=== PATIENT | male | born 1955 | race Caucasian/White ===

== ENCOUNTER → 2016-11-03 | Outpatient (CLI) | payer BC ==
[2016-11-03 08:15] LABS: Blood Urea Nitrogen 17 mg/dL (9-20); Non-African American GFR(MDRD) >60 (>60 ml/min/1.73 sqM)
--- NOTE | 2016-11-03 09:42 | CT ---
EXAMINATION TYPE: CT abdomen pelvis w con DATE OF EXAM: 11/03/2016 COMPARISON: NONE HISTORY: Prostate cancer with increased PSA CT DLP: 1159 mGycm, Automated Exposure Control for Dose Reduction was Utilized. CONTRAST: CT scan of the abdomen and pelvis is performed with oral and with IV Contrast, patient injected with 100 ml mL of Omnipaque 300. FINDINGS: LUNG BASES: No significant abnormality is appreciated. LIVER/GB: No significant abnormality is appreciated. PANCREAS: No significant abnormality is seen. SPLEEN: No significant abnormality is seen. ADRENALS: No significant abnormality is seen. KIDNEYS: There are a few simple appearing cyst lower pole level right kidney. BOWEL: The oral contrast reaches level of the rectum. There is no suspicious small or large bowel dil atation. PROSTATE/SEMINAL VESICLES: Central zone calcifications are seen in normal size prostate gland. Scatte red pelvic phleboliths are present. No suspicious adjacent adenopathy is seen. LYMPH NODES: No greater than 1cm abdominal or pelvic lymph nodes are appreciated. OSSEOUS STRUCTURES: There is transitional-type vertebra at lumbosacral junction. OTHER: There is small fat-containing right inguinal hernia. There is mild to moderate mixed plaque in the aorta extending into pelvic branch vessels IMPRESSION: No worrisome mass or adenopathy is seen to suggest metastatic disease.
--- NOTE | 2016-11-03 11:28 | XR ---
EXAMINATION TYPE: XR chest 2V DATE OF EXAM: 11/03/2016 HISTORY: C61 prostate ca. REFERENCE: NONE. FINDINGS: There is a 5 mm nodule in the lateral aspect of the left midlung. Lungs otherwise clear. Pl eural spaces are clear. Heart size is normal. IMPRESSION: SOLITARY LEFT PULMONARY NODULE.
--- NOTE | 2016-11-03 14:17 | NM ---
EXAMINATION TYPE: NM bone scan whole body DATE OF EXAM: 11/03/2016 COMPARISON: NONE HISTORY: Prostate cancer. Delayed whole-body scanning was performed following the injection of 27.5 mCi Tc 99m MDP. Images acq uired 5 hours post injection. FINDINGS: No abnormal osseous uptake is seen. There is no scintigraphic evidence of metastases. IMPRESSION: NO SCINTIGRAPHIC EVIDENCE OF METASTASES AT THIS TIME.
== END | disposition home or self-care (01) ==
LOC: RADCTMAIN 07:37
PROVIDERS: ATTEND Urology
DX: C61 Malignant neoplasm of prostate (principal); R91.1 Solitary pulmonary nodule; R97.20 Elevated prostate specific antigen [PSA]
CPT/HCPCS: 82565; 84520; 71020; 74177; 36415; 78306; A9503; Q9967

== ENCOUNTER 2018-03-22 11:04 | Inpatient (IN) | payer BC ==
[2018-03-22] MEDS ORDERED: DILTIAZEM DRIP BOLUS FROM BAG 1 MG SOLN IV ONE (11:32)
--- NOTE | 2018-03-22 11:35 | ED ---
General Adult HPI - General Chief complaint: Recheck/Abnormal Lab/Rx Stated complaint: Abn EKG/AFIB Time Seen by Provider: 03/22/18 11:20 Source: patient, family, RN notes reviewed Mode of arrival: wheelchair Limitations: no limitations - History of Present Illness Initial comments: Patient is a pleasant 62-year-old male presenting to the emergency Department with concerns regarding arrhythmia. Patient did routine visit with his primary care physician today and was told his heart rate was too high. Call was received from Dr. Modi who had concerns for A. fib with a rate of 160. Patient does admit to feeling fatigued for the past week or 2. Patient has had some mild sharp left lateral chest discomfort over the past week or 2, minimal at this time. Patient denies any dyspnea. Patient does have occasional palpitations that is difficult for him to describe however he does not believe he has had any recently. Patient denies any history of atrial fibrillation. Patient does have history of prostate cancer and did finish radiation several months ago. Patient is currently on hormone therapy. - Related Data Home Medications Medication Instructions Recorded Confirmed Atorvastatin [Lipitor] 40 mg PO DAILY 03/22/18 03/22/18 Lisinopril [Zestril] 10 mg PO DAILY 03/22/18 03/22/18 Metoprolol Succinate [Toprol Xl] 50 mg PO DAILY 03/22/18 03/22/18 metFORMIN HCL [Glucophage] 500 mg PO BID 03/22/18 03/22/18 Allergies Allergy/AdvReac Type Severity Reaction Status Date / Time No Known Allergies Allergy Verified 03/22/18 11:56 Review of Systems ROS Statement: Those systems with pertinent positive or pertinent negative responses have been documented in the HPI. ROS Other: All systems not noted in ROS Statement are negative. Constitutional: Denies: fever Eyes: Denies: eye pain ENT: Denies: ear pain Respiratory: Denies: cough Cardiovascular: Reports: palpitations. Denies: chest pain Endocrine: Reports: fatigue Gastrointestinal: Denies: abdominal pain Genitourinary: Denies: dysuria Skin: Denies: rash Neurological: Denies: headache Past Medical History Past Medical History: Hypertension Additional Past Medical History / Comment(s): Prostate CA (in remission; last radiation in december.) History of Any Multi-Drug Resistant Organisms: None Reported Past Surgical History: Prostate Surgery Past Psychological History: No Psychological Hx Reported Smoking Status: Never smoker Past Alcohol Use History: None Reported Past Drug Use History: None Reported General Exam Limitations: no limitations General appearance: alert, in no apparent distress Head exam: Present: atraumatic Eye exam: Present: normal appearance, PERRL ENT exam: Present: mucous membranes dry Neck exam: Present: normal inspection Respiratory exam: Present: normal lung sounds bilaterally Cardiovascular Exam: Present: tachycardia, irregular rhythm Expanded Peripheral pulses: 2+: Radial (R), Radial (L), Dorsalis Pedis (R), Dorsalis Pedis (L) GI/Abdominal exam: Present: soft. Absent: tenderness Extremities exam: Present: normal inspection. Absent: pedal edema, calf tenderness Neurological exam: Present: alert Psychiatric exam: Present: normal affect, normal mood Skin exam: Present: normal color Course Vital Signs 03/22/18 03/22/18 03/22/18 11:12 11:29 12:30 Temperature 97.5 F L Pulse Rate 90 74 Respiratory 18 20 18 Rate Blood Pressure 143/101 132/84 O2 Sat by Pulse 98 94 L 96 Oximetry 03/22/18 03/22/18 03/22/18 12:34 13:00 13:30 Temperature Pulse Rate 73 83 80 Respiratory 16 20 19 Rate Blood Pressure 140/87 132/92 143/89 O2 Sat by Pulse 97 93 L 96 Oximetry 03/22/18 03/22/18 14:00 14:30 Temperature Pulse Rate 75 67 Respiratory 14 18 Rate Blood Pressure 141/102 126/83 O2 Sat by Pulse 97 99 Oximetry - Reevaluation(s) Reevaluation #1: 03/22/18 12:31 Patient reevaluated with conversion to sinus rhythm following Cardizem. EKG #2 at 1224 shows normal sinus rhythm 82. NV 1:30. QRS 76. QT 378. QTC 441. Normal axis. Right atrial enlargement. No acute ST change. EKG Findings - EKG Comments: EKG Findings:: A. fib with RVR, rate 180. QRS 80. QT to 52. QTC 439. Normal axis. Normal QRS. Nonspecific ST-T. Medical Decision Making - Medical Decision Making Patient reevaluated and is in sinus rhythm. Blood sugar remains high. Patient updated on results and plan. Case was discussed in detail with Dr. Kuhn, who will admit for Dr. Diaz. Consult placed for cardiology. - Lab Data Result diagrams: 03/22/18 11:45 03/22/18 11:45 Lab Results 03/22/18 03/22/18 03/22/18 Range/Units 11:45 11:45 11:45 WBC 5.5 (3.8-10.6) k/uL RBC 4.83 (4.30-5.90) m/uL Hgb 15.8 (13.0-17.5) gm/dL Hct 47.1 (39.0-53.0) % MCV 97.6 (80.0-100.0) fL MCH 32.7 (25.0-35.0) pg MCHC 33.5 (31.0-37.0) g/dL RDW 12.1 (11.5-15.5) % Plt Count 196 (150-450) k/uL Neutrophils % 74 % Lymphocytes % 16 % Monocytes % 7 % Eosinophils % 1 % Basophils % 0 % Neutrophils # 4.0 (1.3-7.7) k/uL Lymphocytes # 0.9 L (1.0-4.8) k/uL Monocytes # 0.4 (0-1.0) k/uL Eosinophils # 0.1 (0-0.7) k/uL Basophils # 0.0 (0-0.2) k/uL PT (9.0-12.0) sec INR (<1.2) APTT (22.0-30.0) sec Sodium 143 (137-145) mmol/L Potassium 4.3 (3.5-5.1) mmol/L Chloride 106 (98-107) mmol/L Carbon Dioxide 21 L (22-30) mmol/L Anion Gap 16 mmol/L BUN 22 H (9-20) mg/dL Creatinine 0.95 (0.66-1.25) mg/dL Est GFR (CKD-EPI)AfAm >90 (>60 ml/min/1.73 sqM) Est GFR (CKD-EPI)NonAf 85 (>60 ml/min/1.73 sqM) Glucose 413 H (74-99) mg/dL POC Glucose (mg/dL) (75-99) mg/dL POC Glu [employer] ID Calcium 9.9 (8.4-10.2) mg/dL Magnesium 1.9 (1.6-2.3) mg/dL Total Bilirubin 1.6 H (0.2-1.3) mg/dL AST 44 (17-59) U/L ALT 52 (21-72) U/L Alkaline Phosphatase 139 H (38-126) U/L Total Creatine Kinase 316 H (55-170) U/L CK-MB (CK-2) 1.3 (0.0-2.4) ng/mL CK-MB (CK-2) Rel Index 0.4 Troponin I <0.012 (0.000-0.034) ng/mL Total Protein 7.7 (6.3-8.2) g/dL Albumin 4.2 (3.5-5.0) g/dL TSH 0.508 (0.465-4.680) mIU/L Free T4 1.55 (0.78-2.19) ng/dL Free T3 pg/mL 2.9 (2.8-5.3) pg/ml 03/22/18 03/22/18 Range/Units 11:45 13:39 WBC (3.8-10.6) k/uL RBC (4.30-5.90) m/uL Hgb (13.0-17.5) gm/dL Hct (39.0-53.0) % MCV (80.0-100.0) fL MCH (25.0-35.0) pg MCHC (31.0-37.0) g/dL RDW (11.5-15.5) % Plt Count (150-450) k/uL Neutrophils % % Lymphocytes % % Monocytes % % Eosinophils % % Basophils % % Neutrophils # (1.3-7.7) k/uL Lymphocytes # (1.0-4.8) k/uL Monocytes # (0-1.0) k/uL Eosinophils # (0-0.7) k/uL Basophils # (0-0.2) k/uL PT 10.7 (9.0-12.0) sec INR 1.1 (<1.2) APTT 19.8 L (22.0-30.0) sec Sodium (137-145) mmol/L Potassium (3.5-5.1) mmol/L Chloride (98-107) mmol/L Carbon Dioxide (22-30) mmol/L Anion Gap mmol/L BUN (9-20) mg/dL Creatinine (0.66-1.25) mg/dL Est GFR (CKD-EPI)AfAm (>60 ml/min/1.73 sqM) Est GFR (CKD-EPI)NonAf (>60 ml/min/1.73 sqM) Glucose (74-99) mg/dL POC Glucose (mg/dL) 351 H (75-99) mg/dL POC Glu [employer] ID Sophia Epstein Calcium (8.4-10.2) mg/dL Magnesium (1.6-2.3) mg/dL Total Bilirubin (0.2-1.3) mg/dL AST (17-59) U/L ALT (21-72) U/L Alkaline Phosphatase (38-126) U/L Total Creatine Kinase (55-170) U/L CK-MB (CK-2) (0.0-2.4) ng/mL CK-MB (CK-2) Rel Index Troponin I (0.000-0.034) ng/mL Total Protein (6.3-8.2) g/dL Albumin (3.5-5.0) g/dL TSH (0.465-4.680) mIU/L Free T4 (0.78-2.19) ng/dL Free T3 pg/mL (2.8-5.3) pg/ml - Radiology Data Radiology results: image reviewed (Chest x-ray shows no acute process) Critical Care Time Critical Care Time: Yes Total Critical Care Time: 33 Disposition Clinical Impression: Atrial fibrillation with RVR, Hyperglycemia Disposition: ADMITTED IP TO THIS HOSP Is patient prescribed a controlled substance at d/c from ED?: No Referrals: Roxi Winston DO [Primary Care Provider] - 1-2 days Decision Time: 15:04
[2018-03-22] MEDS: DILTIAZEM 50 MG in SODIUM CHLORIDE 0.9% 40 ML IV SCH ×5 (11:59→20:35)
--- NOTE | 2018-03-22 12:47 | XR ---
EXAMINATION TYPE: XR chest 1V portable DATE OF EXAM: 03/22/2018 HISTORY: Shortness of breath. COMPARISON: 11/03/2016 TECHNIQUE: Single view of the chest is submitted. FINDINGS: Demonstrated are scattered senescent parenchymal change. There is no evidence for focal infiltrate. The heart is stable. Stable granuloma left midlung zone. Hilar and mediastinal structures are within normal limits. Degenerative changes are seen of the dorsal spine. IMPRESSION: 1. Chronic changes without evidence for acute pulmonary disease.
[2018-03-22 12:50] LABS: Basophils % (A) 0 %; Eosinophils # (A) 0.1 k/uL (0-0.7); Eosinophils % (A) 1 %; HCT 47.1 % (39.0-53.0); HGB 15.8 gm/dL (13.0-17.5); Lymphocytes # (A) 0.9 k/uL (1.0-4.8); Lymphocytes % (A) 16 %; MCH 32.7 pg (25.0-35.0); MCHC 33.5 g/dL (31.0-37.0); MCV 97.6 fL (80.0-100.0); Mean Platelet Volume 8.1; Monocytes # (A) 0.4 k/uL (0-1.0); Monocytes % (A) 7 %; Neutrophils % (A) 74 %; Platelet Count 196 k/uL (150-450); RBC 4.83 m/uL (4.30-5.90); RDW 12.1 % (11.5-15.5); WBC 5.5 k/uL (3.8-10.6)
[2018-03-22 13:00] LABS: INR 1.1 (<1.2); Prothrombin Time 10.7 sec (9.0-12.0)
[2018-03-22 13:01] LABS: ALT 52 U/L (21-72); AST 44 U/L (17-59); Albumin 4.2 g/dL (3.5-5.0); Alkaline Phosphatase 139 U/L (38-126); Anion Gap 16 mmol/L; Blood Urea Nitrogen 22 mg/dL (9-20); Calcium 9.9 mg/dL (8.4-10.2); Carbon Dioxide 21 mmol/L (22-30); Chloride 106 mmol/L (98-107); Glucose 413 mg/dL (74-99); Magnesium 1.9 mg/dL (1.6-2.3); Potassium 4.3 mmol/L (3.5-5.1); Sodium 143 mmol/L (137-145); Total Bilirubin 1.6 mg/dL (0.2-1.3); Total Protein 7.7 g/dL (6.3-8.2)
[2018-03-22 13:11] LABS: Creatine Kinase 316 U/L (55-170)
[2018-03-22 13:16] LABS: T4, Free (Free Thyroxine) 1.55 ng/dL (0.78-2.19)
[2018-03-22 13:25] LABS: Creatine Kinase MB 1.3 ng/mL (0.0-2.4); Troponin I <0.012 ng/mL (0.000-0.034)
[2018-03-22 13:40] LABS: Partial Thromboplastin Time 19.8 sec (22.0-30.0)
[2018-03-22] MEDS: INSULIN ASPART 100 UNIT/ML 1 ML 10 ML VIAL SQ SCH ×2 (13:40→21:58)
[2018-03-22 13:41] LABS: Glucose,Whole Blood 351 mg/dL (75-99)
[2018-03-22] MEDS ORDERED: ASPIRIN 81 MG PO STA (15:04)
[2018-03-22] MEDS ORDERED: NITROGLYCERIN SL TABS 0.4 MG TAB SUBLINGUAL PRN (15:04)
[2018-03-22] MEDS ORDERED: HEPARIN SODIUM,PORCINE 5,000 UNIT/ML 1 ML VIAL IV ONE (15:23)
[2018-03-22] MEDS ORDERED: HEPARIN SODIUM,PORCINE 5,000 UNIT/ML 1 ML VIAL IV PRN (15:23)
--- NOTE | 2018-03-22 15:30 | P.HPIM ---
History of Present Illness H&P Date: 03/22/18 Chief Complaint: Elevated heart rate This is a 62-year-old male, patient of Dr. Winston. He has a known past medical history of prostate cancer completed radiation treatment in December 2017. Also history of hypertension, hyperlipidemia and diabetes mellitus type 2. Patient's was sent to the hospital from Dr. Santamaria office due to abnormal EKG and elevated heart rate. There he was found to be in atrial fibrillation with rapid ventricular response. Patient admits to being fatigued over the last couple weeks. He denies any chest pain heart palpitations or shortness of breath. Denies any dizziness or lightheadedness. EKG on admission showed atrial flutter fibrillation with a heart rate of 180. He was given Cardizem in the ER and converted to normal sinus rhythm. Thyroid level is normal. Cardiology has been consulted and patient be admitted to cardiac floor. Patient also denies any fever or chills or sweats. Denies any nausea vomiting bowel movement changes or urinary symptoms. Review of Systems Please refer to HPI otherwise unremarkable Past Medical History Past Medical History: Hypertension Additional Past Medical History / Comment(s): Prostate CA (in remission; last radiation in december.) History of Any Multi-Drug Resistant Organisms: None Reported Past Surgical History: Prostate Surgery Past Psychological History: No Psychological Hx Reported Smoking Status: Never smoker Past Alcohol Use History: None Reported Past Drug Use History: None Reported Medications and Allergies Home Medications Medication Instructions Recorded Confirmed Type Atorvastatin [Lipitor] 40 mg PO DAILY 03/22/18 03/22/18 History Lisinopril [Zestril] 10 mg PO DAILY 03/22/18 03/22/18 History Metoprolol Succinate [Toprol Xl] 50 mg PO DAILY 03/22/18 03/22/18 History metFORMIN HCL [Glucophage] 500 mg PO BID 03/22/18 03/22/18 History Allergies Allergy/AdvReac Type Severity Reaction Status Date / Time No Known Allergies Allergy Verified 03/22/18 11:56 Physical Exam Vitals: Vital Signs Temp Pulse Resp BP Pulse Ox 03/22/18 14:30 67 18 126/83 99 03/22/18 14:00 75 14 141/102 97 03/22/18 13:30 80 19 143/89 96 03/22/18 13:00 83 20 132/92 93 L 03/22/18 12:34 73 16 140/87 97 03/22/18 12:30 74 18 132/84 96 03/22/18 11:29 20 94 L 03/22/18 11:12 97.5 F L 90 18 143/101 98 Intake and Output 03/22/18 03/22/18 03/22/18 06:59 14:59 22:59 Intake Total 6.333 Balance 6.333 Intake: Intake, IV Titration 6.333 Amount Diltiazem 50 mg In Sodium 6.333 Chloride 0.9% 40 ml @ 10 MG/HR 10 mls/hr IV .Q5H [facility] Rx#:[id number] Other: Weight 78.925 kg Head normocephalic Neck supple Lungs clear to auscultation bilaterally no wheezing or crackles Heart regular rate and rhythm S1-S2, no rub or gallop Abdomen is soft nontender nondistended positive bowel sounds no hepatosplenomegaly Extremities no edema Neuro alert and orientated to 3 Results CBC & Chem 7: 03/22/18 11:45 03/22/18 11:45 Labs: Abnormal Lab Results - Last 24 Hours (Table) 03/22/18 03/22/18 03/22/18 Range/Units 11:45 11:45 11:45 Lymphocytes # 0.9 L (1.0-4.8) k/uL APTT (22.0-30.0) sec Carbon Dioxide 21 L (22-30) mmol/L BUN 22 H (9-20) mg/dL Glucose 413 H (74-99) mg/dL POC Glucose (mg/dL) (75-99) mg/dL Total Bilirubin 1.6 H (0.2-1.3) mg/dL Alkaline Phosphatase 139 H (38-126) U/L Total Creatine Kinase 316 H (55-170) U/L 03/22/18 03/22/18 Range/Units 11:45 13:39 Lymphocytes # (1.0-4.8) k/uL APTT 19.8 L (22.0-30.0) sec Carbon Dioxide (22-30) mmol/L BUN (9-20) mg/dL Glucose (74-99) mg/dL POC Glucose (mg/dL) 351 H (75-99) mg/dL Total Bilirubin (0.2-1.3) mg/dL Alkaline Phosphatase (38-126) U/L Total Creatine Kinase (55-170) U/L Assessment and Plan Assessment: 1. New onset of atrial fibrillation with rapid ventricular response: Patient converted to normal sinus rhythm after Cardizem drip. We'll place patient on IV heparin. Cardiology has been consulted. Thyroid level normal. Check echo 2. Elevated total bilirubin 1. 6 repeat labs in a.m. 3. History of prostate cancer completed radiation treatment in December 2017 4. Essential hypertension: Resume lisinopril and metoprolol 5. Diabetes mellitus type 2 with uncontrolled blood sugars. Patient had a glucose in the 400s. Placed on sliding scale coverage also will resume metformin. Check A1c. Patient has been without his metformin for about 2 weeks. 6. Hyperlipidemia continue Lipitor GI prophylaxis Pepcid and DVT prophylaxis IV heparin Time with Patient: Greater than 30 (Greater than 60% of the total time spent in counseling and coordination of care.I performed an examination of the patient and discussed their management with the physician Tricot Knitter. I have reviewed the Physician Tricot Knitter's notes and agree with the documented findings and plan of care)
[2018-03-22] MEDS: HEPARIN SOD,PORK IN 0.45% NACL 25,000 UNIT in 0.45% NACL 1 500ML.BAG IV SCH (15:51)
[2018-03-22 18:04] LABS: Glucose,Whole Blood 227 mg/dL (75-99)
[2018-03-22] MEDS: metFORMIN 500 MG TAB PO SCH (18:09)
[2018-03-22 18:31] LABS: Creatine Kinase 263 U/L (55-170)
[2018-03-22 18:44] LABS: Creatine Kinase MB 1.1 ng/mL (0.0-2.4); Troponin I <0.012 ng/mL (0.000-0.034)
[2018-03-22 20:21] LABS: Hemoglobin A1C 11.6 % (4.0-6.0)
[2018-03-22 21:09] LABS: Glucose,Whole Blood 329 mg/dL (75-99)
[2018-03-22 23:16] LABS: Creatine Kinase 244 U/L (55-170)
[2018-03-22 23:30] LABS: Troponin I <0.012 ng/mL (0.000-0.034)
[2018-03-23] MEDS: DILTIAZEM 50 MG in SODIUM CHLORIDE 0.9% 40 ML IV SCH ×2 (04:47→08:38)
[2018-03-23 05:56] LABS: Glucose,Whole Blood 245 mg/dL (75-99)
[2018-03-23] MEDS: metFORMIN 500 MG TAB PO SCH ×2 (06:54→16:18)
[2018-03-23] MEDS: INSULIN ASPART 100 UNIT/ML 1 ML 10 ML VIAL SQ SCH ×4 (06:54→20:55)
[2018-03-23 07:28] LABS: Basophils % (A) 1 %; Eosinophils # (A) 0.1 k/uL (0-0.7); Eosinophils % (A) 2 %; HCT 46.5 % (39.0-53.0); HGB 14.6 gm/dL (13.0-17.5); Lymphocytes # (A) 1.1 k/uL (1.0-4.8); Lymphocytes % (A) 22 %; MCH 30.9 pg (25.0-35.0); MCHC 31.4 g/dL (31.0-37.0); MCV 98.3 fL (80.0-100.0); Mean Platelet Volume 7.5; Monocytes # (A) 0.2 k/uL (0-1.0); Monocytes % (A) 5 %; Neutrophils # (A) 3.4 k/uL (1.3-7.7); Neutrophils % (A) 69 %; Platelet Count 191 k/uL (150-450); RBC 4.73 m/uL (4.30-5.90); RDW 12.2 % (11.5-15.5); WBC 4.9 k/uL (3.8-10.6)
[2018-03-23 08:01] LABS: Cholesterol 200 mg/dL (<200); HDL Cholesterol 53 mg/dL (40-60); LDL Cholesterol,Calculated 123 mg/dL (0-99); Triglycerides 120 mg/dL (<150)
--- NOTE | 2018-03-23 08:37 | P.CRDCN ---
History of Present Illness Consult date: 03/23/18 Requesting physician: Zachariah Kuhn Consult reason: atrial fibrillation Chief complaint: Atrial fibrillation History of present illness: This is a pleasant 62-year-old gentleman who has a known history of hypertension, diabetes, hyperlipidemia, nonsmoker, prostate cancer for which she completed radiation therapy in December of this year. Patient states he was at his primary care doctor's office for routine visit, he was found to be in atrial fibrillation with a rapid ventricular response and was directed to come to the emergency room for further evaluation. According to the patient, over the past couple of weeks he states that he has been more tired than lately, he denies any overt palpitations, no dizziness, states that maybe he has been a little more short of breath than his usual. He denies any prior history of atrial fibrillation. EKG on arrival here showed atrial fibrillation with a rapid ventricular response and nonspecific ST-T wave changes. Subsequent EKG shows normal sinus rhythm with no acute changes. Chest x-ray shows chronic changes without any evidence of pulmonary disease. Blood pressure on arrival 143/101, heart rate in the 90s, 98% on room air. He is afebrile. Blood pressure this morning 158/88, heart rate in the 60s, 100% on room air. Laboratory data was reviewed, white blood cell count 4.9, hemoglobin 14.6, platelet count 191. Sodium 143, potassium 4.3, BUN 22 and creatinine 0.9. Magnesium level I.9, total bilirubin 1.6, AST 44, ALT 52, alk phosphatase 139 on arrival. Troponins have been negative 3. Cholesterol 200, LDL 123, HDL 53 and triglycerides 120. TSH level 0.5, free T4 1 0.5 and T3 2 0.9. This morning patient remains in normal sinus rhythm, he feels well, states that he's back to his normal self. He is currently on IV heparin. Patient was educated regarding the need for anticoagulation for stroke prevention. We will check into Xarelto or Eliquis's coverage. The patient's home medications included Toprol 50 mg daily, Glucophage 500 twice a day, lisinopril 10 mg daily and Lipitor 40 mg daily. Past Medical History Past Medical History: Cancer, Diabetes Mellitus, Hyperlipidemia, Hypertension Additional Past Medical History / Comment(s): Prostate CA (in remission; last radiation in december 2017.) hx ulcers, hx of kidney stones History of Any Multi-Drug Resistant Organisms: None Reported Past Surgical History: Prostate Surgery Additional Past Surgical History / Comment(s): lithotripsy, prostatectomy, egd Past Anesthesia/Blood Transfusion Reactions: No Reported Reaction Additional Past Anesthesia/Blood Transfusion Reaction / Comment(s): clausterphobia. past blood transfusion-no reaction to it. Smoking Status: Never smoker - Past Family History Mother Family Medical History: Diabetes Mellitus, Hypertension Father History Unknown: Yes Medications and Allergies Home Medications Medication Instructions Recorded Confirmed Type Atorvastatin [Lipitor] 40 mg PO DAILY 03/22/18 03/22/18 History Lisinopril [Zestril] 10 mg PO DAILY 03/22/18 03/22/18 History Metoprolol Succinate [Toprol Xl] 50 mg PO DAILY 03/22/18 03/22/18 History metFORMIN HCL [Glucophage] 500 mg PO BID 03/22/18 03/22/18 History Allergies Allergy/AdvReac Type Severity Reaction Status Date / Time No Known Allergies Allergy Verified 03/22/18 11:56 Physical Exam Vitals: Vital Signs Temp Pulse Pulse Resp BP BP Pulse Ox 03/23/18 04:00 97.4 F L 61 18 159/88 100 03/22/18 23:52 97 18 03/22/18 23:51 97.2 F L 97 18 135/80 95 03/22/18 20:00 97.6 F 91 18 96/65 95 03/22/18 16:00 98.0 F 20 129/87 98 03/22/18 15:30 74 16 134/91 100 03/22/18 14:30 67 18 126/83 99 03/22/18 14:00 75 14 141/102 97 03/22/18 13:30 80 19 143/89 96 03/22/18 13:00 83 20 132/92 93 L 03/22/18 12:34 73 16 140/87 97 03/22/18 12:30 74 18 132/84 96 03/22/18 11:29 20 94 L 03/22/18 11:12 97.5 F L 90 18 143/101 98 Intake and Output 03/22/18 03/23/18 03/23/18 22:59 06:59 14:59 Intake Total 47.167 236.823 Balance 47.167 236.823 Intake: IV 50 Diltiazem 50 mg In Sodium 50 Chloride 0.9% 40 ml @ 10 MG/HR 10 mls/hr IV .Q5H [facility] Rx#:[id number] Intake, IV Titration 47.167 186.823 Amount Diltiazem 50 mg In Sodium 31.667 Chloride 0.9% 40 ml @ 10 MG/HR 10 mls/hr IV .Q5H [facility] Rx#:[id number] Diltiazem 50 mg In Sodium 15.5 46.667 Chloride 0.9% 40 ml @ 10 MG/HR 10 mls/hr IV .Q5H [facility] Rx#:[id number] Heparin Sod,Pork in 0.45% 140.156 NaCl 25,000 unit In 0.45 % NaCl 1 500ml.bag @ 12 UNITS/KG/HR 18.94 mls/hr IV .Q24H [facility] Rx#: [id number] Other: Voiding Method Toilet Toilet # Voids 1 2 Weight 77.5 kg PHYSICAL EXAMINATION: GENERAL: 62-year-old gentleman in no acute distress at the time of my examination HEENT: Head is atraumatic, normocephalic. Pupils equal, round. Sclera anicteric. Conjunctiva are clear. Mucous membranes of the mouth are moist. Neck is supple. There is no elevated jugular venous pressure. No carotid bruit is heard. HEART EXAMINATION: Heart S1, S2 normal. No murmur or gallop heard. CHEST EXAMINATION: Lungs are clear to auscultation and precussion. No chest wall tenderness is noted on palpation or with deep breathing. ABDOMEN: Soft, nontender. Bowel sounds are heard. No organomegaly noted. EXTREMITIES: 2+ peripheral pulses with no evidence of peripheral edema and no calf tenderness noted. NEUROLOGIC patient is awake, alert and oriented 3 . Results 03/23/18 06:42 03/22/18 11:45 Cardiac Enzymes 03/22/18 03/22/18 03/22/18 Range/Units 11:45 11:45 17:44 AST 44 (17-59) U/L CK-MB (CK-2) 1.3 1.1 (0.0-2.4) ng/mL Troponin I <0.012 <0.012 (0.000-0.034) ng/mL 03/22/18 Range/Units 22:45 AST (17-59) U/L CK-MB (CK-2) 1.0 (0.0-2.4) ng/mL Troponin I <0.012 (0.000-0.034) ng/mL Coagulation 03/22/18 03/22/18 03/23/18 Range/Units 11:45 22:45 06:42 PT 10.7 (9.0-12.0) sec APTT 19.8 L 37.4 H 53.3 H (22.0-30.0) sec Lipids 03/23/18 Range/Units 06:42 Triglycerides 120 (<150) mg/dL Cholesterol 200 H (<200) mg/dL HDL Cholesterol 53 (40-60) mg/dL CBC 03/22/18 03/23/18 Range/Units 11:45 06:42 WBC 5.5 4.9 (3.8-10.6) k/uL RBC 4.83 4.73 (4.30-5.90) m/uL Hgb 15.8 14.6 (13.0-17.5) gm/dL Hct 47.1 46.5 (39.0-53.0) % Plt Count 196 191 (150-450) k/uL Comprehensive Metabolic Panel 03/22/18 Range/Units 11:45 Sodium 143 (137-145) mmol/L Potassium 4.3 (3.5-5.1) mmol/L Chloride 106 (98-107) mmol/L Carbon Dioxide 21 L (22-30) mmol/L BUN 22 H (9-20) mg/dL Creatinine 0.95 (0.66-1.25) mg/dL Glucose 413 H (74-99) mg/dL Calcium 9.9 (8.4-10.2) mg/dL AST 44 (17-59) U/L ALT 52 (21-72) U/L Alkaline Phosphatase 139 H (38-126) U/L Total Protein 7.7 (6.3-8.2) g/dL Albumin 4.2 (3.5-5.0) g/dL Current Medications Generic Name Dose Route Start Last Admin Trade Name Freq PRN Reason Stop Dose Admin Aspirin 325 mg 03/23/18 09:00 Aspirin PO DAILY [facility] Atorvastatin Calcium 40 mg 03/23/18 09:00 Lipitor PO DAILY [facility] Famotidine 20 mg 03/23/18 09:00 Pepcid PO DAILY [facility] Heparin Sodium (Porcine) 0 unit 03/22/18 15:23 Heparin IV PER PROTOCOL PRN Low PTT Protocol Heparin Sodium/Sodium Chloride 500 mls @ 18.94 mls/hr 03/22/18 15:30 23:15 25,000 unit/ Sodium Chloride IV 15 units/kg/hr .Q24H [facility] 23.67 mls/hr Titration Protocol 12 UNITS/KG/HR Diltiazem HCl 50 mg/ Sodium 50 mls @ 10 mls/hr 03/22/18 19:00 03/23/18 04:47 Chloride IV Not Given .Q5H [facility]IN 10 MG/HR Insulin Aspart 0 unit 03/22/18 17:30 03/23/18 06:54 Novolog SQ 3 unit ACHS YIN Administration Protocol Lisinopril 10 mg 03/23/18 09:00 Zestril PO DAILY [facility] Metformin HCl 500 mg 03/22/18 17:30 03/23/18 06:54 Glucophage PO 500 mg BID-W/MEALS YIN Administration Metoprolol Succinate 50 mg 03/23/18 09:00 Toprol Xl PO DAILY [facility] Nitroglycerin 0.4 mg 03/22/18 15:04 Nitrostat SUBLINGUAL Q5M PRN Chest Pain Intake and Output 03/22/18 03/23/18 03/23/18 22:59 06:59 14:59 Intake Total 47.167 236.823 Balance 47.167 236.823 Intake: IV 50 Diltiazem 50 mg In Sodium 50 Chloride 0.9% 40 ml @ 10 MG/HR 10 mls/hr IV .Q5H [facility] Rx#:[id number] Intake, IV Titration 47.167 186.823 Amount Diltiazem 50 mg In Sodium 31.667 Chloride 0.9% 40 ml @ 10 MG/HR 10 mls/hr IV .Q5H [facility] Rx#:[id number] Diltiazem 50 mg In Sodium 15.5 46.667 Chloride 0.9% 40 ml @ 10 MG/HR 10 mls/hr IV .Q5H [facility] Rx#:[id number] Heparin Sod,Pork in 0.45% 140.156 NaCl 25,000 unit In 0.45 % NaCl 1 500ml.bag @ 12 UNITS/KG/HR 18.94 mls/hr IV .Q24H [facility] Rx#: [id number] Other: Voiding Method Toilet Toilet # Voids 1 2 Weight 77.5 kg 03/23/18 06:42 03/22/18 11:45 EKG Interpretations (text) Initial EKG showed atrial fibrillation with rapid ventricular response, subsequent EKG shows normal sinus rhythm with no acute changes. Assessment and Plan Plan: Assessment and plan #1 atrial fibrillation with rapid ventricular response, paroxysmal, currently in normal sinus rhythm. TSH normal. #2 hypertension #3 diabetes #4 hyperlipidemia #5 history of prostate cancer for which patient recently completed radiation therapy in December of this year. Plan We will obtain an echocardiogram with Doppler study. Discontinue IV Cardizem and increase the dose of metoprolol. We will also look into anticoagulation orally and initiate that on the patient. At which time we will discontinue the IV heparin. Further recommendations to follow. DNP note has been reviewed, I agree with a documented findings and plan of care. Patient was seen and examined.
[2018-03-23] MEDS: ATORVASTATIN 40 MG TAB PO SCH (08:38)
[2018-03-23] MEDS: LISINOPRIL 10 MG TAB PO SCH (08:38)
[2018-03-23] MEDS: FAMOTIDINE 20 MG TAB PO SCH (08:38)
[2018-03-23] MEDS: METOPROLOL SUCCINATE (ER) 100 MG TAB.ER.24H PO SCH (08:45)
[2018-03-23] MEDS ORDERED: ASPIRIN 325 MG TAB PO SCH (09:00)
[2018-03-23] MEDS ORDERED: ASPIRIN 81 MG PO SCH (09:00)
[2018-03-23] MEDS ORDERED: METOPROLOL SUCCINATE (ER) 50 MG TAB.ER.24H PO SCH (09:00)
--- NOTE | 2018-03-23 09:35 | ECHOF ---
Referral Reason:a fib MEASUREMENTS -------- HEIGHT: 177.8 cm WEIGHT: 78.9 kg BP: 126/83 RVIDd: 2.6 cm (< 3.3) IVSd: 1.1 cm (0.6 - 1.1) LVIDd: 3.1 cm (3.9 - 5.3) LVPWd: 1.1 cm (0.6 - 1.1) IVSs: 1.4 cm LVIDs: 1.9 cm LVPWs: 1.4 cm LAESV Index (A-L): 17.49 ml/m Ao Diam: 2.7 cm (2.0 - 3.7) AV Cusp: 1.8 cm (1.5 - 2.6) LA Diam: 3.2 cm (2.7 - 3.8) EPSS: 1.4 cm MV E Rashaun: 0.67 m/s MV DecT: 260 ms MV A Rashaun: 1.00 m/s MV E/A Ratio: 0.68 RAP: 5.00 mmHg RVSP: 25.11 mmHg MV EF SLOPE: 32.46 mm/s (70 - 150) MV EXCURSION: 1.87 cm (> 18.000) FINDINGS -------- Sinus rhythm. This was a technically adequate study. The left ventricular size is normal. There is borderline concentric left ventricular hypertrophy. Overall left ventricular systolic function is normal with, an EF between 55 - 60 %. The right ventricle is normal in size and function. Normal LA size by volume 22+/-6 ml/m2. RA appears enlarged. Aortic valve is trileaflet and is mildly thickened. There is no evidence of aortic regurgitation. There is no evidence of aortic stenosis. The mitral valve leaflets are mildly thickened. There is trace to mild mitral regurgitation. Trace tricuspid regurgitation present. Right ventricular systolic pressure is normal at < 35 mmHg. There is no evidence of pulmonary hypertension. The pulmonic valve was not well visualized. The aortic root size is normal. IVC Not well visulized. There is no pericardial effusion. CONCLUSIONS -------- 1. Sinus rhythm. 2. This was a technically adequate study. 3. The left ventricular size is normal. 4. There is borderline concentric left ventricular hypertrophy. 5. Overall left ventricular systolic function is normal with, an EF between 55 - 60 %. 6. Normal LA size by volume 22+/-6 ml/m2. 7. RA appears enlarged. 8. Aortic valve is trileaflet and is mildly thickened. 9. The mitral valve leaflets are mildly thickened. 10. There is trace to mild mitral regurgitation. 11. Trace tricuspid regurgitation present. 12. Right ventricular systolic pressure is normal at < 35 mmHg. 13. There is no evidence of pulmonary hypertension. 14. The pulmonic valve was not well visualized. 15. The aortic root size is normal. 16. IVC Not well visulized. 17. There is no pericardial effusion. CAFE HELPER: Brendan Vale RDCS
[2018-03-23 11:29] LABS: Glucose,Whole Blood 307 mg/dL (75-99)
--- NOTE | 2018-03-23 11:35 | P.PN ---
Subjective Progress Note Date: 03/23/18 This is a 62-year-old male, patient of Dr. Winston. He has a known past medical history of prostate cancer completed radiation treatment in December 2017. Also history of hypertension, hyperlipidemia and diabetes mellitus type 2. Patient's was sent to the hospital from Dr. Santamaria office due to abnormal EKG and elevated heart rate. There he was found to be in atrial fibrillation with rapid ventricular response. Patient admits to being fatigued over the last couple weeks. He denies any chest pain heart palpitations or shortness of breath. Denies any dizziness or lightheadedness. EKG on admission showed atrial flutter fibrillation with a heart rate of 180. He was given Cardizem in the ER and converted to normal sinus rhythm. Thyroid level is normal. Cardiology has been consulted and patient be admitted to cardiac floor. Patient also denies any fever or chills or sweats. Denies any nausea vomiting bowel movement changes or urinary symptoms. On 03/23/2018 patient was seen and examined on the cardiology floor he is alert and oriented 3 in no apparent distress he is in normal sinus rhythm, his pulse is 61 he was evaluated by cardiology Cardizem drip was discontinued and dose of metoprolol succinate was increased to 100 mg daily patient is still on IV heparin at this time we are awaiting lead case manager input in regards to oral anticoagulation coverage by insurance. Clinically patient is feeling well he denies any fever or chills no headache or dizziness no chest pain no shortness of breath no cough no palpitation no nausea or vomiting no abdominal pain no diarrhea and no urinary symptoms Objective - Vital Signs Vital signs: Vital Signs Temp 97.8 F 03/23/18 08:00 Pulse 73 03/23/18 08:00 Resp 18 03/23/18 08:00 BP 152/74 03/23/18 08:00 Pulse Ox 96 03/23/18 08:00 Intake & Output 03/22/18 03/23/18 03/23/18 18:59 06:59 18:59 Intake Total 38.000 252.323 236 Balance 38.000 252.323 236 Weight 78.925 kg 77.5 kg Intake: IV 50 Diltiazem 50 mg In Sodium 50 Chloride 0.9% 40 ml @ 10 MG/HR 10 mls/hr IV .Q5H [facility] Rx#:[id number] Intake, IV Titration 38.000 202.323 Amount Diltiazem 50 mg In Sodium 38.000 Chloride 0.9% 40 ml @ 10 MG/HR 10 mls/hr IV .Q5H [facility] Rx#:[id number] Diltiazem 50 mg In Sodium 62.167 Chloride 0.9% 40 ml @ 10 MG/HR 10 mls/hr IV .Q5H [facility] Rx#:[id number] Heparin Sod,Pork in 0.45% 140.156 NaCl 25,000 unit In 0.45 % NaCl 1 500ml.bag @ 12 UNITS/KG/HR 18.94 mls/hr IV .Q24H [facility] Rx#: [id number] Oral 236 Other: Voiding Method Toilet # Voids 1 2 - Exam Head normocephalic and atraumatic Neck supple no JVD no goiter Lungs clear to auscultation bilaterally no wheezing or crackles Heart regular rate and rhythm S1-S2, no rub or gallop Abdomen is soft nontender nondistended positive bowel sounds no hepatosplenomegaly Extremities no edema no cyanosis or clubbing Neuro alert and orientated to 3 with no gross focal deficit - Labs CBC & Chem 7: 03/23/18 06:42 03/22/18 11:45 Labs: Abnormal Lab Results - Last 24 Hours (Table) 03/22/18 03/22/18 03/22/18 Range/Units 11:45 11:45 11:45 Lymphocytes # 0.9 L (1.0-4.8) k/uL APTT (22.0-30.0) sec Carbon Dioxide 21 L (22-30) mmol/L BUN 22 H (9-20) mg/dL Glucose 413 H (74-99) mg/dL POC Glucose (mg/dL) (75-99) mg/dL Hemoglobin A1c (4.0-6.0) % Total Bilirubin 1.6 H (0.2-1.3) mg/dL Alkaline Phosphatase 139 H (38-126) U/L Total Creatine Kinase 316 H (55-170) U/L Cholesterol (<200) mg/dL LDL Cholesterol, Calc (0-99) mg/dL 03/22/18 03/22/18 03/22/18 Range/Units 11:45 11:45 13:39 Lymphocytes # (1.0-4.8) k/uL APTT 19.8 L (22.0-30.0) sec Carbon Dioxide (22-30) mmol/L BUN (9-20) mg/dL Glucose (74-99) mg/dL POC Glucose (mg/dL) 351 H (75-99) mg/dL Hemoglobin A1c 11.6 H (4.0-6.0) % Total Bilirubin (0.2-1.3) mg/dL Alkaline Phosphatase (38-126) U/L Total Creatine Kinase (55-170) U/L Cholesterol (<200) mg/dL LDL Cholesterol, Calc (0-99) mg/dL 03/22/18 03/22/18 03/22/18 Range/Units 17:44 18:00 21:07 Lymphocytes # (1.0-4.8) k/uL APTT (22.0-30.0) sec Carbon Dioxide (22-30) mmol/L BUN (9-20) mg/dL Glucose (74-99) mg/dL POC Glucose (mg/dL) 227 H 329 H (75-99) mg/dL Hemoglobin A1c (4.0-6.0) % Total Bilirubin (0.2-1.3) mg/dL Alkaline Phosphatase (38-126) U/L Total Creatine Kinase 263 H (55-170) U/L Cholesterol (<200) mg/dL LDL Cholesterol, Calc (0-99) mg/dL 03/22/18 03/22/18 03/23/18 Range/Units 22:45 22:45 05:54 Lymphocytes # (1.0-4.8) k/uL APTT 37.4 H (22.0-30.0) sec Carbon Dioxide (22-30) mmol/L BUN (9-20) mg/dL Glucose (74-99) mg/dL POC Glucose (mg/dL) 245 H (75-99) mg/dL Hemoglobin A1c (4.0-6.0) % Total Bilirubin (0.2-1.3) mg/dL Alkaline Phosphatase (38-126) U/L Total Creatine Kinase 244 H (55-170) U/L Cholesterol (<200) mg/dL LDL Cholesterol, Calc (0-99) mg/dL 03/23/18 03/23/18 03/23/18 Range/Units 06:42 06:42 11:25 Lymphocytes # (1.0-4.8) k/uL APTT 53.3 H (22.0-30.0) sec Carbon Dioxide (22-30) mmol/L BUN (9-20) mg/dL Glucose (74-99) mg/dL POC Glucose (mg/dL) 307 H (75-99) mg/dL Hemoglobin A1c (4.0-6.0) % Total Bilirubin (0.2-1.3) mg/dL Alkaline Phosphatase (38-126) U/L Total Creatine Kinase (55-170) U/L Cholesterol 200 H (<200) mg/dL LDL Cholesterol, Calc 123 H (0-99) mg/dL Assessment and Plan Plan: 1. New onset of atrial fibrillation with rapid ventricular response: Patient converted to normal sinus rhythm after Cardizem drip. We'll place patient on IV heparin. Cardiology has been consulted. Thyroid level normal. echo done yesterday and reveals normal left ventricular systolic function with ejection fraction of 55-60% no significant valvular disease and no pulmonary hypertension Patient is off Cardizem drip at this time he is on oral metoprolol succinate 100 mg daily he is in normal sinus rhythm he remains on IV heparin awaiting input from lead case manager regarding coverage for oral anticoagulation 2. Elevated total bilirubin 1. 6 repeat labs in a.m. 3. History of prostate cancer completed radiation treatment in December 2017 4. Essential hypertension: Resume lisinopril and metoprolol 5. Diabetes mellitus type 2 with uncontrolled blood sugars. Patient had a glucose in the 400s. Placed on sliding scale coverage also will resume metformin. Check A1c. Patient has been without his metformin for about 2 weeks. 6. Hyperlipidemia continue Lipitor GI prophylaxis Pepcid and DVT prophylaxis IV heparin At this time will monitor patient off the Cardizem drip on oral metoprolol Will await lead case manager input in regard to oral anticoagulation Possible discharge in the next 24 hours
[2018-03-23] MEDS: HEPARIN SOD,PORK IN 0.45% NACL 25,000 UNIT in 0.45% NACL 1 500ML.BAG IV SCH (11:38)
[2018-03-23 15:26] VITALS: BMI 24.5
[2018-03-23] MEDS: APIXABAN 5 MG TAB PO SCH ×2 (16:13→20:55)
[2018-03-23 16:15] VITALS: RESP 18
[2018-03-23 16:21] LABS: Glucose,Whole Blood 275 mg/dL (75-99)
[2018-03-23 20:52] LABS: Glucose,Whole Blood 232 mg/dL (75-99)
[2018-03-24 06:23] LABS: Glucose,Whole Blood 252 mg/dL (75-99)
[2018-03-24] MEDS: metFORMIN 500 MG TAB PO SCH (06:31)
[2018-03-24] MEDS: INSULIN ASPART 100 UNIT/ML 1 ML 10 ML VIAL SQ SCH ×2 (06:31→11:07)
[2018-03-24 06:48] LABS: Basophils % (A) 1 %; Eosinophils # (A) 0.1 k/uL (0-0.7); Eosinophils % (A) 3 %; HGB 13.5 gm/dL (13.0-17.5); Lymphocytes # (A) 0.8 k/uL (1.0-4.8); Lymphocytes % (A) 17 %; MCH 31.6 pg (25.0-35.0); MCHC 32.2 g/dL (31.0-37.0); MCV 98.2 fL (80.0-100.0); Mean Platelet Volume 7.5; Monocytes # (A) 0.3 k/uL (0-1.0); Monocytes % (A) 7 %; Neutrophils % (A) 70 %; Platelet Count 162 k/uL (150-450); RBC 4.28 m/uL (4.30-5.90); RDW 12.1 % (11.5-15.5); WBC 4.4 k/uL (3.8-10.6)
[2018-03-24] MEDS: APIXABAN 5 MG TAB PO SCH (08:21)
[2018-03-24] MEDS: ATORVASTATIN 40 MG TAB PO SCH (08:22)
[2018-03-24] MEDS: LISINOPRIL 10 MG TAB PO SCH (08:22)
[2018-03-24] MEDS: FAMOTIDINE 20 MG TAB PO SCH (08:22)
[2018-03-24] MEDS: METOPROLOL SUCCINATE (ER) 100 MG TAB.ER.24H PO SCH (08:22)
[2018-03-24 11:10] LABS: Glucose,Whole Blood 309 mg/dL (75-99)
[2018-03-24 11:11] VITALS: BP 98/59; PULSE 50; TEMP 97.7
--- NOTE | 2018-03-24 13:57 | P.PN ---
Subjective Mr. Velarde is a pleasant 62-year-old male past medical history significant for diabetes mellitus, dyslipidemia and hypertension. He also just completed radiation therapy for diagnosis of prostate cancer. Upon admission he was found to be in atrial fibrillation with rapid ventricular response. He has since converted to normal sinus mechanism. He has been anticoagulated with Eliquis coverage has been checked and is $21 per month. The patient and his states this is reasonable. Blood pressure 90/59 heart rate 50 afebrile maintaining oxygen saturation on room air. Laboratory data reviewed, hemoglobin 13.5, platelets 162. Echocardiogram obtained reveals preserved left ventricular systolic function with ejection fraction 55-60%. GENERAL: Well-appearing, well-nourished and in no acute distress. NECK: Supple without JVD or thyromegaly. LUNGS: Breath sounds clear to auscultation bilaterally. Respiration equal and unlabored. No wheezes, rales or rhonchi. HEART: Regular rate and rhythm without murmurs, rubs or gallops. S1 and S2 heard. EXTREMITIES: Normal range of motion, no edema. No clubbing or cyanosis. Peripheral pulses intact. ASSESSMENT Paroxysmal atrial fibrillation, new onset. Has been initiated on long-term anticoagulation Hypertension Dyslipidemia Diabetes mellitus History of prostate cancer with recent radiation completed course in December PLAN Continue current medical regimen. Stable from a cardiac perspective. Follow-up with Dr. Atkinson upon discharge. Nurse Practitioner note has been reviewed, I agree with a documented findings and plan of care. Patient was seen and examined. Objective - Vital Signs Vital signs: Vital Signs Temp 97.7 F 03/24/18 11:10 Pulse 50 L 03/24/18 11:10 Resp 18 03/24/18 11:10 BP 98/59 03/24/18 11:10 Pulse Ox 94 L 03/24/18 11:10 Intake & Output 03/23/18 03/24/18 03/24/18 18:59 06:59 18:59 Intake Total 1001.113 Balance 1001.113 Weight 77.5 kg 78.7 kg Intake: Intake, IV Titration 293.113 Amount Heparin Sod,Pork in 0.45% 293.113 NaCl 25,000 unit In 0.45 % NaCl 1 500ml.bag @ 12 UNITS/KG/HR 18.94 mls/hr IV .Q24H [facility] Rx#: [id number] Oral 708 Other: Voiding Method Toilet # Voids 1 - Labs CBC & Chem 7: 03/24/18 06:23 03/22/18 11:45 Labs: Abnormal Lab Results - Last 24 Hours (Table) 03/23/18 03/23/18 03/24/18 Range/Units 16:19 20:48 05:55 RBC (4.30-5.90) m/uL Lymphocytes # (1.0-4.8) k/uL POC Glucose (mg/dL) 275 H 232 H 252 H (75-99) mg/dL 03/24/18 03/24/18 Range/Units 06:23 11:06 RBC 4.28 L (4.30-5.90) m/uL Lymphocytes # 0.8 L (1.0-4.8) k/uL POC Glucose (mg/dL) 309 H (75-99) mg/dL
--- NOTE | 2018-03-24 14:46 | P.DS ---
Providers Date of admission: 03/22/18 15:04 Expected date of discharge: 03/24/18 Attending physician: Zachariah Kuhn Consults: 03/22/18 15:04 Consult Physician Urgent Consulting Provider: Chris Post Consult Reason/Comments: a fib Do you want consulting provider notified?: Yes Primary care physician: Rox[facility] Course: Diagnosis on discharge: 1. New onset of atrial fibrillation with rapid ventricular response: Patient converted to normal sinus rhythm after Cardizem drip. We'll place patient on IV heparin. Cardiology has been consulted. Thyroid level normal. echo done yesterday and reveals normal left ventricular systolic function with ejection fraction of 55-60% no significant valvular disease and no pulmonary hypertension Patient is off Cardizem drip at this time he is on oral metoprolol succinate 100 mg daily he is in normal sinus rhythm he remains on IV heparin awaiting input from shoe parts caser regarding coverage for oral anticoagulation 2. Elevated total bilirubin 1. 6 repeat labs in a.m. 3. History of prostate cancer completed radiation treatment in December 2017 4. Essential hypertension: Resume lisinopril and metoprolol 5. Diabetes mellitus type 2 with uncontrolled blood sugars. Patient had a glucose in the 400s. Placed on sliding scale coverage also will resume metformin. Check A1c. Patient has been without his metformin for about 2 weeks. 6. Hyperlipidemia continue Lipitor Hospital course: This is a 62-year-old male, patient of Dr. Winston. He has a known past medical history of prostate cancer completed radiation treatment in December 2017. Also history of hypertension, hyperlipidemia and diabetes mellitus type 2. Patient's was sent to the hospital from Dr. Santamaria office due to abnormal EKG and elevated heart rate. There he was found to be in atrial fibrillation with rapid ventricular response. Patient admits to being fatigued over the last couple weeks. He denies any chest pain heart palpitations or shortness of breath. Denies any dizziness or lightheadedness. EKG on admission showed atrial flutter fibrillation with a heart rate of 180. He was given Cardizem in the ER and converted to normal sinus rhythm. Thyroid level is normal. Cardiology has been consulted and patient be admitted to cardiac floor. Patient also denies any fever or chills or sweats. Denies any nausea vomiting bowel movement changes or urinary symptoms. On 03/23/2018 patient was seen and examined on the cardiology floor he is alert and oriented 3 in no apparent distress he is in normal sinus rhythm, his pulse is 61 he was evaluated by cardiology Cardizem drip was discontinued and dose of metoprolol succinate was increased to 100 mg daily patient is still on IV heparin at this time we are awaiting [employer] caser input in regards to oral anticoagulation coverage by insurance. Clinically patient is feeling well he denies any fever or chills no headache or dizziness no chest pain no shortness of breath no cough no palpitation no nausea or vomiting no abdominal pain no diarrhea and no urinary symptoms On 03/24/2018 patient is alert and oriented 3 in no apparent distress he remains in normal sinus rhythm no new episodes of atrial fibrillation he is maintained on metoprolol succinate 100 mg by mouth daily increased during this admission from 50 mg daily to 100 mg daily lisinopril dose was decreased from 10 mg daily to 5 mg daily also Eliquis 5 mg by mouth twice daily was added by cardiology and sublingual nitroglycerin was added when necessary. Patient was reevaluated egg and by cardiology today and was cleared for discharge he will follow with his primary care physician within one week he will also follow with cardiology within 1 week Plan - Discharge Summary Discharge Rx Participant: Yes New Discharge Prescriptions: New Apixaban [Eliquis] 5 mg PO BID tab Lisinopril [Zestril] 5 mg PO DAILY tab Metoprolol Succinate (ER) [Toprol XL] 100 mg PO DAILY tab.er.24h Nitroglycerin Sl Tabs [Nitrostat] 0.4 mg SUBLINGUAL Q5M PRN tab PRN Reason: Chest Pain Continue metFORMIN HCL [Glucophage] 500 mg PO BID Atorvastatin [Lipitor] 40 mg PO DAILY Discontinued Lisinopril [Zestril] 10 mg PO DAILY Metoprolol Succinate [Toprol Xl] 50 mg PO DAILY Discharge Medication List Atorvastatin [Lipitor] 40 mg PO DAILY 03/22/18 [History] metFORMIN HCL [Glucophage] 500 mg PO BID 03/22/18 [History] Apixaban [Eliquis] 5 mg PO BID tab 03/24/18 [Rx] Lisinopril [Zestril] 5 mg PO DAILY tab 03/24/18 [Rx] Metoprolol Succinate (ER) [Toprol XL] 100 mg PO DAILY tab.er.24h 03/24/18 [Rx] Nitroglycerin Sl Tabs [Nitrostat] 0.4 mg SUBLINGUAL Q5M PRN tab 03/24/18 [Rx] Follow up Appointment(s)/Referral(s): Brenda Atkinson MD [STAFF PHYSICIAN] - 2 Weeks Roxi Winston DO [Primary Care Provider] - 1-2 days
[2018-03-25] MEDS ORDERED: LISINOPRIL 5 MG TAB PO SCH (09:00)
== END 2018-03-24 15:24 | disposition home or self-care (01) | DRG 310 ==
LOC: EC 11:04 → 3SCARD 15:04
PROVIDERS: ADMIT Internal Medicine; ATTEND Internal Medicine
DX: I48.0 Paroxysmal atrial fibrillation (principal); E78.5 Hyperlipidemia, unspecified; I10 Essential (primary) hypertension; E11.65 Type 2 diabetes mellitus with hyperglycemia; I48.92 Unspecified atrial flutter; Z79.01 Long term (current) use of anticoagulants; Z79.890 Hormone replacement therapy; Z79.899 Other long term (current) drug therapy; Z82.49 Family history of ischemic heart disease and other diseases of the circulatory system; Z83.3 Family history of diabetes mellitus; Z85.46 Personal history of malignant neoplasm of prostate; Z87.442 Personal history of urinary calculi; Z92.3 Personal history of irradiation
CPT/HCPCS: 36415; 71045; 80053; 80061; 82550; 82553; 83036; 83735; 84439; 84443; 84481; 84484; 85025; 85610; 85730; 93005; 93306; 96365; 96366; 96367; 96376; 99291

== ENCOUNTER 2018-05-01 10:49 | Inpatient (IN) | payer BC ==
[~2018-05-01 10:49] MED LIST: ALPRAZolam 0.25 MG TAB PO PRN; ALPRAZolam 0.5 MG TAB PO PRN; ASPIRIN 325 MG TAB PO STA; ATORVASTATIN 80 MG TAB PO STA; NITROGLYCERIN SL TABS 0.4 MG TAB SUBLINGUAL PRN; SODIUM CHLORIDE 0.9% 1,000 ML in EMPTY BAG 1 BAG IV ONE
[2018-05-01] MEDS ORDERED: SODIUM CHLORIDE 0.9% 1,000 ML IV ONE (11:29)
[2018-05-01] MEDS ORDERED: fentaNYL (PF) 50 MCG/ML 2 ML AMP IVP ONE (12:21)
[2018-05-01] MEDS ORDERED: LIDOCAINE 1% INJ 10MG/ML (20 ML MDV) SQ ONE (12:22)
[2018-05-01] MEDS ORDERED: MIDAZOLAM 2 MG/2 ML VIAL IVP ONE (12:23)
[2018-05-01] MEDS ORDERED: VERAPAMIL SYRINGE (5 MG/10 ML) INTRAARTER ONE (12:26)
[2018-05-01 12:33] LABS: Glucose,Whole Blood 160 mg/dL (75-99)
[2018-05-01] MEDS ORDERED: NITROGLYCERIN 1000MCG/10ML SYRINGE INTRACORON ONE (12:34)
[2018-05-01] MEDS ORDERED: HEPARIN SODIUM 1,000 UN/ML (10ML VL) IV ONE (12:36)
[2018-05-01] MEDS ORDERED: IOPAMIDOL-370 125ML BTL INJ ONE (12:41)
[2018-05-01] MEDS ORDERED: RX INFO: IV CONTRAST WAS GIVEN 1 EACH MISC MISCELLANE PRN (12:59)
[2018-05-01] MEDS ORDERED: SODIUM CHLORIDE 0.9% 1,000 ML IV SCH (13:00)
--- NOTE | 2018-05-01 13:28 | CC ---
CARDIAC CATHETERIZATION REPORT Mr. Nicholas 62-year-old male with known history of diabetes, hypertension, hyperlipidemia, who was found to have an episode of paroxysmal atrial fibrillation. Subsequently underwent a myocardial perfusion imaging where he had apical reversible defect as well as short bursts of non-sustained ventricular tachycardia. In view of that, recommendation was made regarding cardiac catheterization. The procedure as well as the risks and the complications were discussed with the patient who is in full understanding and agreement. PROCEDURE: Patient was brought to the laboratory manager in a fasting semi-sedated state after receiving fentanyl and Benadryl and achieving moderate conscious sedated state. Using Xylocaine anesthesia in the Seldinger technique, a 6-[place] sheath was introduced in the right radial artery. Selective right and left angiography performed using 5-[place]ankan 3.5 bend right and left Idania catheters. Multiple views of the coronary artery including hemiaxial views were obtained. Following that, a 5-[place] tight pigtail catheter was introduced in the left ventricle and a 30-degree ALONZO view of the left ventricle was obtained. Following that, catheter and sheaths were removed. Hemostasis was obtained with deployment of a TR band. There was no immediate complication. Patient is returned to his room in stable condition. Of note, the patient received 4500 units of intravenous heparin. FINDINGS: FLUOROSCOPY: There was significant calcification involving all the coronary arteries. LEFT MAIN: This is a large-sized vessel bifurcating in the left circumflex and left anterior descending artery. Left main coronary artery has a 60% to 70% plaque in the mid segment prior to the bifurcation. LEFT ANTERIOR DESCENDING ARTERY: This is a large-sized vessel reaching toward the apex with a wraparound apex segment giving rise to 2 diagonal branches. In the proximal segment, there is an eccentric 80% stenosis. There is another plaque of 80% to 90% stenosis at the takeoff of the second diagonal branch involving the diagonal branch. The rest of the vessel has intimal disease without any evidence of high-grade stenosis. LCX: This is a large nondominant vessel giving rise to 3 obtuse marginal branches. The first obtuse marginal branch is the smallest and has a 80% to 90% stenosis proximally. The second obtuse marginal branch is large in caliber and has a 70% stenosis proximally. The rest of the vessel has intimal disease without any evidence of high-grade stenosis. RIGHT CORONARY ARTERY: This is a large dominant vessel bifurcating distally PDA and posterolateral segment and branches heavily calcified throughout the course of the vessel. The right coronary artery in the mid segment has a 20% to 30% plaque. There is another plaque of 40% at the takeoff of the obtuse marginal branch. The rest of the vessel has intimal disease without any evidence of high-grade stenosis. LEFT VENTRICULOGRAM: Left ventriculogram is performed 30-degree ALONZO view and revealed normal left ventricular size and systolic function. Ejection fraction 60%. There was no significant mitral regurgitation. HEMODYNAMICS: There was no gradient across the aortic valve. The left ventricular end- diastolic pressure was 10 to 12 mmHg. CONCLUSION: 1. Calcified coronary arteries. 2. Significant mid left main disease. 3. Significant obstructive disease involving the left anterior descending artery and the left circumflex. 4. Moderate disease in the right coronary artery. 5. Normal left ventricular size and systolic function. RECOMMENDATION: In view of finding in the anatomy as well as the history of diabetes mellitus, I recommend proceeding with evaluation for coronary artery bypass grafting. The finding and recommendations were discussed with the patient and his family who are in full understanding and agreement. Duration of procedure is 20 minutes. MMODL / IJN: [id number] / OLMAN
[2018-05-01] MEDS ORDERED: MD COMMUNICATION TO PHARMACY 1 EACH MISC PO ONE ×2 (16:14)
[2018-05-01 16:55] LABS: Glucose,Whole Blood 214 mg/dL (75-99)
--- NOTE | 2018-05-01 17:12 | P.CNPUL ---
History of Present Illness Consult date: 05/01/18 Chief complaint: Coronary artery disease, preoperative pulmonary evaluation History of present illness: This is a 62-year-old male patient, poorly controlled diabetic, hypertension, hyperlipidemia and known history of proximal atrial fibrillation wasn't experiencing exertional dyspnea. The patient underwent a cardiac stress test that showed apical reversible defect as well as bursts of nonsustained ventricular tachycardia. Based on this, the patient underwent a cardiac catheterization through the right radial approach and the patient was found to have a 6070% plaque in the mid segment of the left main prior to its bifurcation. At this point in time the patient is being considered for coronary artery bypass surgery. The pulmonary consultation was requested in this regard. The patient is doing well. No specific complaints. History of any chest pain. He has no history of asthma emphysema. No cough sputum production chest tightness or wheezing at this point. No recurrent pneumonias. No recurrent bronchitis. No aspiration. Most of CVA. Mental status is well preserved and it's appropriate. Most of dementia. He suffers from prostate cancer that was initiated. With a prostatectomy at [facility] and subsequently the patient received radiation therapy here at [facility]. He has completed his radiation therapy. His overall performance and functional status is well preserved. He has been in sinus rhythm for now. Is on long-term anticoagulation. His rate is under good control. His father of complications of cardiac disease in the mid 60s. Review of Systems Constitutional: Denies chills, Denies fever Eyes: denies blurred vision, denies bulging eye, denies decreased vision Ears: deny: decreased hearing, ear discharge, earache, tinnitus Ears, nose, mouth and throat: Denies headache, Denies sore throat Cardiovascular: Reports decreased exercise tolerance, Reports dyspnea on exertion, Reports rapid heart beat Respiratory: Reports dyspnea Gastrointestinal: Denies abdominal pain, Denies diarrhea, Denies nausea, Denies vomiting Genitourinary: Reports urinary frequency, Reports urinary hesitancy Musculoskeletal: Denies myalgias Musculoskeletal: absent: ankle pain, ankle stiffness, ankle swelling Integumentary: Reports as per HPI Neurological: Reports as per HPI Psychiatric: Reports as per HPI Endocrine: Reports as per HPI Hematologic/Lymphatic: Reports as per HPI Allergic/Immunologic: Reports as per HPI Past Medical History Past Medical History: Atrial Flutter, Cancer, Diabetes Mellitus, Hyperlipidemia , Hypertension Additional Past Medical History / Comment(s): Prostate CA (in remission; last radiation in december 2017.) hx ulcers, hx of kidney stones History of Any Multi-Drug Resistant Organisms: None Reported Past Surgical History: Prostate Surgery Additional Past Surgical History / Comment(s): lithotripsy, prostatectomy, egd Past Anesthesia/Blood Transfusion Reactions: No Reported Reaction Additional Past Anesthesia/Blood Transfusion Reaction / Comment(s): clausterphobia. past blood transfusion-no reaction to it. Past Psychological History: Anxiety Additional Psychological History / Comment(s): STATES NO MEDICATION Smoking Status: Never smoker Past Alcohol Use History: None Reported Past Drug Use History: None Reported - Past Family History Mother Family Medical History: Diabetes Mellitus, Hypertension Father History Unknown: Yes Medications and Allergies Home Medications Medication Instructions Recorded Confirmed Type Atorvastatin [Lipitor] 40 mg PO DAILY 03/22/18 05/01/18 History metFORMIN HCL [Glucophage] 500 mg PO BID 03/22/18 05/01/18 History Apixaban [Eliquis] 5 mg PO BID tab 03/24/18 05/01/18 Rx Lisinopril [Zestril] 5 mg PO DAILY tab 03/24/18 05/01/18 Rx Metoprolol Succinate (ER) [Toprol 100 mg PO DAILY tab.er.24h 03/24/18 05/01/18 Rx XL] Nitroglycerin Sl Tabs [Nitrostat] 0.4 mg SUBLINGUAL Q5M PRN tab 03/24/18 Rx Allergies Allergy/AdvReac Type Severity Reaction Status Date / Time No Known Allergies Allergy Verified 04/26/18 10:55 Physical Exam Vitals: Vital Signs Temp Pulse Pulse Pulse Resp BP BP 05/01/18 16:00 18 05/01/18 14:58 98.1 F 53 L 18 135/73 05/01/18 14:14 52 L 16 118/58 05/01/18 13:44 50 L 16 114/55 05/01/18 13:29 50 L 16 118/69 05/01/18 13:14 61 16 114/67 05/01/18 12:59 61 16 139/75 05/01/18 11:31 97.9 F 60 16 161/77 151/71 Pulse Ox 05/01/18 16:00 05/01/18 14:58 97 05/01/18 14:14 96 05/01/18 13:44 97 05/01/18 13:29 98 05/01/18 13:14 96 05/01/18 12:59 95 05/01/18 11:31 97 Intake and Output 05/01/18 05/01/18 05/01/18 06:59 14:59 22:59 Intake Total 750 Output Total 300 Balance 450 Intake: IV 150 Oral 600 Output: Urine 300 Other: Weight 80.1 kg The patient appeared well nourished and normally developed. Vital signs as documented. Head exam is unremarkable. No scleral icterus or corneal arcus noted. Neck is without jugular venous distension, thyromegaly, or carotid bruits. Carotid upstrokes are brisk bilaterally. Lungs are clear to auscultation and percussion. Cardiac exam reveals the PMI to be normally sized and situated. Rhythm is regular. First and second heart sounds normal. No murmurs, rubs or gallops. Abdominal exam reveals normal bowel sounds, no masses , no organomegaly and no aortic enlargement. Extremities are nonedematous and both femoral and pedal pulses are normal. My normal skin neurologically the patient is awake and alert and there is no focal neurological deficit at this point in time. Results - Laboratory Findings Abnormal lab findings: Abnormal Labs 05/01/18 05/01/18 11:16 16:52 POC Glucose (mg/dL) 160 H 214 H Assessment and Plan Plan: Assessment 1 coronary artery disease with a 70% left main lesion, positive cardiac stress test and nonsustained V. tach. The patient is being considered for cardiac revascularization surgery and the patient is undergoing a CT surgery evaluation by Dr. Zhu/PAVEL 2 DIABETES MELLITUS WITH AN ELEVATED HBA1C INDICATING POOR BLOOD SUGAR CONTROL 3 HISTORY OF PROSTATE CANCER POST-PROSTATECTOMY AND POST RADIATION THERAPY THAT HE COMPLETED IN DECEMBER 2017 4 HISTORY OF NEPHROLITHIASIS 5 HYPERTENSION 6 HYPERLIPIDEMIA 7 PAROXYSMAL ATRIAL FIBRILLATION PLAN A BASELINE CHEST X-RAY THAT WAS DONE ON 03/22/2080 SHOWED NO ACUTE ABNORMALITIES. THERE IS SOME SCATTERED SENESCENT PARENCHYMAL DISEASE AND DEGENERATIVE CHANGES INVOLVING THE SPINE OTHERWISE THE HEART AND THE MEDIASTINUM AND IN THE LUNG FINDINGS ARE ALL STABLE AND THERE WAS A STABLE GRANULOMA IN THE LEFT MIDLUNG ZONE. THE PATIENT WILL HAVE A BEDSIDE SPIROMETRY. WE'LL PROVIDE THE PATIENT INCENTIVE SPIROMETER. HIS OVERALL PERFORMANCE AND FUNCTIONAL STATUS IS GOOD. I DO NOT SEE ANY PULMONARY CONTRAINDICATION FOR THIS PATIENT TO UNDERGO HIS SURGERY. WE'LL BE GLAD TO BE INVOLVED IN HIS CARE POSTOP MANAGED THE VENTILATOR AND ATTEND TO ANY PULMONARY COMPLICATIONS OR NEEDS.
--- NOTE | 2018-05-01 17:26 | P.GSCN ---
<Aggie Cheng - Last Filed: 05/01/18 17:24> History of Present Illness Consult date: 05/01/18 Reason for Consult: multivessel coronary artery disease, surgical recommendations Requesting physician: Brenda Atkinson History of present illness: This is a 62-year-old gentleman who follows with Dr. Roxi Winston on an outpatient basis. He has a previous medical history of paroxysmal atrial fibrillation on Eliquis for anticoagulation, hypertension, hyperlipidemia, new diagnosis of diabetes mellitus with hemoglobin A1c 11.6% on metformin, and prostate cancer with prostatectomy and radiation treatment with last dose of radiation in December 2017. He was admitted at [facility] at the end of February 2018 for rapid A. fib which wasnoticed at his primary care physician visit. He was treated with Cardizem and started on Eliquis for anticoagulation. Upon further questioning his only real symptoms have been progressive shortness of breath and fatigue/tiredness. He denied chest pain, palpitations, dizziness, syncope, stroke-like symptoms, or intermittent claudication. He had a transthoracic echocardiogram at that time which demonstrated normal LV function with EF 55-60%, trace mitral regurgitation and trace tricuspid regurgitation. He did follow-up upon discharge with cardiology and had a stress test which was abnormal and apparently he had some nonsustained V. tach during that test. He was recommended to undergo heart catheterization which was completed today through a right radial approach and which demonstrated 60-70% left main stenosis, proximal LAD stenosis 80%, OM1 stenosis 80-90%, OM 2 stenosis 70%, RCA stenosis of 40%, LV gram was completed with EF 60%.Dr. Zhu from cardiothoracic surgery was consulted regarding surgical revascularization recommendations. Review of Systems Review of systems was completed and was negative except as noted. - Constitutional Reports fatigue - Cardiovascular Reports decreased exercise tolerance - Respiratory Reports dyspnea Past Medical History Past Medical History: Atrial Flutter, Coronary Artery Disease (CAD), Cancer, Diabetes Mellitus, Hyperlipidemia, Hypertension Additional Past Medical History / Comment(s): Prostate CA (in remission; last radiation in december 2017.) hx ulcers, hx of kidney stones History of Any Multi-Drug Resistant Organisms: None Reported Past Surgical History: Prostate Surgery Additional Past Surgical History / Comment(s): lithotripsy, prostatectomy, egd Past Anesthesia/Blood Transfusion Reactions: No Reported Reaction Additional Past Anesthesia/Blood Transfusion Reaction / Comm: clausterphobia. past blood transfusion-no reaction to it. Past Psychological History: Anxiety Additional Psychological History / Comment(s): STATES NO MEDICATION Smoking Status: Never smoker Past Alcohol Use History: None Reported Past Drug Use History: None Reported - Past Family History Mother Family Medical History: Diabetes Mellitus, Hypertension Father Family Medical History: Coronary Artery Disease (CAD) Medications and Allergies Home Medications Medication Instructions Recorded Confirmed Type Atorvastatin [Lipitor] 40 mg PO DAILY 03/22/18 05/01/18 History metFORMIN HCL [Glucophage] 500 mg PO BID 03/22/18 05/01/18 History Apixaban [Eliquis] 5 mg PO BID tab 03/24/18 05/01/18 Rx Lisinopril [Zestril] 5 mg PO DAILY tab 03/24/18 05/01/18 Rx Metoprolol Succinate (ER) [Toprol 100 mg PO DAILY tab.er.24h 03/24/18 05/01/18 Rx XL] Nitroglycerin Sl Tabs [Nitrostat] 0.4 mg SUBLINGUAL Q5M PRN tab 03/24/18 Rx Allergies Allergy/AdvReac Type Severity Reaction Status Date / Time No Known Allergies Allergy Verified 04/26/18 10:55 Surgical - Exam Vital Signs Temp Pulse Resp BP Pulse Ox 97.9 F 60 16 161/77 97 05/01/18 11:31 05/01/18 11:31 05/01/18 11:31 05/01/18 11:31 05/01/18 11:31 - General well developed, well nourished, no distress, no pain - Eyes PERRL, normal ocular movement - ENT no hearing loss - Neck no masses, no bruits, trachea midline - Respiratory Lungs sounds clear bilaterally. Respirations even, nonlabored. Currently on room air with oxygen saturation 97%. No chest wall deformities. - Cardiovascular S1, S2 present. Regular rate and rhythm. Palpable peripheral pulses bilaterally. No edema present. No calf pain or tenderness noted. No varicosities noted to bilateral lower extremities. - Abdomen Abdomen: soft, non tender, bowel sounds - Genitourinary deferred - Rectum deferred - Integumentary Tband present to right wrist no rash, no growths, no abnormal pigmentation - Neurologic normal coordination, normal sensation - Psychiatric oriented to time, oriented to person, oriented to place, speech is normal, memory intact Results - Labs Abnormal Lab Results - Last 24 Hours (Table) 05/01/18 05/01/18 Range/Units 11:16 16:52 POC Glucose (mg/dL) 160 H 214 H (75-99) mg/dL - Imaging Additional studies: heart catheterization films reviewed with Dr. Zhu. Assessment and Plan (1) Hypertension Current Visit: Yes Status: Chronic Code(s): I10 - ESSENTIAL (PRIMARY) HYPERTENSION SNOMED Code(s): 37325766 (2) Hyperlipidemia Current Visit: Yes Status: Chronic Code(s): E78.5 - HYPERLIPIDEMIA, UNSPECIFIED SNOMED Code(s): 72738515 (3) Coronary artery disease Current Visit: Yes Status: Chronic Code(s): I25.10 - ATHSCL HEART DISEASE OF [place] CORONARY ARTERY W/O ANG PCTRS SNOMED Code(s): 14642194 (4) Left main coronary artery disease Current Visit: Yes Status: Chronic Code(s): I25.10 - ATHSCL HEART DISEASE OF [place] CORONARY ARTERY W/O ANG PCTRS SNOMED Code(s): 469400904 (5) Diabetes mellitus Current Visit: Yes Status: Chronic Code(s): E11.9 - TYPE 2 DIABETES MELLITUS WITHOUT COMPLICATIONS SNOMED Code(s): 84068137 (6) History of prostate cancer Current Visit: No Status: Resolved Code(s): Z85.46 - PERSONAL HISTORY OF MALIGNANT NEOPLASM OF PROSTATE SNOMED Code(s): 144860334 (7) History of radiation therapy Current Visit: No Status: Resolved Code(s): Z92.3 - PERSONAL HISTORY OF IRRADIATION SNOMED Code(s): 750042834 (8) Paroxysmal atrial fibrillation Current Visit: No Status: Resolved Code(s): I48.0 - PAROXYSMAL ATRIAL FIBRILLATION SNOMED Code(s): 505401805 (9) Chronic anticoagulation Current Visit: Yes Status: Chronic Code(s): Z79.01 - [facility] (CURRENT) USE OF ANTICOAGULANTS SNOMED Code(s): 157098264 Plan: The patient was seen and examined at the bedside with Dr. Zhu. Chart/ diagnostics were reviewed. We offered the patient urgent coronary artery bypass grafting surgery this Sunday pending the outcome of preoperative testing. The usual perioperative course was discussed in detail with the patient and his family. Risks and benefits were explained in detail. All questions were answered, and the patient consented to surgery. Preoperative testing was initiated. At this time we recommend continuing to hold his Eliquis. We will initiate aspirin, continue statin and beta jennifer therapy. Pulmonology has been consulted as well as Dr. Kuhn from primary care.more recommendations to follow. Thank you Dr. Atkinson for this consult. We will continue to follow with you. Time with Patient: Greater than 30 <Kevon Zhu - Last Filed: 05/02/18 08:22> Surgical - Exam Vital Signs Temp Pulse Resp BP Pulse Ox 97.9 F 60 16 161/77 97 05/01/18 11:31 05/01/18 11:31 05/01/18 11:31 05/01/18 11:31 05/01/18 11:31 Results - Labs 05/02/18 05:38 05/02/18 05:38 Abnormal Lab Results - Last 24 Hours (Table) 05/01/18 05/01/18 05/01/18 Range/Units 11:16 16:52 18:45 RBC (4.30-5.90) m/uL Lymphocytes # (1.0-4.8) k/uL APTT (22.0-30.0) sec Chloride (98-107) mmol/L Carbon Dioxide (22-30) mmol/L Glucose (74-99) mg/dL POC Glucose (mg/dL) 160 H 214 H (75-99) mg/dL Total Bilirubin (0.2-1.3) mg/dL Total Protein (6.3-8.2) g/dL Albumin (3.5-5.0) g/dL Urine Glucose (UA) 4+ H (Negative) Ur Leukocyte Esterase Small H (Negative) Urine WBC 22 H (0-5) /hpf Crossmatch 05/01/18 05/01/18 05/02/18 Range/Units 20:45 21:44 05:38 RBC (4.30-5.90) m/uL Lymphocytes # (1.0-4.8) k/uL APTT (22.0-30.0) sec Chloride 108 H (98-107) mmol/L Carbon Dioxide 19 L (22-30) mmol/L Glucose 198 H (74-99) mg/dL POC Glucose (mg/dL) 219 H (75-99) mg/dL Total Bilirubin (0.2-1.3) mg/dL Total Protein (6.3-8.2) g/dL Albumin (3.5-5.0) g/dL Urine Glucose (UA) (Negative) Ur Leukocyte Esterase (Negative) Urine WBC (0-5) /hpf Crossmatch See Detail 05/02/18 05/02/18 05/02/18 Range/Units 05:38 05:38 05:38 RBC 4.24 L (4.30-5.90) m/uL Lymphocytes # 0.8 L (1.0-4.8) k/uL APTT 20.2 L (22.0-30.0) sec Chloride (98-107) mmol/L Carbon Dioxide (22-30) mmol/L Glucose 150 H (74-99) mg/dL POC Glucose (mg/dL) (75-99) mg/dL Total Bilirubin 1.4 H (0.2-1.3) mg/dL Total Protein 6.0 L (6.3-8.2) g/dL Albumin 3.1 L (3.5-5.0) g/dL Urine Glucose (UA) (Negative) Ur Leukocyte Esterase (Negative) Urine WBC (0-5) /hpf Crossmatch 05/02/18 Range/Units 06:44 RBC (4.30-5.90) m/uL Lymphocytes # (1.0-4.8) k/uL APTT (22.0-30.0) sec Chloride (98-107) mmol/L Carbon Dioxide (22-30) mmol/L Glucose (74-99) mg/dL POC Glucose (mg/dL) 157 H (75-99) mg/dL Total Bilirubin (0.2-1.3) mg/dL Total Protein (6.3-8.2) g/dL Albumin (3.5-5.0) g/dL Urine Glucose (UA) (Negative) Ur Leukocyte Esterase (Negative) Urine WBC (0-5) /hpf Crossmatch Microbiology - Last 24 Hours (Table) 05/01/18 18:45 Urine Culture - Preliminary Urine,Voided Diabetes panel 05/01/18 05/02/18 Range/Units 21:44 05:38 Sodium 137 138 (137-145) mmol/L Potassium 4.7 4.5 (3.5-5.1) mmol/L Chloride 108 H 107 (98-107) mmol/L Carbon Dioxide 19 L 27 (22-30) mmol/L BUN 14 11 (9-20) mg/dL Creatinine 0.72 0.73 (0.66-1.25) mg/dL Glucose 198 H 150 H (74-99) mg/dL Calcium 8.9 9.1 (8.4-10.2) mg/dL AST 20 (17-59) U/L ALT 30 (21-72) U/L Alkaline Phosphatase 88 (38-126) U/L Total Protein 6.0 L (6.3-8.2) g/dL Albumin 3.1 L (3.5-5.0) g/dL Calcium panel 05/01/18 05/02/18 Range/Units 21:44 05:38 Calcium 8.9 9.1 (8.4-10.2) mg/dL Albumin 3.1 L (3.5-5.0) g/dL Pituitary panel 05/01/18 05/02/18 Range/Units 21:44 05:38 Sodium 137 138 (137-145) mmol/L Potassium 4.7 4.5 (3.5-5.1) mmol/L Chloride 108 H 107 (98-107) mmol/L Carbon Dioxide 19 L 27 (22-30) mmol/L BUN 14 11 (9-20) mg/dL Creatinine 0.72 0.73 (0.66-1.25) mg/dL Glucose 198 H 150 H (74-99) mg/dL Calcium 8.9 9.1 (8.4-10.2) mg/dL Adrenal panel 05/01/18 05/02/18 Range/Units 21:44 05:38 Sodium 137 138 (137-145) mmol/L Potassium 4.7 4.5 (3.5-5.1) mmol/L Chloride 108 H 107 (98-107) mmol/L Carbon Dioxide 19 L 27 (22-30) mmol/L BUN 14 11 (9-20) mg/dL Creatinine 0.72 0.73 (0.66-1.25) mg/dL Glucose 198 H 150 H (74-99) mg/dL Calcium 8.9 9.1 (8.4-10.2) mg/dL Total Bilirubin 1.4 H (0.2-1.3) mg/dL AST 20 (17-59) U/L ALT 30 (21-72) U/L Alkaline Phosphatase 88 (38-126) U/L Total Protein 6.0 L (6.3-8.2) g/dL Albumin 3.1 L (3.5-5.0) g/dL Assessment and Plan Assessment: Assymptomatic but significant Lt main, triple vessel CAD with preserved LV f(x). Plan CABG 05/02
[2018-05-01 19:14] LABS: Appearance,Urine Clear (Clear); Bilirubin,Urine Negative (Negative); Blood,Urine Negative (Negative); Color,Urine Light Yellow; Glucose,Urine (UA) 4+ (Negative); Ketones,Urine Negative (Negative); Leukocyte Esterase,Urine Small (Negative); Nitrite,Urine Negative (Negative); PH, Urine 6.5 (5.0-8.0); Protein,Urine Negative (Negative); RBC,Urine 2 /hpf (0-5); Specific Gravity,Urine 1.021 (1.001-1.035); Squamous Epithelial Cell,Urine <1 /hpf (0-4); Urobilinogen,Urine <2.0 mg/dL (<2.0); WBC,Urine 22 /hpf (0-5)
[2018-05-01] MEDS: MUPIROCIN 2% OINT 22 GM TUBE NASAL SCH (20:05)
[2018-05-01 20:46] LABS: Glucose,Whole Blood 219 mg/dL (75-99)
--- NOTE | 2018-05-01 21:42 | US ---
EXAMINATION TYPE: US carotid duplex BILAT DATE OF EXAM: 05/01/2018 COMPARISON: NONE CLINICAL HISTORY: preop cardiac surgery. Pre op heart surgery. EXAM MEASUREMENTS: RIGHT: Peak Systolic Velocity (PSV) cm/sec ----- Right CCA: 92.9 ----- Right ICA: 94.4 ----- Right ECA: 161.4 ICA/CCA ratio: 1.0 RIGHT: End Diastole cm/sec ----- Right CCA: 21.7 ----- Right ICA: 26.0 ----- Right ECA: 13.6 LEFT: Peak Systolic Velocity (PSV) cm/sec ----- Left CCA: 107.3 ----- Left ICA: 109.7 ----- Left ECA: 104.8 ICA/CCA ratio: 1.0 LEFT: End Diastole cm/sec ----- Left CCA: 28.3 ----- Left ICA: 28.9 ----- Left ECA: 11.1 VERTEBRALS (direction of flow): Right Vertebral: Antegrade Left Vertebral: Antegrade Rhythm: Normal No significant stenosis seen IMPRESSION: There is antegrade flow in the vertebral arteries. Images in measurements suggest less t brito 25% stenosis in both internal carotid arteries. Criteria for Assigning % of Stenosis / Diameter reduction (Estimation based on the indirect measurements of the internal carotid artery velocities (ICA PSV). 1. Normal (no stenosis)=ICA PSV < 125 cm/s: ratio < 2.0: ICA EDV<40 cm/s. 2. Less than 50% stenosis=ICA PSV < 125 cm/s: ratio < 2.0: ICA EDV<40 cm/s. 3. 50 to 69% stenosis=ICA PSV of 125 to 230 cm/s: ration 2.0 ? 4.0: ICA EDV 40-100 cm/s. 4. Greater than 70% stenosis to near occlusion= ICA PSV > 230 cm/s: ratio > 4.0: ICA EDV > 100 cm/s. 5. Near occlusion= ICA PSV velocities may be low or undetectable: variable ratio and ICA EDV. 6. Total occlusion=unable to detect flow.
[2018-05-01 22:52] LABS: Anion Gap 10 mmol/L; Calcium 8.9 mg/dL (8.4-10.2); Carbon Dioxide 19 mmol/L (22-30); Chloride 108 mmol/L (98-107); Glucose 198 mg/dL (74-99); Sodium 137 mmol/L (137-145)
[2018-05-01 22:59] LABS: Blood Urea Nitrogen 14 mg/dL (9-20); Potassium 4.7 mmol/L (3.5-5.1)
[2018-05-02 06:00] LABS: Basophils % (A) 1 %; Eosinophils # (A) 0.1 k/uL (0-0.7); Eosinophils % (A) 3 %; HGB 13.1 gm/dL (13.0-17.5); Lymphocytes # (A) 0.8 k/uL (1.0-4.8); Lymphocytes % (A) 19 %; MCV 96.8 fL (80.0-100.0); Mean Platelet Volume 6.8; Monocytes # (A) 0.3 k/uL (0-1.0); Monocytes % (A) 8 %; Neutrophils # (A) 2.7 k/uL (1.3-7.7); Neutrophils % (A) 66 %; Platelet Count 190 k/uL (150-450); RBC 4.24 m/uL (4.30-5.90); RDW 12.3 % (11.5-15.5); WBC 4.1 k/uL (3.8-10.6)
[2018-05-02 06:10] LABS: ALT 30 U/L (21-72); AST 20 U/L (17-59); Albumin 3.1 g/dL (3.5-5.0); Alkaline Phosphatase 88 U/L (38-126); Anion Gap 4 mmol/L; Blood Urea Nitrogen 11 mg/dL (9-20); Calcium 9.1 mg/dL (8.4-10.2); Carbon Dioxide 27 mmol/L (22-30); Chloride 107 mmol/L (98-107); Glucose 150 mg/dL (74-99); Magnesium 1.8 mg/dL (1.6-2.3); Potassium 4.5 mmol/L (3.5-5.1); Sodium 138 mmol/L (137-145); Total Bilirubin 1.4 mg/dL (0.2-1.3)
[2018-05-02 06:19] LABS: Prothrombin Time 10.6 sec (9.0-12.0)
[2018-05-02 06:30] LABS: Partial Thromboplastin Time 20.2 sec (22.0-30.0)
[2018-05-02 06:46] LABS: Glucose,Whole Blood 157 mg/dL (75-99)
[2018-05-02] MEDS: METOPROLOL SUCCINATE (ER) 100 MG TAB.ER.24H PO SCH (06:59)
[2018-05-02] MEDS: ATORVASTATIN 40 MG TAB PO SCH (06:59)
[2018-05-02] MEDS: LISINOPRIL 5 MG TAB PO SCH (06:59)
[2018-05-02] MEDS: ASPIRIN 81 MG PO SCH (07:00)
[2018-05-02] MEDS: MUPIROCIN 2% OINT 22 GM TUBE NASAL SCH ×2 (07:00→22:01)
[2018-05-02] MEDS: INSULIN ASPART 100 UNIT/ML 1 ML 10 ML VIAL SQ SCH ×4 (07:00→20:46)
--- NOTE | 2018-05-02 07:20 | XR ---
EXAMINATION TYPE: XR chest 2V DATE OF EXAM: 05/02/2018 COMPARISON: 03/22/2018 HISTORY: 62-year-old male preop cardiac surgery TECHNIQUE: PA and lateral views FINDINGS: Heart upper limits of normal in size. Aorta and pulmonary vasculature within normal limits. Some stra ndy atelectasis right midlung and left base. Mild diffuse interstitial prominence is unchanged. No co nsolidation or pleural effusion. Anterior endplate spondylosis mid to lower thoracic spine. IMPRESSION: Chronic changes without acute cardiopulmonary process.
--- NOTE | 2018-05-02 07:53 | PN ---
PROGRESS NOTE Mr. Nicholas is a 62-year-old male with known history of hypertension, hyperlipidemia, diabetes mellitus, history of paroxysmal atrial fibrillation who presented with an abnormal myocardial perfusion imaging, underwent cardiac catheterization, was found to have severe left main disease as well as severe LAD and left circumflex disease. He underwent evaluation by Dr. Zhu and he is scheduled to undergo surgery tomorrow. He was evaluated by Dr. Parker. He is feeling well this morning. He is denying any chest pain. His breathing has been stable. He denies any dizziness or palpitation. He denies any nausea. He continued be on aspirin once a day, Lipitor 40 mg daily, lisinopril 5 mg daily, metoprolol succinate 100 mg daily. PHYSICAL EXAMINATION: Blood pressure running in the 120s to 150s with the heart in the 50s. LUNGS: Clear. HEART: Regular rate and rhythm. S1, S2. No S3. No rub. ABDOMEN: Soft, nontender. EXTREMITIES: No edema. Right radial pulse intact. LAB DATA: Lab data revealed BUN and creatinine of 11 and 0.73. Hemoglobin of 13.1. IMPRESSION: 1. Severe coronary artery disease with significant left main disease. 2. Hypertension. 3. Hyperlipidemia. 4. Diabetes mellitus. 5. History of paroxysmal atrial fibrillation. 6. History of prostate cancer. RECOMMENDATION: Patient will undergo coronary artery bypass grafting tomorrow. In the meantime, will continue present therapy and depending on his progress, further recommendation will be made. MMODL / IJN: [id number] /
--- NOTE | 2018-05-02 09:51 | P.CONS ---
History of Present Illness - Reason for Consult Consult date: 05/02/18 Medical management Requesting physician: Aggie Cheng - Chief Complaint Multiply vessel disease - History of Present Illness This is a 62-year-old male patient of Dr. Winston. Patient presented for an elective cardiac catheterization due to abnormal myocardial perfusion imaging was found to have severe left main disease as well as severe LAD and left circumflex disease. Patient was then evaluated by Dr. Zhu with cardiac thoracic surgical team and is scheduled to undergo coronary artery bypass graft surgery tomorrow 05/03/2018. Patient does have a known past medical history of hypertension, hyperlipidemia, diabetes mellitus, paroxysmal atrial fibrillation , prostate cancer with radiation last in December 2017, kidney stones, anxiety and ulcers. Today patient is currently resting in bed. Patient does appear a bit anxious. Patient denies any chest pain or shortness of breath. Patient denies nausea vomiting or diarrhea. Patient denies any urinary burning or frequency. Patient will undergo coronary artery bypass graft surgery tomorrow with Dr. Zhu. Patient did state understanding and that he had in-depth conversation with the cardiothoracic team yesterday. Review of Systems Please refer to HPI otherwise unremarkable Past Medical History Past Medical History: Atrial Flutter, Coronary Artery Disease (CAD), Cancer, Diabetes Mellitus, Hyperlipidemia, Hypertension Additional Past Medical History / Comment(s): Prostate CA (in remission; last radiation in december 2017.) hx ulcers, hx of kidney stones History of Any Multi-Drug Resistant Organisms: None Reported Past Surgical History: Prostate Surgery Additional Past Surgical History / Comment(s): lithotripsy, prostatectomy, egd Past Anesthesia/Blood Transfusion Reactions: No Reported Reaction Additional Past Anesthesia/Blood Transfusion Reaction / Comm: clausterphobia. past blood transfusion-no reaction to it. Past Psychological History: Anxiety Additional Psychological History / Comment(s): STATES NO MEDICATION Smoking Status: Never smoker Past Alcohol Use History: None Reported Past Drug Use History: None Reported - Past Family History Mother Family Medical History: Diabetes Mellitus, Hypertension Father History Unknown: Yes Family Medical History: Coronary Artery Disease (CAD) Medications and Allergies Home Medications Medication Instructions Recorded Confirmed Type Atorvastatin [Lipitor] 40 mg PO DAILY 03/22/18 05/01/18 History metFORMIN HCL [Glucophage] 500 mg PO BID 03/22/18 05/01/18 History Apixaban [Eliquis] 5 mg PO BID tab 03/24/18 05/01/18 Rx Lisinopril [Zestril] 5 mg PO DAILY tab 03/24/18 05/01/18 Rx Metoprolol Succinate (ER) [Toprol 100 mg PO DAILY tab.er.24h 03/24/18 05/01/18 Rx XL] Nitroglycerin Sl Tabs [Nitrostat] 0.4 mg SUBLINGUAL Q5M PRN tab 03/24/18 Rx Allergies Allergy/AdvReac Type Severity Reaction Status Date / Time No Known Allergies Allergy Verified 04/26/18 10:55 Physical Exam Vitals: Vital Signs Temp Pulse Pulse Pulse Resp BP BP 05/02/18 09:34 18 05/02/18 07:28 18 05/02/18 07:15 98.6 F 55 L 18 154/88 05/02/18 04:00 18 05/02/18 03:20 98.3 F 51 L 18 124/70 05/02/18 00:00 18 05/01/18 23:20 98.3 F 52 L 18 106/62 05/01/18 20:00 97.6 F 53 L 18 149/78 05/01/18 16:00 18 05/01/18 14:58 98.1 F 53 L 18 135/73 05/01/18 14:14 52 L 16 118/58 05/01/18 13:44 50 L 16 114/55 05/01/18 13:29 50 L 16 118/69 05/01/18 13:14 61 16 114/67 05/01/18 12:59 61 16 139/75 05/01/18 11:31 97.9 F 60 16 161/77 151/71 Pulse Ox 05/02/18 09:34 05/02/18 07:28 05/02/18 07:15 94 L 05/02/18 04:00 05/02/18 03:20 95 05/02/18 00:00 05/01/18 23:20 98 05/01/18 20:00 97 05/01/18 16:00 05/01/18 14:58 97 05/01/18 14:14 96 05/01/18 13:44 97 05/01/18 13:29 98 05/01/18 13:14 96 05/01/18 12:59 95 05/01/18 11:31 97 Intake and Output 05/01/18 05/02/18 05/02/18 22:59 06:59 14:59 Intake Total 300 Output Total 300 Balance 0 Intake: Oral 300 Output: Urine 300 Other: Voiding Method Toilet Toilet Toilet # Voids 2 3 1 Weight 80.1 kg 81.3 kg 81.3 kg Head normocephalic Neck supple Lungs clear to auscultation bilaterally no wheezing or crackles Heart regular rate and rhythm S1-S2, no rub or gallop Abdomen is soft nontender nondistended positive bowel sounds no hepatosplenomegaly Extremities no edema Neuro alert and orientated to 3 Results CBC & Chem 7: 05/02/18 05:38 05/02/18 05:38 Labs: Abnormal Lab Results - Last 24 Hours (Table) 05/01/18 05/01/18 05/01/18 Range/Units 11:16 16:52 18:45 RBC (4.30-5.90) m/uL Lymphocytes # (1.0-4.8) k/uL APTT (22.0-30.0) sec Chloride (98-107) mmol/L Carbon Dioxide (22-30) mmol/L Glucose (74-99) mg/dL POC Glucose (mg/dL) 160 H 214 H (75-99) mg/dL Total Bilirubin (0.2-1.3) mg/dL Total Protein (6.3-8.2) g/dL Albumin (3.5-5.0) g/dL Urine Glucose (UA) 4+ H (Negative) Ur Leukocyte Esterase Small H (Negative) Urine WBC 22 H (0-5) /hpf Crossmatch 05/01/18 05/01/18 05/02/18 Range/Units 20:45 21:44 05:38 RBC (4.30-5.90) m/uL Lymphocytes # (1.0-4.8) k/uL APTT (22.0-30.0) sec Chloride 108 H (98-107) mmol/L Carbon Dioxide 19 L (22-30) mmol/L Glucose 198 H (74-99) mg/dL POC Glucose (mg/dL) 219 H (75-99) mg/dL Total Bilirubin (0.2-1.3) mg/dL Total Protein (6.3-8.2) g/dL Albumin (3.5-5.0) g/dL Urine Glucose (UA) (Negative) Ur Leukocyte Esterase (Negative) Urine WBC (0-5) /hpf Crossmatch See Detail 05/02/18 05/02/18 05/02/18 Range/Units 05:38 05:38 05:38 RBC 4.24 L (4.30-5.90) m/uL Lymphocytes # 0.8 L (1.0-4.8) k/uL APTT 20.2 L (22.0-30.0) sec Chloride (98-107) mmol/L Carbon Dioxide (22-30) mmol/L Glucose 150 H (74-99) mg/dL POC Glucose (mg/dL) (75-99) mg/dL Total Bilirubin 1.4 H (0.2-1.3) mg/dL Total Protein 6.0 L (6.3-8.2) g/dL Albumin 3.1 L (3.5-5.0) g/dL Urine Glucose (UA) (Negative) Ur Leukocyte Esterase (Negative) Urine WBC (0-5) /hpf Crossmatch 05/02/18 Range/Units 06:44 RBC (4.30-5.90) m/uL Lymphocytes # (1.0-4.8) k/uL APTT (22.0-30.0) sec Chloride (98-107) mmol/L Carbon Dioxide (22-30) mmol/L Glucose (74-99) mg/dL POC Glucose (mg/dL) 157 H (75-99) mg/dL Total Bilirubin (0.2-1.3) mg/dL Total Protein (6.3-8.2) g/dL Albumin (3.5-5.0) g/dL Urine Glucose (UA) (Negative) Ur Leukocyte Esterase (Negative) Urine WBC (0-5) /hpf Crossmatch Microbiology - Last 24 Hours (Table) 05/01/18 18:45 Urine Culture - Preliminary Urine,Voided Assessment and Plan Assessment: 1. Multivessel coronary artery disease. Patient has 70% left main lesion. status post cardiac cath. Patient currently scheduled for coronary artery bypass graft surgery with Dr. Zhu tomorrow 05/03/2018 2. Diabetes mellitus. Metformin on hold. Patient currently managed on sliding scale insulin 3. essential hypertension. 4. History of paroxysmal atrial fibrillation 5. History of prostate cancer post prostatectomy and post radiation therapy completed in December 2017 6. History of hyperlipidemia 7. History of nephrolithiasis Greg has been seen by Dr. Etienne for pulmonary clearance. Thank you for this consultation we will continue to follow patient closely throughout stay Time with Patient: Greater than 30 (Greater than 60% of the total time spent in counseling and coordination of care. I performed an examination of the patient and discussed their management with the Nurse Practitioner. I have reviewed the Nurse Practitioner's notes and agree with the documented findings and plan of care)
[2018-05-02 11:49] LABS: Glucose,Whole Blood 163 mg/dL (75-99)
[2018-05-02 12:17] LABS: Hepatitis A Antibody IgM Non-Reactive (Non-Reactive); Hepatitis B Core IgM Non-Reactive (Non-Reactive)
[2018-05-02 13:51] LABS: Hemoglobin A1C 11.2 % (4.0-6.0)
--- NOTE | 2018-05-02 14:05 | P.PN ---
Subjective Progress Note Date: 05/02/18 Principal diagnosis: Multivessel coronary artery disease with left main disease. Previous medical history of paroxysmal atrial fibrillation on a liquid for anticoagulation which is currently on hold, hypertension, hyperlipidemia, new diagnosis of diabetes mellitus, prostate cancer with prostatectomy and radiation treatment with the last dose radiation in December 2017. Patient is currently sitting up in a chair in no acute distress. Denies any chest pain or shortness of breath. He is a bit nervous about surgery tomorrow but other than that has no new complaints. Objective - Vital Signs Vital signs: Vital Signs Temp 98.6 F 05/02/18 07:15 Pulse 55 L 05/02/18 07:15 Resp 18 05/02/18 09:34 BP 154/88 05/02/18 07:15 Pulse Ox 94 L 05/02/18 07:15 Intake & Output 05/01/18 05/02/18 05/02/18 18:59 06:59 18:59 Intake Total 1050 Output Total 300 300 Balance 750 -300 Weight 80.1 kg 81.3 kg 81.3 kg Intake: IV 150 Oral 900 Output: Urine 300 300 Other: Voiding Method Toilet Toilet # Voids 3 1 - Constitutional General appearance: Present: cooperative, no acute distress - Respiratory Details: Lungs sounds clear bilaterally. Respirations even, nonlabored. Currently on room air with oxygen saturation 95%. Able to achieve 2500 mL on his incentive spirometry. - Cardiovascular Details: S1, S2 present. Regular rate and rhythm, sinus rhythm on telemetry. Palpable peripheral pulses bilaterally. No edema present. No calf pain or tenderness noted. - Gastrointestinal Gastrointestinal Comment(s): Abdomen soft, nontender, nondistended. Active bowel sounds 4 quadrants. Tolerating diet. - Genitourinary Genitourinary Comment(s): Continues to void clear, yellow urine. - Integumentary Integumentary Comment(s): Skin is warm and dry with evidence of good perfusion. - Neurologic Neurologic: Present: CNII-XII intact - Musculoskeletal Musculoskeletal: Present: gait normal, strength equal bilaterally - Psychiatric Psychiatric: Present: A&O x's 3, appropriate affect, intact judgment & insight - Allied health notes Allied health notes reviewed: nursing - Labs CBC & Chem 7: 05/02/18 05:38 05/02/18 05:38 Labs: Abnormal Lab Results - Last 24 Hours (Table) 05/01/18 05/01/18 05/01/18 Range/Units 16:52 18:45 20:45 RBC (4.30-5.90) m/uL Lymphocytes # (1.0-4.8) k/uL APTT (22.0-30.0) sec Chloride (98-107) mmol/L Carbon Dioxide (22-30) mmol/L Glucose (74-99) mg/dL POC Glucose (mg/dL) 214 H 219 H (75-99) mg/dL Hemoglobin A1c (4.0-6.0) % Total Bilirubin (0.2-1.3) mg/dL Total Protein (6.3-8.2) g/dL Albumin (3.5-5.0) g/dL Urine Glucose (UA) 4+ H (Negative) Ur Leukocyte Esterase Small H (Negative) Urine WBC 22 H (0-5) /hpf Crossmatch 05/01/18 05/02/18 05/02/18 Range/Units 21:44 05:38 05:38 RBC (4.30-5.90) m/uL Lymphocytes # (1.0-4.8) k/uL APTT (22.0-30.0) sec Chloride 108 H (98-107) mmol/L Carbon Dioxide 19 L (22-30) mmol/L Glucose 198 H (74-99) mg/dL POC Glucose (mg/dL) (75-99) mg/dL Hemoglobin A1c 11.2 H (4.0-6.0) % Total Bilirubin (0.2-1.3) mg/dL Total Protein (6.3-8.2) g/dL Albumin (3.5-5.0) g/dL Urine Glucose (UA) (Negative) Ur Leukocyte Esterase (Negative) Urine WBC (0-5) /hpf Crossmatch See Detail 05/02/18 05/02/18 05/02/18 Range/Units 05:38 05:38 05:38 RBC 4.24 L (4.30-5.90) m/uL Lymphocytes # 0.8 L (1.0-4.8) k/uL APTT 20.2 L (22.0-30.0) sec Chloride (98-107) mmol/L Carbon Dioxide (22-30) mmol/L Glucose 150 H (74-99) mg/dL POC Glucose (mg/dL) (75-99) mg/dL Hemoglobin A1c (4.0-6.0) % Total Bilirubin 1.4 H (0.2-1.3) mg/dL Total Protein 6.0 L (6.3-8.2) g/dL Albumin 3.1 L (3.5-5.0) g/dL Urine Glucose (UA) (Negative) Ur Leukocyte Esterase (Negative) Urine WBC (0-5) /hpf Crossmatch 05/02/18 05/02/18 Range/Units 06:44 11:11 RBC (4.30-5.90) m/uL Lymphocytes # (1.0-4.8) k/uL APTT (22.0-30.0) sec Chloride (98-107) mmol/L Carbon Dioxide (22-30) mmol/L Glucose (74-99) mg/dL POC Glucose (mg/dL) 157 H 163 H (75-99) mg/dL Hemoglobin A1c (4.0-6.0) % Total Bilirubin (0.2-1.3) mg/dL Total Protein (6.3-8.2) g/dL Albumin (3.5-5.0) g/dL Urine Glucose (UA) (Negative) Ur Leukocyte Esterase (Negative) Urine WBC (0-5) /hpf Crossmatch Microbiology - Last 24 Hours (Table) 05/01/18 18:45 Urine Culture - Preliminary Urine,Voided - Imaging and Cardiology Chest x-ray: report reviewed, image reviewed Assessment and Plan (1) Hypertension Current Visit: Yes Status: Chronic Code(s): I10 - ESSENTIAL (PRIMARY) HYPERTENSION SNOMED Code(s): 48899896 (2) Hyperlipidemia Current Visit: Yes Status: Chronic Code(s): E78.5 - HYPERLIPIDEMIA, UNSPECIFIED SNOMED Code(s): 94516137 (3) Coronary artery disease Current Visit: Yes Status: Chronic Code(s): I25.10 - ATHSCL HEART DISEASE OF [place] CORONARY ARTERY W/O ANG PCTRS SNOMED Code(s): 73499172 (4) Left main coronary artery disease Current Visit: Yes Status: Chronic Code(s): I25.10 - ATHSCL HEART DISEASE OF [place] CORONARY ARTERY W/O ANG PCTRS SNOMED Code(s): 919493545 (5) Diabetes mellitus Current Visit: Yes Status: Chronic Code(s): E11.9 - TYPE 2 DIABETES MELLITUS WITHOUT COMPLICATIONS SNOMED Code(s): 42656213 (6) History of prostate cancer Current Visit: No Status: Resolved Code(s): Z85.46 - PERSONAL HISTORY OF MALIGNANT NEOPLASM OF PROSTATE SNOMED Code(s): 358129635 (7) History of radiation therapy Current Visit: No Status: Resolved Code(s): Z92.3 - PERSONAL HISTORY OF IRRADIATION SNOMED Code(s): 175807071 (8) Paroxysmal atrial fibrillation Current Visit: No Status: Resolved Code(s): I48.0 - PAROXYSMAL ATRIAL FIBRILLATION SNOMED Code(s): 145218817 (9) Chronic anticoagulation Current Visit: Yes Status: Chronic Code(s): Z79.01 - 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 Continue aspirin, statin, beta jennifer therapy. Continue to hold our request. 2. Encourage incentive spirometry use. 3. Continue preoperative teaching. 4. STS risk score calculated in discussed with the patient. 5. Plan is for myocardial revascularization using the left internal mammary artery and endoscopic vein harvesting with intraoperative transesophageal echocardiogram tomorrow, May 03. 6. More recommendations to follow. Time with Patient: Greater than 30
--- NOTE | 2018-05-02 16:40 | P.PN ---
Subjective Progress Note Date: 05/02/18 Principal diagnosis: Coronary artery disease with calcified coronary arteries and significant mid left main disease, significant disease involving the LAD in the left circumflex with moderate disease in the right coronary artery. This is a 62-year-old male patient, poorly controlled diabetic, hypertension, hyperlipidemia and known history of proximal atrial fibrillation wasn't experiencing exertional dyspnea. The patient underwent a cardiac stress test that showed apical reversible defect as well as bursts of nonsustained ventricular tachycardia. Based on this, the patient underwent a cardiac catheterization through the right radial approach and the patient was found to have a 6070% plaque in the mid segment of the left main prior to its bifurcation. At this point in time the patient is being considered for coronary artery bypass surgery. The pulmonary consultation was requested in this regard. The patient is doing well. No specific complaints. History of any chest pain. He has no history of asthma emphysema. No cough sputum production chest tightness or wheezing at this point. No recurrent pneumonias. No recurrent bronchitis. No aspiration. Most of CVA. Mental status is well preserved and it's appropriate. Most of dementia. He suffers from prostate cancer that was initiated. With a prostatectomy at [facility] and subsequently the patient received radiation therapy here at [facility]. He has completed his radiation therapy. His overall performance and functional status is well preserved. He has been in sinus rhythm for now. Is on long-term anticoagulation. His rate is under good control. His father of complications of cardiac disease in the mid 60s. The patient is seen today 05/02/2018 in follow-up on the cardiac floor. He is currently awake and alert in no acute distress. He denies any shortness of breath, cough or congestion. No chest pain, palpitations lightheadedness or dizziness. He is maintaining good O2 saturations in the 90s on room air. His x -ray shows no acute cardiopulmonary process. He is afebrile. Hemodynamically stable. White count 4.1. Hemoglobin 13.1. Creatinine 0.73. Hepatitis screen negative. The plan is for coronary artery bypass grafting tomorrow. Objective - Vital Signs Vital signs: Vital Signs Temp 97.4 F L 05/02/18 11:15 Pulse 54 L 05/02/18 11:15 Resp 18 05/02/18 11:15 BP 148/73 05/02/18 11:15 Pulse Ox 98 05/02/18 11:15 Intake & Output 05/01/18 05/02/18 05/02/18 18:59 06:59 18:59 Intake Total 1050 600 Output Total 300 300 Balance 750 -300 600 Weight 80.1 kg 81.3 kg 81.3 kg Intake: IV 150 Oral 900 600 Output: Urine 300 300 Other: Voiding Method Toilet Toilet # Voids 3 1 - Exam GENERAL EXAM: Alert, active, comfortable in no apparent distress. On room air. HEAD: Normocephalic. EYES: Normal reaction of pupils, equal size. NOSE: Clear with pink turbinates. THROAT: No erythema or exudates. NECK: No masses, no JVD. CHEST: No chest wall deformity. LUNGS: Equal air entry with no crackles, wheeze, rhonchi or dullness. CVS: S1 and S2 normal with no audible murmur, regular rhythm. ABDOMEN: No hepatosplenomegaly, normal bowel sounds, no guarding or rigidity. SPINE: No scoliosis or deformity SKIN: No rashes CENTRAL NERVOUS SYSTEM: No focal deficits, tone is normal in all 4 extremities. EXTREMITIES: There is no peripheral edema. No clubbing, no cyanosis. Peripheral pulses are intact. - Labs CBC & Chem 7: 05/02/18 05:38 05/02/18 05:38 Labs: Abnormal Lab Results - Last 24 Hours (Table) 05/01/18 05/01/18 05/01/18 Range/Units 16:52 18:45 20:45 RBC (4.30-5.90) m/uL Lymphocytes # (1.0-4.8) k/uL APTT (22.0-30.0) sec Chloride (98-107) mmol/L Carbon Dioxide (22-30) mmol/L Glucose (74-99) mg/dL POC Glucose (mg/dL) 214 H 219 H (75-99) mg/dL Hemoglobin A1c (4.0-6.0) % Total Bilirubin (0.2-1.3) mg/dL Total Protein (6.3-8.2) g/dL Albumin (3.5-5.0) g/dL Urine Glucose (UA) 4+ H (Negative) Ur Leukocyte Esterase Small H (Negative) Urine WBC 22 H (0-5) /hpf Crossmatch 05/01/18 05/02/18 05/02/18 Range/Units 21:44 05:38 05:38 RBC (4.30-5.90) m/uL Lymphocytes # (1.0-4.8) k/uL APTT (22.0-30.0) sec Chloride 108 H (98-107) mmol/L Carbon Dioxide 19 L (22-30) mmol/L Glucose 198 H (74-99) mg/dL POC Glucose (mg/dL) (75-99) mg/dL Hemoglobin A1c 11.2 H (4.0-6.0) % Total Bilirubin (0.2-1.3) mg/dL Total Protein (6.3-8.2) g/dL Albumin (3.5-5.0) g/dL Urine Glucose (UA) (Negative) Ur Leukocyte Esterase (Negative) Urine WBC (0-5) /[facility] Crossmatch See Detail 05/02/18 05/02/18 05/02/18 Range/Units 05:38 05:38 05:38 RBC 4.24 L (4.30-5.90) m/uL Lymphocytes # 0.8 L (1.0-4.8) k/uL APTT 20.2 L (22.0-30.0) sec Chloride (98-107) mmol/L Carbon Dioxide (22-30) mmol/L Glucose 150 H (74-99) mg/dL POC Glucose (mg/dL) (75-99) mg/dL Hemoglobin A1c (4.0-6.0) % Total Bilirubin 1.4 H (0.2-1.3) mg/dL Total Protein 6.0 L (6.3-8.2) g/dL Albumin 3.1 L (3.5-5.0) g/dL Urine Glucose (UA) (Negative) Ur Leukocyte Esterase (Negative) Urine WBC (0-5) /hpf Crossmatch 05/02/18 05/02/18 Range/Units 06:44 11:11 RBC (4.30-5.90) m/uL Lymphocytes # (1.0-4.8) k/uL APTT (22.0-30.0) sec Chloride (98-107) mmol/L Carbon Dioxide (22-30) mmol/L Glucose (74-99) mg/dL POC Glucose (mg/dL) 157 H 163 H (75-99) mg/dL Hemoglobin A1c (4.0-6.0) % Total Bilirubin (0.2-1.3) mg/dL Total Protein (6.3-8.2) g/dL Albumin (3.5-5.0) g/dL Urine Glucose (UA) (Negative) Ur Leukocyte Esterase (Negative) Urine WBC (0-5) /hpf Crossmatch Microbiology - Last 24 Hours (Table) 05/01/18 18:45 Urine Culture - Preliminary Urine,Voided Assessment and Plan Assessment: Impression: #1 Coronary artery disease with calcified coronary arteries, significant left main disease, significant left anterior descending and left circumflex disease. Moderate right coronary artery disease. [place] left ventricular systolic function. #2 Nonsustained ventricular tachycardia. #3 Diabetes mellitus with an elevated hemoglobin A1c indicating poor blood glucose control. #3 History of prostate cancer, status post prostatectomy and status post radiation therapy completed in December 2017. #4 History of nephrolithiasis. #5 History of hypertension. #6 Hyperlipidemia. #7 Paroxysmal atrial fibrillation. Plan: The patient was seen and evaluated by Dr. Dr. Parker. Chest x-ray shows no acute pulmonary process. He is working well with his incentive spirometer. Currently maintaining O2 saturations in the upper 90s on room air. The plan is for coronary artery bypass grafting tomorrow. He was educated regarding the mechanical ventilator and postoperative expectations. We will continue to follow and make further recommendations based on his clinical status. I, the cosigning physician, performed a history & physical examination of the patient. Lungs sounds are clear. Maintaining good O2 saturations in the 90s on room air. I discussed the assessment and plan of care with my nurse practitioner, Carmen Kim. I attest to the above note as dictated by her.
[2018-05-02 16:52] LABS: Glucose,Whole Blood 230 mg/dL (75-99)
[2018-05-02 20:47] LABS: Glucose,Whole Blood 120 mg/dL (75-99)
[2018-05-03] MEDS ORDERED: INSULIN REGULAR 100 UNIT in SODIUM CHLORIDE 0.9% 100 ML IV PRN (05:00)
[2018-05-03] MEDS ORDERED: NOREPINEPHRINE 4 MG in SODIUM CHLORIDE 0.9% 250 ML IV PRN (05:00)
[2018-05-03] MEDS ORDERED: CLEVIDIPINE BUTYRATE 25 MG in EMPTY BAG 1 BAG IV PRN (05:00)
[2018-05-03] MEDS ORDERED: HEPARIN SODIUM,PORCINE 5,000 UNIT in SODIUM CHLORIDE 0.9% 500 ML 500 ML IV PRN (05:00)
[2018-05-03] MEDS ORDERED: SODIUM BICARB 8.4% 50 ML SYR (1 MEQ/ML) IV PRN (05:00)
[2018-05-03] MEDS ORDERED: ASPIRIN 325 MG TAB PO PRN (05:00)
[2018-05-03] MEDS ORDERED: DEXTROSE 5% IN WATER 1,000 ML with POTASSIUM CHLORIDE 25 MEQ, SODIUM CHLORIDE 2.5MEQ/ML... IV PRN ×6 (05:00)
[2018-05-03] MEDS ORDERED: ATORVASTATIN 10 MG TAB PO PRN (05:00)
[2018-05-03] MEDS ORDERED: PROTAMINE SULFATE 10 MG/ML 25 ML VIAL IV PRN (05:00)
[2018-05-03] MEDS ORDERED: PHENYLEPHRINE-0.9% NACL SYG 1 MG/10 ML SYRINGE IV PRN ×4 (05:00)
[2018-05-03] MEDS ORDERED: MAGNESIUM SULFATE SYG 4.06 MEQ/ML SYRINGE IV PRN (05:00)
[2018-05-03] MEDS ORDERED: PHENYLEPHRINE 40 MG in SODIUM CHLORIDE 0.9% 250 ML IV PRN (05:00)
[2018-05-03] MEDS ORDERED: PROPOFOL 1,000 MG in EMPTY BAG 1 BAG IV PRN (05:00)
[2018-05-03] MEDS ORDERED: NITROGLYCERIN-D5W PMX 25 MG/250 ML BTL IV PRN (05:00)
[2018-05-03] MEDS ORDERED: NITROGLYCERIN-D5W PMX 50 MG in DEXTROSE/WATER 1 250ML.BAG IV PRN (05:00)
[2018-05-03] MEDS ORDERED: LACTATED RINGERS 1,000 ML IV PRN (05:00)
[2018-05-03] MEDS ORDERED: MANNITOL 25% 12.5 GM/50 ML VIAL IV PRN ×2 (05:00)
[2018-05-03] MEDS ORDERED: PAPAVERINE 360 MG in SODIUM CHLORIDE 0.9% 90 ML IV PRN (05:00)
[2018-05-03] MEDS ORDERED: CALCIUM CHLORIDE 100 MG/ML 10 ML SYRINGE IVP PRN (05:00)
[2018-05-03] MEDS ORDERED: PROTAMINE SULFATE 250 MG in EMPTY BAG 1 BAG IV PRN (05:00)
[2018-05-03] MEDS ORDERED: HEPARIN SODIUM 1,000 UN/ML (10ML VL) IV PRN (05:00)
[2018-05-03] MEDS ORDERED: TRANEXAMIC ACID 2,000 MG in SODIUM CHLORIDE 0.9% 180 ML IV PRN ×2 (05:00→09:28)
[2018-05-03] MEDS ORDERED: METOPROLOL TARTRATE 12.5 MG TAB PO ONE (05:00)
[2018-05-03] MEDS ORDERED: ceFAZolin 2,000 MG in SODIUM CHLORIDE 0.9% 30 ML IVPB PRN (05:00)
[2018-05-03] MEDS ORDERED: CHLORHEXIDINE GLUCONATE 15 ML CUP MUCOUS MEM PRN (05:00)
[2018-05-03] MEDS ORDERED: DEXTROSE 5% IN WATER 1,000 ML with POTASSIUM CHLORIDE 110 MEQ, MAGNESIUM SULFATE 16 MEQ... IV PRN ×5 (05:00)
[2018-05-03] MEDS ORDERED: ceFAZolin 1,000 MG in SODIUM CHLORIDE 0.9% IRRIGATIO 1,000 ML IRRIGATION PRN (05:00)
[2018-05-03] MEDS: ASPIRIN 81 MG PO SCH (05:37)
[2018-05-03] MEDS: ATORVASTATIN 40 MG TAB PO SCH (05:37)
[2018-05-03 05:39] LABS: Glucose,Whole Blood 137 mg/dL (75-99)
[2018-05-03] MEDS ORDERED: PROTAMINE SULFATE 10 MG/ML 25 ML VIAL IV ONE (08:09)
[2018-05-03] MEDS ORDERED: SODIUM CHLORIDE 0.9% 250 ML BAG ONE (08:09)
[2018-05-03] MEDS ORDERED: LIDOCAINE 2% SYG (PF) 100 MG/5 ML ONE (08:09)
[2018-05-03] MEDS ORDERED: CALCIUM CHLORIDE 100 MG/ML 10 ML SYRINGE ONE (08:09)
[2018-05-03] MEDS ORDERED: WATER FOR INJECTION, STERILE 10 ML VIAL IV ONE (08:09)
[2018-05-03] MEDS ORDERED: fentaNYL (PF) 50 MCG/ML 50 ML VIAL ONE (08:09)
[2018-05-03] MEDS ORDERED: MAGNESIUM SULFATE 4 MEQ/ML 10ML VIAL ONE (08:09)
[2018-05-03] MEDS ORDERED: fentaNYL (PF) 50 MCG/ML 2 ML AMP ONE (08:09)
[2018-05-03] MEDS ORDERED: ceFAZolin 1,000 MG VIAL ONE (08:09)
[2018-05-03] MEDS ORDERED: ELECTROLYTE-R (PH 7.4) 1,000 ML IV.SOLN IV ONE (08:09)
[2018-05-03] MEDS ORDERED: TRANEXAMIC ACID 1,000 MG/10 ML VIAL ONE (08:09)
[2018-05-03] MEDS ORDERED: HEPARIN SODIUM,PORCINE 10,000 UNIT/ML 1 ML VIAL ONE (08:09)
[2018-05-03] MEDS ORDERED: PROPOFOL 10 MG/ML 20 ML VIAL IV ONE (08:09)
[2018-05-03] MEDS ORDERED: SODIUM CHLORIDE 0.9% IRRIG 1,000 ML BTL IRRIGATION ONE (08:09)
[2018-05-03] MEDS ORDERED: VECURONIUM 10 MG VIAL IV ONE (08:09)
[2018-05-03] MEDS ORDERED: MIDAZOLAM 2 MG/2 ML VIAL ONE (08:09)
[2018-05-03] MEDS: ceFAZolin 2 GM in SODIUM CHLORIDE 0.9% 30 ML IVPB PRN ×2 (08:45→09:54)
[2018-05-03 08:48] LABS: ABG Base Excess 1.2 mmol/L; ABG HCO3 26 mmol/L (21-25); ABG PCO2 39 mmHg (35-45); ABG PH 7.43 (7.35-7.45); ABG PO2 299 mmHg (83-108); ABG Potassium Whole Blood 4.1 mmol/L (3.4-4.5); ABG Sodium Whole Blood 139 mmol/L (135-146); ABG TCO2 27 mmol/L (19-24)
[2018-05-03 10:07] LABS: ABG Base Excess -0.3 mmol/L; ABG HCO3 25 mmol/L (21-25); ABG Oxygen Saturation 99.3 % (94-97); ABG PCO2 43 mmHg (35-45); ABG PH 7.37 (7.35-7.45); ABG PO2 172 mmHg (83-108); ABG Potassium Whole Blood 3.8 mmol/L (3.4-4.5); ABG Sodium Whole Blood 140 mmol/L (135-146); ABG TCO2 26 mmol/L (19-24)
[2018-05-03 11:10] LABS: ABG Base Excess -1.1 mmol/L; ABG HCO3 24 mmol/L (21-25); ABG Oxygen Saturation 99.7 % (94-97); ABG PCO2 42 mmHg (35-45); ABG PH 7.37 (7.35-7.45); ABG PO2 304 mmHg (83-108); ABG Potassium Whole Blood 4.8 mmol/L (3.4-4.5); ABG Sodium Whole Blood 134 mmol/L (135-146); ABG TCO2 25 mmol/L (19-24)
[2018-05-03 11:39] LABS: ABG Base Excess -1.1 mmol/L; ABG HCO3 24 mmol/L (21-25); ABG Oxygen Saturation 99.8 % (94-97); ABG PCO2 40 mmHg (35-45); ABG PH 7.38 (7.35-7.45); ABG PO2 217 mmHg (83-108); ABG Potassium Whole Blood 4.6 mmol/L (3.4-4.5); ABG Sodium Whole Blood 134 mmol/L (135-146); ABG TCO2 25 mmol/L (19-24)
[2018-05-03 12:10] LABS: ABG Base Excess -1.2 mmol/L; ABG HCO3 24 mmol/L (21-25); ABG Oxygen Saturation 99.9 % (94-97); ABG PCO2 39 mmHg (35-45); ABG PH 7.39 (7.35-7.45); ABG PO2 345 mmHg (83-108); ABG Potassium Whole Blood 4.5 mmol/L (3.4-4.5); ABG Sodium Whole Blood 135 mmol/L (135-146); ABG TCO2 25 mmol/L (19-24)
[2018-05-03 12:46] LABS: ABG HCO3 24 mmol/L (21-25); ABG PCO2 45 mmHg (35-45); ABG PH 7.33 (7.35-7.45); ABG PO2 359 mmHg (83-108); ABG Potassium Whole Blood 4.6 mmol/L (3.4-4.5); ABG Sodium Whole Blood 135 mmol/L (135-146); ABG TCO2 25 mmol/L (19-24)
[2018-05-03 13:33] LABS: ABG Base Excess -1.1 mmol/L; ABG HCO3 23 mmol/L (21-25); ABG Oxygen Saturation 99.8 % (94-97); ABG PCO2 36 mmHg (35-45); ABG PH 7.42 (7.35-7.45); ABG PO2 251 mmHg (83-108); ABG Potassium Whole Blood 3.9 mmol/L (3.4-4.5); ABG Sodium Whole Blood 138 mmol/L (135-146); ABG TCO2 24 mmol/L (19-24)
[2018-05-03 14:16] LABS: ABG Base Excess -1.2 mmol/L; ABG HCO3 23 mmol/L (21-25); ABG Oxygen Saturation 99.2 % (94-97); ABG PCO2 37 mmHg (35-45); ABG PH 7.41 (7.35-7.45); ABG PO2 142 mmHg (83-108); ABG Potassium Whole Blood 3.7 mmol/L (3.4-4.5); ABG Sodium Whole Blood 138 mmol/L (135-146); ABG TCO2 24 mmol/L (19-24)
[2018-05-03] MEDS: INSULIN ASPART 100 UNIT/ML 1 ML 10 ML VIAL SQ SCH (14:34)
[2018-05-03] MEDS: LISINOPRIL 5 MG TAB PO SCH (14:35)
[2018-05-03] MEDS: METOPROLOL SUCCINATE (ER) 100 MG TAB.ER.24H PO SCH (14:35)
[2018-05-03] MEDS: MUPIROCIN 2% OINT 22 GM TUBE NASAL SCH ×2 (14:35→21:32)
[2018-05-03] MEDS ORDERED: BENZOCAINE/MENTHOL LOZENG 1 EACH LOZENGE MUCOUS MEM PRN (14:46)
[2018-05-03] MEDS ORDERED: Potassium Replacement Protocol 1 EACH MISC MISCELLANE PRN (14:46)
[2018-05-03] MEDS ORDERED: Magnesium Replacement Protocol 1 EACH MISC MISCELLANE PRN (14:46)
[2018-05-03] MEDS ORDERED: NITROGLYCERIN-D5W PMX 50 MG in DEXTROSE/WATER 1 250ML.BAG IV SCH (14:46)
[2018-05-03] MEDS ORDERED: Phosphorus Replacement Protoco 1 EACH MISC MISCELLANE PRN (14:46)
[2018-05-03] MEDS ORDERED: IPRATROPIUM-ALBUTEROL 3 ML NEB INHALATION PRN (14:46)
[2018-05-03] MEDS ORDERED: CALCIUM CHLORIDE 1,000 MG in SODIUM CHLORIDE 0.9% 100 ML IV PRN (14:46)
[2018-05-03] MEDS ORDERED: NOREPINEPHRINE 4 MG in SODIUM CHLORIDE 0.9% 250 ML IV SCH (14:46)
[2018-05-03] MEDS ORDERED: PROPOFOL 1,000 MG in EMPTY BAG 1 BAG IV SCH (14:46)
[2018-05-03] MEDS ORDERED: ALBUMIN HUMAN 5% 250 ML in EMPTY BAG 1 BAG IVPB PRN (14:46)
[2018-05-03] MEDS ORDERED: ONDANSETRON 4 MG/2 ML VIAL IVP PRN (14:46)
[2018-05-03] MEDS: LACTATED RINGERS 1,000 ML IV SCH (15:00)
[2018-05-03] MEDS: INSULIN REGULAR 100 UNIT in SODIUM CHLORIDE 0.9% 100 ML IV SCH (15:00)
[2018-05-03 15:10] LABS: Glucose,Whole Blood 124 mg/dL (75-99)
[2018-05-03] MEDS: CLEVIDIPINE BUTYRATE 25 MG in EMPTY BAG 1 BAG IV SCH ×2 (15:10→20:11)
--- NOTE | 2018-05-03 15:22 | XR ---
EXAMINATION TYPE: XR chest 1V portable DATE OF EXAM: 05/03/2018 COMPARISON: 05/12/2018 HISTORY: Status post cardiac surgery. TECHNIQUE: Single frontal view of the chest is obtained. FINDINGS: There is new mild pulmonary vascular congestion and lower lung volumes accentuating the pu lmonary vasculature. Right [place]-Andrew catheter has been inserted from a right internal jugular approac h. Mediastinal drains, appropriately placed enteric tube, and endotracheal tubes are now seen. Endotr acheal tube terminates at the level of the inferior margin the clavicles in the superior aspect of th e aortic arch. Left-sided thoracostomy tube is present with no residual pneumothorax. Trace left pleu ral effusion blunts the costophrenic angle. Heart is enlarged with postoperative changes. Surgical cl ips are also seen near the gastroesophageal junction. IMPRESSION: Postoperative changes the chest with subsequent new mild interstitial pulmonary edema an d left trace pleural effusion. Lines and tubes as described above.
[2018-05-03 15:34] LABS: ABG Base Excess -0.2 mmol/L; ABG HCO3 25 mmol/L (21-25); ABG PCO2 43 mmHg (35-45); ABG PH 7.38 (7.35-7.45); ABG PO2 238 mmHg (83-108); ABG TCO2 26 mmol/L (19-24)
--- NOTE | 2018-05-03 15:55 | P.PN ---
Subjective Progress Note Date: 05/03/18 This is a 62-year-old male patient of Dr. Winston. Patient presented for an elective cardiac catheterization due to abnormal myocardial perfusion imaging was found to have severe left main disease as well as severe LAD and left circumflex disease. Patient was then evaluated by Dr. Zhu with cardiac thoracic surgical team and is scheduled to undergo coronary artery bypass graft surgery tomorrow 05/03/2018. Patient does have a known past medical history of hypertension, hyperlipidemia, diabetes mellitus, paroxysmal atrial fibrillation , prostate cancer with radiation last in December 2017, kidney stones, anxiety and ulcers. Today patient is currently resting in bed. Patient does appear a bit anxious. Patient denies any chest pain or shortness of breath. Patient denies nausea vomiting or diarrhea. Patient denies any urinary burning or frequency. Patient will undergo coronary artery bypass graft surgery tomorrow with Dr. Zhu. Patient did state understanding and that he had in-depth conversation with the cardiothoracic team yesterday. on 05/03/2018 patient currently status post coronary artery bypass graft with Dr. Wright. Patient currently mechanical ventilation in the intensive care unit. Objective - Vital Signs Vital signs: Vital Signs Temp 97.5 F L 05/03/18 05:55 Pulse 56 L 05/03/18 05:55 Resp 18 05/03/18 05:55 BP 136/74 05/03/18 05:55 Pulse Ox 99 05/03/18 05:55 Intake & Output 05/02/18 05/03/18 05/03/18 18:59 06:59 18:59 Intake Total 600 33 Output Total 425 1070 Balance 399 -631 -6808 Weight 81.3 kg 78.8 kg 78.8 kg Intake: IV 33 Oral 600 Output: Urine 425 1200 Estimated Blood Loss 1500 Other: Voiding Method Toilet Toilet # Voids 1 1 - Exam Head normocephalic Neck supple Lungs currently on mechanical ventilation Heart regular rate and rhythm S1-S2, no rub or gallop Abdomen is soft nontender nondistended positive bowel sounds no hepatosplenomegaly Extremities no edema Neuro patient currently sedated on mechanical ventilation - Labs CBC & Chem 7: 05/02/18 05:38 05/02/18 05:38 Labs: Abnormal Lab Results - Last 24 Hours (Table) 05/02/18 05/02/18 05/02/18 Range/Units 05:38 16:44 20:45 Fibrinogen (200-500) mg/dL ABG pH (7.35-7.45) ABG pO2 (83-108) mmHg ABG HCO3 (21-25) mmol/L ABG Total CO2 (19-24) mmol/L ABG O2 Saturation (94-97) % ABG Hematocrit (34.0-46.0) % ABG Sodium (135-146) mmol/L ABG Potassium (3.4-4.5) mmol/L ABG Ionized Calcium (4.5-5.3) mg/dL ABG Glucose (75-99) mg/dL ABG Lactic Acid (0.5-1.6) mmol/L Hemoglobin (13.0-17.5) gm/dL POC Glucose (mg/dL) 230 H 120 H (75-99) mg/dL Arterial Blood Potassium (3.4-4.5) mmol/L Arterial Blood Glucose (75-99) mg/dL Crossmatch See Detail 05/03/18 05/03/18 05/03/18 Range/Units 05:34 08:46 10:05 Fibrinogen (200-500) mg/dL ABG pH (7.35-7.45) ABG pO2 299 H 172 H (83-108) mmHg ABG HCO3 26 H (21-25) mmol/L ABG Total CO2 27 H 26 H (19-24) mmol/L ABG O2 Saturation 100.0 H 99.3 H (94-97) % ABG Hematocrit (34.0-46.0) % ABG Sodium (135-146) mmol/L ABG Potassium (3.4-4.5) mmol/L ABG Ionized Calcium (4.5-5.3) mg/dL ABG Glucose 155 H 155 H (75-99) mg/dL ABG Lactic Acid (0.5-1.6) mmol/L Hemoglobin 12.5 L 11.5 L (13.0-17.5) gm/dL POC Glucose (mg/dL) 137 H (75-99) mg/dL Arterial Blood Potassium (3.4-4.5) mmol/L Arterial Blood Glucose 155 H 155 H (75-99) mg/dL Crossmatch 05/03/18 05/03/18 05/03/18 Range/Units 11:08 11:37 12:09 Fibrinogen (200-500) mg/dL ABG pH (7.35-7.45) ABG pO2 304 H 217 H 345 H (83-108) mmHg ABG HCO3 (21-25) mmol/L ABG Total CO2 25 H 25 H 25 H (19-24) mmol/L ABG O2 Saturation 99.7 H 99.8 H 99.9 H (94-97) % ABG Hematocrit 24 L 24 L 23 L (34.0-46.0) % ABG Sodium 134 L 134 L (135-146) mmol/L ABG Potassium 4.8 H 4.6 H (3.4-4.5) mmol/L ABG Ionized Calcium 4.2 L 4.2 L 4.3 L (4.5-5.3) mg/dL ABG Glucose 232 H 237 H 218 H (75-99) mg/dL ABG Lactic Acid 2.0 H 2.3 H* 3.1 H* (0.5-1.6) mmol/L Hemoglobin 8.0 L 7.9 L 7.6 L (13.0-17.5) gm/dL POC Glucose (mg/dL) (75-99) mg/dL Arterial Blood Potassium 4.8 H 4.6 H (3.4-4.5) mmol/L Arterial Blood Glucose 232 H 237 H 218 H (75-99) mg/dL Crossmatch 05/03/18 05/03/18 05/03/18 Range/Units 12:44 13:31 14:14 Fibrinogen (200-500) mg/dL ABG pH 7.33 L (7.35-7.45) ABG pO2 359 H 251 H 142 H (83-108) mmHg ABG HCO3 (21-25) mmol/L ABG Total CO2 25 H (19-24) mmol/L ABG O2 Saturation 100.0 H 99.8 H 99.2 H (94-97) % ABG Hematocrit 23 L 25 L 23 L (34.0-46.0) % ABG Sodium (135-146) mmol/L ABG Potassium 4.6 H (3.4-4.5) mmol/L ABG Ionized Calcium 4.3 L 4.3 L (4.5-5.3) mg/dL ABG Glucose 218 H 181 H 142 H (75-99) mg/dL ABG Lactic Acid 3.5 H* 3.5 H* 3.0 H* (0.5-1.6) mmol/L Hemoglobin 7.4 L 8.3 L 7.4 L (13.0-17.5) gm/dL POC Glucose (mg/dL) (75-99) mg/dL Arterial Blood Potassium 4.6 H (3.4-4.5) mmol/L Arterial Blood Glucose 218 H 181 H 142 H (75-99) mg/dL Crossmatch 05/03/18 05/03/18 05/03/18 Range/Units 15:00 15:05 15:32 Fibrinogen 195 L (200-500) mg/dL ABG pH (7.35-7.45) ABG pO2 238 H (83-108) mmHg ABG HCO3 (21-25) mmol/L ABG Total CO2 26 H (19-24) mmol/L ABG O2 Saturation 100.0 H (94-97) % ABG Hematocrit (34.0-46.0) % ABG Sodium (135-146) mmol/L ABG Potassium (3.4-4.5) mmol/L ABG Ionized Calcium (4.5-5.3) mg/dL ABG Glucose (75-99) mg/dL ABG Lactic Acid (0.5-1.6) mmol/L Hemoglobin (13.0-17.5) gm/dL POC Glucose (mg/dL) 124 H (75-99) mg/dL Arterial Blood Potassium (3.4-4.5) mmol/L Arterial Blood Glucose (75-99) mg/dL Crossmatch Microbiology - Last 24 Hours (Table) 05/01/18 18:45 Urine Culture - Final Urine,Voided 05/02/18 15:53 Urine Culture - Preliminary Urine,Clean Catch Assessment and Plan Assessment: 1. status post coronary artery bypass graft with Dr. Wright. AGUIRRE to LAD SVG to PDA SVG to diagonal SVG to OM. patient currently on mechanical ventilation in the intensive care unit 2. Multivessel coronary artery disease. Patient has 70% left main lesion. status post cardiac cath. Patient currently scheduled for coronary artery bypass graft surgery with Dr. Zhu tomorrow 05/03/2018 3. Diabetes mellitus. Metformin on hold. Patient currently managed on sliding scale insulin 4. essential hypertension. 5. History of paroxysmal atrial fibrillation 6. History of prostate cancer post prostatectomy and post radiation therapy completed in December 2017 7. History of hyperlipidemia 8. History of nephrolithiasis Thank you for this consultation we will continue to follow patient closely throughout stay I performed an examination of the patient and discussed their management with the Nurse Practitioner. I have reviewed the Nurse Practitioner's notes and agree with the documented findings and plan of care
[2018-05-03 15:58] LABS: Glucose,Whole Blood 108 mg/dL (75-99)
[2018-05-03] MEDS ORDERED: IPRATROPIUM-ALBUTEROL 3 ML NEB INHALATION SCH (16:00)
--- NOTE | 2018-05-03 16:20 | P.PN ---
Subjective Progress Note Date: 05/03/18 On 05/03/2018 I'm seeing this patient immediately after his coronary artery bypass surgery. The patient underwent four-vessel bypass surgery. The patient was brought into the intensive care unit intubated on a mechanical ventilator. Currently sedated with Diprivan is calm and comfortable. The postop chest x- ray shows adequate positioning of the orotracheal tube. NG tube is in place. All of the chest tubes are in place. Linwood-Andrew catheter is also in place. The blood gases showed a pH of 7.38 with a pCO2 of 43 and pO2 of 238. This was on assist control mode at the rate of 12, tidal volume of 550, FiO2 of 100% and PEEP of 5. The patient is hemodynamically stable. The patient is on no pressors. Cardiac output is at 6.8 and the cardiac index is at 3.5. The output from the mediastinal chest tubes is 450 since arriving from the operating room and from the hospital chest tube is around 60 mL. Urine output is adequate. The patient is currently on nitroglycerin drip at 50 g per KG per minute. The patient is also on The proximal drip at 2 mg per hour. He is well sedated with Diprivan. He is calm and comfortable. Success with the mechanical ventilator. Objective - Vital Signs Vital signs: Vital Signs Temp 97.5 F L 05/03/18 05:55 Pulse 56 L 05/03/18 05:55 Resp 18 05/03/18 05:55 BP 136/74 05/03/18 05:55 Pulse Ox 99 05/03/18 05:55 Intake & Output 05/02/18 05/03/18 05/03/18 18:59 06:59 18:59 Intake Total 600 33 Output Total 425 2700 Balance 378 -537 -9466 Weight 81.3 kg 78.8 kg 78.8 kg Intake: IV 33 Oral 600 Output: Urine 425 1200 Estimated Blood Loss 1500 Other: Voiding Method Toilet Toilet # Voids 1 1 - Exam Gen. appearance, comfortable sedated nonacute distress. Intubated on a mechanical ventilator. Orogastric and orotracheal tube are both in place. Head exam was generally normal. There was no scleral icterus or corneal arcus. Mucous membranes were moist. Neck was supple and without jugular venous distension, thyromegaly, or carotid bruits. Carotids were easily palpable bilaterally. There was no adenopathy.The patient has a right IJ Linwood-Andrew catheter Cordis in place. No goiter or neck masses. Pupils are equal and reactive to light. Lungs sounds are equal and symmetrical bilaterally. Sternum is stable clean and intact. The patient is to mediastinal and 1 pleural chest tube and all of the chest tubes are in place. Cardiac exam revealed the PMI to be normally situated and sized. The rhythm was regular and no extrasystoles were noted during several minutes of auscultation. The first and second heart sounds were normal and physiologic splitting of the second heart sound was noted. There were no murmurs, rubs, clicks, or gallops. Abdominal exam revealed normal bowel sounds. The abdomen was soft, non-tender, and without masses, organomegaly, or appreciable enlargement of the abdominal aorta. Examination of the extremities revealed easily palpable radial, femoral and pedal pulses. There was no cyanosis, clubbing or edema. Examination of the skin revealed no evidence of significant rashes, suspicious appearing nevi or other concerning lesions.All of the surgical wound sites of dry clean and intact. Neurologically the patient is still sedated for now. - Labs CBC & Chem 7: 05/02/18 05:38 05/02/18 05:38 Labs: Abnormal Lab Results - Last 24 Hours (Table) 05/02/18 05/02/18 05/02/18 Range/Units 05:38 16:44 20:45 Fibrinogen (200-500) mg/dL ABG pH (7.35-7.45) ABG pO2 (83-108) mmHg ABG HCO3 (21-25) mmol/L ABG Total CO2 (19-24) mmol/L ABG O2 Saturation (94-97) % ABG Hematocrit (34.0-46.0) % ABG Sodium (135-146) mmol/L ABG Potassium (3.4-4.5) mmol/L ABG Ionized Calcium (4.5-5.3) mg/dL ABG Glucose (75-99) mg/dL ABG Lactic Acid (0.5-1.6) mmol/L Hemoglobin (13.0-17.5) gm/dL POC Glucose (mg/dL) 230 H 120 H (75-99) mg/dL Arterial Blood Potassium (3.4-4.5) mmol/L Arterial Blood Glucose (75-99) mg/dL Crossmatch See Detail 05/03/18 05/03/18 05/03/18 Range/Units 05:34 08:46 10:05 Fibrinogen (200-500) mg/dL ABG pH (7.35-7.45) ABG pO2 299 H 172 H (83-108) mmHg ABG HCO3 26 H (21-25) mmol/L ABG Total CO2 27 H 26 H (19-24) mmol/L ABG O2 Saturation 100.0 H 99.3 H (94-97) % ABG Hematocrit (34.0-46.0) % ABG Sodium (135-146) mmol/L ABG Potassium (3.4-4.5) mmol/L ABG Ionized Calcium (4.5-5.3) mg/dL ABG Glucose 155 H 155 H (75-99) mg/dL ABG Lactic Acid (0.5-1.6) mmol/L Hemoglobin 12.5 L 11.5 L (13.0-17.5) gm/dL POC Glucose (mg/dL) 137 H (75-99) mg/dL Arterial Blood Potassium (3.4-4.5) mmol/L Arterial Blood Glucose 155 H 155 H (75-99) mg/dL Crossmatch 05/03/18 05/03/18 05/03/18 Range/Units 11:08 11:37 12:09 Fibrinogen (200-500) mg/dL ABG pH (7.35-7.45) ABG pO2 304 H 217 H 345 H (83-108) mmHg ABG HCO3 (21-25) mmol/L ABG Total CO2 25 H 25 H 25 H (19-24) mmol/L ABG O2 Saturation 99.7 H 99.8 H 99.9 H (94-97) % ABG Hematocrit 24 L 24 L 23 L (34.0-46.0) % ABG Sodium 134 L 134 L (135-146) mmol/L ABG Potassium 4.8 H 4.6 H (3.4-4.5) mmol/L ABG Ionized Calcium 4.2 L 4.2 L 4.3 L (4.5-5.3) mg/dL ABG Glucose 232 H 237 H 218 H (75-99) mg/dL ABG Lactic Acid 2.0 H 2.3 H* 3.1 H* (0.5-1.6) mmol/L Hemoglobin 8.0 L 7.9 L 7.6 L (13.0-17.5) gm/dL POC Glucose (mg/dL) (75-99) mg/dL Arterial Blood Potassium 4.8 H 4.6 H (3.4-4.5) mmol/L Arterial Blood Glucose 232 H 237 H 218 H (75-99) mg/dL Crossmatch 05/03/18 05/03/18 05/03/18 Range/Units 12:44 13:31 14:14 Fibrinogen (200-500) mg/dL ABG pH 7.33 L (7.35-7.45) ABG pO2 359 H 251 H 142 H (83-108) mmHg ABG HCO3 (21-25) mmol/L ABG Total CO2 25 H (19-24) mmol/L ABG O2 Saturation 100.0 H 99.8 H 99.2 H (94-97) % ABG Hematocrit 23 L 25 L 23 L (34.0-46.0) % ABG Sodium (135-146) mmol/L ABG Potassium 4.6 H (3.4-4.5) mmol/L ABG Ionized Calcium 4.3 L 4.3 L (4.5-5.3) mg/dL ABG Glucose 218 H 181 H 142 H (75-99) mg/dL ABG Lactic Acid 3.5 H* 3.5 H* 3.0 H* (0.5-1.6) mmol/L Hemoglobin 7.4 L 8.3 L 7.4 L (13.0-17.5) gm/dL POC Glucose (mg/dL) (75-99) mg/dL Arterial Blood Potassium 4.6 H (3.4-4.5) mmol/L Arterial Blood Glucose 218 H 181 H 142 H (75-99) mg/dL Crossmatch 05/03/18 05/03/18 05/03/18 Range/Units 15:00 15:05 15:32 Fibrinogen 195 L (200-500) mg/dL ABG pH (7.35-7.45) ABG pO2 238 H (83-108) mmHg ABG HCO3 (21-25) mmol/L ABG Total CO2 26 H (19-24) mmol/L ABG O2 Saturation 100.0 H (94-97) % ABG Hematocrit (34.0-46.0) % ABG Sodium (135-146) mmol/L ABG Potassium (3.4-4.5) mmol/L ABG Ionized Calcium (4.5-5.3) mg/dL ABG Glucose (75-99) mg/dL ABG Lactic Acid (0.5-1.6) mmol/L Hemoglobin (13.0-17.5) gm/dL POC Glucose (mg/dL) 124 H (75-99) mg/dL Arterial Blood Potassium (3.4-4.5) mmol/L Arterial Blood Glucose (75-99) mg/dL Crossmatch 05/03/18 Range/Units 15:57 Fibrinogen (200-500) mg/dL ABG pH (7.35-7.45) ABG pO2 (83-108) mmHg ABG HCO3 (21-25) mmol/L ABG Total CO2 (19-24) mmol/L ABG O2 Saturation (94-97) % ABG Hematocrit (34.0-46.0) % ABG Sodium (135-146) mmol/L ABG Potassium (3.4-4.5) mmol/L ABG Ionized Calcium (4.5-5.3) mg/dL ABG Glucose (75-99) mg/dL ABG Lactic Acid (0.5-1.6) mmol/L Hemoglobin (13.0-17.5) gm/dL POC Glucose (mg/dL) 108 H (75-99) mg/dL Arterial Blood Potassium (3.4-4.5) mmol/L Arterial Blood Glucose (75-99) mg/dL Crossmatch Microbiology - Last 24 Hours (Table) 05/01/18 18:45 Urine Culture - Final Urine,Voided 05/02/18 15:53 Urine Culture - Preliminary Urine,Clean Catch Assessment and Plan Plan: Assessment 1 multivessel coronary artery disease status post carotid bypass surgery, the patient underwent four-vessel bypass and currently the patient is postop day # 0. Mother the patient had coronary artery disease with a 70% left main lesion, in addition to significant lesion involving the LAD and the circumflex and moderate disease involving the RCA. The patient had a positive cardiac stress test and nonsustained V. tach. 2 post thoracotomy, currently intubated on a mechanical ventilator. All of the chest tubes are in place and output is being monitored. Blood gases was noted. Chest x-ray was noted. Necessary vent changes were done. 3 hypertension currently on clevidipine drip for blood pressure control 4 diabetes mellitus currently on insulin drip for blood sugar control 5 history of prostate cancer status post radiation therapy 6 nephrolithiasis 7 hyperlipidemia 8 proximity atrial fibrillation current rhythm is sinus 9 previous history of nonsustained V. tach Plan wean down the FiO2 slowly to maintain a saturation above 90%. The hemodynamic parameters are all stable for now. Monitor urine output. Monitor blood pressure. Monitor output from the chest tubes. We'll gradually weaned on the sedation and assess this patient's readiness to weaning proceed with a spontaneous breathing trial and consider extubation within the next 4-6 hours.
[2018-05-03] MEDS: ceFAZolin IN SWFI 2 GM/20 ML SYRINGE IVP SCH ×2 (16:27→23:17)
[2018-05-03 17:00] LABS: INR 1.3 (<1.2); Partial Thromboplastin Time 26.5 sec (22.0-30.0); Prothrombin Time 13.6 sec (9.0-12.0)
[2018-05-03 17:02] LABS: Glucose,Whole Blood 125 mg/dL (75-99)
[2018-05-03 17:02] LABS: Ionized Calcium 4.9 mg/dL (4.5-5.3)
[2018-05-03 17:06] LABS: HCT 24.4 % (39.0-53.0); HGB 8.1 gm/dL (13.0-17.5); MCH 31.1 pg (25.0-35.0); MCHC 32.9 g/dL (31.0-37.0); MCV 94.5 fL (80.0-100.0); RBC 2.59 m/uL (4.30-5.90); RDW 12.4 % (11.5-15.5); WBC 5.8 k/uL (3.8-10.6)
[2018-05-03 17:17] LABS: ALT 30 U/L (21-72); AST 31 U/L (17-59); Albumin 2.7 g/dL (3.5-5.0); Alkaline Phosphatase 34 U/L (38-126); Anion Gap 5 mmol/L; Blood Urea Nitrogen 9 mg/dL (9-20); Calcium 8.3 mg/dL (8.4-10.2); Carbon Dioxide 24 mmol/L (22-30); Chloride 110 mmol/L (98-107); Glucose 120 mg/dL (74-99); Magnesium 2.4 mg/dL (1.6-2.3); Potassium 4.1 mmol/L (3.5-5.1); Sodium 139 mmol/L (137-145); Total Bilirubin 1.2 mg/dL (0.2-1.3); Total Protein 4.5 g/dL (6.3-8.2)
[2018-05-03] MEDS: ACETAMINOPHEN IV (For NPO) 1,000 MG in EMPTY BAG 1 BAG IVPB SCH ×2 (17:24→23:12)
[2018-05-03 17:25] LABS: Band Neutrophils % 12 %; Eosinophils # (M) 0.06 k/uL (0-0.7); Lymphocytes # (M) 0.52 k/uL (1.0-4.8); Myelocytes # (M) 0.06 k/uL (0); Myelocytes % 1 %; Neutrophils % (M) 78 %; Nucleated Red Blood Cells 0 /100 WBC (0-0); Total Cells Counted 200
[2018-05-03 17:26] LABS: Platelet Count 89 k/uL (150-450); Toxic Granulation Present
[2018-05-03 18:04] LABS: Glucose,Whole Blood 222 mg/dL (75-99)
[2018-05-03] MEDS: DILTIAZEM 50 MG in SODIUM CHLORIDE 0.9% 40 ML IV SCH (18:12)
[2018-05-03 18:16] LABS: Basophils % (A) 0 %; Eosinophils % (A) 1 %; HCT 27.4 % (39.0-53.0); HGB 8.8 gm/dL (13.0-17.5); Lymphocytes # (A) 0.4 k/uL (1.0-4.8); Lymphocytes % (A) 7 %; MCH 30.8 pg (25.0-35.0); MCHC 32.1 g/dL (31.0-37.0); Mean Platelet Volume 7.1; Monocytes # (A) 0.4 k/uL (0-1.0); Monocytes % (A) 6 %; Neutrophils # (A) 5.5 k/uL (1.3-7.7); Neutrophils % (A) 86 %; Platelet Count 100 k/uL (150-450); RBC 2.86 m/uL (4.30-5.90); RDW 12.4 % (11.5-15.5); WBC 6.4 k/uL (3.8-10.6)
[2018-05-03 18:47] LABS: ABG Base Excess -1.9 mmol/L; ABG HCO3 23 mmol/L (21-25); ABG Oxygen Saturation 95.3 % (94-97); ABG PCO2 40 mmHg (35-45); ABG PH 7.37 (7.35-7.45); ABG PO2 74 mmHg (83-108); ABG TCO2 25 mmol/L (19-24)
[2018-05-03] MEDS: IPRATROPIUM-ALBUTEROL 3 ML NEB INHALATION SCH (19:02)
[2018-05-03 19:03] LABS: Glucose,Whole Blood 226 mg/dL (75-99)
[2018-05-03 20:02] LABS: Glucose,Whole Blood 222 mg/dL (75-99)
[2018-05-03 21:00] LABS: Glucose,Whole Blood 235 mg/dL (75-99)
[2018-05-03 21:03] LABS: Basophils % (A) 0 %; Eosinophils % (A) 0 %; HCT 27.8 % (39.0-53.0); HGB 9.4 gm/dL (13.0-17.5); Lymphocytes # (A) 0.3 k/uL (1.0-4.8); Lymphocytes % (A) 4 %; MCH 32.4 pg (25.0-35.0); MCHC 33.7 g/dL (31.0-37.0); MCV 96.2 fL (80.0-100.0); Mean Platelet Volume 7.8; Monocytes # (A) 0.3 k/uL (0-1.0); Monocytes % (A) 4 %; Neutrophils % (A) 91 %; Platelet Count 104 k/uL (150-450); RBC 2.89 m/uL (4.30-5.90); RDW 12.4 % (11.5-15.5); WBC 7.7 k/uL (3.8-10.6)
--- NOTE | 2018-05-03 21:03 | OP ---
OPERATIVE REPORT DATE OF SURGERY: 05/03/2018 PREOPERATIVE DIAGNOSIS: Coronary artery disease. POSTOPERATIVE DIAGNOSIS: Coronary artery disease. PROCEDURE: 1. Coronary bypass grafting x4 vessels (left internal mammary artery to left anterior descending artery, saphenous vein graft to diagonal artery, saphenous vein graft to obtuse marginal artery, saphenous vein graft to posterior descending artery). 2. Endoscopic vein harvest of bilateral greater saphenous veins. 3. Epiaortic ultrasound. 4. Transesophageal echocardiogram. SURGEON: Yazan Wright MD. ASSISTANTS: 1. Asha LUONG. 2. Lindsey LUONG. ANESTHESIA: General. SPECIMENS: None. COMPLICATIONS: None. INDICATION: The patient is a 62-year-old male with a past medical history significant for diabetes mellitus, hyperlipidemia, hypertension, kidney stones and prostate cancer who reports shortness of breath and fatigue. Cardiac catheterization revealed multivessel coronary artery disease, including left main artery disease. A coronary artery bypass was recommended. The risks, benefits and alternatives of this procedure were discussed with the patient. All his questions were answered. Consent was obtained. FINDINGS: The left internal mammary artery was a good conduit with brisk flow. The saphenous vein was a good conduit. The left anterior descending artery measured 1.5 mm. The diagonal artery measured 1.5 mm. The PDA measured 1.5 mm. The obtuse marginal artery measured 1.5 mm. PROCEDURE IN DETAIL: The patient was taken to the operating room and placed supine on the operating room table. After induction of general anesthesia he was prepped and draped in the usual sterile fashion. Preoperative transesophageal echocardiogram revealed a preserved ejection fraction with trivial mitral regurgitation. A median sternotomy was performed. The left internal mammary artery was harvested in standard fashion, taking care to clip all branches. Intravenous heparin was administered and the vessel was transected distally, revealing brisk flow. Simultaneously, greater saphenous veins were harvested from both lower extremities using endoscopic technique. All branches were tied. Of note, the patient's right radial arterial monitoring line had some dysfunction, and I therefore chose to place a left femoral arterial monitoring line using standard Seldinger technique. This was performed in the standard fashion. Access was obtained using a needle. A guidewire was placed. The tract was dilated and a femoral arterial catheter was easily placed. A pericardial cradle was created. The ascending aorta was palpated. There was no significant calcific plaque. Epiaortic ultrasound was then performed on the ascending aorta. Again no calcific plaque was identified. An arterial cannula was placed in the distal ascending aorta. A venous cannula was placed through the right atrial appendage and directed into the IVC. Both antegrade and retrograde catheters were placed as well. The patient was then placed on cardiopulmonary bypass with good decompression of the heart. Aortic cross-clamp was applied. Cardioplegia was delivered in both antegrade and retrograde fashion to achieve arrest of the heart. Of note, cardioplegia was delivered every 15 to 20 minutes while the patient remained under cross-clamp. I began by inspecting the inferior wall. The posterior descending artery was identified. It was dissected free. A small arteriotomy was created. This vessel accepted a 1.5 mm probe. Using saphenous vein in a reverse fashion, an end-to-side anastomosis was created. This was performed using running 7-0 Prolene suture. The graft was hemostatic and had good flow. Next, the lateral wall was inspected. The obtuse marginal artery was identified. There was scattered calcific plaque noted throughout this vessel. A soft spot for bypass was identified. A small arteriotomy was created. This vessel accepted a 1.5 mm probe. Using saphenous vein in a reverse fashion, an end-to-side anastomosis was created. This was performed using running 7-0 Prolene suture. The graft was hemostatic and had good flow. Next, the diagonal artery #1 was identified. A small arteriotomy was created. This vessel accepted a 1.5 mm probe. Using saphenous vein in reverse fashion, an end-to-side anastomosis was created. This was performed using running 7-0 Prolene suture. Graft was hemostatic and had good flow. Finally the left anterior descending artery was dissected free. A soft spot for bypass was chosen. A small arteriotomy was created. This vessel accepted a 1.5 mm probe. Using the left internal mammary artery, an end-to-side anastomosis was created. This was performed using running 8-0 Prolene suture. The graft was hemostatic. The mammary pedicle was then tacked onto the anterior surface of the heart. Attention was then turned to the proximal anastomoses. These were performed in end-to- side fashion using running 6-0 Prolene sutures. Lidocaine and magnesium were administered. The aortic cross-clamp was removed. The vein grafts were de-aired in standard fashion. The retrograde catheter was removed. Temporary atrial and ventricular pacing wires were placed and brought through the skin. The patient was then weaned off cardiopulmonary bypass. He without difficulty. Follow-up transesophageal echocardiogram revealed preserved left ventricular ejection fraction, no change in the trivial mitral regurgitation. Cardiac output was greater than 5. Protamine was administered. No adverse reactions. The remaining cannulas were then removed. The mediastinum was copiously irrigated with warm saline solution. All surgical sites were inspected and appeared to be hemostatic. Reinforcement sutures were placed as needed. Soft tissue was reapproximated of the ascending aorta as well as of the apex of the heart. Straight 32-Syriac chest tubes were placed and directed into the left pleural space as well as into the mediastinum. These were secured to the skin using sutures. The sternum was then reapproximated using stainless steel wires in a [id number] fashion. At the completion of the closure, the sternum was well aligned. The remainder of the wound was then closed in layers. A sterile dressing was applied. The patient appeared to tolerate the procedure well. There were no immediate complications. He returned to the ICU in critical stable condition. MMODL / IJN: [id number] /
[2018-05-03 21:56] LABS: Glucose,Whole Blood 188 mg/dL (75-99)
[2018-05-03 23:04] LABS: Glucose,Whole Blood 177 mg/dL (75-99)
[2018-05-03] MEDS: HEPARIN SODIUM,PORCINE 5,000 UNIT/ML 1 ML VIAL SQ SCH (23:17)
[2018-05-04 00:16] LABS: Glucose,Whole Blood 163 mg/dL (75-99)
[2018-05-04 00:55] LABS: Glucose,Whole Blood 162 mg/dL (75-99)
[2018-05-04] MEDS: DILTIAZEM 50 MG in SODIUM CHLORIDE 0.9% 40 ML IV SCH (00:55)
[2018-05-04 01:53] LABS: Glucose,Whole Blood 156 mg/dL (75-99)
[2018-05-04 02:54] LABS: Glucose,Whole Blood 138 mg/dL (75-99)
[2018-05-04 04:13] LABS: Glucose,Whole Blood 128 mg/dL (75-99)
[2018-05-04 04:22] LABS: Basophils % (A) 0 %; Eosinophils % (A) 0 %; HCT 28.2 % (39.0-53.0); HGB 9.3 gm/dL (13.0-17.5); Lymphocytes # (A) 0.4 k/uL (1.0-4.8); Lymphocytes % (A) 6 %; MCH 31.5 pg (25.0-35.0); MCHC 32.8 g/dL (31.0-37.0); Monocytes # (A) 0.4 k/uL (0-1.0); Monocytes % (A) 6 %; Neutrophils # (A) 6.4 k/uL (1.3-7.7); Neutrophils % (A) 87 %; RBC 2.94 m/uL (4.30-5.90); RDW 12.3 % (11.5-15.5); WBC 7.4 k/uL (3.8-10.6)
[2018-05-04 04:23] LABS: Platelet Count 99 k/uL (150-450)
[2018-05-04 04:30] LABS: INR 1.1 (<1.2); Partial Thromboplastin Time 23.6 sec (22.0-30.0); Prothrombin Time 11.7 sec (9.0-12.0)
[2018-05-04 04:36] LABS: ALT 28 U/L (21-72); AST 39 U/L (17-59); Albumin 3.2 g/dL (3.5-5.0); Alkaline Phosphatase 41 U/L (38-126); Anion Gap 8 mmol/L; Blood Urea Nitrogen 9 mg/dL (9-20); Calcium 8.9 mg/dL (8.4-10.2); Carbon Dioxide 24 mmol/L (22-30); Chloride 105 mmol/L (98-107); Glucose 120 mg/dL (74-99); Potassium 4.2 mmol/L (3.5-5.1); Sodium 137 mmol/L (137-145); Total Bilirubin 1.5 mg/dL (0.2-1.3); Total Protein 5.3 g/dL (6.3-8.2)
[2018-05-04 05:17] LABS: Glucose,Whole Blood 111 mg/dL (75-99)
--- NOTE | 2018-05-04 06:06 | XR ---
EXAMINATION TYPE: XR chest 1V portable DATE OF EXAM: 05/04/2018 HISTORY: Post Operative Cardiac Surgery. REFERENCE: Previous study dated 05/03/2018. FINDINGS: The patient has been extubated. The patient is NG tube is been removed. There is a Pierceton-Jovana z catheter in place via a right internal jugular approach. Its tip is in the right interlobar artery. There has been a midline sternotomy. A left pleural drain remains in place. There is confluent left basilar airspace disease. There is right basilar atelectasis. There is mild v ascular congestion without donny edema. I suspect small, bilateral effusions. IMPRESSION: CONTINUING POSTOPERATIVE CHANGE WITH IMPROVING CHANGES OF CONGESTIVE HEART FAILURE.
[2018-05-04] MEDS: ACETAMINOPHEN IV (For NPO) 1,000 MG in EMPTY BAG 1 BAG IVPB SCH ×3 (06:09→18:18)
[2018-05-04 06:12] LABS: Glucose,Whole Blood 176 mg/dL (75-99)
[2018-05-04 07:02] LABS: Glucose,Whole Blood 158 mg/dL (75-99)
[2018-05-04] MEDS: IPRATROPIUM-ALBUTEROL 3 ML NEB INHALATION SCH ×4 (07:31→19:29)
[2018-05-04 08:48] LABS: Glucose,Whole Blood 150 mg/dL (75-99)
[2018-05-04] MEDS ORDERED: PANTOPRAZOLE 40 MG/10 ML VIAL IVP SCH (09:00)
[2018-05-04] MEDS ORDERED: METOPROLOL TARTRATE 12.5 MG TAB PO SCH (09:00)
[2018-05-04] MEDS: ceFAZolin IN SWFI 2 GM/20 ML SYRINGE IVP SCH (09:36)
[2018-05-04] MEDS: KETOROLAC 30 MG/ML 1 ML VIAL IVP SCH ×3 (09:36→18:32)
[2018-05-04] MEDS: HEPARIN SODIUM,PORCINE 5,000 UNIT/ML 1 ML VIAL SQ SCH ×2 (09:36→16:17)
[2018-05-04] MEDS: CLOPIDOGREL 75 MG TAB PO SCH (09:37)
[2018-05-04] MEDS: ASPIRIN 325 MG TAB PO SCH (09:37)
[2018-05-04] MEDS: ATORVASTATIN 40 MG TAB PO SCH (09:38)
[2018-05-04] MEDS: LACTATED RINGERS 1,000 ML IV SCH (09:39)
[2018-05-04] MEDS: MUPIROCIN 2% OINT 22 GM TUBE NASAL SCH ×2 (09:39→21:21)
--- NOTE | 2018-05-04 09:51 | P.PN ---
Subjective Progress Note Date: 05/04/18 On 05/03/2018 I'm seeing this patient immediately after his coronary artery bypass surgery. The patient underwent four-vessel bypass surgery. The patient was brought into the intensive care unit intubated on a mechanical ventilator. Currently sedated with Diprivan is calm and comfortable. The postop chest x- ray shows adequate positioning of the orotracheal tube. NG tube is in place. All of the chest tubes are in place. [place] catheter is also in place. The blood gases showed a pH of 7.38 with a pCO2 of 43 and pO2 of 238. This was on assist control mode at the rate of 12, tidal volume of 550, FiO2 of 100% and PEEP of 5. The patient is hemodynamically stable. The patient is on no pressors. Cardiac output is at 6.8 and the cardiac index is at 3.5. The output from the mediastinal chest tubes is 450 since arriving from the operating room and from the hospital chest tube is around 60 mL. Urine output is adequate. The patient is currently on nitroglycerin drip at 50 g per KG per minute. The patient is also on The proximal drip at 2 mg per hour. He is well sedated with Diprivan. He is calm and comfortable. Success with the mechanical ventilator. On 05/04/2018 I'm seeing this patient for a follow-up. The patient is post coronary artery bypass surgery and the patient is postop day #1. Mother the patient was weaned off the mechanical ventilator and the patient was extubated without any major difficulties. Currently the 4 L of oxygen by nasal cannula and the pulse ox is around 98%. Chest x-ray from today shows postop changes with improving aeration bilaterally. The chest tubes are all in place. Note that the patient is a 2 the final and 1 pleural chest tube and output has been considerably low overnight. His pulmonary artery pressure is 32/7. CVP is at 6. Cardiac output is at 5.8 with an index of 2.9. Patient is currently off the nitroglycerin drip. Hemoglobin is at 9.3. He is awake and alert. Is sitting up on a chair. He is using incentive spirometer and is pulling more than the thousand. No other significant events overnight. The patient is quite stable for now. Urine output is more than 30 mL an hour. Objective - Vital Signs Vital signs: Vital Signs Temp 98.0 F 05/04/18 08:00 Pulse 67 05/04/18 08:45 Resp 13 05/03/18 16:15 BP 93/55 05/04/18 08:30 Pulse Ox 97 05/04/18 08:45 Intake & Output 05/03/18 05/04/18 05/04/18 18:59 06:59 18:59 Intake Total 175.932 4633.538 77.535 Output Total 5015 1814 64 Balance -4502.980 63.538 13.535 Weight 78.8 kg 79 kg Intake: IV 485.0 1616.0 60.5 ACETAMINOPHEN IV (For NPO 100 801.5 ) 1,000 mg In Empty Bag 1 bag @ 400 mls/hr IVPB Q6HR YIN Rx#:[id number] CO/CI 80 60 Lactated Ringers 1,000 ml 200 600 50 @ 50 mls/hr IV .Q20H YIN Rx#:[id number] Nitroglycerin-D5w Pmx 50 6.0 16.5 1.5 mg In Dextrose/Water 1 250ml.bag @ 5 MCG/MIN 1.5 mls/hr IV .Q24H PRN Rx#: [id number] Pressure Bag 36 108 9 ceFAZolin 2 gm In Sodium 30 30 Chloride 0.9% 30 ml @ 60 mls/hr IVPB ONCE PRN Rx#: [id number] Intake, IV Titration 27.020 161.538 17.035 Amount Clevidipine Butyrate 25 90.133 mg In Empty Bag 1 bag @ 1 MG/HR 2 mls/hr IV .Q24H YIN Rx#:[id number] Insulin Regular 100 unit 1.0 71.405 17.035 In Sodium Chloride 0.9% 100 ml @ Per Protocol IV .Q0M YIN Rx#:[id number] Propofol 1,000 mg In 26.020 Empty Bag 1 bag @ Titrate IV .Q0M YIN Rx#: [id number] Oral 100 Output: Chest Tube Drainage 240 259 4 Left Pleural 50 119 4 Mediastinal X2 190 140 0 Urine 3275 1555 60 Estimated Blood Loss 1500 Other: Voiding Method Toilet Indwelling Catheter # Voids 1 ABP, PAP, CO, CI - Last Documented Arterial Blood Pressure 150/49 Pulmonary Artery Pressure 32/7 Cardiac Output 5.8 Cardiac Index 2.9 - Exam Gen. appearance, extubated, comfortable on 6 L of oxygen by nasal cannula Head exam was generally normal. There was no scleral icterus or corneal arcus. Mucous membranes were moist. Neck was supple and without jugular venous distension, thyromegaly, or carotid bruits. Carotids were easily palpable bilaterally. There was no adenopathy.The patient has a right IJ [place] catheter Cordis in place. No goiter or neck masses. Pupils are equal and reactive to light. Lungs sounds are equal and symmetrical bilaterally. Sternum is stable clean and intact. The patient is to mediastinal and 1 pleural chest tube and all of the chest tubes are in place. Cardiac exam revealed the PMI to be normally situated and sized. The rhythm was regular and no extrasystoles were noted during several minutes of auscultation. The first and second heart sounds were normal and physiologic splitting of the second heart sound was noted. There were no murmurs, rubs, clicks, or gallops. Abdominal exam revealed normal bowel sounds. The abdomen was soft, non-tender, and without masses, organomegaly, or appreciable enlargement of the abdominal aorta. Examination of the extremities revealed easily palpable radial, femoral and pedal pulses. There was no cyanosis, clubbing or edema. Examination of the skin revealed no evidence of significant rashes, suspicious appearing nevi or other concerning lesions.All of the surgical wound sites of dry clean and intact. Neurologically the patient is awake and alert and there is no focal neurological deficit. - Labs CBC & Chem 7: 05/04/18 04:13 05/04/18 04:13 Labs: Abnormal Lab Results - Last 24 Hours (Table) 05/02/18 05/03/18 05/03/18 Range/Units 05:38 08:46 10:05 RBC (4.30-5.90) m/uL Hgb (13.0-17.5) gm/dL Hct (39.0-53.0) % Plt Count (150-450) k/uL Lymphocytes # (1.0-4.8) k/uL Lymphocytes # (Manual) (1.0-4.8) k/uL Myelocytes # (Manual) (0) k/uL PT (9.0-12.0) sec INR (<1.2) Fibrinogen (200-500) mg/dL ABG pH (7.35-7.45) ABG pO2 299 H 172 H (83-108) mmHg ABG HCO3 26 H (21-25) mmol/L ABG Total CO2 27 H 26 H (19-24) mmol/L ABG O2 Saturation 100.0 H 99.3 H (94-97) % ABG Hematocrit (34.0-46.0) % ABG Sodium (135-146) mmol/L ABG Potassium (3.4-4.5) mmol/L ABG Ionized Calcium (4.5-5.3) mg/dL ABG Glucose 155 H 155 H (75-99) mg/dL ABG Lactic Acid (0.5-1.6) mmol/L Hemoglobin 12.5 L 11.5 L (13.0-17.5) gm/dL Chloride (98-107) mmol/L Creatinine (0.66-1.25) mg/dL Glucose (74-99) mg/dL POC Glucose (mg/dL) (75-99) mg/dL Calcium (8.4-10.2) mg/dL Magnesium (1.6-2.3) mg/dL Total Bilirubin (0.2-1.3) mg/dL Alkaline Phosphatase (38-126) U/L Total Protein (6.3-8.2) g/dL Albumin (3.5-5.0) g/dL Arterial Blood Potassium (3.4-4.5) mmol/L Arterial Blood Glucose 155 H 155 H (75-99) mg/dL Crossmatch See Detail 05/03/18 05/03/18 05/03/18 Range/Units 11:08 11:37 12:09 RBC (4.30-5.90) m/uL Hgb (13.0-17.5) gm/dL Hct (39.0-53.0) % Plt Count (150-450) k/uL Lymphocytes # (1.0-4.8) k/uL Lymphocytes # (Manual) (1.0-4.8) k/uL Myelocytes # (Manual) (0) k/uL PT (9.0-12.0) sec INR (<1.2) Fibrinogen (200-500) mg/dL ABG pH (7.35-7.45) ABG pO2 304 H 217 H 345 H (83-108) mmHg ABG HCO3 (21-25) mmol/L ABG Total CO2 25 H 25 H 25 H (19-24) mmol/L ABG O2 Saturation 99.7 H 99.8 H 99.9 H (94-97) % ABG Hematocrit 24 L 24 L 23 L (34.0-46.0) % ABG Sodium 134 L 134 L (135-146) mmol/L ABG Potassium 4.8 H 4.6 H (3.4-4.5) mmol/L ABG Ionized Calcium 4.2 L 4.2 L 4.3 L (4.5-5.3) mg/dL ABG Glucose 232 H 237 H 218 H (75-99) mg/dL ABG Lactic Acid 2.0 H 2.3 H* 3.1 H* (0.5-1.6) mmol/L Hemoglobin 8.0 L 7.9 L 7.6 L (13.0-17.5) gm/dL Chloride (98-107) mmol/L Creatinine (0.66-1.25) mg/dL Glucose (74-99) mg/dL POC Glucose (mg/dL) (75-99) mg/dL Calcium (8.4-10.2) mg/dL Magnesium (1.6-2.3) mg/dL Total Bilirubin (0.2-1.3) mg/dL Alkaline Phosphatase (38-126) U/L Total Protein (6.3-8.2) g/dL Albumin (3.5-5.0) g/dL Arterial Blood Potassium 4.8 H 4.6 H (3.4-4.5) mmol/L Arterial Blood Glucose 232 H 237 H 218 H (75-99) mg/dL Crossmatch 05/03/18 05/03/18 05/03/18 Range/Units 12:44 13:31 14:14 RBC (4.30-5.90) m/uL Hgb (13.0-17.5) gm/dL Hct (39.0-53.0) % Plt Count (150-450) k/uL Lymphocytes # (1.0-4.8) k/uL Lymphocytes # (Manual) (1.0-4.8) k/uL Myelocytes # (Manual) (0) k/uL PT (9.0-12.0) sec INR (<1.2) Fibrinogen (200-500) mg/dL ABG pH 7.33 L (7.35-7.45) ABG pO2 359 H 251 H 142 H (83-108) mmHg ABG HCO3 (21-25) mmol/L ABG Total CO2 25 H (19-24) mmol/L ABG O2 Saturation 100.0 H 99.8 H 99.2 H (94-97) % ABG Hematocrit 23 L 25 L 23 L (34.0-46.0) % ABG Sodium (135-146) mmol/L ABG Potassium 4.6 H (3.4-4.5) mmol/L ABG Ionized Calcium 4.3 L 4.3 L (4.5-5.3) mg/dL ABG Glucose 218 H 181 H 142 H (75-99) mg/dL ABG Lactic Acid 3.5 H* 3.5 H* 3.0 H* (0.5-1.6) mmol/L Hemoglobin 7.4 L 8.3 L 7.4 L (13.0-17.5) gm/dL Chloride (98-107) mmol/L Creatinine (0.66-1.25) mg/dL Glucose (74-99) mg/dL POC Glucose (mg/dL) (75-99) mg/dL Calcium (8.4-10.2) mg/dL Magnesium (1.6-2.3) mg/dL Total Bilirubin (0.2-1.3) mg/dL Alkaline Phosphatase (38-126) U/L Total Protein (6.3-8.2) g/dL Albumin (3.5-5.0) g/dL Arterial Blood Potassium 4.6 H (3.4-4.5) mmol/L Arterial Blood Glucose 218 H 181 H 142 H (75-99) mg/dL Crossmatch 05/03/18 05/03/18 05/03/18 Range/Units 15:00 15:00 15:00 RBC 2.59 L (4.30-5.90) m/uL Hgb 8.1 L D (13.0-17.5) gm/dL Hct 24.4 L (39.0-53.0) % Plt Count 89 L D (150-450) k/uL Lymphocytes # (1.0-4.8) k/uL Lymphocytes # (Manual) 0.52 L (1.0-4.8) k/uL Myelocytes # (Manual) 0.06 H (0) k/uL PT 13.6 H (9.0-12.0) sec INR 1.3 H (<1.2) Fibrinogen 195 L (200-500) mg/dL ABG pH (7.35-7.45) ABG pO2 (83-108) mmHg ABG HCO3 (21-25) mmol/L ABG Total CO2 (19-24) mmol/L ABG O2 Saturation (94-97) % ABG Hematocrit (34.0-46.0) % ABG Sodium (135-146) mmol/L ABG Potassium (3.4-4.5) mmol/L ABG Ionized Calcium (4.5-5.3) mg/dL ABG Glucose (75-99) mg/dL ABG Lactic Acid (0.5-1.6) mmol/L Hemoglobin (13.0-17.5) gm/dL Chloride 110 H (98-107) mmol/L Creatinine 0.55 L (0.66-1.25) mg/dL Glucose 120 H (74-99) mg/dL POC Glucose (mg/dL) (75-99) mg/dL Calcium 8.3 L (8.4-10.2) mg/dL Magnesium 2.4 H (1.6-2.3) mg/dL Total Bilirubin (0.2-1.3) mg/dL Alkaline Phosphatase 34 L (38-126) U/L Total Protein 4.5 L (6.3-8.2) g/dL Albumin 2.7 L (3.5-5.0) g/dL Arterial Blood Potassium (3.4-4.5) mmol/L Arterial Blood Glucose (75-99) mg/dL Crossmatch 05/03/18 05/03/18 05/03/18 Range/Units 15:05 15:32 15:57 RBC (4.30-5.90) m/uL Hgb (13.0-17.5) gm/dL Hct (39.0-53.0) % Plt Count (150-450) k/uL Lymphocytes # (1.0-4.8) k/uL Lymphocytes # (Manual) (1.0-4.8) k/uL Myelocytes # (Manual) (0) k/uL PT (9.0-12.0) sec INR (<1.2) Fibrinogen (200-500) mg/dL ABG pH (7.35-7.45) ABG pO2 238 H (83-108) mmHg ABG HCO3 (21-25) mmol/L ABG Total CO2 26 H (19-24) mmol/L ABG O2 Saturation 100.0 H (94-97) % ABG Hematocrit (34.0-46.0) % ABG Sodium (135-146) mmol/L ABG Potassium (3.4-4.5) mmol/L ABG Ionized Calcium (4.5-5.3) mg/dL ABG Glucose (75-99) mg/dL ABG Lactic Acid (0.5-1.6) mmol/L Hemoglobin (13.0-17.5) gm/dL Chloride (98-107) mmol/L Creatinine (0.66-1.25) mg/dL Glucose (74-99) mg/dL POC Glucose (mg/dL) 124 H 108 H (75-99) mg/dL Calcium (8.4-10.2) mg/dL Magnesium (1.6-2.3) mg/dL Total Bilirubin (0.2-1.3) mg/dL Alkaline Phosphatase (38-126) U/L Total Protein (6.3-8.2) g/dL Albumin (3.5-5.0) g/dL Arterial Blood Potassium (3.4-4.5) mmol/L Arterial Blood Glucose (75-99) mg/dL Crossmatch 05/03/18 05/03/18 05/03/18 Range/Units 17:00 18:00 18:03 RBC 2.86 L (4.30-5.90) m/uL Hgb 8.8 L (13.0-17.5) gm/dL Hct 27.4 L (39.0-53.0) % Plt Count 100 L (150-450) k/uL Lymphocytes # 0.4 L (1.0-4.8) k/uL Lymphocytes # (Manual) (1.0-4.8) k/uL Myelocytes # (Manual) (0) k/uL PT (9.0-12.0) sec INR (<1.2) Fibrinogen (200-500) mg/dL ABG pH (7.35-7.45) ABG pO2 (83-108) mmHg ABG HCO3 (21-25) mmol/L ABG Total CO2 (19-24) mmol/L ABG O2 Saturation (94-97) % ABG Hematocrit (34.0-46.0) % ABG Sodium (135-146) mmol/L ABG Potassium (3.4-4.5) mmol/L ABG Ionized Calcium (4.5-5.3) mg/dL ABG Glucose (75-99) mg/dL ABG Lactic Acid (0.5-1.6) mmol/L Hemoglobin (13.0-17.5) gm/dL Chloride (98-107) mmol/L Creatinine (0.66-1.25) mg/dL Glucose (74-99) mg/dL POC Glucose (mg/dL) 125 H 222 H (75-99) mg/dL Calcium (8.4-10.2) mg/dL Magnesium (1.6-2.3) mg/dL Total Bilirubin (0.2-1.3) mg/dL Alkaline Phosphatase (38-126) U/L Total Protein (6.3-8.2) g/dL Albumin (3.5-5.0) g/dL Arterial Blood Potassium (3.4-4.5) mmol/L Arterial Blood Glucose (75-99) mg/dL Crossmatch 05/03/18 05/03/18 05/03/18 Range/Units 18:45 19:02 20:01 RBC (4.30-5.90) m/uL Hgb (13.0-17.5) gm/dL Hct (39.0-53.0) % Plt Count (150-450) k/uL Lymphocytes # (1.0-4.8) k/uL Lymphocytes # (Manual) (1.0-4.8) k/uL Myelocytes # (Manual) (0) k/uL PT (9.0-12.0) sec INR (<1.2) Fibrinogen (200-500) mg/dL ABG pH (7.35-7.45) ABG pO2 74 L (83-108) mmHg ABG HCO3 (21-25) mmol/L ABG Total CO2 25 H (19-24) mmol/L ABG O2 Saturation (94-97) % ABG Hematocrit (34.0-46.0) % ABG Sodium (135-146) mmol/L ABG Potassium (3.4-4.5) mmol/L ABG Ionized Calcium (4.5-5.3) mg/dL ABG Glucose (75-99) mg/dL ABG Lactic Acid (0.5-1.6) mmol/L Hemoglobin (13.0-17.5) gm/dL Chloride (98-107) mmol/L Creatinine (0.66-1.25) mg/dL Glucose (74-99) mg/dL POC Glucose (mg/dL) 226 H 222 H (75-99) mg/dL Calcium (8.4-10.2) mg/dL Magnesium (1.6-2.3) mg/dL Total Bilirubin (0.2-1.3) mg/dL Alkaline Phosphatase (38-126) U/L Total Protein (6.3-8.2) g/dL Albumin (3.5-5.0) g/dL Arterial Blood Potassium (3.4-4.5) mmol/L Arterial Blood Glucose (75-99) mg/dL Crossmatch 05/03/18 05/03/18 05/03/18 Range/Units 20:55 20:58 21:56 RBC 2.89 L (4.30-5.90) m/uL Hgb 9.4 L (13.0-17.5) gm/dL Hct 27.8 L (39.0-53.0) % Plt Count 104 L (150-450) k/uL Lymphocytes # 0.3 L (1.0-4.8) k/uL Lymphocytes # (Manual) (1.0-4.8) k/uL Myelocytes # (Manual) (0) k/uL PT (9.0-12.0) sec INR (<1.2) Fibrinogen (200-500) mg/dL ABG pH (7.35-7.45) ABG pO2 (83-108) mmHg ABG HCO3 (21-25) mmol/L ABG Total CO2 (19-24) mmol/L ABG O2 Saturation (94-97) % ABG Hematocrit (34.0-46.0) % ABG Sodium (135-146) mmol/L ABG Potassium (3.4-4.5) mmol/L ABG Ionized Calcium (4.5-5.3) mg/dL ABG Glucose (75-99) mg/dL ABG Lactic Acid (0.5-1.6) mmol/L Hemoglobin (13.0-17.5) gm/dL Chloride (98-107) mmol/L Creatinine (0.66-1.25) mg/dL Glucose (74-99) mg/dL POC Glucose (mg/dL) 235 H 188 H (75-99) mg/dL Calcium (8.4-10.2) mg/dL Magnesium (1.6-2.3) mg/dL Total Bilirubin (0.2-1.3) mg/dL Alkaline Phosphatase (38-126) U/L Total Protein (6.3-8.2) g/dL Albumin (3.5-5.0) g/dL Arterial Blood Potassium (3.4-4.5) mmol/L Arterial Blood Glucose (75-99) mg/dL Crossmatch 05/03/18 05/04/18 05/04/18 Range/Units 23:02 00:14 00:54 RBC (4.30-5.90) m/uL Hgb (13.0-17.5) gm/dL Hct (39.0-53.0) % Plt Count (150-450) k/uL Lymphocytes # (1.0-4.8) k/uL Lymphocytes # (Manual) (1.0-4.8) k/uL Myelocytes # (Manual) (0) k/uL PT (9.0-12.0) sec INR (<1.2) Fibrinogen (200-500) mg/dL ABG pH (7.35-7.45) ABG pO2 (83-108) mmHg ABG HCO3 (21-25) mmol/L ABG Total CO2 (19-24) mmol/L ABG O2 Saturation (94-97) % ABG Hematocrit (34.0-46.0) % ABG Sodium (135-146) mmol/L ABG Potassium (3.4-4.5) mmol/L ABG Ionized Calcium (4.5-5.3) mg/dL ABG Glucose (75-99) mg/dL ABG Lactic Acid (0.5-1.6) mmol/L Hemoglobin (13.0-17.5) gm/dL Chloride (98-107) mmol/L Creatinine (0.66-1.25) mg/dL Glucose (74-99) mg/dL POC Glucose (mg/dL) 177 H 163 H 162 H (75-99) mg/dL Calcium (8.4-10.2) mg/dL Magnesium (1.6-2.3) mg/dL Total Bilirubin (0.2-1.3) mg/dL Alkaline Phosphatase (38-126) U/L Total Protein (6.3-8.2) g/dL Albumin (3.5-5.0) g/dL Arterial Blood Potassium (3.4-4.5) mmol/L Arterial Blood Glucose (75-99) mg/dL Crossmatch 05/04/18 05/04/18 05/04/18 Range/Units 01:52 02:52 04:11 RBC (4.30-5.90) m/uL Hgb (13.0-17.5) gm/dL Hct (39.0-53.0) % Plt Count (150-450) k/uL Lymphocytes # (1.0-4.8) k/uL Lymphocytes # (Manual) (1.0-4.8) k/uL Myelocytes # (Manual) (0) k/uL PT (9.0-12.0) sec INR (<1.2) Fibrinogen (200-500) mg/dL ABG pH (7.35-7.45) ABG pO2 (83-108) mmHg ABG HCO3 (21-25) mmol/L ABG Total CO2 (19-24) mmol/L ABG O2 Saturation (94-97) % ABG Hematocrit (34.0-46.0) % ABG Sodium (135-146) mmol/L ABG Potassium (3.4-4.5) mmol/L ABG Ionized Calcium (4.5-5.3) mg/dL ABG Glucose (75-99) mg/dL ABG Lactic Acid (0.5-1.6) mmol/L Hemoglobin (13.0-17.5) gm/dL Chloride (98-107) mmol/L Creatinine (0.66-1.25) mg/dL Glucose (74-99) mg/dL POC Glucose (mg/dL) 156 H 138 H 128 H (75-99) mg/dL Calcium (8.4-10.2) mg/dL Magnesium (1.6-2.3) mg/dL Total Bilirubin (0.2-1.3) mg/dL Alkaline Phosphatase (38-126) U/L Total Protein (6.3-8.2) g/dL Albumin (3.5-5.0) g/dL Arterial Blood Potassium (3.4-4.5) mmol/L Arterial Blood Glucose (75-99) mg/dL Crossmatch 05/04/18 05/04/18 05/04/18 Range/Units 04:13 04:13 05:16 RBC 2.94 L (4.30-5.90) m/uL Hgb 9.3 L (13.0-17.5) gm/dL Hct 28.2 L (39.0-53.0) % Plt Count 99 L (150-450) k/uL Lymphocytes # 0.4 L (1.0-4.8) k/uL Lymphocytes # (Manual) (1.0-4.8) k/uL Myelocytes # (Manual) (0) k/uL PT (9.0-12.0) sec INR (<1.2) Fibrinogen (200-500) mg/dL ABG pH (7.35-7.45) ABG pO2 (83-108) mmHg ABG HCO3 (21-25) mmol/L ABG Total CO2 (19-24) mmol/L ABG O2 Saturation (94-97) % ABG Hematocrit (34.0-46.0) % ABG Sodium (135-146) mmol/L ABG Potassium (3.4-4.5) mmol/L ABG Ionized Calcium (4.5-5.3) mg/dL ABG Glucose (75-99) mg/dL ABG Lactic Acid (0.5-1.6) mmol/L Hemoglobin (13.0-17.5) gm/dL Chloride (98-107) mmol/L Creatinine 0.55 L (0.66-1.25) mg/dL Glucose 120 H (74-99) mg/dL POC Glucose (mg/dL) 111 H (75-99) mg/dL Calcium (8.4-10.2) mg/dL Magnesium (1.6-2.3) mg/dL Total Bilirubin 1.5 H (0.2-1.3) mg/dL Alkaline Phosphatase (38-126) U/L Total Protein 5.3 L (6.3-8.2) g/dL Albumin 3.2 L (3.5-5.0) g/dL Arterial Blood Potassium (3.4-4.5) mmol/L Arterial Blood Glucose (75-99) mg/dL Crossmatch 05/04/18 05/04/18 05/04/18 Range/Units 06:10 07:01 08:43 RBC (4.30-5.90) m/uL Hgb (13.0-17.5) gm/dL Hct (39.0-53.0) % Plt Count (150-450) k/uL Lymphocytes # (1.0-4.8) k/uL Lymphocytes # (Manual) (1.0-4.8) k/uL Myelocytes # (Manual) (0) k/uL PT (9.0-12.0) sec INR (<1.2) Fibrinogen (200-500) mg/dL ABG pH (7.35-7.45) ABG pO2 (83-108) mmHg ABG HCO3 (21-25) mmol/L ABG Total CO2 (19-24) mmol/L ABG O2 Saturation (94-97) % ABG Hematocrit (34.0-46.0) % ABG Sodium (135-146) mmol/L ABG Potassium (3.4-4.5) mmol/L ABG Ionized Calcium (4.5-5.3) mg/dL ABG Glucose (75-99) mg/dL ABG Lactic Acid (0.5-1.6) mmol/L Hemoglobin (13.0-17.5) gm/dL Chloride (98-107) mmol/L Creatinine (0.66-1.25) mg/dL Glucose (74-99) mg/dL POC Glucose (mg/dL) 176 H 158 H 150 H (75-99) mg/dL Calcium (8.4-10.2) mg/dL Magnesium (1.6-2.3) mg/dL Total Bilirubin (0.2-1.3) mg/dL Alkaline Phosphatase (38-126) U/L Total Protein (6.3-8.2) g/dL Albumin (3.5-5.0) g/dL Arterial Blood Potassium (3.4-4.5) mmol/L Arterial Blood Glucose (75-99) mg/dL Crossmatch Microbiology - Last 24 Hours (Table) 05/02/18 15:53 Urine Culture - Final Urine,Clean Catch Assessment and Plan Plan: Assessment 1 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 The patient is hemodynamically stable. The patient had coronary artery disease with a 70% left main lesion,in addition to significant lesion involving the LAD and the circumflex and moderate disease involving the RCA. The patient had a positive cardiac stress test and nonsustained V. tach. 2 post thoracotomy, currently sedated on 6 L of oxygen nasal cannula. Using incentive spirometer. 3 hypertension currently BP is under better control. 4 diabetes mellitus currently on insulin drip for blood sugar control 5 history of prostate cancer status post radiation therapy 6 nephrolithiasis 7 hyperlipidemia 8 proximity atrial fibrillation current rhythm is sinus 9 previous history of nonsustained V. tach, current rhythm is sinus Plan Continue supportive care. Continue using incentive spirometer. Monitor the output from the chest tube. Monitor the hemoglobin. Hemodynamic parameters are all adequate. Hemodynamically stable. Hasn't adequate urine output and blood pressure. He is recovering reasonably well. We'll continue to follow make further recommendations based on his progress.
[2018-05-04 10:02] LABS: Glucose,Whole Blood 168 mg/dL (75-99)
--- NOTE | 2018-05-04 10:13 | P.PN ---
Subjective Progress Note Date: 05/04/18 This is a 62-year-old male patient of Dr. Winston. Patient presented for an elective cardiac catheterization due to abnormal myocardial perfusion imaging was found to have severe left main disease as well as severe LAD and left circumflex disease. Patient was then evaluated by Dr. Zhu with cardiac thoracic surgical team and is scheduled to undergo coronary artery bypass graft surgery tomorrow 05/03/2018. Patient does have a known past medical history of hypertension, hyperlipidemia, diabetes mellitus, paroxysmal atrial fibrillation , prostate cancer with radiation last in December 2017, kidney stones, anxiety and ulcers. Today patient is currently resting in bed. Patient does appear a bit anxious. Patient denies any chest pain or shortness of breath. Patient denies nausea vomiting or diarrhea. Patient denies any urinary burning or frequency. Patient will undergo coronary artery bypass graft surgery tomorrow with Dr. Zhu. Patient did state understanding and that he had in-depth conversation with the cardiothoracic team yesterday. on 05/03/2018 patient currently status post coronary artery bypass graft with Dr. Wright. Patient currently mechanical ventilation in the intensive care unit. On 05/04/2018 patient is currently postop day 1 status post four-vessel coronary artery bypass graft surgery . patient remains in the intensive care unit. Patient is extubated and awake and alert. Patient currently sitting up in chair. Patient currently on 4 L nasal cannula Objective - Vital Signs Vital signs: Vital Signs Temp 98.0 F 05/04/18 08:00 Pulse 67 05/04/18 08:45 Resp 13 05/03/18 16:15 BP 93/55 05/04/18 08:30 Pulse Ox 97 05/04/18 08:45 Intake & Output 05/03/18 05/04/18 05/04/18 18:59 06:59 18:59 Intake Total 053.043 9314.538 85.901 Output Total 5015 1814 64 Balance -4502.980 63.538 21.901 Weight 78.8 kg 79 kg Intake: IV 485.0 1616.0 60.5 ACETAMINOPHEN IV (For NPO 100 801.5 ) 1,000 mg In Empty Bag 1 bag @ 400 mls/hr IVPB Q6HR YIN Rx#:[id number] CO/CI 80 60 Lactated Ringers 1,000 ml 200 600 50 @ 50 mls/hr IV .Q20H YIN Rx#:[id number] Nitroglycerin-D5w Pmx 50 6.0 16.5 1.5 mg In Dextrose/Water 1 250ml.bag @ 5 MCG/MIN 1.5 mls/hr IV .Q24H PRN Rx#: [id number] Pressure Bag 36 108 9 ceFAZolin 2 gm In Sodium 30 30 Chloride 0.9% 30 ml @ 60 mls/hr IVPB ONCE PRN Rx#: [id number] Intake, IV Titration 27.020 161.538 25.401 Amount Clevidipine Butyrate 25 90.133 mg In Empty Bag 1 bag @ 1 MG/HR 2 mls/hr IV .Q24H YIN Rx#:[id number] Insulin Regular 100 unit 1.0 71.405 25.401 In Sodium Chloride 0.9% 100 ml @ Per Protocol IV .Q0M YIN Rx#:[id number] Propofol 1,000 mg In 26.020 Empty Bag 1 bag @ Titrate IV .Q0M YIN Rx#: [id number] Oral 100 Output: Chest Tube Drainage 240 259 4 Left Pleural 50 119 4 Mediastinal X2 190 140 0 Urine 3275 1555 60 Estimated Blood Loss 1500 Other: Voiding Method Toilet Indwelling Catheter # Voids 1 ABP, PAP, CO, CI - Last Documented Arterial Blood Pressure 150/49 Pulmonary Artery Pressure 32/7 Cardiac Output 5.8 Cardiac Index 2.9 - Exam Head normocephalic Neck supple Lungs diminished bilaterally. Patient has been extubated Heart regular rate and rhythm S1-S2, no rub or gallop Abdomen is soft nontender nondistended positive bowel sounds no hepatosplenomegaly Extremities no edema Neuro patient is alert and oriented 3. - Labs CBC & Chem 7: 05/04/18 04:13 05/04/18 04:13 Labs: Abnormal Lab Results - Last 24 Hours (Table) 05/02/18 05/03/18 05/03/18 Range/Units 05:38 08:46 10:05 RBC (4.30-5.90) m/uL Hgb (13.0-17.5) gm/dL Hct (39.0-53.0) % Plt Count (150-450) k/uL Lymphocytes # (1.0-4.8) k/uL Lymphocytes # (Manual) (1.0-4.8) k/uL Myelocytes # (Manual) (0) k/uL PT (9.0-12.0) sec INR (<1.2) Fibrinogen (200-500) mg/dL ABG pH (7.35-7.45) ABG pO2 299 H 172 H (83-108) mmHg ABG HCO3 26 H (21-25) mmol/L ABG Total CO2 27 H 26 H (19-24) mmol/L ABG O2 Saturation 100.0 H 99.3 H (94-97) % ABG Hematocrit (34.0-46.0) % ABG Sodium (135-146) mmol/L ABG Potassium (3.4-4.5) mmol/L ABG Ionized Calcium (4.5-5.3) mg/dL ABG Glucose 155 H 155 H (75-99) mg/dL ABG Lactic Acid (0.5-1.6) mmol/L Hemoglobin 12.5 L 11.5 L (13.0-17.5) gm/dL Chloride (98-107) mmol/L Creatinine (0.66-1.25) mg/dL Glucose (74-99) mg/dL POC Glucose (mg/dL) (75-99) mg/dL Calcium (8.4-10.2) mg/dL Magnesium (1.6-2.3) mg/dL Total Bilirubin (0.2-1.3) mg/dL Alkaline Phosphatase (38-126) U/L Total Protein (6.3-8.2) g/dL Albumin (3.5-5.0) g/dL Arterial Blood Potassium (3.4-4.5) mmol/L Arterial Blood Glucose 155 H 155 H (75-99) mg/dL Crossmatch See Detail 05/03/18 05/03/18 05/03/18 Range/Units 11:08 11:37 12:09 RBC (4.30-5.90) m/uL Hgb (13.0-17.5) gm/dL Hct (39.0-53.0) % Plt Count (150-450) k/uL Lymphocytes # (1.0-4.8) k/uL Lymphocytes # (Manual) (1.0-4.8) k/uL Myelocytes # (Manual) (0) k/uL PT (9.0-12.0) sec INR (<1.2) Fibrinogen (200-500) mg/dL ABG pH (7.35-7.45) ABG pO2 304 H 217 H 345 H (83-108) mmHg ABG HCO3 (21-25) mmol/L ABG Total CO2 25 H 25 H 25 H (19-24) mmol/L ABG O2 Saturation 99.7 H 99.8 H 99.9 H (94-97) % ABG Hematocrit 24 L 24 L 23 L (34.0-46.0) % ABG Sodium 134 L 134 L (135-146) mmol/L ABG Potassium 4.8 H 4.6 H (3.4-4.5) mmol/L ABG Ionized Calcium 4.2 L 4.2 L 4.3 L (4.5-5.3) mg/dL ABG Glucose 232 H 237 H 218 H (75-99) mg/dL ABG Lactic Acid 2.0 H 2.3 H* 3.1 H* (0.5-1.6) mmol/L Hemoglobin 8.0 L 7.9 L 7.6 L (13.0-17.5) gm/dL Chloride (98-107) mmol/L Creatinine (0.66-1.25) mg/dL Glucose (74-99) mg/dL POC Glucose (mg/dL) (75-99) mg/dL Calcium (8.4-10.2) mg/dL Magnesium (1.6-2.3) mg/dL Total Bilirubin (0.2-1.3) mg/dL Alkaline Phosphatase (38-126) U/L Total Protein (6.3-8.2) g/dL Albumin (3.5-5.0) g/dL Arterial Blood Potassium 4.8 H 4.6 H (3.4-4.5) mmol/L Arterial Blood Glucose 232 H 237 H 218 H (75-99) mg/dL Crossmatch 05/03/18 05/03/18 05/03/18 Range/Units 12:44 13:31 14:14 RBC (4.30-5.90) m/uL Hgb (13.0-17.5) gm/dL Hct (39.0-53.0) % Plt Count (150-450) k/uL Lymphocytes # (1.0-4.8) k/uL Lymphocytes # (Manual) (1.0-4.8) k/uL Myelocytes # (Manual) (0) k/uL PT (9.0-12.0) sec INR (<1.2) Fibrinogen (200-500) mg/dL ABG pH 7.33 L (7.35-7.45) ABG pO2 359 H 251 H 142 H (83-108) mmHg ABG HCO3 (21-25) mmol/L ABG Total CO2 25 H (19-24) mmol/L ABG O2 Saturation 100.0 H 99.8 H 99.2 H (94-97) % ABG Hematocrit 23 L 25 L 23 L (34.0-46.0) % ABG Sodium (135-146) mmol/L ABG Potassium 4.6 H (3.4-4.5) mmol/L ABG Ionized Calcium 4.3 L 4.3 L (4.5-5.3) mg/dL ABG Glucose 218 H 181 H 142 H (75-99) mg/dL ABG Lactic Acid 3.5 H* 3.5 H* 3.0 H* (0.5-1.6) mmol/L Hemoglobin 7.4 L 8.3 L 7.4 L (13.0-17.5) gm/dL Chloride (98-107) mmol/L Creatinine (0.66-1.25) mg/dL Glucose (74-99) mg/dL POC Glucose (mg/dL) (75-99) mg/dL Calcium (8.4-10.2) mg/dL Magnesium (1.6-2.3) mg/dL Total Bilirubin (0.2-1.3) mg/dL Alkaline Phosphatase (38-126) U/L Total Protein (6.3-8.2) g/dL Albumin (3.5-5.0) g/dL Arterial Blood Potassium 4.6 H (3.4-4.5) mmol/L Arterial Blood Glucose 218 H 181 H 142 H (75-99) mg/dL Crossmatch 05/03/18 05/03/18 05/03/18 Range/Units 15:00 15:00 15:00 RBC 2.59 L (4.30-5.90) m/uL Hgb 8.1 L D (13.0-17.5) gm/dL Hct 24.4 L (39.0-53.0) % Plt Count 89 L D (150-450) k/uL Lymphocytes # (1.0-4.8) k/uL Lymphocytes # (Manual) 0.52 L (1.0-4.8) k/uL Myelocytes # (Manual) 0.06 H (0) k/uL PT 13.6 H (9.0-12.0) sec INR 1.3 H (<1.2) Fibrinogen 195 L (200-500) mg/dL ABG pH (7.35-7.45) ABG pO2 (83-108) mmHg ABG HCO3 (21-25) mmol/L ABG Total CO2 (19-24) mmol/L ABG O2 Saturation (94-97) % ABG Hematocrit (34.0-46.0) % ABG Sodium (135-146) mmol/L ABG Potassium (3.4-4.5) mmol/L ABG Ionized Calcium (4.5-5.3) mg/dL ABG Glucose (75-99) mg/dL ABG Lactic Acid (0.5-1.6) mmol/L Hemoglobin (13.0-17.5) gm/dL Chloride 110 H (98-107) mmol/L Creatinine 0.55 L (0.66-1.25) mg/dL Glucose 120 H (74-99) mg/dL POC Glucose (mg/dL) (75-99) mg/dL Calcium 8.3 L (8.4-10.2) mg/dL Magnesium 2.4 H (1.6-2.3) mg/dL Total Bilirubin (0.2-1.3) mg/dL Alkaline Phosphatase 34 L (38-126) U/L Total Protein 4.5 L (6.3-8.2) g/dL Albumin 2.7 L (3.5-5.0) g/dL Arterial Blood Potassium (3.4-4.5) mmol/L Arterial Blood Glucose (75-99) mg/dL Crossmatch 05/03/18 05/03/18 05/03/18 Range/Units 15:05 15:32 15:57 RBC (4.30-5.90) m/uL Hgb (13.0-17.5) gm/dL Hct (39.0-53.0) % Plt Count (150-450) k/uL Lymphocytes # (1.0-4.8) k/uL Lymphocytes # (Manual) (1.0-4.8) k/uL Myelocytes # (Manual) (0) k/uL PT (9.0-12.0) sec INR (<1.2) Fibrinogen (200-500) mg/dL ABG pH (7.35-7.45) ABG pO2 238 H (83-108) mmHg ABG HCO3 (21-25) mmol/L ABG Total CO2 26 H (19-24) mmol/L ABG O2 Saturation 100.0 H (94-97) % ABG Hematocrit (34.0-46.0) % ABG Sodium (135-146) mmol/L ABG Potassium (3.4-4.5) mmol/L ABG Ionized Calcium (4.5-5.3) mg/dL ABG Glucose (75-99) mg/dL ABG Lactic Acid (0.5-1.6) mmol/L Hemoglobin (13.0-17.5) gm/dL Chloride (98-107) mmol/L Creatinine (0.66-1.25) mg/dL Glucose (74-99) mg/dL POC Glucose (mg/dL) 124 H 108 H (75-99) mg/dL Calcium (8.4-10.2) mg/dL Magnesium (1.6-2.3) mg/dL Total Bilirubin (0.2-1.3) mg/dL Alkaline Phosphatase (38-126) U/L Total Protein (6.3-8.2) g/dL Albumin (3.5-5.0) g/dL Arterial Blood Potassium (3.4-4.5) mmol/L Arterial Blood Glucose (75-99) mg/dL Crossmatch 05/03/18 05/03/18 05/03/18 Range/Units 17:00 18:00 18:03 RBC 2.86 L (4.30-5.90) m/uL Hgb 8.8 L (13.0-17.5) gm/dL Hct 27.4 L (39.0-53.0) % Plt Count 100 L (150-450) k/uL Lymphocytes # 0.4 L (1.0-4.8) k/uL Lymphocytes # (Manual) (1.0-4.8) k/uL Myelocytes # (Manual) (0) k/uL PT (9.0-12.0) sec INR (<1.2) Fibrinogen (200-500) mg/dL ABG pH (7.35-7.45) ABG pO2 (83-108) mmHg ABG HCO3 (21-25) mmol/L ABG Total CO2 (19-24) mmol/L ABG O2 Saturation (94-97) % ABG Hematocrit (34.0-46.0) % ABG Sodium (135-146) mmol/L ABG Potassium (3.4-4.5) mmol/L ABG Ionized Calcium (4.5-5.3) mg/dL ABG Glucose (75-99) mg/dL ABG Lactic Acid (0.5-1.6) mmol/L Hemoglobin (13.0-17.5) gm/dL Chloride (98-107) mmol/L Creatinine (0.66-1.25) mg/dL Glucose (74-99) mg/dL POC Glucose (mg/dL) 125 H 222 H (75-99) mg/dL Calcium (8.4-10.2) mg/dL Magnesium (1.6-2.3) mg/dL Total Bilirubin (0.2-1.3) mg/dL Alkaline Phosphatase (38-126) U/L Total Protein (6.3-8.2) g/dL Albumin (3.5-5.0) g/dL Arterial Blood Potassium (3.4-4.5) mmol/L Arterial Blood Glucose (75-99) mg/dL Crossmatch 05/03/18 05/03/18 05/03/18 Range/Units 18:45 19:02 20:01 RBC (4.30-5.90) m/uL Hgb (13.0-17.5) gm/dL Hct (39.0-53.0) % Plt Count (150-450) k/uL Lymphocytes # (1.0-4.8) k/uL Lymphocytes # (Manual) (1.0-4.8) k/uL Myelocytes # (Manual) (0) k/uL PT (9.0-12.0) sec INR (<1.2) Fibrinogen (200-500) mg/dL ABG pH (7.35-7.45) ABG pO2 74 L (83-108) mmHg ABG HCO3 (21-25) mmol/L ABG Total CO2 25 H (19-24) mmol/L ABG O2 Saturation (94-97) % ABG Hematocrit (34.0-46.0) % ABG Sodium (135-146) mmol/L ABG Potassium (3.4-4.5) mmol/L ABG Ionized Calcium (4.5-5.3) mg/dL ABG Glucose (75-99) mg/dL ABG Lactic Acid (0.5-1.6) mmol/L Hemoglobin (13.0-17.5) gm/dL Chloride (98-107) mmol/L Creatinine (0.66-1.25) mg/dL Glucose (74-99) mg/dL POC Glucose (mg/dL) 226 H 222 H (75-99) mg/dL Calcium (8.4-10.2) mg/dL Magnesium (1.6-2.3) mg/dL Total Bilirubin (0.2-1.3) mg/dL Alkaline Phosphatase (38-126) U/L Total Protein (6.3-8.2) g/dL Albumin (3.5-5.0) g/dL Arterial Blood Potassium (3.4-4.5) mmol/L Arterial Blood Glucose (75-99) mg/dL Crossmatch 05/03/18 05/03/18 05/03/18 Range/Units 20:55 20:58 21:56 RBC 2.89 L (4.30-5.90) m/uL Hgb 9.4 L (13.0-17.5) gm/dL Hct 27.8 L (39.0-53.0) % Plt Count 104 L (150-450) k/uL Lymphocytes # 0.3 L (1.0-4.8) k/uL Lymphocytes # (Manual) (1.0-4.8) k/uL Myelocytes # (Manual) (0) k/uL PT (9.0-12.0) sec INR (<1.2) Fibrinogen (200-500) mg/dL ABG pH (7.35-7.45) ABG pO2 (83-108) mmHg ABG HCO3 (21-25) mmol/L ABG Total CO2 (19-24) mmol/L ABG O2 Saturation (94-97) % ABG Hematocrit (34.0-46.0) % ABG Sodium (135-146) mmol/L ABG Potassium (3.4-4.5) mmol/L ABG Ionized Calcium (4.5-5.3) mg/dL ABG Glucose (75-99) mg/dL ABG Lactic Acid (0.5-1.6) mmol/L Hemoglobin (13.0-17.5) gm/dL Chloride (98-107) mmol/L Creatinine (0.66-1.25) mg/dL Glucose (74-99) mg/dL POC Glucose (mg/dL) 235 H 188 H (75-99) mg/dL Calcium (8.4-10.2) mg/dL Magnesium (1.6-2.3) mg/dL Total Bilirubin (0.2-1.3) mg/dL Alkaline Phosphatase (38-126) U/L Total Protein (6.3-8.2) g/dL Albumin (3.5-5.0) g/dL Arterial Blood Potassium (3.4-4.5) mmol/L Arterial Blood Glucose (75-99) mg/dL Crossmatch 05/03/18 05/04/18 05/04/18 Range/Units 23:02 00:14 00:54 RBC (4.30-5.90) m/uL Hgb (13.0-17.5) gm/dL Hct (39.0-53.0) % Plt Count (150-450) k/uL Lymphocytes # (1.0-4.8) k/uL Lymphocytes # (Manual) (1.0-4.8) k/uL Myelocytes # (Manual) (0) k/uL PT (9.0-12.0) sec INR (<1.2) Fibrinogen (200-500) mg/dL ABG pH (7.35-7.45) ABG pO2 (83-108) mmHg ABG HCO3 (21-25) mmol/L ABG Total CO2 (19-24) mmol/L ABG O2 Saturation (94-97) % ABG Hematocrit (34.0-46.0) % ABG Sodium (135-146) mmol/L ABG Potassium (3.4-4.5) mmol/L ABG Ionized Calcium (4.5-5.3) mg/dL ABG Glucose (75-99) mg/dL ABG Lactic Acid (0.5-1.6) mmol/L Hemoglobin (13.0-17.5) gm/dL Chloride (98-107) mmol/L Creatinine (0.66-1.25) mg/dL Glucose (74-99) mg/dL POC Glucose (mg/dL) 177 H 163 H 162 H (75-99) mg/dL Calcium (8.4-10.2) mg/dL Magnesium (1.6-2.3) mg/dL Total Bilirubin (0.2-1.3) mg/dL Alkaline Phosphatase (38-126) U/L Total Protein (6.3-8.2) g/dL Albumin (3.5-5.0) g/dL Arterial Blood Potassium (3.4-4.5) mmol/L Arterial Blood Glucose (75-99) mg/dL Crossmatch 05/04/18 05/04/18 05/04/18 Range/Units 01:52 02:52 04:11 RBC (4.30-5.90) m/uL Hgb (13.0-17.5) gm/dL Hct (39.0-53.0) % Plt Count (150-450) k/uL Lymphocytes # (1.0-4.8) k/uL Lymphocytes # (Manual) (1.0-4.8) k/uL Myelocytes # (Manual) (0) k/uL PT (9.0-12.0) sec INR (<1.2) Fibrinogen (200-500) mg/dL ABG pH (7.35-7.45) ABG pO2 (83-108) mmHg ABG HCO3 (21-25) mmol/L ABG Total CO2 (19-24) mmol/L ABG O2 Saturation (94-97) % ABG Hematocrit (34.0-46.0) % ABG Sodium (135-146) mmol/L ABG Potassium (3.4-4.5) mmol/L ABG Ionized Calcium (4.5-5.3) mg/dL ABG Glucose (75-99) mg/dL ABG Lactic Acid (0.5-1.6) mmol/L Hemoglobin (13.0-17.5) gm/dL Chloride (98-107) mmol/L Creatinine (0.66-1.25) mg/dL Glucose (74-99) mg/dL POC Glucose (mg/dL) 156 H 138 H 128 H (75-99) mg/dL Calcium (8.4-10.2) mg/dL Magnesium (1.6-2.3) mg/dL Total Bilirubin (0.2-1.3) mg/dL Alkaline Phosphatase (38-126) U/L Total Protein (6.3-8.2) g/dL Albumin (3.5-5.0) g/dL Arterial Blood Potassium (3.4-4.5) mmol/L Arterial Blood Glucose (75-99) mg/dL Crossmatch 05/04/18 05/04/18 05/04/18 Range/Units 04:13 04:13 05:16 RBC 2.94 L (4.30-5.90) m/uL Hgb 9.3 L (13.0-17.5) gm/dL Hct 28.2 L (39.0-53.0) % Plt Count 99 L (150-450) k/uL Lymphocytes # 0.4 L (1.0-4.8) k/uL Lymphocytes # (Manual) (1.0-4.8) k/uL Myelocytes # (Manual) (0) k/uL PT (9.0-12.0) sec INR (<1.2) Fibrinogen (200-500) mg/dL ABG pH (7.35-7.45) ABG pO2 (83-108) mmHg ABG HCO3 (21-25) mmol/L ABG Total CO2 (19-24) mmol/L ABG O2 Saturation (94-97) % ABG Hematocrit (34.0-46.0) % ABG Sodium (135-146) mmol/L ABG Potassium (3.4-4.5) mmol/L ABG Ionized Calcium (4.5-5.3) mg/dL ABG Glucose (75-99) mg/dL ABG Lactic Acid (0.5-1.6) mmol/L Hemoglobin (13.0-17.5) gm/dL Chloride (98-107) mmol/L Creatinine 0.55 L (0.66-1.25) mg/dL Glucose 120 H (74-99) mg/dL POC Glucose (mg/dL) 111 H (75-99) mg/dL Calcium (8.4-10.2) mg/dL Magnesium (1.6-2.3) mg/dL Total Bilirubin 1.5 H (0.2-1.3) mg/dL Alkaline Phosphatase (38-126) U/L Total Protein 5.3 L (6.3-8.2) g/dL Albumin 3.2 L (3.5-5.0) g/dL Arterial Blood Potassium (3.4-4.5) mmol/L Arterial Blood Glucose (75-99) mg/dL Crossmatch 05/04/18 05/04/18 05/04/18 Range/Units 06:10 07:01 08:43 RBC (4.30-5.90) m/uL Hgb (13.0-17.5) gm/dL Hct (39.0-53.0) % Plt Count (150-450) k/uL Lymphocytes # (1.0-4.8) k/uL Lymphocytes # (Manual) (1.0-4.8) k/uL Myelocytes # (Manual) (0) k/uL PT (9.0-12.0) sec INR (<1.2) Fibrinogen (200-500) mg/dL ABG pH (7.35-7.45) ABG pO2 (83-108) mmHg ABG HCO3 (21-25) mmol/L ABG Total CO2 (19-24) mmol/L ABG O2 Saturation (94-97) % ABG Hematocrit (34.0-46.0) % ABG Sodium (135-146) mmol/L ABG Potassium (3.4-4.5) mmol/L ABG Ionized Calcium (4.5-5.3) mg/dL ABG Glucose (75-99) mg/dL ABG Lactic Acid (0.5-1.6) mmol/L Hemoglobin (13.0-17.5) gm/dL Chloride (98-107) mmol/L Creatinine (0.66-1.25) mg/dL Glucose (74-99) mg/dL POC Glucose (mg/dL) 176 H 158 H 150 H (75-99) mg/dL Calcium (8.4-10.2) mg/dL Magnesium (1.6-2.3) mg/dL Total Bilirubin (0.2-1.3) mg/dL Alkaline Phosphatase (38-126) U/L Total Protein (6.3-8.2) g/dL Albumin (3.5-5.0) g/dL Arterial Blood Potassium (3.4-4.5) mmol/L Arterial Blood Glucose (75-99) mg/dL Crossmatch 05/04/18 Range/Units 10:00 RBC (4.30-5.90) m/uL Hgb (13.0-17.5) gm/dL Hct (39.0-53.0) % Plt Count (150-450) k/uL Lymphocytes # (1.0-4.8) k/uL Lymphocytes # (Manual) (1.0-4.8) k/uL Myelocytes # (Manual) (0) k/uL PT (9.0-12.0) sec INR (<1.2) Fibrinogen (200-500) mg/dL ABG pH (7.35-7.45) ABG pO2 (83-108) mmHg ABG HCO3 (21-25) mmol/L ABG Total CO2 (19-24) mmol/L ABG O2 Saturation (94-97) % ABG Hematocrit (34.0-46.0) % ABG Sodium (135-146) mmol/L ABG Potassium (3.4-4.5) mmol/L ABG Ionized Calcium (4.5-5.3) mg/dL ABG Glucose (75-99) mg/dL ABG Lactic Acid (0.5-1.6) mmol/L Hemoglobin (13.0-17.5) gm/dL Chloride (98-107) mmol/L Creatinine (0.66-1.25) mg/dL Glucose (74-99) mg/dL POC Glucose (mg/dL) 168 H (75-99) mg/dL Calcium (8.4-10.2) mg/dL Magnesium (1.6-2.3) mg/dL Total Bilirubin (0.2-1.3) mg/dL Alkaline Phosphatase (38-126) U/L Total Protein (6.3-8.2) g/dL Albumin (3.5-5.0) g/dL Arterial Blood Potassium (3.4-4.5) mmol/L Arterial Blood Glucose (75-99) mg/dL Crossmatch Microbiology - Last 24 Hours (Table) 05/02/18 15:53 Urine Culture - Final Urine,Clean Catch Assessment and Plan Assessment: 1. status post coronary artery bypass graft with Dr. Wright. AGUIRRE to LAD SVG to PDA SVG to diagonal SVG to OM. Patient has been extubated successfully to 4 L nasal cannula. Patient is currently postop day 1. Patient remains hemodynamically stable at this time. 2. Multivessel coronary artery disease. Patient has 70% left main lesion. status post cardiac cath. Patient currently scheduled for coronary artery bypass graft surgery with Dr. Zhu tomorrow 05/03/2018 3. Diabetes mellitus. Metformin on hold. Patient currently managed on sliding scale insulin 4. essential hypertension. 5. History of paroxysmal atrial fibrillation 6. History of prostate cancer post prostatectomy and post radiation therapy completed in December 2017 7. History of hyperlipidemia 8. History of nephrolithiasis 9. Ileus history of Nonsustained V. tach. Current rhythm is sinus Thank you for this consultation we will continue to follow patient closely throughout stay I performed an examination of the patient and discussed their management with the Nurse Practitioner. I have reviewed the Nurse Practitioner's notes and agree with the documented findings and plan of care
--- NOTE | 2018-05-04 10:17 | P.PN ---
Subjective Progress Note Date: 05/04/18 Principal diagnosis: Multivessel coronary artery disease with left main disease. Previous medical history of paroxysmal atrial fibrillation on Eliquis for anticoagulation which is currently on hold, hypertension, hyperlipidemia, new diagnosis of diabetes mellitus, prostate cancer with prostatectomy and radiation treatment with the last dose radiation in December 2017. POD #1 coronary bypass grafting 4 vessels, left internal mammary artery to the left anterior descending artery, reverse saphenous vein graft to the diagonal artery, reverse saphenous vein graft to the obtuse marginal artery, reverse saphenous vein graft to the posterior descending artery, endoscopic vein harvesting bilateral greater saphenous veins, epi-aortic ultrasound, intraoperative transesophageal echocardiogram. The patient is currently sitting up in a recliner in no acute distress. Denies pain, shortness of breath. He was successfully extubated last night at 18:54. Currently hemodynamically stable on no inotropes or pressors. No new complaints. Objective - Vital Signs Vital signs: Vital Signs Temp 98.0 F 05/04/18 08:00 Pulse 67 05/04/18 08:45 Resp 13 05/03/18 16:15 BP 93/55 05/04/18 08:30 Pulse Ox 97 05/04/18 08:45 Intake & Output 05/03/18 05/04/18 05/04/18 18:59 06:59 18:59 Intake Total 990.867 4986.538 77.535 Output Total 5015 1814 64 Balance -4502.980 63.538 13.535 Weight 78.8 kg 79 kg Intake: IV 485.0 1616.0 60.5 ACETAMINOPHEN IV (For NPO 100 801.5 ) 1,000 mg In Empty Bag 1 bag @ 400 mls/hr IVPB Q6HR [facility] Rx#:[id number] CO/CI 80 60 Lactated Ringers 1,000 ml 200 600 50 @ 50 mls/hr IV .Q20H [facility] Rx#:[id number] Nitroglycerin-D5w Pmx 50 6.0 16.5 1.5 mg In Dextrose/Water 1 250ml.bag @ 5 MCG/MIN 1.5 mls/hr IV .Q24H PRN Rx#: [id number] Pressure Bag 36 108 9 ceFAZolin 2 gm In Sodium 30 30 Chloride 0.9% 30 ml @ 60 mls/hr IVPB ONCE PRN Rx#: [id number] Intake, IV Titration 27.020 161.538 17.035 Amount Clevidipine Butyrate 25 90.133 mg In Empty Bag 1 bag @ 1 MG/HR 2 mls/hr IV .Q24H [facility] Rx#:[id number] Insulin Regular 100 unit 1.0 71.405 17.035 In Sodium Chloride 0.9% 100 ml @ Per Protocol IV .Q0M [facility] Rx#:[id number] Propofol 1,000 mg In 26.020 Empty Bag 1 bag @ Titrate IV .Q0M [facility] Rx#: [id number] Oral 100 Output: Chest Tube Drainage 240 259 4 Left Pleural 50 119 4 Mediastinal X2 190 140 0 Urine 3275 1555 60 Estimated Blood Loss 1500 Other: Voiding Method Toilet Indwelling Catheter # Voids 1 ABP, PAP, CO, CI - Last Documented Arterial Blood Pressure 150/49 Pulmonary Artery Pressure 32/7 Cardiac Output 5.8 Cardiac Index 2.9 - Constitutional General appearance: Present: cooperative, no acute distress - Respiratory Details: Lungs sounds diminished bilaterally. Respirations even, nonlabored. Currently on 2 L nasal cannula with oxygen saturation 99%. Able to achieve 0521-2832 mL on his incentive spirometry. Strong cough. Mediastinal chest tube to continuous wall suction, 75 mL serosanguineous drainage overnight, 300 mL since surgery. Left pleural chest tube to continuous wall suction, 80 mL serosanguineous drainage overnight, 150 mL since surgery. No air leaks present. - Cardiovascular Details: S1, S2 present. Regular rate and rhythm, sinus rhythm on telemetry. Sternum stable. A/V epicardial pacemaker wires present, connected to generator, generator turned off. Palpable peripheral pulses bilaterally. No edema present. No calf pain or tenderness noted. Right internal jugular [place] , left radial arterial line present. Last CO/CI 5.8/2.9 on no inotropes or pressors. Heart hugger in place with patient demonstrating appropriate use. Antiembolism stockings, SCDs present. - Gastrointestinal Gastrointestinal Comment(s): Abdomen soft, nontender, nondistended. Hypoactive bowel sounds present 4 quadrants. Tolerating clear liquids. Positive belching, negative flatus. - Genitourinary Genitourinary Comment(s): Brown present draining clear, yellow urine. Output 60-100 mL/h overnight. - Integumentary Integumentary Comment(s): Skin is warm and dry with evidence of good perfusion. Anterior chest incision well approximated and covered with dry intact dressing. Bilateral lower extremity EVH sites well approximated. - Neurologic Neurologic: Present: CNII-XII intact - Musculoskeletal Musculoskeletal: Present: strength equal bilaterally - Psychiatric Psychiatric: Present: A&O x's 3, appropriate affect, intact judgment & insight - Allied health notes Allied health notes reviewed: nursing - Labs CBC & Chem 7: 05/04/18 04:13 05/04/18 04:13 Labs: Abnormal Lab Results - Last 24 Hours (Table) 05/02/18 05/03/18 05/03/18 Range/Units 05:38 08:46 10:05 RBC (4.30-5.90) m/uL Hgb (13.0-17.5) gm/dL Hct (39.0-53.0) % Plt Count (150-450) k/uL Lymphocytes # (1.0-4.8) k/uL Lymphocytes # (Manual) (1.0-4.8) k/uL Myelocytes # (Manual) (0) k/uL PT (9.0-12.0) sec INR (<1.2) Fibrinogen (200-500) mg/dL ABG pH (7.35-7.45) ABG pO2 299 H 172 H (83-108) mmHg ABG HCO3 26 H (21-25) mmol/L ABG Total CO2 27 H 26 H (19-24) mmol/L ABG O2 Saturation 100.0 H 99.3 H (94-97) % ABG Hematocrit (34.0-46.0) % ABG Sodium (135-146) mmol/L ABG Potassium (3.4-4.5) mmol/L ABG Ionized Calcium (4.5-5.3) mg/dL ABG Glucose 155 H 155 H (75-99) mg/dL ABG Lactic Acid (0.5-1.6) mmol/L Hemoglobin 12.5 L 11.5 L (13.0-17.5) gm/dL Chloride (98-107) mmol/L Creatinine (0.66-1.25) mg/dL Glucose (74-99) mg/dL POC Glucose (mg/dL) (75-99) mg/dL Calcium (8.4-10.2) mg/dL Magnesium (1.6-2.3) mg/dL Total Bilirubin (0.2-1.3) mg/dL Alkaline Phosphatase (38-126) U/L Total Protein (6.3-8.2) g/dL Albumin (3.5-5.0) g/dL Arterial Blood Potassium (3.4-4.5) mmol/L Arterial Blood Glucose 155 H 155 H (75-99) mg/dL Crossmatch See Detail 05/03/18 05/03/18 05/03/18 Range/Units 11:08 11:37 12:09 RBC (4.30-5.90) m/uL Hgb (13.0-17.5) gm/dL Hct (39.0-53.0) % Plt Count (150-450) k/uL Lymphocytes # (1.0-4.8) k/uL Lymphocytes # (Manual) (1.0-4.8) k/uL Myelocytes # (Manual) (0) k/uL PT (9.0-12.0) sec INR (<1.2) Fibrinogen (200-500) mg/dL ABG pH (7.35-7.45) ABG pO2 304 H 217 H 345 H (83-108) mmHg ABG HCO3 (21-25) mmol/L ABG Total CO2 25 H 25 H 25 H (19-24) mmol/L ABG O2 Saturation 99.7 H 99.8 H 99.9 H (94-97) % ABG Hematocrit 24 L 24 L 23 L (34.0-46.0) % ABG Sodium 134 L 134 L (135-146) mmol/L ABG Potassium 4.8 H 4.6 H (3.4-4.5) mmol/L ABG Ionized Calcium 4.2 L 4.2 L 4.3 L (4.5-5.3) mg/dL ABG Glucose 232 H 237 H 218 H (75-99) mg/dL ABG Lactic Acid 2.0 H 2.3 H* 3.1 H* (0.5-1.6) mmol/L Hemoglobin 8.0 L 7.9 L 7.6 L (13.0-17.5) gm/dL Chloride (98-107) mmol/L Creatinine (0.66-1.25) mg/dL Glucose (74-99) mg/dL POC Glucose (mg/dL) (75-99) mg/dL Calcium (8.4-10.2) mg/dL Magnesium (1.6-2.3) mg/dL Total Bilirubin (0.2-1.3) mg/dL Alkaline Phosphatase (38-126) U/L Total Protein (6.3-8.2) g/dL Albumin (3.5-5.0) g/dL Arterial Blood Potassium 4.8 H 4.6 H (3.4-4.5) mmol/L Arterial Blood Glucose 232 H 237 H 218 H (75-99) mg/dL Crossmatch 05/03/18 05/03/18 05/03/18 Range/Units 12:44 13:31 14:14 RBC (4.30-5.90) m/uL Hgb (13.0-17.5) gm/dL Hct (39.0-53.0) % Plt Count (150-450) k/uL Lymphocytes # (1.0-4.8) k/uL Lymphocytes # (Manual) (1.0-4.8) k/uL Myelocytes # (Manual) (0) k/uL PT (9.0-12.0) sec INR (<1.2) Fibrinogen (200-500) mg/dL ABG pH 7.33 L (7.35-7.45) ABG pO2 359 H 251 H 142 H (83-108) mmHg ABG HCO3 (21-25) mmol/L ABG Total CO2 25 H (19-24) mmol/L ABG O2 Saturation 100.0 H 99.8 H 99.2 H (94-97) % ABG Hematocrit 23 L 25 L 23 L (34.0-46.0) % ABG Sodium (135-146) mmol/L ABG Potassium 4.6 H (3.4-4.5) mmol/L ABG Ionized Calcium 4.3 L 4.3 L (4.5-5.3) mg/dL ABG Glucose 218 H 181 H 142 H (75-99) mg/dL ABG Lactic Acid 3.5 H* 3.5 H* 3.0 H* (0.5-1.6) mmol/L Hemoglobin 7.4 L 8.3 L 7.4 L (13.0-17.5) gm/dL Chloride (98-107) mmol/L Creatinine (0.66-1.25) mg/dL Glucose (74-99) mg/dL POC Glucose (mg/dL) (75-99) mg/dL Calcium (8.4-10.2) mg/dL Magnesium (1.6-2.3) mg/dL Total Bilirubin (0.2-1.3) mg/dL Alkaline Phosphatase (38-126) U/L Total Protein (6.3-8.2) g/dL Albumin (3.5-5.0) g/dL Arterial Blood Potassium 4.6 H (3.4-4.5) mmol/L Arterial Blood Glucose 218 H 181 H 142 H (75-99) mg/dL Crossmatch 05/03/18 05/03/18 05/03/18 Range/Units 15:00 15:00 15:00 RBC 2.59 L (4.30-5.90) m/uL Hgb 8.1 L D (13.0-17.5) gm/dL Hct 24.4 L (39.0-53.0) % Plt Count 89 L D (150-450) k/uL Lymphocytes # (1.0-4.8) k/uL Lymphocytes # (Manual) 0.52 L (1.0-4.8) k/uL Myelocytes # (Manual) 0.06 H (0) k/uL PT 13.6 H (9.0-12.0) sec INR 1.3 H (<1.2) Fibrinogen 195 L (200-500) mg/dL ABG pH (7.35-7.45) ABG pO2 (83-108) mmHg ABG HCO3 (21-25) mmol/L ABG Total CO2 (19-24) mmol/L ABG O2 Saturation (94-97) % ABG Hematocrit (34.0-46.0) % ABG Sodium (135-146) mmol/L ABG Potassium (3.4-4.5) mmol/L ABG Ionized Calcium (4.5-5.3) mg/dL ABG Glucose (75-99) mg/dL ABG Lactic Acid (0.5-1.6) mmol/L Hemoglobin (13.0-17.5) gm/dL Chloride 110 H (98-107) mmol/L Creatinine 0.55 L (0.66-1.25) mg/dL Glucose 120 H (74-99) mg/dL POC Glucose (mg/dL) (75-99) mg/dL Calcium 8.3 L (8.4-10.2) mg/dL Magnesium 2.4 H (1.6-2.3) mg/dL Total Bilirubin (0.2-1.3) mg/dL Alkaline Phosphatase 34 L (38-126) U/L Total Protein 4.5 L (6.3-8.2) g/dL Albumin 2.7 L (3.5-5.0) g/dL Arterial Blood Potassium (3.4-4.5) mmol/L Arterial Blood Glucose (75-99) mg/dL Crossmatch 05/03/18 05/03/18 05/03/18 Range/Units 15:05 15:32 15:57 RBC (4.30-5.90) m/uL Hgb (13.0-17.5) gm/dL Hct (39.0-53.0) % Plt Count (150-450) k/uL Lymphocytes # (1.0-4.8) k/uL Lymphocytes # (Manual) (1.0-4.8) k/uL Myelocytes # (Manual) (0) k/uL PT (9.0-12.0) sec INR (<1.2) Fibrinogen (200-500) mg/dL ABG pH (7.35-7.45) ABG pO2 238 H (83-108) mmHg ABG HCO3 (21-25) mmol/L ABG Total CO2 26 H (19-24) mmol/L ABG O2 Saturation 100.0 H (94-97) % ABG Hematocrit (34.0-46.0) % ABG Sodium (135-146) mmol/L ABG Potassium (3.4-4.5) mmol/L ABG Ionized Calcium (4.5-5.3) mg/dL ABG Glucose (75-99) mg/dL ABG Lactic Acid (0.5-1.6) mmol/L Hemoglobin (13.0-17.5) gm/dL Chloride (98-107) mmol/L Creatinine (0.66-1.25) mg/dL Glucose (74-99) mg/dL POC Glucose (mg/dL) 124 H 108 H (75-99) mg/dL Calcium (8.4-10.2) mg/dL Magnesium (1.6-2.3) mg/dL Total Bilirubin (0.2-1.3) mg/dL Alkaline Phosphatase (38-126) U/L Total Protein (6.3-8.2) g/dL Albumin (3.5-5.0) g/dL Arterial Blood Potassium (3.4-4.5) mmol/L Arterial Blood Glucose (75-99) mg/dL Crossmatch 05/03/18 05/03/18 05/03/18 Range/Units 17:00 18:00 18:03 RBC 2.86 L (4.30-5.90) m/uL Hgb 8.8 L (13.0-17.5) gm/dL Hct 27.4 L (39.0-53.0) % Plt Count 100 L (150-450) k/uL Lymphocytes # 0.4 L (1.0-4.8) k/uL Lymphocytes # (Manual) (1.0-4.8) k/uL Myelocytes # (Manual) (0) k/uL PT (9.0-12.0) sec INR (<1.2) Fibrinogen (200-500) mg/dL ABG pH (7.35-7.45) ABG pO2 (83-108) mmHg ABG HCO3 (21-25) mmol/L ABG Total CO2 (19-24) mmol/L ABG O2 Saturation (94-97) % ABG Hematocrit (34.0-46.0) % ABG Sodium (135-146) mmol/L ABG Potassium (3.4-4.5) mmol/L ABG Ionized Calcium (4.5-5.3) mg/dL ABG Glucose (75-99) mg/dL ABG Lactic Acid (0.5-1.6) mmol/L Hemoglobin (13.0-17.5) gm/dL Chloride (98-107) mmol/L Creatinine (0.66-1.25) mg/dL Glucose (74-99) mg/dL POC Glucose (mg/dL) 125 H 222 H (75-99) mg/dL Calcium (8.4-10.2) mg/dL Magnesium (1.6-2.3) mg/dL Total Bilirubin (0.2-1.3) mg/dL Alkaline Phosphatase (38-126) U/L Total Protein (6.3-8.2) g/dL Albumin (3.5-5.0) g/dL Arterial Blood Potassium (3.4-4.5) mmol/L Arterial Blood Glucose (75-99) mg/dL Crossmatch 05/03/18 05/03/18 05/03/18 Range/Units 18:45 19:02 20:01 RBC (4.30-5.90) m/uL Hgb (13.0-17.5) gm/dL Hct (39.0-53.0) % Plt Count (150-450) k/uL Lymphocytes # (1.0-4.8) k/uL Lymphocytes # (Manual) (1.0-4.8) k/uL Myelocytes # (Manual) (0) k/uL PT (9.0-12.0) sec INR (<1.2) Fibrinogen (200-500) mg/dL ABG pH (7.35-7.45) ABG pO2 74 L (83-108) mmHg ABG HCO3 (21-25) mmol/L ABG Total CO2 25 H (19-24) mmol/L ABG O2 Saturation (94-97) % ABG Hematocrit (34.0-46.0) % ABG Sodium (135-146) mmol/L ABG Potassium (3.4-4.5) mmol/L ABG Ionized Calcium (4.5-5.3) mg/dL ABG Glucose (75-99) mg/dL ABG Lactic Acid (0.5-1.6) mmol/L Hemoglobin (13.0-17.5) gm/dL Chloride (98-107) mmol/L Creatinine (0.66-1.25) mg/dL Glucose (74-99) mg/dL POC Glucose (mg/dL) 226 H 222 H (75-99) mg/dL Calcium (8.4-10.2) mg/dL Magnesium (1.6-2.3) mg/dL Total Bilirubin (0.2-1.3) mg/dL Alkaline Phosphatase (38-126) U/L Total Protein (6.3-8.2) g/dL Albumin (3.5-5.0) g/dL Arterial Blood Potassium (3.4-4.5) mmol/L Arterial Blood Glucose (75-99) mg/dL Crossmatch 05/03/18 05/03/18 05/03/18 Range/Units 20:55 20:58 21:56 RBC 2.89 L (4.30-5.90) m/uL Hgb 9.4 L (13.0-17.5) gm/dL Hct 27.8 L (39.0-53.0) % Plt Count 104 L (150-450) k/uL Lymphocytes # 0.3 L (1.0-4.8) k/uL Lymphocytes # (Manual) (1.0-4.8) k/uL Myelocytes # (Manual) (0) k/uL PT (9.0-12.0) sec INR (<1.2) Fibrinogen (200-500) mg/dL ABG pH (7.35-7.45) ABG pO2 (83-108) mmHg ABG HCO3 (21-25) mmol/L ABG Total CO2 (19-24) mmol/L ABG O2 Saturation (94-97) % ABG Hematocrit (34.0-46.0) % ABG Sodium (135-146) mmol/L ABG Potassium (3.4-4.5) mmol/L ABG Ionized Calcium (4.5-5.3) mg/dL ABG Glucose (75-99) mg/dL ABG Lactic Acid (0.5-1.6) mmol/L Hemoglobin (13.0-17.5) gm/dL Chloride (98-107) mmol/L Creatinine (0.66-1.25) mg/dL Glucose (74-99) mg/dL POC Glucose (mg/dL) 235 H 188 H (75-99) mg/dL Calcium (8.4-10.2) mg/dL Magnesium (1.6-2.3) mg/dL Total Bilirubin (0.2-1.3) mg/dL Alkaline Phosphatase (38-126) U/L Total Protein (6.3-8.2) g/dL Albumin (3.5-5.0) g/dL Arterial Blood Potassium (3.4-4.5) mmol/L Arterial Blood Glucose (75-99) mg/dL Crossmatch 05/03/18 05/04/18 05/04/18 Range/Units 23:02 00:14 00:54 RBC (4.30-5.90) m/uL Hgb (13.0-17.5) gm/dL Hct (39.0-53.0) % Plt Count (150-450) k/uL Lymphocytes # (1.0-4.8) k/uL Lymphocytes # (Manual) (1.0-4.8) k/uL Myelocytes # (Manual) (0) k/uL PT (9.0-12.0) sec INR (<1.2) Fibrinogen (200-500) mg/dL ABG pH (7.35-7.45) ABG pO2 (83-108) mmHg ABG HCO3 (21-25) mmol/L ABG Total CO2 (19-24) mmol/L ABG O2 Saturation (94-97) % ABG Hematocrit (34.0-46.0) % ABG Sodium (135-146) mmol/L ABG Potassium (3.4-4.5) mmol/L ABG Ionized Calcium (4.5-5.3) mg/dL ABG Glucose (75-99) mg/dL ABG Lactic Acid (0.5-1.6) mmol/L Hemoglobin (13.0-17.5) gm/dL Chloride (98-107) mmol/L Creatinine (0.66-1.25) mg/dL Glucose (74-99) mg/dL POC Glucose (mg/dL) 177 H 163 H 162 H (75-99) mg/dL Calcium (8.4-10.2) mg/dL Magnesium (1.6-2.3) mg/dL Total Bilirubin (0.2-1.3) mg/dL Alkaline Phosphatase (38-126) U/L Total Protein (6.3-8.2) g/dL Albumin (3.5-5.0) g/dL Arterial Blood Potassium (3.4-4.5) mmol/L Arterial Blood Glucose (75-99) mg/dL Crossmatch 05/04/18 05/04/1818 Range/Units 01:52 02:52 04:11 RBC (4.30-5.90) m/uL Hgb (13.0-17.5) gm/dL Hct (39.0-53.0) % Plt Count (150-450) k/uL Lymphocytes # (1.0-4.8) k/uL Lymphocytes # (Manual) (1.0-4.8) k/uL Myelocytes # (Manual) (0) k/uL PT (9.0-12.0) sec INR (<1.2) Fibrinogen (200-500) mg/dL ABG pH (7.35-7.45) ABG pO2 (83-108) mmHg ABG HCO3 (21-25) mmol/L ABG Total CO2 (19-24) mmol/L ABG O2 Saturation (94-97) % ABG Hematocrit (34.0-46.0) % ABG Sodium (135-146) mmol/L ABG Potassium (3.4-4.5) mmol/L ABG Ionized Calcium (4.5-5.3) mg/dL ABG Glucose (75-99) mg/dL ABG Lactic Acid (0.5-1.6) mmol/L Hemoglobin (13.0-17.5) gm/dL Chloride (98-107) mmol/L Creatinine (0.66-1.25) mg/dL Glucose (74-99) mg/dL POC Glucose (mg/dL) 156 H 138 H 128 H (75-99) mg/dL Calcium (8.4-10.2) mg/dL Magnesium (1.6-2.3) mg/dL Total Bilirubin (0.2-1.3) mg/dL Alkaline Phosphatase (38-126) U/L Total Protein (6.3-8.2) g/dL Albumin (3.5-5.0) g/dL Arterial Blood Potassium (3.4-4.5) mmol/L Arterial Blood Glucose (75-99) mg/dL Crossmatch 05/04/18 05/04/18 05/04/18 Range/Units 04:13 04:13 05:16 RBC 2.94 L (4.30-5.90) m/uL Hgb 9.3 L (13.0-17.5) gm/dL Hct 28.2 L (39.0-53.0) % Plt Count 99 L (150-450) k/uL Lymphocytes # 0.4 L (1.0-4.8) k/uL Lymphocytes # (Manual) (1.0-4.8) k/uL Myelocytes # (Manual) (0) k/uL PT (9.0-12.0) sec INR (<1.2) Fibrinogen (200-500) mg/dL ABG pH (7.35-7.45) ABG pO2 (83-108) mmHg ABG HCO3 (21-25) mmol/L ABG Total CO2 (19-24) mmol/L ABG O2 Saturation (94-97) % ABG Hematocrit (34.0-46.0) % ABG Sodium (135-146) mmol/L ABG Potassium (3.4-4.5) mmol/L ABG Ionized Calcium (4.5-5.3) mg/dL ABG Glucose (75-99) mg/dL ABG Lactic Acid (0.5-1.6) mmol/L Hemoglobin (13.0-17.5) gm/dL Chloride (98-107) mmol/L Creatinine 0.55 L (0.66-1.25) mg/dL Glucose 120 H (74-99) mg/dL POC Glucose (mg/dL) 111 H (75-99) mg/dL Calcium (8.4-10.2) mg/dL Magnesium (1.6-2.3) mg/dL Total Bilirubin 1.5 H (0.2-1.3) mg/dL Alkaline Phosphatase (38-126) U/L Total Protein 5.3 L (6.3-8.2) g/dL Albumin 3.2 L (3.5-5.0) g/dL Arterial Blood Potassium (3.4-4.5) mmol/L Arterial Blood Glucose (75-99) mg/dL Crossmatch 05/04/18 05/04/18 05/04/18 Range/Units 06:10 07:01 08:43 RBC (4.30-5.90) m/uL Hgb (13.0-17.5) gm/dL Hct (39.0-53.0) % Plt Count (150-450) k/uL Lymphocytes # (1.0-4.8) k/uL Lymphocytes # (Manual) (1.0-4.8) k/uL Myelocytes # (Manual) (0) k/uL PT (9.0-12.0) sec INR (<1.2) Fibrinogen (200-500) mg/dL ABG pH (7.35-7.45) ABG pO2 (83-108) mmHg ABG HCO3 (21-25) mmol/L ABG Total CO2 (19-24) mmol/L ABG O2 Saturation (94-97) % ABG Hematocrit (34.0-46.0) % ABG Sodium (135-146) mmol/L ABG Potassium (3.4-4.5) mmol/L ABG Ionized Calcium (4.5-5.3) mg/dL ABG Glucose (75-99) mg/dL ABG Lactic Acid (0.5-1.6) mmol/L Hemoglobin (13.0-17.5) gm/dL Chloride (98-107) mmol/L Creatinine (0.66-1.25) mg/dL Glucose (74-99) mg/dL POC Glucose (mg/dL) 176 H 158 H 150 H (75-99) mg/dL Calcium (8.4-10.2) mg/dL Magnesium (1.6-2.3) mg/dL Total Bilirubin (0.2-1.3) mg/dL Alkaline Phosphatase (38-126) U/L Total Protein (6.3-8.2) g/dL Albumin (3.5-5.0) g/dL Arterial Blood Potassium (3.4-4.5) mmol/L Arterial Blood Glucose (75-99) mg/dL Crossmatch Microbiology - Last 24 Hours (Table) 05/02/18 15:53 Urine Culture - Final Urine,Clean Catch - Imaging and Cardiology Chest x-ray: report reviewed, image reviewed Assessment and Plan (1) Hypertension Current Visit: Yes Status: Chronic Code(s): I10 - ESSENTIAL (PRIMARY) HYPERTENSION SNOMED Code(s): 60218671 (2) Hyperlipidemia Current Visit: Yes Status: Chronic Code(s): E78.5 - HYPERLIPIDEMIA, UNSPECIFIED SNOMED Code(s): 11518618 (3) Coronary artery disease Current Visit: Yes Status: Chronic Code(s): I25.10 - ATHSCL HEART DISEASE OF [place] CORONARY ARTERY W/O ANG PCTRS SNOMED Code(s): 58344846 (4) Left main coronary artery disease Current Visit: Yes Status: Chronic Code(s): I25.10 - ATHSCL HEART DISEASE OF [place] CORONARY ARTERY W/O ANG PCTRS SNOMED Code(s): 621272624 (5) Diabetes mellitus Current Visit: Yes Status: Chronic Code(s): E11.9 - TYPE 2 DIABETES MELLITUS WITHOUT COMPLICATIONS SNOMED Code(s): 83647660 (6) History of prostate cancer Current Visit: No Status: Resolved Code(s): Z85.46 - PERSONAL HISTORY OF MALIGNANT NEOPLASM OF PROSTATE SNOMED Code(s): 156011367 (7) History of radiation therapy Current Visit: No Status: Resolved Code(s): Z92.3 - PERSONAL HISTORY OF IRRADIATION SNOMED Code(s): 264069595 (8) Paroxysmal atrial fibrillation Current Visit: No Status: Resolved Code(s): I48.0 - PAROXYSMAL ATRIAL FIBRILLATION SNOMED Code(s): 229120759 (9) Chronic anticoagulation Current Visit: Yes Status: Chronic Code(s): 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 Continue aspirin, statin, Plavix, beta jennifer therapy. Will increase beta jennifer therapy as tolerated. DC IV nitro. 2. Wean O2 as tolerated. Encourage incentive spirometry use 10 times every hour while awake. 3. DC [place]. Connect [place] to continuous CVP monitoring. 4. Increase activity, ambulate as tolerated. PT/OT/cardiac rehab following. 5. Will monitor daily labs and x-rays. Electrolyte replacement per protocol. 6. Pain control with current medication regimen. Will add Toradol for better pain control. 7. Insulin management per primary care service. 8. DVT prophylaxis with subcu heparin and SCDs, GI prophylaxis with Protonix. 9. Bronchodilators per pulmonology. 10. More recommendations to follow. Time with Patient: Greater than 30
--- NOTE | 2018-05-04 10:40 | CONS ---
CONSULTATION Mr. Nicholas underwent aortocoronary bypass surgery yesterday. He had a AGUIRRE to LAD and 3 vein grafts. He has been extubated. He is clinically doing better, appears to be hemodynamically stable. This gentleman has type 2 diabetes, hypertension, hyperlipidemia, and recent diagnosis of paroxysmal atrial fibrillation. I would recommend that we continue incentive spirometry and pulmonary toilet and gradual increase in activity. MMODL / IJN: [id number] /
[2018-05-04 11:12] LABS: Glucose,Whole Blood 129 mg/dL (75-99)
[2018-05-04] MEDS: DEXTROSE 5% IN WATER 100 ML with AMIODARONE 150 MG IV PRN ×4 (11:33→16:17)
[2018-05-04] MEDS ORDERED: METOPROLOL TARTRATE 12.5 MG TAB PO STA (11:52)
[2018-05-04 11:59] LABS: Glucose,Whole Blood 121 mg/dL (75-99)
[2018-05-04] MEDS: INSULIN REGULAR 100 UNIT in SODIUM CHLORIDE 0.9% 100 ML IV SCH (12:02)
[2018-05-04 13:11] LABS: Glucose,Whole Blood 154 mg/dL (75-99)
[2018-05-04 14:10] LABS: Glucose,Whole Blood 194 mg/dL (75-99)
[2018-05-04] MEDS ORDERED: HYDROcodone/APAP 5-325MG 1 EACH TAB PO PRN ×2 (14:33)
[2018-05-04] MEDS ORDERED: MAGNESIUM HYDROXIDE 2,400 MG/10 ML CUP PO PRN (14:34)
[2018-05-04] MEDS ORDERED: BISACODYL 10 MG SUPP RECTAL PRN (14:34)
[2018-05-04 15:04] LABS: Glucose,Whole Blood 135 mg/dL (75-99)
[2018-05-04 16:11] LABS: Glucose,Whole Blood 84 mg/dL (75-99)
[2018-05-04 17:03] LABS: Glucose,Whole Blood 93 mg/dL (75-99)
[2018-05-04 18:02] LABS: Ionized Calcium 5.2 mg/dL (4.5-5.3)
[2018-05-04] MEDS: AMIODARONE 450 MG in DEXTROSE 5% IN WATER 250 ML IV SCH ×2 (18:05)
[2018-05-04 18:10] LABS: Phosphorus 3.9 mg/dL (2.5-4.5); Potassium 4.1 mmol/L (3.5-5.1)
[2018-05-04 18:16] LABS: Glucose,Whole Blood 154 mg/dL (75-99)
[2018-05-04 19:09] LABS: Glucose,Whole Blood 148 mg/dL (75-99)
[2018-05-04] MEDS ORDERED: DIGOXIN 250 MCG/ML 2 ML AMP IVP STA (21:05)
[2018-05-04] MEDS: SENNOSIDES-DOCUSATE SODIUM 1 EACH TAB PO SCH (21:20)
[2018-05-04] MEDS: METOPROLOL TARTRATE 25 MG TAB PO SCH (21:20)
[2018-05-04 21:26] LABS: Glucose,Whole Blood 100 mg/dL (75-99)
[2018-05-04 22:37] LABS: Glucose,Whole Blood 116 mg/dL (75-99)
[2018-05-05 00:04] LABS: Glucose,Whole Blood 113 mg/dL (75-99)
[2018-05-05] MEDS: KETOROLAC 30 MG/ML 1 ML VIAL IVP SCH ×4 (00:27→17:11)
[2018-05-05] MEDS: HEPARIN SODIUM,PORCINE 5,000 UNIT/ML 1 ML VIAL SQ SCH ×3 (00:27→16:43)
[2018-05-05] MEDS ORDERED: DIGOXIN 250 MCG/ML 2 ML AMP IVP ONE ×2 (00:30→04:30)
[2018-05-05] MEDS: AMIODARONE 450 MG in DEXTROSE 5% IN WATER 250 ML IV SCH ×4 (00:45→12:03)
[2018-05-05 01:40] LABS: Glucose,Whole Blood 111 mg/dL (75-99)
[2018-05-05 02:55] LABS: Glucose,Whole Blood 94 mg/dL (75-99)
[2018-05-05 04:02] LABS: Glucose,Whole Blood 108 mg/dL (75-99)
[2018-05-05 05:00] LABS: ALT 26 U/L (21-72); AST 23 U/L (17-59); Albumin 1.5 g/dL (3.5-5.0); Alkaline Phosphatase 27 U/L (38-126); Anion Gap 2 mmol/L; Blood Urea Nitrogen 7 mg/dL (9-20); Carbon Dioxide 17 mmol/L (22-30); Chloride 122 mmol/L (98-107); Glucose 81 mg/dL (74-99); Magnesium 1.3 mg/dL (1.6-2.3); Potassium 2.8 mmol/L (3.5-5.1); Sodium 141 mmol/L (137-145); Total Bilirubin 0.9 mg/dL (0.2-1.3); Total Protein 3.2 g/dL (6.3-8.2)
[2018-05-05 05:02] LABS: Calcium 5.4 mg/dL (8.4-10.2)
[2018-05-05 05:15] LABS: Glucose,Whole Blood 140 mg/dL (75-99)
[2018-05-05 05:23] LABS: Basophils % (A) 0 %; Eosinophils # (A) 0.2 k/uL (0-0.7); Eosinophils % (A) 3 %; HCT 27.4 % (39.0-53.0); HGB 9.1 gm/dL (13.0-17.5); Lymphocytes # (A) 0.4 k/uL (1.0-4.8); Lymphocytes % (A) 6 %; MCH 32.1 pg (25.0-35.0); MCHC 33.3 g/dL (31.0-37.0); MCV 96.5 fL (80.0-100.0); Monocytes # (A) 0.3 k/uL (0-1.0); Monocytes % (A) 4 %; Neutrophils % (A) 85 %; RBC 2.84 m/uL (4.30-5.90); RDW 12.7 % (11.5-15.5); WBC 5.8 k/uL (3.8-10.6)
[2018-05-05 05:25] LABS: Platelet Count 95 k/uL (150-450)
--- NOTE | 2018-05-05 06:15 | XR ---
EXAMINATION TYPE: XR chest 1V portable DATE OF EXAM: 05/05/2018 HISTORY: Post Operative Cardiac Surgery. REFERENCE: Previous study dated 05/04/2018. FINDINGS: The patient [place] catheter is been removed. A right internal jugular sheath remains in place, unchanged in appearance. There is been a previous midline sternotomy. A left pleural drain rem ains in place. There is continuing bibasilar airspace disease, worse on the left than the right. The heart remains m ildly enlarged. There are small, bilateral effusions, greater on the left than the right. IMPRESSION: 1. CARDIOMEGALY. 2. BIBASILAR AIRSPACE DISEASE, WORSE ON THE LEFT THAN THE RIGHT. 3. SMALL BILATERAL EFFUSIONS, WORSE ON THE LEFT THAN THE RIGHT.
[2018-05-05 07:19] LABS: Glucose,Whole Blood 135 mg/dL (75-99)
[2018-05-05] MEDS: IPRATROPIUM-ALBUTEROL 3 ML NEB INHALATION SCH ×4 (07:30→19:18)
[2018-05-05 07:42] LABS: Ionized Calcium 4.9 mg/dL (4.5-5.3)
[2018-05-05 07:52] LABS: Anion Gap 5 mmol/L; Blood Urea Nitrogen 12 mg/dL (9-20); Calcium 8.5 mg/dL (8.4-10.2); Carbon Dioxide 25 mmol/L (22-30); Chloride 107 mmol/L (98-107); Glucose 135 mg/dL (74-99); Magnesium 1.9 mg/dL (1.6-2.3); Potassium 4.5 mmol/L (3.5-5.1); Sodium 137 mmol/L (137-145)
[2018-05-05 09:17] LABS: Glucose,Whole Blood 178 mg/dL (75-99)
--- NOTE | 2018-05-05 09:45 | P.PN ---
Subjective Progress Note Date: 05/05/18 Principal diagnosis: Multivessel coronary artery disease with left main disease. Previous medical history of paroxysmal atrial fibrillation on Eliquis for anticoagulation which is currently on hold, hypertension, hyperlipidemia, new diagnosis of diabetes mellitus, prostate cancer with prostatectomy and radiation treatment with the last dose radiation in December 2017. POD #2 coronary bypass grafting 4 vessels, left internal mammary artery to the left anterior descending artery, reverse saphenous vein graft to the diagonal artery, reverse saphenous vein graft to the obtuse marginal artery, reverse saphenous vein graft to the posterior descending artery, endoscopic vein harvesting bilateral greater saphenous veins, epi-aortic ultrasound, intraoperative transesophageal echocardiogram. Postoperative atrial fibrillation, an expected outcome given the patient's preoperative paroxysmal atrial fibrillation. The patient is currently sitting up in a recliner in no acute distress. Denies pain, shortness of breath. Currently hemodynamically stable on no inotropes or pressors. No new complaints. Patient went into atrial fibrillation with rapid ventricular response yesterday with conversion to normal sinus rhythm after initiation of amiodarone and digoxin. Objective - Vital Signs Vital signs: Vital Signs Temp 98.6 F 05/05/18 08:00 Pulse 68 05/05/18 09:00 Resp 17 05/05/18 09:00 BP 115/60 05/05/18 09:00 Pulse Ox 95 05/05/18 09:00 Intake & Output 05/04/18 05/05/18 05/05/18 18:59 06:59 18:59 Intake Total 1418.094 860.892 62.5 Output Total 1370 1470 300 Balance 48.094 -609.108 -237.5 Weight 78.5 kg Intake: IV 1116.0 601.33 62.5 ACETAMINOPHEN IV (For NPO 100 ) 1,000 mg In Empty Bag 1 bag @ 400 mls/hr IVPB Q6HR [facility] Rx#:[id number] Albumin Human 5% 250 ml 250 In Empty Bag 1 bag @ 250 mls/hr IVPB Q1HR PRN Rx#: [id number] Amiodarone 450 mg In 198.33 16.5 Dextrose 5% in Water 250 ml @ 1 MG/MIN 33.33 mls/ hr IV .Q7H31M [facility] Rx#: [id number] CO/CI 30 Dextrose 5% in Water 100 400 ml @ 618 mls/hr IV .Q10M PRN with Amiodarone 150 mg Rx#:[id number] Lactated Ringers 1,000 ml 310 240 40 @ 20 mls/hr IV .Q24H [facility] Rx#:[id number] Nitroglycerin-D5w Pmx 50 3.0 mg In Dextrose/Water 1 250ml.bag @ 5 MCG/MIN 1.5 mls/hr IV .Q24H PRN Rx#: [id number] Pressure Bag 93 63 6 ceFAZolin 2 gm In Sodium 30 Chloride 0.9% 30 ml @ 60 mls/hr IVPB ONCE PRN Rx#: [id number] Intake, IV Titration 62.094 259.562 Amount Amiodarone 450 mg In 222.2 Dextrose 5% in Water 250 ml @ 1 MG/MIN 33.33 mls/ hr IV .Q7H31M [facility] Rx#: [id number] Insulin Regular 100 unit 62.094 37.362 In Sodium Chloride 0.9% 100 ml @ Per Protocol IV .Q0M [facility] Rx#:[id number] Oral 240 Output: Chest Tube Drainage 160 140 100 Left Pleural 111 70 70 Mediastinal X2 49 70 30 Urine 1210 1330 200 Other: Voiding Method Indwelling Catheter Indwelling Catheter Indwelling Catheter ABP, PAP, CO, CI - Last Documented Arterial Blood Pressure 137/58 Pulmonary Artery Pressure 17/8 Cardiac Output 6.8 Cardiac Index 3.5 - Constitutional General appearance: Present: cooperative, no acute distress - Respiratory Details: Lungs sounds diminished bilaterally. Respirations even, nonlabored. Currently on 2 L nasal cannula with oxygen saturation 96%. Able to achieve 1000 mL on his incentive spirometry. Strong cough. Mediastinal chest tube to continuous wall suction, 30 mL serosanguineous drainage overnight, 150 mL in the last 24 hours. Left pleural chest tube to continuous wall suction, 30 mL serosanguineous drainage overnight, 250 mL in the last 24 hours. No air leaks present. - Cardiovascular Details: S1, S2 present. Regular rate and rhythm, sinus rhythm on telemetry. Sternum stable. A/V epicardial pacemaker wires present, connected to generator, generator turned off. Palpable peripheral pulses bilaterally. No edema present. No calf pain or tenderness noted. Right internal jugular Cordis present. Heart hugger in place with patient demonstrating appropriate use. Antiembolism stockings, SCDs present. - Gastrointestinal Gastrointestinal Comment(s): Abdomen soft, nontender, nondistended. Active bowel sounds present 4 quadrants. Tolerating diet. Positive flatus, negative bowel movement. - Genitourinary Genitourinary Comment(s): Brown present draining clear, yellow urine. Output 75-150 mL/h overnight. - Integumentary Integumentary Comment(s): Skin is warm and dry with evidence of good perfusion. Anterior chest incision well approximated and covered with dry intact dressing. Bilateral lower extremity EVH sites well approximated. - Neurologic Neurologic: Present: CNII-XII intact - Musculoskeletal Musculoskeletal: Present: gait normal, strength equal bilaterally - Psychiatric Psychiatric: Present: A&O x's 3, appropriate affect, intact judgment & insight - Allied health notes Allied health notes reviewed: nursing - Labs CBC & Chem 7: 05/05/18 05:00 05/05/18 07:21 Labs: Abnormal Lab Results - Last 24 Hours (Table) 05/04/18 05/04/18 05/04/18 Range/Units 10:00 11:10 11:57 RBC (4.30-5.90) m/uL Hgb (13.0-17.5) gm/dL Hct (39.0-53.0) % Plt Count (150-450) k/uL Lymphocytes # (1.0-4.8) k/uL Potassium (3.5-5.1) mmol/L Chloride (98-107) mmol/L Carbon Dioxide (22-30) mmol/L BUN (9-20) mg/dL Creatinine (0.66-1.25) mg/dL Glucose (74-99) mg/dL POC Glucose (mg/dL) 168 H 129 H 121 H (75-99) mg/dL Calcium (8.4-10.2) mg/dL Ionized Calcium Ramón (4.5-5.3) mg/dL Magnesium (1.6-2.3) mg/dL Alkaline Phosphatase (38-126) U/L Total Protein (6.3-8.2) g/dL Albumin (3.5-5.0) g/dL 05/04/18 05/04/18 05/04/18 Range/Units 13:09 14:07 15:01 RBC (4.30-5.90) m/uL Hgb (13.0-17.5) gm/dL Hct (39.0-53.0) % Plt Count (150-450) k/uL Lymphocytes # (1.0-4.8) k/uL Potassium (3.5-5.1) mmol/L Chloride (98-107) mmol/L Carbon Dioxide (22-30) mmol/L BUN (9-20) mg/dL Creatinine (0.66-1.25) mg/dL Glucose (74-99) mg/dL POC Glucose (mg/dL) 154 H 194 H 135 H (75-99) mg/dL Calcium (8.4-10.2) mg/dL Ionized Calcium Ramón (4.5-5.3) mg/dL Magnesium (1.6-2.3) mg/dL Alkaline Phosphatase (38-126) U/L Total Protein (6.3-8.2) g/dL Albumin (3.5-5.0) g/dL 05/04/18 05/04/18 05/04/18 Range/Units 18:10 19:07 21:24 RBC (4.30-5.90) m/uL Hgb (13.0-17.5) gm/dL Hct (39.0-53.0) % Plt Count (150-450) k/uL Lymphocytes # (1.0-4.8) k/uL Potassium (3.5-5.1) mmol/L Chloride (98-107) mmol/L Carbon Dioxide (22-30) mmol/L BUN (9-20) mg/dL Creatinine (0.66-1.25) mg/dL Glucose (74-99) mg/dL POC Glucose (mg/dL) 154 H 148 H 100 H (75-99) mg/dL Calcium (8.4-10.2) mg/dL Ionized Calcium Ramón (4.5-5.3) mg/dL Magnesium (1.6-2.3) mg/dL Alkaline Phosphatase (38-126) U/L Total Protein (6.3-8.2) g/dL Albumin (3.5-5.0) g/dL 05/04/18 05/05/18 05/05/18 Range/Units 22:35 00:03 01:38 RBC (4.30-5.90) m/uL Hgb (13.0-17.5) gm/dL Hct (39.0-53.0) % Plt Count (150-450) k/uL Lymphocytes # (1.0-4.8) k/uL Potassium (3.5-5.1) mmol/L Chloride (98-107) mmol/L Carbon Dioxide (22-30) mmol/L BUN (9-20) mg/dL Creatinine (0.66-1.25) mg/dL Glucose (74-99) mg/dL POC Glucose (mg/dL) 116 H 113 H 111 H (75-99) mg/dL Calcium (8.4-10.2) mg/dL Ionized Calcium Ramón (4.5-5.3) mg/dL Magnesium (1.6-2.3) mg/dL Alkaline Phosphatase (38-126) U/L Total Protein (6.3-8.2) g/dL Albumin (3.5-5.0) g/dL 05/05/18 05/05/18 05/05/18 Range/Units 03:59 04:24 05:00 RBC 2.84 L (4.30-5.90) m/uL Hgb 9.1 L (13.0-17.5) gm/dL Hct 27.4 L (39.0-53.0) % Plt Count 95 L (150-450) k/uL Lymphocytes # 0.4 L (1.0-4.8) k/uL Potassium 2.8 L (3.5-5.1) mmol/L Chloride 122 H (98-107) mmol/L Carbon Dioxide 17 L (22-30) mmol/L BUN 7 L (9-20) mg/dL Creatinine 0.45 L (0.66-1.25) mg/dL Glucose (74-99) mg/dL POC Glucose (mg/dL) 108 H (75-99) mg/dL Calcium 5.4 L* (8.4-10.2) mg/dL Ionized Calcium Ramón 4.0 L (4.5-5.3) mg/dL Magnesium 1.3 L (1.6-2.3) mg/dL Alkaline Phosphatase 27 L (38-126) U/L Total Protein 3.2 L (6.3-8.2) g/dL Albumin 1.5 L (3.5-5.0) g/dL 05/05/18 05/05/18 05/05/18 Range/Units 05:14 07:17 07:21 RBC (4.30-5.90) m/uL Hgb (13.0-17.5) gm/dL Hct (39.0-53.0) % Plt Count (150-450) k/uL Lymphocytes # (1.0-4.8) k/uL Potassium (3.5-5.1) mmol/L Chloride (98-107) mmol/L Carbon Dioxide (22-30) mmol/L BUN (9-20) mg/dL Creatinine (0.66-1.25) mg/dL Glucose 135 H (74-99) mg/dL POC Glucose (mg/dL) 140 H 135 H (75-99) mg/dL Calcium (8.4-10.2) mg/dL Ionized Calcium Ramón (4.5-5.3) mg/dL Magnesium (1.6-2.3) mg/dL Alkaline Phosphatase (38-126) U/L Total Protein (6.3-8.2) g/dL Albumin (3.5-5.0) g/dL 05/05/18 Range/Units 09:15 RBC (4.30-5.90) m/uL Hgb (13.0-17.5) gm/dL Hct (39.0-53.0) % Plt Count (150-450) k/uL Lymphocytes # (1.0-4.8) k/uL Potassium (3.5-5.1) mmol/L Chloride (98-107) mmol/L Carbon Dioxide (22-30) mmol/L BUN (9-20) mg/dL Creatinine (0.66-1.25) mg/dL Glucose (74-99) mg/dL POC Glucose (mg/dL) 178 H (75-99) mg/dL Calcium (8.4-10.2) mg/dL Ionized Calcium Ramón (4.5-5.3) mg/dL Magnesium (1.6-2.3) mg/dL Alkaline Phosphatase (38-126) U/L Total Protein (6.3-8.2) g/dL Albumin (3.5-5.0) g/dL - Imaging and Cardiology Chest x-ray: report reviewed, image reviewed Assessment and Plan (1) Hypertension Current Visit: Yes Status: Chronic Code(s): I10 - ESSENTIAL (PRIMARY) HYPERTENSION SNOMED Code(s): 70305633 (2) Hyperlipidemia Current Visit: Yes Status: Chronic Code(s): E78.5 - HYPERLIPIDEMIA, UNSPECIFIED SNOMED Code(s): 06230034 (3) Coronary artery disease Current Visit: Yes Status: Chronic Code(s): I25.10 - ATHSCL HEART DISEASE OF [place] CORONARY ARTERY W/O ANG PCTRS SNOMED Code(s): 70271309 (4) Left main coronary artery disease Current Visit: Yes Status: Chronic Code(s): I25.10 - ATHSCL HEART DISEASE OF [place] CORONARY ARTERY W/O ANG PCTRS SNOMED Code(s): 939445213 (5) Diabetes mellitus Current Visit: Yes Status: Chronic Code(s): E11.9 - TYPE 2 DIABETES MELLITUS WITHOUT COMPLICATIONS SNOMED Code(s): 64606269 (6) History of prostate cancer Current Visit: No Status: Resolved Code(s): Z85.46 - PERSONAL HISTORY OF MALIGNANT NEOPLASM OF PROSTATE SNOMED Code(s): 428615582 (7) History of radiation therapy Current Visit: No Status: Resolved Code(s): Z92.3 - PERSONAL HISTORY OF IRRADIATION SNOMED Code(s): 443408924 (8) Paroxysmal atrial fibrillation Current Visit: No Status: Resolved Code(s): I48.0 - PAROXYSMAL ATRIAL FIBRILLATION SNOMED Code(s): 078206973 (9) Chronic anticoagulation Current Visit: Yes Status: Chronic Code(s): Z79.01 - PHLEBOTOMY LAB ASSISTANT (CURRENT) USE OF ANTICOAGULANTS SNOMED Code(s): 695068892 Plan: 1. Continue aspirin, statin, Plavix, beta jennifer therapy. Will increase beta jennifer therapy as tolerated. 2. Continue amiodarone for A. fib prophylaxis. Will transition to oral amiodarone. 3. Wean O2 as tolerated. Encourage incentive spirometry use 10 times every hour while awake. 4. Likely will discontinue mediastinal chest tube, Cordis, Brown. Keep left pleural chest tube to continuous wall suction. 5. Increase activity, ambulate as tolerated. PT/OT/cardiac rehab following. 6. Will monitor daily labs and x-rays. Electrolyte replacement per protocol. 7. Pain control with current medication regimen. 8. Insulin management per primary care service. 9. DVT prophylaxis with subcu heparin and SCDs, GI prophylaxis with Protonix. 10. Bronchodilators per pulmonology. 11. Will place transfer orders for 3 S. cardiac stepdown unit. May transfer when bed available. 12. More recommendations to follow. Time with Patient: Greater than 30
--- NOTE | 2018-05-05 10:04 | P.PN ---
Subjective Progress Note Date: 05/05/18 This is a 62-year-old male patient of Dr. Winston. Patient presented for an elective cardiac catheterization due to abnormal myocardial perfusion imaging was found to have severe left main disease as well as severe LAD and left circumflex disease. Patient was then evaluated by Dr. Zhu with cardiac thoracic surgical team and is scheduled to undergo coronary artery bypass graft surgery tomorrow 05/03/2018. Patient does have a known past medical history of hypertension, hyperlipidemia, diabetes mellitus, paroxysmal atrial fibrillation , prostate cancer with radiation last in December 2017, kidney stones, anxiety and ulcers. Today patient is currently resting in bed. Patient does appear a bit anxious. Patient denies any chest pain or shortness of breath. Patient denies nausea vomiting or diarrhea. Patient denies any urinary burning or frequency. Patient will undergo coronary artery bypass graft surgery tomorrow with Dr. Zhu. Patient did state understanding and that he had in-depth conversation with the cardiothoracic team yesterday. on 05/03/2018 patient currently status post coronary artery bypass graft with Dr. Wright. Patient currently mechanical ventilation in the intensive care unit. On 05/04/2018 patient is currently postop day 1 status post four-vessel coronary artery bypass graft surgery . patient remains in the intensive care unit. Patient is extubated and awake and alert. Patient currently sitting up in chair. Patient currently on 4 L nasal cannula On 05/05/2018 patient is alert and oriented 3 currently sitting up in chair. Patient remains in the intensive care unit. Patient remains on insulin drip. At this time patient is complaining of mild pain is adequately controlled with the medication. Patient remains on 2 L nasal cannula Objective - Vital Signs Vital signs: Vital Signs Temp 98.6 F 05/05/18 08:00 Pulse 68 05/05/18 09:00 Resp 17 05/05/18 09:00 BP 115/60 05/05/18 09:00 Pulse Ox 95 05/05/18 09:00 Intake & Output 05/04/18 05/05/18 05/05/18 18:59 06:59 18:59 Intake Total 1418.094 860.892 62.5 Output Total 1370 1470 300 Balance 48.094 -609.108 -237.5 Weight 78.5 kg Intake: IV 1116.0 601.33 62.5 ACETAMINOPHEN IV (For NPO 100 ) 1,000 mg In Empty Bag 1 bag @ 400 mls/hr IVPB Q6HR [facility] Rx#:[id number] Albumin Human 5% 250 ml 250 In Empty Bag 1 bag @ 250 mls/hr IVPB Q1HR PRN Rx#: [id number] Amiodarone 450 mg In 198.33 16.5 Dextrose 5% in Water 250 ml @ 1 MG/MIN 33.33 mls/ hr IV .Q7H31M [facility] Rx#: [id number] CO/CI 30 Dextrose 5% in Water 100 400 ml @ 618 mls/hr IV .Q10M PRN with Amiodarone 150 mg Rx#:[id number] Lactated Ringers 1,000 ml 310 240 40 @ 20 mls/hr IV .Q24H [facility] Rx#:[id number] Nitroglycerin-D5w Pmx 50 3.0 mg In Dextrose/Water 1 250ml.bag @ 5 MCG/MIN 1.5 mls/hr IV .Q24H [facility] Rx#: [id number] Pressure Bag 93 63 6 ceFAZolin 2 gm In Sodium 30 Chloride 0.9% 30 ml @ 60 mls/hr IVPB ONCE PRN Rx#: [id number] Intake, IV Titration 62.094 259.562 Amount Amiodarone 450 mg In 222.2 Dextrose 5% in Water 250 ml @ 1 MG/MIN 33.33 mls/ hr IV .Q7H31M [facility] Rx#: [id number] Insulin Regular 100 unit 62.094 37.362 In Sodium Chloride 0.9% 100 ml @ Per Protocol IV .Q0M [facility] Rx#:[id number] Oral 240 Output: Chest Tube Drainage 160 140 100 Left Pleural 111 70 70 Mediastinal X2 49 70 30 Urine 1210 1330 200 Other: Voiding Method Indwelling Catheter Indwelling Catheter Indwelling Catheter ABP, PAP, CO, CI - Last Documented Arterial Blood Pressure 137/58 Pulmonary Artery Pressure 17/8 Cardiac Output 6.8 Cardiac Index 3.5 - Exam Head normocephalic Neck supple Lungs diminished bilaterally. Patient has been extubated Heart regular rate and rhythm S1-S2, no rub or gallop Abdomen is soft nontender nondistended positive bowel sounds no hepatosplenomegaly Extremities no edema Neuro patient is alert and oriented 3. - Labs CBC & Chem 7: 05/05/18 05:00 12/09/18 07:21 Labs: Abnormal Lab Results - Last 24 Hours (Table) 05/04/18 05/04/18 05/04/18 Range/Units 10:00 11:10 11:57 RBC (4.30-5.90) m/uL Hgb (13.0-17.5) gm/dL Hct (39.0-53.0) % Plt Count (150-450) k/uL Lymphocytes # (1.0-4.8) k/uL Potassium (3.5-5.1) mmol/L Chloride (98-107) mmol/L Carbon Dioxide (22-30) mmol/L BUN (9-20) mg/dL Creatinine (0.66-1.25) mg/dL Glucose (74-99) mg/dL POC Glucose (mg/dL) 168 H 129 H 121 H (75-99) mg/dL Calcium (8.4-10.2) mg/dL Ionized Calcium Ramón (4.5-5.3) mg/dL Magnesium (1.6-2.3) mg/dL Alkaline Phosphatase (38-126) U/L Total Protein (6.3-8.2) g/dL Albumin (3.5-5.0) g/dL 05/04/18 05/04/18 05/04/18 Range/Units 13:09 14:07 15:01 RBC (4.30-5.90) m/uL Hgb (13.0-17.5) gm/dL Hct (39.0-53.0) % Plt Count (150-450) k/uL Lymphocytes # (1.0-4.8) k/uL Potassium (3.5-5.1) mmol/L Chloride (98-107) mmol/L Carbon Dioxide (22-30) mmol/L BUN (9-20) mg/dL Creatinine (0.66-1.25) mg/dL Glucose (74-99) mg/dL POC Glucose (mg/dL) 154 H 194 H 135 H (75-99) mg/dL Calcium (8.4-10.2) mg/dL Ionized Calcium Ramón (4.5-5.3) mg/dL Magnesium (1.6-2.3) mg/dL Alkaline Phosphatase (38-126) U/L Total Protein (6.3-8.2) g/dL Albumin (3.5-5.0) g/dL 05/04/18 05/04/18 05/04/18 Range/Units 18:10 19:07 21:24 RBC (4.30-5.90) m/uL Hgb (13.0-17.5) gm/dL Hct (39.0-53.0) % Plt Count (150-450) k/uL Lymphocytes # (1.0-4.8) k/uL Potassium (3.5-5.1) mmol/L Chloride (98-107) mmol/L Carbon Dioxide (22-30) mmol/L BUN (9-20) mg/dL Creatinine (0.66-1.25) mg/dL Glucose (74-99) mg/dL POC Glucose (mg/dL) 154 H 148 H 100 H (75-99) mg/dL Calcium (8.4-10.2) mg/dL Ionized Calcium Ramón (4.5-5.3) mg/dL Magnesium (1.6-2.3) mg/dL Alkaline Phosphatase (38-126) U/L Total Protein (6.3-8.2) g/dL Albumin (3.5-5.0) g/dL 05/04/18 05/05/18 05/05/18 Range/Units 22:35 00:03 01:38 RBC (4.30-5.90) m/uL Hgb (13.0-17.5) gm/dL Hct (39.0-53.0) % Plt Count (150-450) k/uL Lymphocytes # (1.0-4.8) k/uL Potassium (3.5-5.1) mmol/L Chloride (98-107) mmol/L Carbon Dioxide (22-30) mmol/L BUN (9-20) mg/dL Creatinine (0.66-1.25) mg/dL Glucose (74-99) mg/dL POC Glucose (mg/dL) 116 H 113 H 111 H (75-99) mg/dL Calcium (8.4-10.2) mg/dL Ionized Calcium Ramón (4.5-5.3) mg/dL Magnesium (1.6-2.3) mg/dL Alkaline Phosphatase (38-126) U/L Total Protein (6.3-8.2) g/dL Albumin (3.5-5.0) g/dL 05/05/18 05/05/18 05/05/18 Range/Units 03:59 04:24 05:00 RBC 2.84 L (4.30-5.90) m/uL Hgb 9.1 L (13.0-17.5) gm/dL Hct 27.4 L (39.0-53.0) % Plt Count 95 L (150-450) k/uL Lymphocytes # 0.4 L (1.0-4.8) k/uL Potassium 2.8 L (3.5-5.1) mmol/L Chloride 122 H (98-107) mmol/L Carbon Dioxide 17 L (22-30) mmol/L BUN 7 L (9-20) mg/dL Creatinine 0.45 L (0.66-1.25) mg/dL Glucose (74-99) mg/dL POC Glucose (mg/dL) 108 H (75-99) mg/dL Calcium 5.4 L* (8.4-10.2) mg/dL Ionized Calcium Ramón 4.0 L (4.5-5.3) mg/dL Magnesium 1.3 L (1.6-2.3) mg/dL Alkaline Phosphatase 27 L (38-126) U/L Total Protein 3.2 L (6.3-8.2) g/dL Albumin 1.5 L (3.5-5.0) g/dL 05/05/18 05/05/18 05/05/18 Range/Units 05:14 07:17 07:21 RBC (4.30-5.90) m/uL Hgb (13.0-17.5) gm/dL Hct (39.0-53.0) % Plt Count (150-450) k/uL Lymphocytes # (1.0-4.8) k/uL Potassium (3.5-5.1) mmol/L Chloride (98-107) mmol/L Carbon Dioxide (22-30) mmol/L BUN (9-20) mg/dL Creatinine (0.66-1.25) mg/dL Glucose 135 H (74-99) mg/dL POC Glucose (mg/dL) 140 H 135 H (75-99) mg/dL Calcium (8.4-10.2) mg/dL Ionized Calcium Ramón (4.5-5.3) mg/dL Magnesium (1.6-2.3) mg/dL Alkaline Phosphatase (38-126) U/L Total Protein (6.3-8.2) g/dL Albumin (3.5-5.0) g/dL 05/05/18 Range/Units 09:15 RBC (4.30-5.90) m/uL Hgb (13.0-17.5) gm/dL Hct (39.0-53.0) % Plt Count (150-450) k/uL Lymphocytes # (1.0-4.8) k/uL Potassium (3.5-5.1) mmol/L Chloride (98-107) mmol/L Carbon Dioxide (22-30) mmol/L BUN (9-20) mg/dL Creatinine (0.66-1.25) mg/dL Glucose (74-99) mg/dL POC Glucose (mg/dL) 178 H (75-99) mg/dL Calcium (8.4-10.2) mg/dL Ionized Calcium Ramón (4.5-5.3) mg/dL Magnesium (1.6-2.3) mg/dL Alkaline Phosphatase (38-126) U/L Total Protein (6.3-8.2) g/dL Albumin (3.5-5.0) g/dL Assessment and Plan Assessment: 1. status post coronary artery bypass graft with Dr. Wright. AGUIRRE to LAD SVG to PDA SVG to diagonal SVG to OM. Patient has been extubated successfully to 4 L nasal cannula. Patient is currently postop day 2. Tinea aspirin and statin, Plavix and beta jennifer per cardiothoracic surgery. 2. Multivessel coronary artery disease. Patient has 70% left main lesion. status post cardiac cath. Patient currently scheduled for coronary artery bypass graft surgery with Dr. Zhu tomorrow 05/03/2018 3. Diabetes mellitus. Metformin on hold. Patient currently managed on sliding scale insulin 4. essential hypertension. 5. History of paroxysmal atrial fibrillation 6. History of prostate cancer post prostatectomy and post radiation therapy completed in December 2017 7. History of hyperlipidemia 8. History of nephrolithiasis 9. Ileus history of Nonsustained V. tach. Current rhythm is sinus Thank you for this consultation we will continue to follow patient closely throughout stay I performed an examination of the patient and discussed their management with the Nurse Practitioner. I have reviewed the Nurse Practitioner's notes and agree with the documented findings and plan of care
[2018-05-05] MEDS: ASPIRIN 325 MG TAB PO SCH (11:04)
[2018-05-05] MEDS: METOPROLOL TARTRATE 25 MG TAB PO SCH ×3 (11:04→22:11)
[2018-05-05] MEDS: AMIODARONE 200 MG TAB PO SCH ×2 (11:04→22:11)
[2018-05-05] MEDS: CLOPIDOGREL 75 MG TAB PO SCH (11:04)
[2018-05-05] MEDS: ATORVASTATIN 40 MG TAB PO SCH (11:06)
[2018-05-05] MEDS: PANTOPRAZOLE 40 MG TABLET PO SCH (11:06)
[2018-05-05] MEDS: MUPIROCIN 2% OINT 22 GM TUBE NASAL SCH ×2 (11:07→22:12)
[2018-05-05] MEDS ORDERED: Magnesium Replacement Protocol 1 EACH MISC MISCELLANE PRN (11:17)
[2018-05-05 11:24] LABS: Glucose,Whole Blood 133 mg/dL (75-99)
--- NOTE | 2018-05-05 11:35 | PN ---
PROGRESS NOTE HISTORY: Mr. Nicholas underwent aortocoronary bypass surgery and is recovering nicely. His blood pressure and heart rate are good. He is working with incentive spirometry, making progress. He is not on any pressors. His vital signs are stable. S1 and S2 heard normally, short systolic murmur noted. Lungs reveal improved air entry. Abdomen and lower extremity exam is unchanged. Plan is to continue incentive spirometry, pulmonary toilet, increase activity. MMODL / IJN: [id number] /
[2018-05-05] MEDS: INSULIN DETEMIR 100 UNIT/ML 10 ML VIAL SQ SCH (11:43)
[2018-05-05] MEDS: MAGNESIUM SULFATE-D5W PMX 1 GM in DEXTROSE/WATER 1 100ML.BAG IVPB SCH ×3 (11:46→13:25)
[2018-05-05 12:00] LABS: Glucose,Whole Blood 122 mg/dL (75-99)
[2018-05-05] MEDS: LACTATED RINGERS 1,000 ML IV SCH (12:05)
[2018-05-05] MEDS: INSULIN ASPART 100 UNIT/ML 1 ML 10 ML VIAL SQ SCH ×3 (12:07→22:12)
--- NOTE | 2018-05-05 13:04 | P.PN ---
Subjective Progress Note Date: 05/05/18 On 05/03/2018 I'm seeing this patient immediately after his coronary artery bypass surgery. The patient underwent four-vessel bypass surgery. The patient was brought into the intensive care unit intubated on a mechanical ventilator. Currently sedated with Diprivan is calm and comfortable. The postop chest x- ray shows adequate positioning of the orotracheal tube. NG tube is in place. All of the chest tubes are in place. Oaklyn-Andrew catheter is also in place. The blood gases showed a pH of 7.38 with a pCO2 of 43 and pO2 of 238. This was on assist control mode at the rate of 12, tidal volume of 550, FiO2 of 100% and PEEP of 5. The patient is hemodynamically stable. The patient is on no pressors. Cardiac output is at 6.8 and the cardiac index is at 3.5. The output from the mediastinal chest tubes is 450 since arriving from the operating room and from the hospital chest tube is around 60 mL. Urine output is adequate. The patient is currently on nitroglycerin drip at 50 g per KG per minute. The patient is also on The proximal drip at 2 mg per hour. He is well sedated with Diprivan. He is calm and comfortable. Success with the mechanical ventilator. On 05/04/2018 I'm seeing this patient for a follow-up. The patient is post coronary artery bypass surgery and the patient is postop day #1. Mother the patient was weaned off the mechanical ventilator and the patient was extubated without any major difficulties. Currently the 4 L of oxygen by nasal cannula and the pulse ox is around 98%. Chest x-ray from today shows postop changes with improving aeration bilaterally. The chest tubes are all in place. Note that the patient is a 2 the final and 1 pleural chest tube and output has been considerably low overnight. His pulmonary artery pressure is 32/7. CVP is at 6. Cardiac output is at 5.8 with an index of 2.9. Patient is currently off the nitroglycerin drip. Hemoglobin is at 9.3. He is awake and alert. Is sitting up on a chair. He is using incentive spirometer and is pulling more than the thousand. No other significant events overnight. The patient is quite stable for now. Urine output is more than 30 mL an hour. On 05/05/2018 I'm seeing this patient for a follow-up. The patient is postop day #2. The patient underwent four-vessel bypass surgery. Doing extremely well. He did develop postoperative atrial fibrillation which is expected outcome of surgery. The patient was treated with amiodarone and currently his rhythm back to sinus. He is able to sit up on a chair. No significant respiratory distress. Chest tube is still in place. No nausea. No vomiting. No abdominal pain. He is having no altered mentation. He is using incentive spirometer. Patient's output from the left pleural chest tube is around 2 50 mL over the past 24 hours and 30 mL over the past 8 hours. No evidence of any air leak. The mediastinal chest tube is draining around 30 amount over the past 8 hours and 150 mL over the past 24 hours. Objective - Vital Signs Vital signs: Vital Signs Temp 98.6 F 05/05/18 08:00 Pulse 72 05/05/18 12:07 Resp 27 H 05/05/18 11:30 BP 99/60 05/05/18 11:30 Pulse Ox 72 L 05/05/18 11:30 Intake & Output 05/04/18 05/05/18 05/05/18 18:59 06:59 18:59 Intake Total 1418.094 860.892 250.758 Output Total 1370 1470 300 Balance 48.094 -609.108 -49.242 Weight 78.5 kg Intake: IV 1116.0 601.33 62.5 ACETAMINOPHEN IV (For NPO 100 ) 1,000 mg In Empty Bag 1 bag @ 400 mls/hr IVPB Q6HR [facility] Rx#:[id number] Albumin Human 5% 250 ml 250 In Empty Bag 1 bag @ 250 mls/hr IVPB Q1HR PRN Rx#: [id number] Amiodarone 450 mg In 198.33 16.5 Dextrose 5% in Water 250 ml @ 1 MG/MIN 33.33 mls/ hr IV .Q7H31M [facility] Rx#: [id number] CO/CI 30 Dextrose 5% in Water 100 400 ml @ 618 mls/hr IV .Q10M PRN with Amiodarone 150 mg Rx#:[id number] Lactated Ringers 1,000 ml 310 240 40 @ 20 mls/hr IV .Q24H [facility] Rx#:[id number] Nitroglycerin-D5w Pmx 50 3.0 mg In Dextrose/Water 1 250ml.bag @ 5 MCG/MIN 1.5 mls/hr IV .Q24H PRN Rx#: [id number] Pressure Bag 93 63 6 ceFAZolin 2 gm In Sodium 30 Chloride 0.9% 30 ml @ 60 mls/hr IVPB ONCE PRN Rx#: [id number] Intake, IV Titration 62.094 259.562 188.258 Amount Amiodarone 450 mg In 222.2 188.258 Dextrose 5% in Water 250 ml @ 1 MG/MIN 33.33 mls/ hr IV .Q7H31M [facility] Rx#: [id number] Insulin Regular 100 unit 62.094 37.362 In Sodium Chloride 0.9% 100 ml @ Per Protocol IV .Q0M [facility] Rx#:[id number] Oral 240 Output: Chest Tube Drainage 160 140 100 Left Pleural 111 70 70 Mediastinal X2 49 70 30 Urine 1210 1330 200 Other: Voiding Method Indwelling Catheter Indwelling Catheter Indwelling Catheter ABP, PAP, CO, CI - Last Documented Arterial Blood Pressure 137/58 Pulmonary Artery Pressure 17/8 Cardiac Output 6.8 Cardiac Index 3.5 - Exam Gen. appearance, extubated, comfortable on 6 L of oxygen by nasal cannula Head exam was generally normal. There was no scleral icterus or corneal arcus. Mucous membranes were moist. Neck was supple and without jugular venous distension, thyromegaly, or carotid bruits. Carotids were easily palpable bilaterally. There was no adenopathy.The patient has a right IJ Oaklyn-Andrew catheter Cordis in place. No goiter or neck masses. Pupils are equal and reactive to light. Lungs sounds are equal and symmetrical bilaterally. Sternum is stable clean and intact. The patient is mediastinal and 1 pleural chest tube and all of the chest tubes are in place. Cardiac exam revealed the PMI to be normally situated and sized. The rhythm was regular and no extrasystoles were noted during several minutes of auscultation. The first and second heart sounds were normal and physiologic splitting of the second heart sound was noted. There were no murmurs, rubs, clicks, or gallops. Abdominal exam revealed normal bowel sounds. The abdomen was soft, non-tender, and without masses, organomegaly, or appreciable enlargement of the abdominal aorta. Examination of the extremities revealed easily palpable radial, femoral and pedal pulses. There was no cyanosis, clubbing or edema. Examination of the skin revealed no evidence of significant rashes, suspicious appearing nevi or other concerning lesions.All of the surgical wound sites of dry clean and intact. Neurologically the patient is awake and alert and there is no focal neurological deficit. - Labs CBC & Chem 7: 05/05/18 05:00 05/05/18 07:21 Labs: Abnormal Lab Results - Last 24 Hours (Table) 05/04/18 05/04/18 05/04/18 Range/Units 13:09 14:07 15:01 RBC (4.30-5.90) m/uL Hgb (13.0-17.5) gm/dL Hct (39.0-53.0) % Plt Count (150-450) k/uL Lymphocytes # (1.0-4.8) k/uL Potassium (3.5-5.1) mmol/L Chloride (98-107) mmol/L Carbon Dioxide (22-30) mmol/L BUN (9-20) mg/dL Creatinine (0.66-1.25) mg/dL Glucose (74-99) mg/dL POC Glucose (mg/dL) 154 H 194 H 135 H (75-99) mg/dL Calcium (8.4-10.2) mg/dL Ionized Calcium Ramón (4.5-5.3) mg/dL Magnesium (1.6-2.3) mg/dL Alkaline Phosphatase (38-126) U/L Total Protein (6.3-8.2) g/dL Albumin (3.5-5.0) g/dL 05/04/18 05/04/18 05/04/18 Range/Units 18:10 19:07 21:24 RBC (4.30-5.90) m/uL Hgb (13.0-17.5) gm/dL Hct (39.0-53.0) % Plt Count (150-450) k/uL Lymphocytes # (1.0-4.8) k/uL Potassium (3.5-5.1) mmol/L Chloride (98-107) mmol/L Carbon Dioxide (22-30) mmol/L BUN (9-20) mg/dL Creatinine (0.66-1.25) mg/dL Glucose (74-99) mg/dL POC Glucose (mg/dL) 154 H 148 H 100 H (75-99) mg/dL Calcium (8.4-10.2) mg/dL Ionized Calcium Ramón (4.5-5.3) mg/dL Magnesium (1.6-2.3) mg/dL Alkaline Phosphatase (38-126) U/L Total Protein (6.3-8.2) g/dL Albumin (3.5-5.0) g/dL 05/04/18 05/05/18 05/05/18 Range/Units 22:35 00:03 01:38 RBC (4.30-5.90) m/uL Hgb (13.0-17.5) gm/dL Hct (39.0-53.0) % Plt Count (150-450) k/uL Lymphocytes # (1.0-4.8) k/uL Potassium (3.5-5.1) mmol/L Chloride (98-107) mmol/L Carbon Dioxide (22-30) mmol/L BUN (9-20) mg/dL Creatinine (0.66-1.25) mg/dL Glucose (74-99) mg/dL POC Glucose (mg/dL) 116 H 113 H 111 H (75-99) mg/dL Calcium (8.4-10.2) mg/dL Ionized Calcium Ramón (4.5-5.3) mg/dL Magnesium (1.6-2.3) mg/dL Alkaline Phosphatase (38-126) U/L Total Protein (6.3-8.2) g/dL Albumin (3.5-5.0) g/dL 05/05/18 05/05/18 05/05/18 Range/Units 03:59 04:24 05:00 RBC 2.84 L (4.30-5.90) m/uL Hgb 9.1 L (13.0-17.5) gm/dL Hct 27.4 L (39.0-53.0) % Plt Count 95 L (150-450) k/uL Lymphocytes # 0.4 L (1.0-4.8) k/uL Potassium 2.8 L (3.5-5.1) mmol/L Chloride 122 H (98-107) mmol/L Carbon Dioxide 17 L (22-30) mmol/L BUN 7 L (9-20) mg/dL Creatinine 0.45 L (0.66-1.25) mg/dL Glucose (74-99) mg/dL POC Glucose (mg/dL) 108 H (75-99) mg/dL Calcium 5.4 L* (8.4-10.2) mg/dL Ionized Calcium Ramón 4.0 L (4.5-5.3) mg/dL Magnesium 1.3 L (1.6-2.3) mg/dL Alkaline Phosphatase 27 L (38-126) U/L Total Protein 3.2 L (6.3-8.2) g/dL Albumin 1.5 L (3.5-5.0) g/dL 05/05/18 05/05/18 05/05/18 Range/Units 05:14 07:17 07:21 RBC (4.30-5.90) m/uL Hgb (13.0-17.5) gm/dL Hct (39.0-53.0) % Plt Count (150-450) k/uL Lymphocytes # (1.0-4.8) k/uL Potassium (3.5-5.1) mmol/L Chloride (98-107) mmol/L Carbon Dioxide (22-30) mmol/L BUN (9-20) mg/dL Creatinine (0.66-1.25) mg/dL Glucose 135 H (74-99) mg/dL POC Glucose (mg/dL) 140 H 135 H (75-99) mg/dL Calcium (8.4-10.2) mg/dL Ionized Calcium Ramón (4.5-5.3) mg/dL Magnesium (1.6-2.3) mg/dL Alkaline Phosphatase (38-126) U/L Total Protein (6.3-8.2) g/dL Albumin (3.5-5.0) g/dL 05/05/18 05/05/18 05/05/18 Range/Units 09:15 11:22 11:53 RBC (4.30-5.90) m/uL Hgb (13.0-17.5) gm/dL Hct (39.0-53.0) % Plt Count (150-450) k/uL Lymphocytes # (1.0-4.8) k/uL Potassium (3.5-5.1) mmol/L Chloride (98-107) mmol/L Carbon Dioxide (22-30) mmol/L BUN (9-20) mg/dL Creatinine (0.66-1.25) mg/dL Glucose (74-99) mg/dL POC Glucose (mg/dL) 178 H 133 H 122 H (75-99) mg/dL Calcium (8.4-10.2) mg/dL Ionized Calcium Ramón (4.5-5.3) mg/dL Magnesium (1.6-2.3) mg/dL Alkaline Phosphatase (38-126) U/L Total Protein (6.3-8.2) g/dL Albumin (3.5-5.0) g/dL Assessment and Plan Plan: Assessment 1 multivessel coronary artery disease status post coronary artery bypass surgery and the patient underwent a four-vessel bypass and the patient is postop day 21. The patient is hemodynamically stable. The patient had coronary artery disease with a 70% left main lesion,in addition to significant lesion involving the LAD and the circumflex and moderate disease involving the RCA. The patient had a positive cardiac stress test and nonsustained V. tach. 2 post thoracotomy. Using incentive spirometer. Chest tubes are still in place. The patient's oxygenation has improved and currently is down to 2 L of oxygen by nasal cannula. 3 hypertension currently BP is under better control. 4 diabetes mellitus currently on insulin drip for blood sugar control 5 history of prostate cancer status post radiation therapy 6 nephrolithiasis 7 hyperlipidemia 8 proximity atrial fibrillation current rhythm is sinus 9 previous history of nonsustained V. tach, current rhythm is sinus 10 postoperative atrial fibrillation, and expected outcome surgery and currently is back to normal sinus rhythm, treated with amiodarone. Plan Continue supportive care. Continue using incentive spirometer. Continue amiodarone for atrial fibrillation prophylaxis. The patient will be transitioned to oral amiodarone and the patient rhythm is back to sinus. We'll discontinue the mediastinal chest tube. We'll discontinue the Brown catheter in the cordis. The left-sided chest tube will be kept in place for now. Continue using incentive spirometer. Monitor electrolytes. Aspirin, Plavix, beta blockers and statins. Ambulates. Keep him in ICU for another 24 hours.
[2018-05-05 14:05] LABS: Glucose,Whole Blood 210 mg/dL (75-99)
[2018-05-05 16:38] LABS: Glucose,Whole Blood 215 mg/dL (75-99)
[2018-05-05] MEDS: CLEVIDIPINE BUTYRATE 25 MG in EMPTY BAG 1 BAG IV SCH (16:51)
[2018-05-05 20:39] LABS: Glucose,Whole Blood 172 mg/dL (75-99)
[2018-05-05] MEDS: SENNOSIDES-DOCUSATE SODIUM 1 EACH TAB PO SCH (22:11)
[2018-05-06 01:09] LABS: Glucose,Whole Blood 129 mg/dL (75-99)
[2018-05-06] MEDS: KETOROLAC 30 MG/ML 1 ML VIAL IVP SCH ×4 (01:14→17:07)
[2018-05-06] MEDS: HEPARIN SODIUM,PORCINE 5,000 UNIT/ML 1 ML VIAL SQ SCH ×3 (01:14→16:47)
[2018-05-06] MEDS: INSULIN ASPART 100 UNIT/ML 1 ML 10 ML VIAL SQ SCH ×5 (01:15→21:24)
[2018-05-06 05:03] LABS: HCT 24.9 % (39.0-53.0); HGB 8.4 gm/dL (13.0-17.5); MCH 32.6 pg (25.0-35.0); MCHC 33.7 g/dL (31.0-37.0); MCV 96.5 fL (80.0-100.0); Mean Platelet Volume 7.3; Platelet Count 115 k/uL (150-450); RBC 2.58 m/uL (4.30-5.90); RDW 12.8 % (11.5-15.5); WBC 5.1 k/uL (3.8-10.6)
[2018-05-06 05:17] LABS: ALT 27 U/L (21-72); AST 34 U/L (17-59); Albumin 2.6 g/dL (3.5-5.0); Alkaline Phosphatase 61 U/L (38-126); Anion Gap 4 mmol/L; Blood Urea Nitrogen 19 mg/dL (9-20); Calcium 8.4 mg/dL (8.4-10.2); Carbon Dioxide 27 mmol/L (22-30); Chloride 106 mmol/L (98-107); Glucose 125 mg/dL (74-99); Magnesium 2.2 mg/dL (1.6-2.3); Potassium 4.4 mmol/L (3.5-5.1); Sodium 137 mmol/L (137-145); Total Bilirubin 1.3 mg/dL (0.2-1.3); Total Protein 4.9 g/dL (6.3-8.2)
[2018-05-06] MEDS: IPRATROPIUM-ALBUTEROL 3 ML NEB INHALATION SCH ×4 (07:06→19:45)
[2018-05-06 07:24] LABS: Glucose,Whole Blood 135 mg/dL (75-99)
--- NOTE | 2018-05-06 08:12 | XR ---
EXAMINATION TYPE: XR chest 1V portable DATE OF EXAM: 05/06/2018 COMPARISON: 05/05/2018 INDICATION: Post cardiac surgery TECHNIQUE: Single frontal view of the chest is obtained. FINDINGS: The heart size is enlarged. The pulmonary vasculature is normal. Mild infiltrate is at the left base. The left costophrenic angle is poorly visualized. There is some improved aeration of the left lower lobe. Minimal infiltrate and blunting of the right costophrenic a ngle is present. Catheter sheath is been removed on the right. No pneumothorax is evident. Left-sided chest tube remai ns in position. Extremely minimal pneumothorax at the left apex. EKG leads overlie the chest. Sterno aida wires are in the midline. IMPRESSION: 1. Bibasilar infiltrates, improving on the left. 2. Very minimal left apical pneumothorax may be present. Left-sided chest tube remains in position. 3. Cardiomegaly
[2018-05-06] MEDS: METOPROLOL TARTRATE 25 MG TAB PO SCH (08:51)
[2018-05-06] MEDS: ATORVASTATIN 40 MG TAB PO SCH (08:51)
[2018-05-06] MEDS: CLOPIDOGREL 75 MG TAB PO SCH (08:51)
[2018-05-06] MEDS: AMIODARONE 200 MG TAB PO SCH ×2 (08:52→21:24)
[2018-05-06] MEDS: MUPIROCIN 2% OINT 22 GM TUBE NASAL SCH ×2 (08:52→21:24)
[2018-05-06] MEDS: PANTOPRAZOLE 40 MG TABLET PO SCH (08:52)
[2018-05-06] MEDS: ASPIRIN 325 MG TAB PO SCH (08:52)
[2018-05-06] MEDS: INSULIN DETEMIR 100 UNIT/ML 10 ML VIAL SQ SCH (09:40)
[2018-05-06 09:45] VITALS: BMI 25.2
--- NOTE | 2018-05-06 10:36 | P.PN ---
Subjective Progress Note Date: 05/06/18 This is a 62-year-old male patient of Dr. Winston. Patient presented for an elective cardiac catheterization due to abnormal myocardial perfusion imaging was found to have severe left main disease as well as severe LAD and left circumflex disease. Patient was then evaluated by Dr. Zhu with cardiac thoracic surgical team and is scheduled to undergo coronary artery bypass graft surgery tomorrow 05/03/2018. Patient does have a known past medical history of hypertension, hyperlipidemia, diabetes mellitus, paroxysmal atrial fibrillation , prostate cancer with radiation last in December 2017, kidney stones, anxiety and ulcers. Today patient is currently resting in bed. Patient does appear a bit anxious. Patient denies any chest pain or shortness of breath. Patient denies nausea vomiting or diarrhea. Patient denies any urinary burning or frequency. Patient will undergo coronary artery bypass graft surgery tomorrow with Dr. Zhu. Patient did state understanding and that he had in-depth conversation with the cardiothoracic team yesterday. on 05/03/2018 patient currently status post coronary artery bypass graft with Dr. Wright. Patient currently mechanical ventilation in the intensive care unit. On 05/04/2018 patient is currently postop day 1 status post four-vessel coronary artery bypass graft surgery . patient remains in the intensive care unit. Patient is extubated and awake and alert. Patient currently sitting up in chair. Patient currently on 4 L nasal cannula On 05/05/2018 patient is alert and oriented 3 currently sitting up in chair. Patient remains in the intensive care unit. Patient remains on insulin drip. At this time patient is complaining of mild pain is adequately controlled with the medication. Patient remains on 2 L nasal cannula On 05/06/2018 patient is currently sitting up in chair. Cordis and Balko have been removed. Mediastinal chest tube removed. Patient is off insulin drip at this time. Denies chest pain or shortness of breath. Patient denies nausea vomiting or diarrhea. Patient denies any urinary burning or frequency. Patient has been ordered out of the intensive care unit per cardiothoracic team Objective - Vital Signs Vital signs: Vital Signs Temp 98.2 F 05/06/18 08:00 Pulse 74 05/06/18 09:00 Resp 18 05/06/18 09:00 BP 132/63 05/06/18 09:00 Pulse Ox 95 05/06/18 09:00 Intake & Output 05/05/18 05/06/18 05/06/18 18:59 06:59 18:59 Intake Total 1910.608 306 20 Output Total 925 205 Balance 985.608 101 20 Weight 78.5 kg 79.7 kg 79.7 kg Intake: IV 642.35 186 20 Amiodarone 450 mg In 166.35 Dextrose 5% in Water 250 ml @ 1 MG/MIN 33.33 mls/ hr IV .Q7H31M [facility] Rx#: [id number] Lactated Ringers 1,000 ml 240 180 20 @ 20 mls/hr IV .Q24H [facility] Rx#:[id number] Magnesium Sulfate-D5w Pmx 200 1 gm In Dextrose/Water 1 100ml.bag @ 100 mls/hr IVPB Q1H [facility] Rx#: [id number] Pressure Bag 36 6 Intake, IV Titration 188.258 Amount Amiodarone 450 mg In 188.258 Dextrose 5% in Water 250 ml @ 1 MG/MIN 33.33 mls/ hr IV .Q7H31M [facility] Rx#: [id number] Oral 1080 120 Output: Chest Tube Drainage 115 95 Left Pleural 85 95 Mediastinal X2 30 Urine 810 110 Other: Voiding Method Indwelling Catheter Toilet Toilet # Voids 0 ABP, PAP, CO, CI - Last Documented Arterial Blood Pressure 137/58 Pulmonary Artery Pressure 17/8 Cardiac Output 6.8 Cardiac Index 3.5 - Exam Head normocephalic Neck supple Lungs diminished bilaterally. Heart regular rate and rhythm S1-S2, no rub or gallop Abdomen is soft nontender nondistended positive bowel sounds no hepatosplenomegaly Extremities no edema Neuro patient is alert and oriented 3. - Labs CBC & Chem 7: 05/06/18 04:15 05/06/18 04:15 Labs: Abnormal Lab Results - Last 24 Hours (Table) 05/05/18 05/05/18 05/05/18 Range/Units 11:22 11:53 14:03 RBC (4.30-5.90) m/uL Hgb (13.0-17.5) gm/dL Hct (39.0-53.0) % Plt Count (150-450) k/uL Glucose (74-99) mg/dL POC Glucose (mg/dL) 133 H 122 H 210 H (75-99) mg/dL Total Protein (6.3-8.2) g/dL Albumin (3.5-5.0) g/dL 05/05/18 05/05/18 05/06/18 Range/Units 16:36 20:38 01:08 RBC (4.30-5.90) m/uL Hgb (13.0-17.5) gm/dL Hct (39.0-53.0) % Plt Count (150-450) k/uL Glucose (74-99) mg/dL POC Glucose (mg/dL) 215 H 172 H 129 H (75-99) mg/dL Total Protein (6.3-8.2) g/dL Albumin (3.5-5.0) g/dL 05/06/18 05/06/18 05/06/18 Range/Units 04:15 04:15 07:22 RBC 2.58 L (4.30-5.90) m/uL Hgb 8.4 L (13.0-17.5) gm/dL Hct 24.9 L (39.0-53.0) % Plt Count 115 L (150-450) k/uL Glucose 125 H (74-99) mg/dL POC Glucose (mg/dL) 135 H (75-99) mg/dL Total Protein 4.9 L (6.3-8.2) g/dL Albumin 2.6 L (3.5-5.0) g/dL Assessment and Plan Assessment: 1. status post coronary artery bypass graft with Dr. Wright. AGUIRRE to LAD SVG to PDA SVG to diagonal SVG to OM. Patient has been extubated successfully to 4 L nasal cannula. Patient is currently postop day 3. Per cardiothoracic team continue aspirin and statin, Plavix and beta jennifer per cardiothoracic surgery. 2. Multivessel coronary artery disease. Patient has 70% left main lesion. status post cardiac cath. Patient currently scheduled for coronary artery bypass graft surgery with Dr. Zhu tomorrow 05/03/2018 3. Diabetes mellitus. Metformin on hold. Insulin drip has been DC'd. patient currently on sliding scale coverage 4. essential hypertension. 5. History of paroxysmal atrial fibrillation 6. History of prostate cancer post prostatectomy and post radiation therapy completed in December 2017 7. History of hyperlipidemia 8. History of nephrolithiasis 9. Ileus history of Nonsustained V. tach. Current rhythm is sinus Thank you for this consultation we will continue to follow patient closely throughout stay I performed an examination of the patient and discussed their management with the Nurse Practitioner. I have reviewed the Nurse Practitioner's notes and agree with the documented findings and plan of care Time with Patient: Greater than 30 (Greater than 60% of the total time spent in counseling and coordination of care. I performed an examination of the patient and discussed their management with the Nurse Practitioner. I have reviewed the Nurse Practitioner's notes and agree with the documented findings and plan of care)
[2018-05-06] MEDS ORDERED: METOPROLOL TARTRATE 25 MG TAB PO STA (10:59)
[2018-05-06] MEDS ORDERED: DEXTROSE 5% IN WATER 100 ML with AMIODARONE 150 MG IV ONE ×2 (11:00→11:15)
--- NOTE | 2018-05-06 11:06 | P.PN ---
Subjective Progress Note Date: 05/06/18 Principal diagnosis: Multivessel coronary artery disease with left main disease. Previous medical history of paroxysmal atrial fibrillation on Eliquis for anticoagulation which is currently on hold, hypertension, hyperlipidemia, new diagnosis of diabetes mellitus, prostate cancer with prostatectomy and radiation treatment with the last dose radiation in December 2017. POD #3 coronary bypass grafting 4 vessels, left internal mammary artery to the left anterior descending artery, reverse saphenous vein graft to the diagonal artery, reverse saphenous vein graft to the obtuse marginal artery, reverse saphenous vein graft to the posterior descending artery, endoscopic vein harvesting bilateral greater saphenous veins, epi-aortic ultrasound, intraoperative transesophageal echocardiogram. Postoperative atrial fibrillation, an expected outcome given the patient's preoperative paroxysmal atrial fibrillation. Postoperative acute blood loss anemia, an expected outcome secondary to hemodilution and cardiopulmonary bypass pump. The patient is currently sitting up in a recliner in no acute distress. Denies pain, shortness of breath. Currently hemodynamically stable on no inotropes or pressors. No new complaints. Remains in normal sinus rhythm. Transfer orders were placed yesterday to send patient to 3 cells cardiac stepdown unit, however there are no beds available. Mediastinal chest tubes were discontinued yesterday. Objective - Vital Signs Vital signs: Vital Signs Temp 98.2 F 05/06/18 08:00 Pulse 62 05/06/18 10:34 Resp 18 05/06/18 09:00 BP 132/63 05/06/18 09:00 Pulse Ox 95 05/06/18 09:00 Intake & Output 05/05/18 05/06/18 05/06/18 18:59 06:59 18:59 Intake Total 1910.608 306 20 Output Total 925 205 Balance 985.608 101 20 Weight 78.5 kg 79.7 kg 79.7 kg Intake: IV 642.35 186 20 Amiodarone 450 mg In 166.35 Dextrose 5% in Water 250 ml @ 1 MG/MIN 33.33 mls/ hr IV .Q7H31M [facility] Rx#: [id number] Lactated Ringers 1,000 ml 240 180 20 @ 20 mls/hr IV .Q24H [facility] Rx#:[id number] Magnesium Sulfate-D5w Pmx 200 1 gm In Dextrose/Water 1 100ml.bag @ 100 mls/hr IVPB Q1H [facility] Rx#: [id number] Pressure Bag 36 6 Intake, IV Titration 188.258 Amount Amiodarone 450 mg In 188.258 Dextrose 5% in Water 250 ml @ 1 MG/MIN 33.33 mls/ hr IV .Q7H31M [facility] Rx#: [id number] Oral 1080 120 Output: Chest Tube Drainage 115 95 Left Pleural 85 95 Mediastinal X2 30 Urine 810 110 Other: Voiding Method Indwelling Catheter Toilet Toilet # Voids 0 ABP, PAP, CO, CI - Last Documented Arterial Blood Pressure 137/58 Pulmonary Artery Pressure 17/8 Cardiac Output 6.8 Cardiac Index 3.5 - Constitutional General appearance: Present: cooperative, no acute distress - Respiratory Details: Lungs sounds diminished bilaterally. Respirations even, nonlabored. Currently on room air with oxygen saturation 95%. Able to achieve 1500 mL on his incentive spirometry. Strong cough. Left pleural chest tube to continuous wall suction, 90 mL serosanguineous drainage overnight, 200 mL in the last 24 hours. No air leaks present. - Cardiovascular Details: S1, S2 present. Regular rate and rhythm, sinus rhythm on telemetry. Sternum stable. A/V epicardial pacemaker wires present, connected to generator, generator turned off. Palpable peripheral pulses bilaterally. No edema present. No calf pain or tenderness noted. Right internal jugular Cordis present. Heart hugger in place with patient demonstrating appropriate use. Antiembolism stockings, SCDs present. - Gastrointestinal Gastrointestinal Comment(s): Abdomen soft, nontender, nondistended. Active bowel sounds present 4 quadrants. Tolerating diet. Positive flatus, negative bowel movement. - Genitourinary Genitourinary Comment(s): Brown discontinued, patient continues to void clear, yellow urine. - Integumentary Integumentary Comment(s): Skin is warm and dry with evidence of good perfusion. Anterior chest incision well approximated and covered with dry intact dressing. Bilateral lower extremity EVH sites well approximated. - Neurologic Neurologic: Present: CNII-XII intact - Musculoskeletal Musculoskeletal: Present: gait normal, strength equal bilaterally - Psychiatric Psychiatric: Present: A&O x's 3, appropriate affect, intact judgment & insight - Allied health notes Allied health notes reviewed: nursing - Labs CBC & Chem 7: 05/06/18 04:15 05/06/18 04:15 Labs: Abnormal Lab Results - Last 24 Hours (Table) 05/05/18 05/05/18 05/05/18 Range/Units 11:22 11:53 14:03 RBC (4.30-5.90) m/uL Hgb (13.0-17.5) gm/dL Hct (39.0-53.0) % Plt Count (150-450) k/uL Glucose (74-99) mg/dL POC Glucose (mg/dL) 133 H 122 H 210 H (75-99) mg/dL Total Protein (6.3-8.2) g/dL Albumin (3.5-5.0) g/dL 05/05/18 05/05/18 05/06/18 Range/Units 16:36 20:38 01:08 RBC (4.30-5.90) m/uL Hgb (13.0-17.5) gm/dL Hct (39.0-53.0) % Plt Count (150-450) k/uL Glucose (74-99) mg/dL POC Glucose (mg/dL) 215 H 172 H 129 H (75-99) mg/dL Total Protein (6.3-8.2) g/dL Albumin (3.5-5.0) g/dL 05/06/18 05/06/18 05/06/18 Range/Units 04:15 04:15 07:22 RBC 2.58 L (4.30-5.90) m/uL Hgb 8.4 L (13.0-17.5) gm/dL Hct 24.9 L (39.0-53.0) % Plt Count 115 L (150-450) k/uL Glucose 125 H (74-99) mg/dL POC Glucose (mg/dL) 135 H (75-99) mg/dL Total Protein 4.9 L (6.3-8.2) g/dL Albumin 2.6 L (3.5-5.0) g/dL - Imaging and Cardiology Chest x-ray: report reviewed, image reviewed Assessment and Plan (1) Hypertension Current Visit: Yes Status: Chronic Code(s): I10 - ESSENTIAL (PRIMARY) HYPERTENSION SNOMED Code(s): 83131497 (2) Hyperlipidemia Current Visit: Yes Status: Chronic Code(s): E78.5 - HYPERLIPIDEMIA, UNSPECIFIED SNOMED Code(s): 57396768 (3) Coronary artery disease Current Visit: Yes Status: Chronic Code(s): I25.10 - ATHSCL HEART DISEASE OF [place] CORONARY ARTERY W/O ANG PCTRS SNOMED Code(s): 33541214 (4) Left main coronary artery disease Current Visit: Yes Status: Chronic Code(s): I25.10 - ATHSCL HEART DISEASE OF [place] CORONARY ARTERY W/O ANG PCTRS SNOMED Code(s): 886479888 (5) Diabetes mellitus Current Visit: Yes Status: Chronic Code(s): E11.9 - TYPE 2 DIABETES MELLITUS WITHOUT COMPLICATIONS SNOMED Code(s): 48167503 (6) History of prostate cancer Current Visit: No Status: Resolved Code(s): Z85.46 - PERSONAL HISTORY OF MALIGNANT NEOPLASM OF PROSTATE SNOMED Code(s): 834055774 (7) History of radiation therapy Current Visit: No Status: Resolved Code(s): Z92.3 - PERSONAL HISTORY OF IRRADIATION SNOMED Code(s): 909919485 (8) Paroxysmal atrial fibrillation Current Visit: No Status: Resolved Code(s): I48.0 - PAROXYSMAL ATRIAL FIBRILLATION SNOMED Code(s): 381605029 (9) Chronic anticoagulation Current Visit: Yes Status: Chronic Code(s): Z79.01 - FDC (CURRENT) USE OF ANTICOAGULANTS SNOMED Code(s): 113121597 Plan: 1. Continue aspirin, statin, Plavix, beta jennifer therapy. Will increase beta jennifer therapy as tolerated. 2. Continue amiodarone for A. fib prophylaxis. Will restart anticoagulation once all lines and tubes are out. 3. Encourage incentive spirometry use 10 times every hour while awake. 4. Will discontinue pleural chest tube. 5. Increase activity, ambulate as tolerated. PT/OT/cardiac rehab following. 6. Will monitor daily labs and x-rays. Electrolyte replacement per protocol. 7. Pain control with current medication regimen. 8. Insulin management per primary care service. 9. DVT prophylaxis with subcu heparin and SCDs, GI prophylaxis with Protonix. 10. Bronchodilators per pulmonology. 11. Orders placed to transfer patient to 3 S. cardiac stepdown unit. May transfer when bed available. 12. Discharge planning in progress. Anticipate discharge to home with home care in the next 24-48 hours. 13. More recommendations to follow. Time with Patient: Greater than 30
[2018-05-06 11:27] LABS: Glucose,Whole Blood 196 mg/dL (75-99)
--- NOTE | 2018-05-06 11:59 | P.PN ---
Subjective Progress Note Date: 05/06/18 Principal diagnosis: Status post CABG postoperative day #3. CABG 4 vessels. AGUIRRE to LAD, RSV to diagonal RSV to obtuse marginal artery RSV to posterior descending artery Multivessel coronary artery disease with left main disease. Previous medical history of paroxysmal atrial fibrillation on Eliquis for anticoagulation which is currently on hold, hypertension, hyperlipidemia, new diagnosis of diabetes mellitus, prostate cancer with prostatectomy and radiation treatment with the last dose radiation in December 2017. POD #3 coronary bypass grafting 4 vessels, left internal mammary artery to the left anterior descending artery, reverse saphenous vein graft to the diagonal artery, reverse saphenous vein graft to the obtuse marginal artery, reverse saphenous vein graft to the posterior descending artery, endoscopic vein harvesting bilateral greater saphenous veins, epi-aortic ultrasound, intraoperative transesophageal echocardiogram. Postoperative atrial fibrillation, an expected outcome given the patient's preoperative paroxysmal atrial fibrillation. Postoperative acute blood loss anemia, an expected outcome secondary to hemodilution and cardiopulmonary bypass pump. Seen on 05/06/2018, patient is sitting in a bedside chair, in no distress, denies any shortness of breath, no cough, no wheezing. He is hemodynamically stable. Continues to have the chest tube on the left side in place, and that may be removed sometime later today. Patient is actually a selective overflow, mediastinal chest tubes were discontinued yesterday. Chest x-ray from today was reviewed continues to have some left basilar atelectasis, no evidence of pneumothorax, left sided chest tube is in proper position. Labs were all reviewed, hemoglobin is 8.4 today. Platelets are 115, improved compared to the last few days. Objective - Vital Signs Vital signs: Vital Signs Temp 98.2 F 05/06/18 08:00 Pulse 128 H 05/06/18 11:00 Resp 18 05/06/18 11:00 BP 124/67 05/06/18 11:00 Pulse Ox 95 05/06/18 11:00 Intake & Output 05/05/18 05/06/18 05/06/18 18:59 06:59 18:59 Intake Total 1910.608 306 120 Output Total 925 205 50 Balance 985.608 101 70 Weight 78.5 kg 79.7 kg 79.7 kg Intake: IV 642.35 186 20 Amiodarone 450 mg In 166.35 Dextrose 5% in Water 250 ml @ 1 MG/MIN 33.33 mls/ hr IV .Q7H31M [facility] Rx#: [id number] Lactated Ringers 1,000 ml 240 180 20 @ 20 mls/hr IV .Q24H [facility] Rx#:[id number] Magnesium Sulfate-D5w Pmx 200 1 gm In Dextrose/Water 1 100ml.bag @ 100 mls/hr IVPB Q1H [facility] Rx#: [id number] Pressure Bag 36 6 Intake, IV Titration 188.258 100 Amount Amiodarone 450 mg In 188.258 Dextrose 5% in Water 250 ml @ 1 MG/MIN 33.33 mls/ hr IV .Q7H31M [facility] Rx#: [id number] Dextrose 5% in Water 100 100 ml @ 618 mls/hr IV .Q10M ONE with Amiodarone 150 mg Rx#:[id number] Oral 1080 120 Output: Chest Tube Drainage 115 95 50 Left Pleural 85 95 50 Mediastinal X2 30 Urine 810 110 Other: Voiding Method Indwelling Catheter Toilet Toilet # Voids 0 1 ABP, PAP, CO, CI - Last Documented Arterial Blood Pressure 137/58 Pulmonary Artery Pressure 17/8 Cardiac Output 6.8 Cardiac Index 3.5 - Exam Physical Exam: Revealed a 62-year-old white male in no distress, on few liters nasal cannula. Head: Atraumatic, normocephalic. HEENT: PERRLA, EOMI, moist mucous membranes. [Neck is supple.] [No neck masses. ] [No thyromegaly.] [No JVD.] Chest: Diminished breath sounds at the left base, minimal crackles at the left base, no rhonchi, no wheezes.] Left-sided chest tube is intact. Cardiac Exam: [Normal S1 and S2, no S3 gallop, no murmur.] Abdomen: [Soft, nontender, no megaly, no rebound, no guarding, normal bowel sounds.] Extremities: [No clubbing, no edema, no cyanosis.] Neurological Exam: [No focal neurologic deficit.] Psychiatric: Normal mood, affect and mental status examination. Skin: No rashes. Surgical sites appear clean and dry. - Labs CBC & Chem 7: 05/06/18 04:15 05/06/18 04:15 Labs: Abnormal Lab Results - Last 24 Hours (Table) 05/05/18 05/05/18 05/05/18 Range/Units 11:53 14:03 16:36 RBC (4.30-5.90) m/uL Hgb (13.0-17.5) gm/dL Hct (39.0-53.0) % Plt Count (150-450) k/uL Glucose (74-99) mg/dL POC Glucose (mg/dL) 122 H 210 H 215 H (75-99) mg/dL Total Protein (6.3-8.2) g/dL Albumin (3.5-5.0) g/dL 05/05/18 05/06/18 05/06/18 Range/Units 20:38 01:08 04:15 RBC (4.30-5.90) m/uL Hgb (13.0-17.5) gm/dL Hct (39.0-53.0) % Plt Count (150-450) k/uL Glucose 125 H (74-99) mg/dL POC Glucose (mg/dL) 172 H 129 H (75-99) mg/dL Total Protein 4.9 L (6.3-8.2) g/dL Albumin 2.6 L (3.5-5.0) g/dL 05/06/18 05/06/18 05/06/18 Range/Units 04:15 07:22 11:25 RBC 2.58 L (4.30-5.90) m/uL Hgb 8.4 L (13.0-17.5) gm/dL Hct 24.9 L (39.0-53.0) % Plt Count 115 L (150-450) k/uL Glucose (74-99) mg/dL POC Glucose (mg/dL) 135 H 196 H (75-99) mg/dL Total Protein (6.3-8.2) g/dL Albumin (3.5-5.0) g/dL Assessment and Plan Assessment: Impression: 1 status post CABG, postoperative day #3, patient had a four-vessel bypass surgery. 2 positive cardiac stress test, and nonsustained ventricular tachycardia. 3 multiple comorbidities including hypertension, type 2 diabetes, prostate cancer and previous radiation therapy, nephrolithiasis, hyperlipidemia, paroxysmal atrial fibrillation, postoperative atrial fibrillation, expected from such surgery treated with amiodarone. Recommendation: Continue present treatment plan including cardiac meds, incentive spirometry, bronchodilators, patient is now an overflow for selective. Continue aspirin and Plavix beta blockers and statins. Continue ambulation. Will follow. Time with Patient: Less than 30
--- NOTE | 2018-05-06 16:51 | PN ---
PROGRESS NOTE Mr. Nicholas is status post bypass surgery. He is recovering nicely. Denies chest pain. Improved functional capacity. Vital signs are stable. He is in sinus rhythm. S1, S2 heard normally. Short systolic murmur noted. Lungs reveal improved air entry. Abdomen and lower extremity exam unchanged. Plan is to continue current medications, incentive spirometry, increase activity and hopefully move him to Telemetry once bed is available. MMODL / IJN: [id number] /
[2018-05-06 16:58] LABS: Glucose,Whole Blood 167 mg/dL (75-99)
[2018-05-06 21:15] LABS: Glucose,Whole Blood 175 mg/dL (75-99)
[2018-05-06] MEDS: SENNOSIDES-DOCUSATE SODIUM 1 EACH TAB PO SCH (21:24)
[2018-05-06] MEDS: METOPROLOL TARTRATE 50 MG TAB PO SCH (21:24)
[2018-05-06 23:47] LABS: Glucose,Whole Blood 147 mg/dL (75-99)
[2018-05-07] MEDS: KETOROLAC 30 MG/ML 1 ML VIAL IVP SCH ×4 (01:20→18:28)
[2018-05-07] MEDS: INSULIN ASPART 100 UNIT/ML 1 ML 10 ML VIAL SQ SCH ×5 (01:21→20:17)
[2018-05-07] MEDS: HEPARIN SODIUM,PORCINE 5,000 UNIT/ML 1 ML VIAL SQ SCH ×2 (01:21→08:40)
[2018-05-07 04:50] LABS: HCT 23.9 % (39.0-53.0); HGB 8.1 gm/dL (13.0-17.5); MCH 32.6 pg (25.0-35.0); MCHC 34.1 g/dL (31.0-37.0); MCV 95.7 fL (80.0-100.0); Mean Platelet Volume 7.3; Platelet Count 130 k/uL (150-450); WBC 4.6 k/uL (3.8-10.6)
[2018-05-07 05:25] LABS: ALT 36 U/L (21-72); AST 40 U/L (17-59); Albumin 2.6 g/dL (3.5-5.0); Alkaline Phosphatase 67 U/L (38-126); Anion Gap 5 mmol/L; Blood Urea Nitrogen 26 mg/dL (9-20); Calcium 8.5 mg/dL (8.4-10.2); Carbon Dioxide 26 mmol/L (22-30); Chloride 106 mmol/L (98-107); Glucose 132 mg/dL (74-99); Potassium 4.6 mmol/L (3.5-5.1); Sodium 137 mmol/L (137-145); Total Bilirubin 1.1 mg/dL (0.2-1.3); Total Protein 4.9 g/dL (6.3-8.2)
--- NOTE | 2018-05-07 06:41 | XR ---
EXAMINATION TYPE: XR chest 2V DATE OF EXAM: 05/07/2018 COMPARISON: Chest x-ray from yesterday and older studies. HISTORY: Post CABG changes progress study. TECHNIQUE: Frontal and lateral views of the chest are obtained. FINDINGS: There is interval removal of left-sided chest tube. There is suspected persistent tiny lef t apical pneumothorax between the posterior second and third rib spaces measuring under 5%. There is persistent bibasilar opacity. Post CABG changes with mediastinal clips and sternal wires is redemonstrated. Cardiac silhouette size is stable and enlarged with atherosclerotic thoracic aorta. R ight suprahilar linear atelectasis is new from prior. Current exam is suboptimal due to overlying rec tangular artifact presumed clothing or blanket material over both lung chin. IMPRESSION: Suboptimal study, interval removal of left sided chest tube with tiny left apical pneumot horax remaining present. There is cardiomegaly and chronic parenchymal change with bibasilar acute in filtrate and/or atelectasis and probable small right pleural effusion all redemonstrated.
[2018-05-07 07:17] LABS: Glucose,Whole Blood 133 mg/dL (75-99)
[2018-05-07] MEDS: INSULIN DETEMIR 100 UNIT/ML 10 ML VIAL SQ SCH (08:39)
[2018-05-07] MEDS: ASPIRIN 325 MG TAB PO SCH (08:39)
[2018-05-07] MEDS: CLOPIDOGREL 75 MG TAB PO SCH (08:40)
[2018-05-07] MEDS: AMIODARONE 200 MG TAB PO SCH ×2 (08:40→20:16)
[2018-05-07] MEDS: PANTOPRAZOLE 40 MG TABLET PO SCH (08:40)
[2018-05-07] MEDS: METOPROLOL TARTRATE 50 MG TAB PO SCH ×2 (08:40→20:16)
[2018-05-07] MEDS: ATORVASTATIN 40 MG TAB PO SCH (08:40)
[2018-05-07] MEDS: IPRATROPIUM-ALBUTEROL 3 ML NEB INHALATION SCH ×4 (09:05→21:32)
--- NOTE | 2018-05-07 09:19 | PN ---
PROGRESS NOTE Mr. Nicholas is status post bypass surgery. He is doing remarkably well. He is able to do well on his incentive spirometry. He is maintaining sinus rhythm. Vital signs are stable. S1-S2 heard normally, short systolic murmur noted. lungs reveal improved air entry. Abdomen and lower extremity exam is unchanged. Plan is to continue current medications, increase activity and plan for discharge soon and he will follow up with Dr. Atkinson in a couple of weeks after discharge. MMODL / IJN: [id number] /
--- NOTE | 2018-05-07 10:18 | P.PN ---
Subjective Progress Note Date: 05/07/18 This is a 62-year-old male patient of Dr. Winston. Patient presented for an elective cardiac catheterization due to abnormal myocardial perfusion imaging was found to have severe left main disease as well as severe LAD and left circumflex disease. Patient was then evaluated by Dr. Zhu with cardiac thoracic surgical team and is scheduled to undergo coronary artery bypass graft surgery tomorrow 05/03/2018. Patient does have a known past medical history of hypertension, hyperlipidemia, diabetes mellitus, paroxysmal atrial fibrillation , prostate cancer with radiation last in December 2017, kidney stones, anxiety and ulcers. Today patient is currently resting in bed. Patient does appear a bit anxious. Patient denies any chest pain or shortness of breath. Patient denies nausea vomiting or diarrhea. Patient denies any urinary burning or frequency. Patient will undergo coronary artery bypass graft surgery tomorrow with Dr. Zhu. Patient did state understanding and that he had in-depth conversation with the cardiothoracic team yesterday. on 05/03/2018 patient currently status post coronary artery bypass graft with Dr. Wright. Patient currently mechanical ventilation in the intensive care unit. On 05/04/2018 patient is currently postop day 1 status post four-vessel coronary artery bypass graft surgery . patient remains in the intensive care unit. Patient is extubated and awake and alert. Patient currently sitting up in chair. Patient currently on 4 L nasal cannula On 05/05/2018 patient is alert and oriented 3 currently sitting up in chair. Patient remains in the intensive care unit. Patient remains on insulin drip. At this time patient is complaining of mild pain is adequately controlled with the medication. Patient remains on 2 L nasal cannula On 05/06/2018 patient is currently sitting up in chair. Cordis and [place] have been removed. Mediastinal chest tube removed. Patient is off insulin drip at this time. Denies chest pain or shortness of breath. Patient denies nausea vomiting or diarrhea. Patient denies any urinary burning or frequency. Patient has been ordered out of the intensive care unit per cardiothoracic team On 05/07/2018 patient is alert and oriented 3. Patient denies any chest pain or shortness of breath. Patient is stable. All chest tubes discontinued per cardiothoracic surgery. Patient has been ordered out of the intensive care unit stepdown unit. Patient did go back into A. fib with RVR. Per cardiothoracic surgery planning to start anticoagulation tomorrow and possible DC home. Objective - Vital Signs Vital signs: Vital Signs Temp 98.4 F 05/07/18 08:00 Pulse 103 H 05/07/18 09:14 Resp 16 05/07/18 08:00 BP 123/70 05/07/18 08:00 Pulse Ox 94 L 05/07/18 08:00 Intake & Output 05/06/18 05/07/18 05/07/18 18:59 06:59 18:59 Intake Total 570 0 250 Output Total 50 225 Balance 520 -225 250 Weight 79.7 kg 79.5 kg Intake: IV 20 0 Lactated Ringers 1,000 ml 20 0 @ 20 mls/hr IV .Q24H [facility] Rx#:[id number] Intake, IV Titration 100 Amount Dextrose 5% in Water 100 100 ml @ 618 mls/hr IV .Q10M ONE with Amiodarone 150 mg Rx#:[id number] Oral 450 250 Output: Chest Tube Drainage 50 Left Pleural 50 Urine 225 Other: Voiding Method Toilet Toilet Toilet # Voids 2 1 1 # Bowel Movements 1 ABP, PAP, CO, CI - Last Documented Arterial Blood Pressure 137/58 Pulmonary Artery Pressure 17/8 Cardiac Output 6.8 Cardiac Index 3.5 - Exam Head normocephalic Neck supple Lungs diminished bilaterally. Heart regular rate and rhythm S1-S2, no rub or gallop Abdomen is soft nontender nondistended positive bowel sounds no hepatosplenomegaly Extremities no edema Neuro patient is alert and oriented 3. - Labs CBC & Chem 7: 05/07/18 04:17 05/07/18 04:17 Labs: Abnormal Lab Results - Last 24 Hours (Table) 05/06/18 05/06/18 05/06/18 Range/Units 11:25 16:57 21:14 RBC (4.30-5.90) m/uL Hgb (13.0-17.5) gm/dL Hct (39.0-53.0) % Plt Count (150-450) k/uL BUN (9-20) mg/dL Glucose (74-99) mg/dL POC Glucose (mg/dL) 196 H 167 H 175 H (75-99) mg/dL Total Protein (6.3-8.2) g/dL Albumin (3.5-5.0) g/dL 05/06/18 05/07/18 05/07/18 Range/Units 23:46 04:17 04:17 RBC 2.50 L (4.30-5.90) m/uL Hgb 8.1 L (13.0-17.5) gm/dL Hct 23.9 L (39.0-53.0) % Plt Count 130 L (150-450) k/uL BUN 26 H (9-20) mg/dL Glucose 132 H (74-99) mg/dL POC Glucose (mg/dL) 147 H (75-99) mg/dL Total Protein 4.9 L (6.3-8.2) g/dL Albumin 2.6 L (3.5-5.0) g/dL 05/07/18 Range/Units 07:15 RBC (4.30-5.90) m/uL Hgb (13.0-17.5) gm/dL Hct (39.0-53.0) % Plt Count (150-450) k/uL BUN (9-20) mg/dL Glucose (74-99) mg/dL POC Glucose (mg/dL) 133 H (75-99) mg/dL Total Protein (6.3-8.2) g/dL Albumin (3.5-5.0) g/dL Assessment and Plan Assessment: 1. status post coronary artery bypass graft with Dr. Wright. AGUIRRE to LAD SVG to PDA SVG to diagonal SVG to OM. Patient has been extubated successfully to 4 L nasal cannula. Patient is currently postop day 3. Per cardiothoracic team continue aspirin and statin, Plavix and beta jennifer per cardiothoracic surgery. 2. Multivessel coronary artery disease. Patient has 70% left main lesion. status post cardiac cath. Patient currently scheduled for coronary artery bypass graft surgery with Dr. Zhu tomorrow 05/03/2018 3. Diabetes mellitus. Metformin on hold. Insulin drip has been DC'd. patient currently on sliding scale coverage and Levemir 15 units twice a day. Hemoglobin A1c has been ordered. 4. essential hypertension. 5. History of paroxysmal atrial fibrillation. Per cardiothoracic surgery continue amiodarone for A. fib. Planning to start anticoagulation once all the lines and tubes are out tomorrow. 6. History of prostate cancer post prostatectomy and post radiation therapy completed in December 2017 7. History of hyperlipidemia 8. History of nephrolithiasis 9. Ileus history of Nonsustained V. tach. Current rhythm is sinus Thank you for this consultation we will continue to follow patient closely throughout stay I performed an examination of the patient and discussed their management with the Nurse Practitioner. I have reviewed the Nurse Practitioner's notes and agree with the documented findings and plan of care
[2018-05-07] MEDS ORDERED: FUROSEMIDE 10 MG/ML 2 ML VIAL IV ONE (10:45)
--- NOTE | 2018-05-07 11:54 | P.PN ---
Subjective Progress Note Date: 05/07/18 Principal diagnosis: Multivessel coronary artery disease with left main disease. Previous medical history of paroxysmal atrial fibrillation on Eliquis for anticoagulation which is currently on hold, hypertension, hyperlipidemia, new diagnosis of diabetes mellitus, prostate cancer with prostatectomy and radiation treatment with the last dose radiation in December 2017. POD #4 coronary bypass grafting 4 vessels, left internal mammary artery to the left anterior descending artery, reverse saphenous vein graft to the diagonal artery, reverse saphenous vein graft to the obtuse marginal artery, reverse saphenous vein graft to the posterior descending artery, endoscopic vein harvesting bilateral greater saphenous veins, epi-aortic ultrasound, intraoperative transesophageal echocardiogram. Postoperative atrial fibrillation, an expected outcome given the patient's preoperative paroxysmal atrial fibrillation. Postoperative acute blood loss anemia, an expected outcome secondary to hemodilution and cardiopulmonary bypass pump. The patient is currently sitting up in a recliner in no acute distress. Denies pain, shortness of breath. Currently hemodynamically stable on no inotropes or pressors. No new complaints. Did have a short burst of A. fib with RVR again this morning, currently back in sinus rhythm. Objective - Vital Signs Vital signs: Vital Signs Temp 98.4 F 05/07/18 08:00 Pulse 103 H 05/07/18 09:14 Resp 16 05/07/18 08:00 BP 123/70 05/07/18 08:00 Pulse Ox 94 L 05/07/18 08:00 Intake & Output 05/06/18 05/07/18 05/07/18 18:59 06:59 18:59 Intake Total 570 0 250 Output Total 50 225 Balance 520 -225 250 Weight 79.7 kg 79.5 kg Intake: IV 20 0 Lactated Ringers 1,000 ml 20 0 @ 20 mls/hr IV .Q[facility]H [facility] Rx#:[id number] Intake, IV Titration 100 Amount Dextrose 5% in Water 100 100 ml @ 618 mls/hr IV .Q10M ONE with Amiodarone 150 mg Rx#:[id number] Oral 450 250 Output: Chest Tube Drainage 50 Left Pleural 50 Urine 225 Other: Voiding Method Toilet Toilet Toilet # Voids 2 1 1 # Bowel Movements 1 ABP, PAP, CO, CI - Last Documented Arterial Blood Pressure 137/58 Pulmonary Artery Pressure 17/8 Cardiac Output 6.8 Cardiac Index 3.5 - Constitutional General appearance: Present: cooperative, no acute distress - Respiratory Details: Lungs sounds diminished bilaterally. Respirations even, nonlabored. Currently on room air with oxygen saturation 95%. Able to achieve 1500 mL on his incentive spirometry. Strong cough. - Cardiovascular Details: S1, S2 present. Regular rate and rhythm, sinus rhythm on telemetry. Sternum stable. A/V epicardial pacemaker wires present, grounded. Palpable peripheral pulses bilaterally. No edema present. No calf pain or tenderness noted. Heart hugger in place with patient demonstrating appropriate use. Antiembolism stockings, SCDs present. - Gastrointestinal Gastrointestinal Comment(s): Abdomen soft, nontender, nondistended. Active bowel sounds present 4 quadrants. Tolerating diet. Positive bowel movement. - Genitourinary Genitourinary Comment(s): Patient continues to void clear, yellow urine. - Integumentary Integumentary Comment(s): Skin is warm and dry with evidence of good perfusion. Anterior chest incision well approximated and covered with dry intact dressing. Bilateral lower extremity EVH sites well approximated. - Neurologic Neurologic: Present: CNII-XII intact - Musculoskeletal Musculoskeletal: Present: gait normal, strength equal bilaterally - Psychiatric Psychiatric: Present: A&O x's 3, appropriate affect, intact judgment & insight - Allied health notes Allied health notes reviewed: nursing - Labs CBC & Chem 7: 05/07/18 04:17 05/07/18 04:17 Labs: Abnormal Lab Results - Last 24 Hours (Table) 05/06/18 05/06/18 05/06/18 Range/Units 16:57 21:14 23:46 RBC (4.30-5.90) m/uL Hgb (13.0-17.5) gm/dL Hct (39.0-53.0) % Plt Count (150-450) k/uL BUN (9-20) mg/dL Glucose (74-99) mg/dL POC Glucose (mg/dL) 167 H 175 H 147 H (75-99) mg/dL Total Protein (6.3-8.2) g/dL Albumin (3.5-5.0) g/dL 05/07/18 05/07/18 05/07/18 Range/Units 04:17 04:17 07:15 RBC 2.50 L (4.30-5.90) m/uL Hgb 8.1 L (13.0-17.5) gm/dL Hct 23.9 L (39.0-53.0) % Plt Count 130 L (150-450) k/uL BUN 26 H (9-20) mg/dL Glucose 132 H (74-99) mg/dL POC Glucose (mg/dL) 133 H (75-99) mg/dL Total Protein 4.9 L (6.3-8.2) g/dL Albumin 2.6 L (3.5-5.0) g/dL - Imaging and Cardiology Chest x-ray: report reviewed, image reviewed Assessment and Plan (1) Hypertension Current Visit: Yes Status: Chronic Code(s): I10 - ESSENTIAL (PRIMARY) HYPERTENSION SNOMED Code(s): 91533908 (2) Hyperlipidemia Current Visit: Yes Status: Chronic Code(s): E78.5 - HYPERLIPIDEMIA, UNSPECIFIED SNOMED Code(s): 09203646 (3) Coronary artery disease Current Visit: Yes Status: Chronic Code(s): I25.10 - ATHSCL HEART DISEASE OF [place] CORONARY ARTERY W/O ANG PCTRS SNOMED Code(s): 83883135 (4) Left main coronary artery disease Current Visit: Yes Status: Chronic Code(s): I25.10 - ATHSCL HEART DISEASE OF [place] CORONARY ARTERY W/O ANG PCTRS SNOMED Code(s): 851879860 (5) Diabetes mellitus Current Visit: Yes Status: Chronic Code(s): E11.9 - TYPE 2 DIABETES MELLITUS WITHOUT COMPLICATIONS SNOMED Code(s): 41214449 (6) History of prostate cancer Current Visit: No Status: Resolved Code(s): Z85.46 - PERSONAL HISTORY OF MALIGNANT NEOPLASM OF PROSTATE SNOMED Code(s): 919202078 (7) History of radiation therapy Current Visit: No Status: Resolved Code(s): Z92.3 - PERSONAL HISTORY OF IRRADIATION SNOMED Code(s): 493551314 (8) Paroxysmal atrial fibrillation Current Visit: No Status: Resolved Code(s): I48.0 - PAROXYSMAL ATRIAL FIBRILLATION SNOMED Code(s): 957164487 (9) Chronic anticoagulation Current Visit: Yes Status: Chronic Code(s): Z79.01 - HALF-WAY (CURRENT) USE OF ANTICOAGULANTS SNOMED Code(s): 679442741 Plan: 1. Continue low-dose aspirin, statin, beta jennifer therapy. Will increase beta jennifer therapy as tolerated. 2. Continue amiodarone for A. fib prophylaxis. Will restart Eliquis. Discontinue Plavix. 3. Encourage incentive spirometry use 10 times every hour while awake. 4. Will discontinue epicardial pacemaker wires. Bedrest 1 hour after removal. 5. Increase activity, ambulate as tolerated. PT/OT/cardiac rehab following. 6. Will monitor daily labs and x-rays. Electrolyte replacement per protocol. 7. Pain control with current medication regimen. 8. Insulin management per primary care service. 9. DVT prophylaxis with subcu heparin and SCDs, GI prophylaxis with Protonix. 10. Bronchodilators per pulmonology. 11. Orders placed to transfer patient to 3 S. cardiac stepdown unit. May transfer when bed available. 12. Discharge planning in progress. Anticipate discharge to home with home care in the next 24 hours. 13. More recommendations to follow. Time with Patient: Greater than 30
[2018-05-07 11:57] LABS: Glucose,Whole Blood 155 mg/dL (75-99)
--- NOTE | 2018-05-07 13:05 | P.PN ---
Subjective Progress Note Date: 05/07/18 Principal diagnosis: Status post CABG postoperative day #4. CABG 4 vessels. AGUIRRE to LAD, RSV to diagonal RSV to obtuse marginal artery RSV to posterior descending artery Multivessel coronary artery disease with left main disease. Previous medical history of paroxysmal atrial fibrillation on Eliquis for anticoagulation which is currently on hold, hypertension, hyperlipidemia, new diagnosis of diabetes mellitus, prostate cancer with prostatectomy and radiation treatment with the last dose radiation in December 2017. POD #3 coronary bypass grafting 4 vessels, left internal mammary artery to the left anterior descending artery, reverse saphenous vein graft to the diagonal artery, reverse saphenous vein graft to the obtuse marginal artery, reverse saphenous vein graft to the posterior descending artery, endoscopic vein harvesting bilateral greater saphenous veins, epi-aortic ultrasound, intraoperative transesophageal echocardiogram. Postoperative atrial fibrillation, an expected outcome given the patient's preoperative paroxysmal atrial fibrillation. Postoperative acute blood loss anemia, an expected outcome secondary to hemodilution and cardiopulmonary bypass pump. Seen on 05/06/2018, patient is sitting in a bedside chair, in no distress, denies any shortness of breath, no cough, no wheezing. He is hemodynamically stable. Continues to have the chest tube on the left side in place, and that may be removed sometime later today. Patient is actually a selective overflow, mediastinal chest tubes were discontinued yesterday. Chest x-ray from today was reviewed continues to have some left basilar atelectasis, no evidence of pneumothorax, left sided chest tube is in proper position. Labs were all reviewed, hemoglobin is 8.4 today. Platelets are 115, improved compared to the last few days. Patient was reevaluated today on 05/07/2018, doing well, and he was supposed to be discharged home today. However earlier today patient had atrial fibrillation with RVR, treated with beta blockers, and currently in sinus rhythm. However the discharge planning will be delayed for the next 24 hours. Pulmonary-[place], the patient is doing well, asymptomatic no cough no wheezing no shortness of breath. Chest x-ray is suggestive of a left tiny apical pneumothorax, does not seem to have any clinical significance at this point. Bibasilar atelectasis is noted and expected. Objective - Vital Signs Vital signs: Vital Signs Temp 97.5 F L 05/07/18 12:00 Pulse 59 L 05/07/18 12:00 Resp 15 05/07/18 12:00 BP 126/75 05/07/18 12:00 Pulse Ox 95 05/07/18 12:00 Intake & Output 05/06/18 05/07/18 05/07/18 18:59 06:59 18:59 Intake Total 570 0 750 Output Total 50 225 Balance 520 -225 750 Weight 79.7 kg 79.5 kg Intake: IV 20 0 Lactated Ringers 1,000 ml 20 0 @ 20 mls/hr IV .Q24H [facility] Rx#:[id number] Intake, IV Titration 100 Amount Dextrose 5% in Water 100 100 ml @ 618 mls/hr IV .Q10M ONE with Amiodarone 150 mg Rx#:[id number] Oral 450 750 Output: Chest Tube Drainage 50 Left Pleural 50 Urine 225 Other: Voiding Method Toilet Toilet Toilet # Voids 2 1 2 # Bowel Movements 1 ABP, PAP, CO, CI - Last Documented Arterial Blood Pressure 137/58 Pulmonary Artery Pressure 17/8 Cardiac Output 6.8 Cardiac Index 3.5 - Exam Physical Exam: Revealed a 62-year-old white male in no distress, on room air Head: Atraumatic, normocephalic. HEENT: PERRLA, EOMI, moist mucous membranes. [Neck is supple.] [No neck masses. ] [No thyromegaly.] [No JVD.] Chest: Diminished breath sounds at the left base, minimal crackles at the left base, no rhonchi, no wheezes.] Left-sided chest tube is intact. Cardiac Exam: [Normal S1 and S2, no S3 gallop, no murmur.] Abdomen: [Soft, nontender, no megaly, no rebound, no guarding, normal bowel sounds.] Extremities: [No clubbing, no edema, no cyanosis.] Neurological Exam: Alert, oriented, no gross focal neurologic deficits. Psychiatric: Normal mood, affect and mental status examination. Skin: No rashes. Surgical sites appear clean and dry. - Labs CBC & Chem 7: 05/07/18 04:17 05/07/18 04:17 Labs: Abnormal Lab Results - Last 24 Hours (Table) 05/06/18 05/06/18 05/06/18 Range/Units 16:57 21:14 23:46 RBC (4.30-5.90) m/uL Hgb (13.0-17.5) gm/dL Hct (39.0-53.0) % Plt Count (150-450) k/uL BUN (9-20) mg/dL Glucose (74-99) mg/dL POC Glucose (mg/dL) 167 H 175 H 147 H (75-99) mg/dL Total Protein (6.3-8.2) g/dL Albumin (3.5-5.0) g/dL 05/07/18 05/07/18 05/07/18 Range/Units 04:17 04:17 07:15 RBC 2.50 L (4.30-5.90) m/uL Hgb 8.1 L (13.0-17.5) gm/dL Hct 23.9 L (39.0-53.0) % Plt Count 130 L (150-450) k/uL BUN 26 H (9-20) mg/dL Glucose 132 H (74-99) mg/dL POC Glucose (mg/dL) 133 H (75-99) mg/dL Total Protein 4.9 L (6.3-8.2) g/dL Albumin 2.6 L (3.5-5.0) g/dL 05/07/18 Range/Units 11:56 RBC (4.30-5.90) m/uL Hgb (13.0-17.5) gm/dL Hct (39.0-53.0) % Plt Count (150-450) k/uL BUN (9-20) mg/dL Glucose (74-99) mg/dL POC Glucose (mg/dL) 155 H (75-99) mg/dL Total Protein (6.3-8.2) g/dL Albumin (3.5-5.0) g/dL Assessment and Plan Assessment: Impression: 1 status post CABG, postoperative day #4, patient had a four-vessel bypass surgery. 2 positive cardiac stress test, and nonsustained ventricular tachycardia. 31 episode of atrial fibrillation and RVR today, hence discharge planning was placed on hold. Patient is presently in sinus rhythm. 4 multiple comorbidities including hypertension, type 2 diabetes, prostate cancer and previous radiation therapy, nephrolithiasis, hyperlipidemia, paroxysmal atrial fibrillation, postoperative atrial fibrillation, expected from such surgery treated with amiodarone. Recommendation: Continue present treatment plan including cardiac meds, incentive spirometry, bronchodilators, patient is to be transferred to [facility] once a bed is available, possible discharge planning in the next 24 hours. Time with Patient: Less than 30
[2018-05-07 17:05] LABS: Glucose,Whole Blood 122 mg/dL (75-99)
[2018-05-07 20:10] LABS: Glucose,Whole Blood 148 mg/dL (75-99)
[2018-05-07] MEDS: APIXABAN 5 MG TAB PO SCH (20:16)
[2018-05-07] MEDS: SENNOSIDES-DOCUSATE SODIUM 1 EACH TAB PO SCH (20:16)
[2018-05-08] MEDS: KETOROLAC 30 MG/ML 1 ML VIAL IVP SCH ×3 (00:21→12:37)
[2018-05-08] MEDS: INSULIN ASPART 100 UNIT/ML 1 ML 10 ML VIAL SQ SCH ×3 (01:14→12:32)
[2018-05-08 04:56] LABS: HCT 25.4 % (39.0-53.0); HGB 8.5 gm/dL (13.0-17.5); MCHC 33.4 g/dL (31.0-37.0); MCV 95.8 fL (80.0-100.0); Mean Platelet Volume 7.2; Platelet Count 184 k/uL (150-450); RBC 2.65 m/uL (4.30-5.90); RDW 13.2 % (11.5-15.5); WBC 4.8 k/uL (3.8-10.6)
[2018-05-08 05:05] LABS: ALT 40 U/L (21-72); AST 45 U/L (17-59); Albumin 2.8 g/dL (3.5-5.0); Alkaline Phosphatase 75 U/L (38-126); Anion Gap 6 mmol/L; Blood Urea Nitrogen 28 mg/dL (9-20); Calcium 8.8 mg/dL (8.4-10.2); Carbon Dioxide 27 mmol/L (22-30); Chloride 105 mmol/L (98-107); Glucose 117 mg/dL (74-99); Potassium 4.5 mmol/L (3.5-5.1); Sodium 138 mmol/L (137-145); Total Bilirubin 1.4 mg/dL (0.2-1.3); Total Protein 5.2 g/dL (6.3-8.2)
[2018-05-08] MEDS: IPRATROPIUM-ALBUTEROL 3 ML NEB INHALATION SCH ×2 (06:57→11:00)
[2018-05-08 07:01] LABS: Glucose,Whole Blood 136 mg/dL (75-99)
--- NOTE | 2018-05-08 07:01 | XR ---
EXAMINATION TYPE: XR chest 1V portable DATE OF EXAM: 05/08/2018 COMPARISON: 05/07/2018 INDICATION: Post cardiac surgery TECHNIQUE: Single frontal view of the chest is obtained. FINDINGS: The heart size is enlarged. The pulmonary vasculature is normal. Mild infiltrate is at the left lower lobe. Previous minimal left apical pneumothorax not clearly evident on the current study. There may be mild right apical pneumothorax. This could be related to electric solderer shadow. Follow-up exams are recommende d. Sternotomy wires are in the midline. Artifact overlies left lower chest. Artifact is over the right l ower chest. IMPRESSION: 1. Minimal right apical pneumothorax may be developing. This could also be artifact from electric solderer sh adow with the third rib. Suspected left apical pneumothorax appears resolved. 2. Mild infiltrate at the left base. 3. Cardiomegaly 4. Continued follow-up is recommended.
[2018-05-08 08:43] VITALS: BP 122/60; RESP 16; TEMP 98.2
[2018-05-08 08:49] LABS: Glucose,Whole Blood 221 mg/dL (75-99)
[2018-05-08] MEDS: PANTOPRAZOLE 40 MG TABLET PO SCH (08:58)
[2018-05-08] MEDS: METOPROLOL TARTRATE 50 MG TAB PO SCH (08:58)
[2018-05-08] MEDS: APIXABAN 5 MG TAB PO SCH (08:58)
[2018-05-08] MEDS: INSULIN DETEMIR 100 UNIT/ML 10 ML VIAL SQ SCH (08:58)
[2018-05-08] MEDS: AMIODARONE 200 MG TAB PO SCH (08:58)
[2018-05-08] MEDS: ATORVASTATIN 40 MG TAB PO SCH (08:59)
[2018-05-08] MEDS ORDERED: ASPIRIN 81 MG PO SCH (09:00)
--- NOTE | 2018-05-08 10:31 | P.PN ---
Subjective Progress Note Date: 05/08/18 This is a 62-year-old male patient of Dr. Winston. Patient presented for an elective cardiac catheterization due to abnormal myocardial perfusion imaging was found to have severe left main disease as well as severe LAD and left circumflex disease. Patient was then evaluated by Dr. Zhu with cardiac thoracic surgical team and is scheduled to undergo coronary artery bypass graft surgery tomorrow 05/03/2018. Patient does have a known past medical history of hypertension, hyperlipidemia, diabetes mellitus, paroxysmal atrial fibrillation , prostate cancer with radiation last in December 2017, kidney stones, anxiety and ulcers. Today patient is currently resting in bed. Patient does appear a bit anxious. Patient denies any chest pain or shortness of breath. Patient denies nausea vomiting or diarrhea. Patient denies any urinary burning or frequency. Patient will undergo coronary artery bypass graft surgery tomorrow with Dr. Zhu. Patient did state understanding and that he had in-depth conversation with the cardiothoracic team yesterday. on 05/03/2018 patient currently status post coronary artery bypass graft with Dr. Wright. Patient currently mechanical ventilation in the intensive care unit. On 05/04/2018 patient is currently postop day 1 status post four-vessel coronary artery bypass graft surgery . patient remains in the intensive care unit. Patient is extubated and awake and alert. Patient currently sitting up in chair. Patient currently on 4 L nasal cannula On 05/05/2018 patient is alert and oriented 3 currently sitting up in chair. Patient remains in the intensive care unit. Patient remains on insulin drip. At this time patient is complaining of mild pain is adequately controlled with the medication. Patient remains on 2 L nasal cannula On 05/06/2018 patient is currently sitting up in chair. [place] and [place] have been removed. Mediastinal chest tube removed. Patient is off insulin drip at this time. Denies chest pain or shortness of breath. Patient denies nausea vomiting or diarrhea. Patient denies any urinary burning or frequency. Patient has been ordered out of the intensive care unit per cardiothoracic team On 05/07/2018 patient is alert and oriented 3. Patient denies any chest pain or shortness of breath. Patient is stable. All chest tubes discontinued per cardiothoracic surgery. Patient has been ordered out of the intensive care unit stepdown unit. Patient did go back into A. fib with RVR. Per cardiothoracic surgery planning to start anticoagulation tomorrow and possible DC home. On 05/08/2018 patient is alert and oriented 3. Patient is resting comfortably in chair. Patient is ambulating with. Denies chest pain or shortness of breath. Patient started on eliquis per cardiothoracic team for atrial fibrillation. Patient remains on amiodarone. Hemoglobin A1c on 05/02/2018 11.2 patient will require Levemir once daily upon discharge glipizide and metformin. Blood sugars have been well controlled while in hospital. perinatal educator consulted. Objective - Vital Signs Vital signs: Vital Signs Temp 98.2 F 05/08/18 08:00 Pulse 66 05/08/18 08:00 Resp 16 05/08/18 08:00 BP 122/60 05/08/18 08:00 Pulse Ox 95 05/08/18 08:00 Intake & Output 05/07/18 05/08/18 05/08/18 18:59 06:59 18:59 Intake Total 750 Balance 750 Weight 71.6 kg Intake: Oral 750 Other: Voiding Method Toilet Toilet # Voids 2 1 # Bowel Movements 1 ABP, PAP, CO, CI - Last Documented Arterial Blood Pressure 137/58 Pulmonary Artery Pressure 17/8 Cardiac Output 6.8 Cardiac Index 3.5 - Exam Head normocephalic Neck supple Lungs diminished bilaterally. Heart regular rate and rhythm S1-S2, no rub or gallop Abdomen is soft nontender nondistended positive bowel sounds no hepatosplenomegaly Extremities no edema Neuro patient is alert and oriented 3. - Labs CBC & Chem 7: 05/08/18 04:17 05/08/18 04:17 Labs: Abnormal Lab Results - Last 24 Hours (Table) 05/07/18 05/07/18 05/07/18 Range/Units 11:56 17:03 20:08 RBC (4.30-5.90) m/uL Hgb (13.0-17.5) gm/dL Hct (39.0-53.0) % BUN (9-20) mg/dL Glucose (74-99) mg/dL POC Glucose (mg/dL) 155 H 122 H 148 H (75-99) mg/dL Total Bilirubin (0.2-1.3) mg/dL Total Protein (6.3-8.2) g/dL Albumin (3.5-5.0) g/dL 05/08/18 05/08/18 05/08/18 Range/Units 04:17 04:17 07:00 RBC 2.65 L (4.30-5.90) m/uL Hgb 8.5 L (13.0-17.5) gm/dL Hct 25.4 L (39.0-53.0) % BUN 28 H (9-20) mg/dL Glucose 117 H (74-99) mg/dL POC Glucose (mg/dL) 136 H (75-99) mg/dL Total Bilirubin 1.4 H (0.2-1.3) mg/dL Total Protein 5.2 L (6.3-8.2) g/dL Albumin 2.8 L (3.5-5.0) g/dL 05/08/18 Range/Units 08:48 RBC (4.30-5.90) m/uL Hgb (13.0-17.5) gm/dL Hct (39.0-53.0) % BUN (9-20) mg/dL Glucose (74-99) mg/dL POC Glucose (mg/dL) 221 H (75-99) mg/dL Total Bilirubin (0.2-1.3) mg/dL Total Protein (6.3-8.2) g/dL Albumin (3.5-5.0) g/dL Assessment and Plan Assessment: 1. status post coronary artery bypass graft with Dr. Wright. AGUIRRE to LAD SVG to PDA SVG to diagonal SVG to OM. Patient has been extubated successfully to 4 L nasal cannula. Patient is currently postop day 3. Per cardiothoracic team continue aspirin and statin, Plavix and beta jennifer per cardiothoracic surgery. 2. Multivessel coronary artery disease. Patient has 70% left main lesion. status post cardiac cath. Patient currently scheduled for coronary artery bypass graft surgery with Dr. Zhu tomorrow 05/03/2018 3. Diabetes mellitus. Metformin on hold. Insulin drip has been DC'd. patient currently on sliding scale coverage and Levemir 15 units twice a day. On 05/02/2018 hemoglobin A1c 11.2 and the importance of adequate blood sugar control postoperative. Patient to be DC'd home on Levemir 15 units daily along with home dose of metformin adaptive physical educator has been consulted. Patient advised he will need close follow-up with primary care provider 4. essential hypertension. 5. History of paroxysmal atrial fibrillation. Per cardiothoracic surgery continue amiodarone for A. fib. Patient started on eliquis per cardiothoracic team. Patient maintained on amiodarone. 6. History of prostate cancer post prostatectomy and post radiation therapy completed in December 2017 7. History of hyperlipidemia 8. History of nephrolithiasis 9. history of Nonsustained V. tach. maintained on amiodarone Thank you for this consultation we will continue to follow patient closely throughout stay I performed an examination of the patient and discussed their management with the Nurse Practitioner. I have reviewed the Nurse Practitioner's notes and agree with the documented findings and plan of care
--- NOTE | 2018-05-08 10:57 | P.ARTDOP ---
Arterial Doppler LOWER EXTREMITY ARTERIAL DOPPLER: DATE OF SERVICE: 05/01/2018 Reason for study: Preop CABG. Doppler waveforms: Multiphasic bilaterally throughout. Pulse volume recording: []. Pressure gradients: None. Ankle-brachial indices: Greater than 1 bilaterally. Toe pressures: [] on the right, [] on the left Impression: Normal study.
--- NOTE | 2018-05-08 11:04 | P.VSCSTY ---
Greater Saphenous Vein Mapping This is bilateral lower extremity greater saphenous vein mapping. Date of service 05/01/2018 Vein quality and ultrasound appearance we say no sign of intraluminal thrombus or wall changes. Vein size groin right 4.6 x 4.9 groin left 6.2 x 3.8 High thigh right 3.1 x 2.4 high thigh left 3.9 x 3.0 Mid thigh right 3.4 x 2.5 mid thigh left 3.0 x 2.3 Above-knee right 3.4 x 2.5 above- knee left 1.7 x 1.9 Below knee right 1.7 b6 by 1.4 below-knee left 1.9 x 2.0 Mid calf right 1.4 x 1.0 mid calf left 1.8 x 1.8 Ankle right 2.0 x 1.3 ankle left 1.6 x 1.6 Impression both thighs appear usable. Below the knee and at the knee and below on the left are possibly too small to use. Clinical correlation recommended..
--- NOTE | 2018-05-08 11:06 | P.ARTDOP ---
Arterial Doppler Bilateral radial artery studies: Date of study: 05/02/2018 Reason for study: Preop CABG On Doppler assessment we find no segmental or right to left pressure gradients. On digital plethysmography with radial artery compression, we find no significant pressure changes. Imaging shows the right radial to be between 4 x 3.8 mm and 3.8 x 3.6 mm. The left radial is between 2.9 x 2.3 and 2.2 x 2.2 mm Both radial arteries are usable as conduit.
--- NOTE | 2018-05-08 11:10 | P.DS ---
Providers Date of admission: 05/02/18 10:08 Expected date of discharge: 05/08/18 Attending physician: Yazan Wright Consults: 05/01/18 13:04 Consult Physician Routine Consulting Provider: Kevon Zhu Consult Reason/Comments: cabg Do you want consulting provider notified?: Already Contacted 05/01/18 16:15 Consult Physician Routine Consulting Provider: Matt Parker Consult Reason/Comments: preop cardiac surgery Do you want consulting provider notified?: Yes Consult Physician Routine Consulting Provider: Zachariah Kuhn Consult Reason/Comments: medical management Do you want consulting provider notified?: Yes Consult to Anesthesia Routine Consulting Provider: Anesthesia,Services Consult Reason/Comments: Cardiac Surgery Pre-Op 05/02/18 10:21 Consult Physician Routine Consulting Provider: Brenda Atkinson Consult Reason/Comments: cardiology Do you want consulting provider notified?: Already Contacted Primary care physician: Roxi Winston - Discharge Diagnosis(es) (1) Hypertension Current Visit: Yes Status: Chronic (2) Hyperlipidemia Current Visit: Yes Status: Chronic (3) Coronary artery disease Current Visit: Yes Status: Chronic (4) Left main coronary artery disease Current Visit: Yes Status: Chronic (5) Diabetes mellitus Current Visit: Yes Status: Chronic (6) History of prostate cancer Current Visit: No Status: Resolved (7) History of radiation therapy Current Visit: No Status: Resolved (8) Paroxysmal atrial fibrillation Current Visit: No Status: Resolved (9) Chronic anticoagulation Current Visit: Yes Status: Chronic Hospital Course: FINAL DIAGNOSIS: 1. Multivessel coronary artery disease with left main disease 2. Paroxysmal atrial fibrillation on Eliquis for anticoagulation 3. Hypertension 4. Hyperlipidemia 5. Diabetes mellitus with preoperative hemoglobin A1c 11.2% 6. Prostate cancer with prostatectomy and radiation treatment, last radiation December 2017 7. Postoperative atrial fibrillation, an expected outcome 8. Postoperative acute blood loss anemia, expected outcome PRINCIPAL PROCEDURE: 1. Urgent coronary bypass grafting 4 vessels, left internal mammary artery to the left anterior descending artery, reverse saphenous vein graft to the diagonal artery, reverse saphenous vein graft to the obtuse marginal artery, reverse saphenous vein graft to the posterior descending artery 2. Endoscopic vein harvesting bilateral greater saphenous veins 3. Epi-aortic ultrasound 4. Intraoperative transesophageal echocardiogram HISTORY OF PRESENT ILLNESS: This is a 62-year-old gentleman who follows with Dr. Roxi Winston on an outpatient basis. He was admitted at [facility] the end of February 2018 for rapid A. fib which was noticed at his primary care physician visit. He was treated with Cardizem and started on Eliquis for anticoagulation. Upon further questioning his only real symptoms had been progressive shortness of breath with fatigue/tiredness. He denied chest pain, palpitations, dizziness, syncope, strokelike symptoms, or intermittent claudication. Transthoracic echocardiogram at that time which demonstrated normal LV function with EF 55-60%, trace mitral regurgitation and trace tricuspid regurgitation. He did follow-up upon discharge with cardiology and had a stress test which was abnormal and apparently he had some nonsustained V. tach during that test. He was recommended to undergo heart catheterization which demonstrated 60-70% left main stenosis, proximal LAD stenosis 80%, OM1 stenosis 80-90%, OM to stress study percent, and RCA stenosis of 40%. The patient was referred to Dr. Zhu from cardiothoracic surgery. He was recommended to undergo urgent coronary artery bypass grafting. The usual perioperative course was discussed in detail with the patient and family, all risks and benefits were explained, all questions were answered, and consent was obtained to proceed with surgery. The patient was kept inpatient due to the nature of his disease process. HOSPITAL COURSE: The patient was taken to the preoperative area on 05/03/2018, prepared in the usual fashion, and subsequently taken to the operating room where Dr. Wright performed urgent coronary bypass grafting 4 vessels, left internal mammary artery to the left anterior descending artery, reverse saphenous vein graft to the diagonal artery, reverse saphenous vein graft to the obtuse marginal artery, reverse saphenous vein graft to the posterior descending artery, endoscopic vein harvesting bilateral greater saphenous veins , epi-aortic ultrasound, and intraoperative transesophageal echocardiogram. Upon completion of surgery the patient was transferred to the cardiovascular intensive care unit where he was recovered, monitored hemodynamically, and where he progressed to cardiac rehabilitation phase 1. He was extubated, all lines, tubes, and drips were discontinued when appropriate, and orders are placed to transfer to 3 self cardiac stepdown unit, however there was no bed availability and he remained in the intensive care unit as an overflow patient until discharge. He did experience postoperative atrial fibrillation, which was expected as he had paroxysmal atrial fibrillation preoperatively, as well as postoperative blood loss anemia without requirement for transfusion. His oxygen was titrated down, he continued to work with physical and occupational therapy, he was tolerating oral diet, his pain was controlled, and he was ready to be discharged to home with [facility] on postoperative day #5. He received written and verbal instruction regarding his medications, activity restrictions, signs and symptoms requiring physician notification, and follow- up appointments. COMPLICATIONS: The patient experienced postoperative atrial fibrillation and acute blood loss anemia, which were treated accordingly. Plan - Discharge Summary Discharge Rx Participant: No New Discharge Prescriptions: New Amiodarone [Cordarone] 400 mg PO BID #36 tab Aspirin 81 mg PO DAILY #30 chew Metoprolol Tartrate [Lopressor] 50 mg PO BID #60 tab Pantoprazole [Protonix] 40 mg PO AC-BRKFST #[address] tablet[address] Cruz-Docusate Sodium [Senokot-S] 2 each PO HS PRN tab PRN Reason: Constipation Continue Apixaban [Eliquis] 5 mg PO BID #60 tab Atorvastatin [Lipitor] 40 mg PO DAILY #30 tab metFORMIN HCL [Glucophage] 500 mg PO BID #60 tab Discontinued Lisinopril [Zestril] 5 mg PO DAILY tab Metoprolol Succinate (ER) [Toprol XL] 100 mg PO DAILY tab.er.24h Nitroglycerin Sl Tabs [Nitrostat] 0.4 mg SUBLINGUAL Q5M PRN tab PRN Reason: Chest Pain Discharge Medication List Amiodarone [Cordarone] 400 mg PO BID #36 tab 05/08/18 [Rx] Apixaban [Eliquis] 5 mg PO BID #60 tab 05/08/18 [Rx] Aspirin 81 mg PO DAILY #30 chew 05/08/18 [Rx] Atorvastatin [Lipitor] 40 mg PO DAILY #30 tab 05/08/18 [Rx] Metoprolol Tartrate [Lopressor] 50 mg PO BID #60 tab 05/08/18 [Rx] Pantoprazole [Protonix] 40 mg PO AC-BRKFST #30 tablet. 05/08/18 [Rx] Sennosides-Docusate Sodium [Senokot-S] 2 each PO HS PRN tab 05/08/18 [Rx] metFORMIN HCL [Glucophage] 500 mg PO BID #60 tab 05/08/18 [Rx] Follow up Appointment(s)/Referral(s): Brenda Atkinson MD [STAFF PHYSICIAN] - 05/29/18 2:00 pm Yazan Wright MD [STAFF PHYSICIAN] - 06/07/18 11:45 am Matt Parker MD [STAFF PHYSICIAN] - 05/31/18 1:00 pm [facility] Nurse, [NON-STAFF] - 1-2 Days Roxi Winston DO [Primary Care Provider] - 05/10/18 9:30 am Aggie Cheng NPC [Nurse Practitioner] - 05/14/18 1:00 pm Ambulatory/Diagnostic Orders: Complete Blood Count w/diff [LAB.AMB] Time Frame: 3 Days, Location: None Selected Comprehensive Metabolic Panel [LAB.AMB] Time Frame: 3 Days, Location: None Selected Activity/Diet/Wound Care/Special Instructions: DISCHARGE INSTRUCTIONS: 1. No driving for 4 weeks, or until physician gives their ok. 2. The patient should sleep in their own bed, no medical bed needed. 3. Stairs are not an issue. If the bedroom is upstairs, it is advised that the patient go up at night and down in the morning for the first week. Go slowly, using handrail and take 1 step at a time. 4. JUANIS hose are to be worn for 30 days or until physician discontinues. 5. Heart hugger is to be worn 100% of the time until physician discontinues.( except when showering) 6. No lifting, pushing, or pulling more than 10 pounds for 12 weeks. The physician will advise of any restriction changes. 7. The patient is expected to continue the prescribed walking program. 8. Continue pain control per as needed orders. 9. Continue with incentive spirometry and splinting/heart hugger until otherwise directed by the physician. 10. Must shower daily using liquid antibacterial soap and a separate white washcloth for each individual incision. 11. Routine sternal incision care. No powders, lotions, ointments on incisions. 12. Please call surgeon/[employer] HELPER for temp greater than 101 F or purulent drainage from incisions. 13. All prescriptions given by surgeon for 30 days. Refills need to be filled through pilot plant operator helper/primary care physician. 14. A Red armband has been placed on the patient. It should be worn for 30 days post surgery and will be removed by the cardiac surgeons. If an ER visit is necessary, please make sure the number on the Red armband is called. HOME HEALTH SERVICES TO PROVIDE: RN SKILLED HOME CARE SERVICES FOR POST-OP SURGICAL PATIENTS WITH THE FOLLOWING: Coronary Artery Bypass Surgery (CABG), Mitral Valve Replacement/ Repair ( MVR), Aortic Valve Replacement/Repair (AVR) RN TO CONTINUE EDUCATION FROM ``ROAD TO A HEALTH HEART PATIENT EDUCATION MANUAL (GIVEN TO PATIENT IN THE HOSPITAL) MEDICATION RECONCILIATION WITH EDUCATION NEEDED ON FIRST HOME VISIT EMPHASIZE IMPORTANCE OF WEARING BREAST SUPPORT/HEART HUGGER ENCOURAGE USE OF INCENTIVE SPIROMETER 10 X EVERY HOUR WHILE AWAKE ENCOURAGE UTILIZATION OF LOWER EXTREMITY COMPRESSION STOCKINGS/JUANIS HOSE and ELEVATE LEGS ABOVE LEVEL OF HEART WHILE AT REST. ENCOURAGE AMBULATION 3-5x/day INCREASING TOLERATES, WHILE AVOID EXTREMES IN TEMPERATURE FREQUENCY: RN TO OPEN THE PATIENT WITHIN 24 HOURS OF DISCHARGE FROM THE HOSPITAL WITH TELEHEALTH INSTALLED AT [facility], RN TO VISIT 2-3 X A WEEK FOR 4 WEEKS ESTABLISHED BY PATIENT NEEDS. LABORATORY: CBC, CMP TO BE DRAWN ON THE THIRD DAY HOME, 05/11/18,(RAN STAT) FAX RESULTS TO [phone]. TELEHEALTH PARAMETERS: WEIGHT: NOTIFY MD OF WEIGHT GAIN OF 2 LBS IN 24 HOURS OR 5 LBS IN ONE WEEK HR: NOTIFY MD OF HR <55 BPM OR HR>100 BPM BP: NOTIFY MD IF BP <90/55 OR BP>140/100 O2 SAT: NOTIFY MD IF PO2<93% ON ROOM AIR SEND TELEHEALTH REPORT TO MACHINE PACKAGE SEALER AND CARDIOVASCULAR SURGEON THE FIRST WEEK OF CARE AND THEN BI-WEEKLY. PLEASE ADDITIONALLY COMMUNICATE ANY ABNORMALS AND NEW FINDINGS TO THE SURGEONS OFFICE. Discharge Disposition: HOME WITH HOME HEALTH SERVICES
[2018-05-08 11:12] VITALS: PULSE 60
[2018-05-08 11:44] LABS: Glucose,Whole Blood 133 mg/dL (75-99)
--- NOTE | 2018-05-08 12:15 | P.PN ---
Subjective Progress Note Date: 05/08/18 Principal diagnosis: Status post CABG postoperative day #5. CABG 4 vessels. AGUIRRE to LAD, RSV to diagonal RSV to obtuse marginal artery RSV to posterior descending artery Multivessel coronary artery disease with left main disease. Previous medical history of paroxysmal atrial fibrillation on Eliquis for anticoagulation which is currently on hold, hypertension, hyperlipidemia, new diagnosis of diabetes mellitus, prostate cancer with prostatectomy and radiation treatment with the last dose radiation in December 2017. POD #3 coronary bypass grafting 4 vessels, left internal mammary artery to the left anterior descending artery, reverse saphenous vein graft to the diagonal artery, reverse saphenous vein graft to the obtuse marginal artery, reverse saphenous vein graft to the posterior descending artery, endoscopic vein harvesting bilateral greater saphenous veins, epi-aortic ultrasound, intraoperative transesophageal echocardiogram. Postoperative atrial fibrillation, an expected outcome given the patient's preoperative paroxysmal atrial fibrillation. Postoperative acute blood loss anemia, an expected outcome secondary to hemodilution and cardiopulmonary bypass pump. Seen on 05/06/2018, patient is sitting in a bedside chair, in no distress, denies any shortness of breath, no cough, no wheezing. He is hemodynamically stable. Continues to have the chest tube on the left side in place, and that may be removed sometime later today. Patient is actually a selective overflow, mediastinal chest tubes were discontinued yesterday. Chest x-ray from today was reviewed continues to have some left basilar atelectasis, no evidence of pneumothorax, left sided chest tube is in proper position. Labs were all reviewed, hemoglobin is 8.4 today. Platelets are 115, improved compared to the last few days. Patient was reevaluated today on 05/07/2018, doing well, and he was supposed to be discharged home today. However earlier today patient had atrial fibrillation with RVR, treated with beta blockers, and currently in sinus rhythm. However the discharge planning will be delayed for the next 24 hours. Pulmonary-stafford, the patient is doing well, asymptomatic no cough no wheezing no shortness of breath. Chest x-ray is suggestive of a left tiny apical pneumothorax, does not seem to have any clinical significance at this point. Bibasilar atelectasis is noted and expected. Patient was reevaluated today on 05/08/2018, doing well, no hemodynamic instability, no cardiac arrhythmia, patient remains on multiple cardiac meds, asymptomatic, no cough no wheezing no shortness of breath no chest pain. Hemoglobin is holding at 8.5, electrolytes and renal profile are normal. Chest x-ray was reviewed, no evidence of any significant worrisome abnormality. Minimal atelectasis at the left base as noted. Objective - Vital Signs Vital signs: Vital Signs Temp 98.2 F 05/08/18 08:00 Pulse 60 05/08/18 11:11 Resp 16 05/08/18 08:00 BP 122/60 05/08/18 08:00 Pulse Ox 95 05/08/18 08:00 Intake & Output 05/07/18 05/08/18 05/08/18 18:59 06:59 18:59 Intake Total 750 Balance 750 Weight 71.6 kg Intake: Oral 750 Other: Voiding Method Toilet Toilet Toilet # Voids 2 1 2 # Bowel Movements 1 1 ABP, PAP, CO, CI - Last Documented Arterial Blood Pressure 137/58 Pulmonary Artery Pressure 17/8 Cardiac Output 6.8 Cardiac Index 3.5 - Exam Physical Exam: Revealed a 62-year-old white male in no distress, on room air Head: Atraumatic, normocephalic. HEENT: PERRLA, EOMI, moist mucous membranes. [Neck is supple.] [No neck masses. ] [No thyromegaly.] [No JVD.] Chest: Diminished breath sounds at the left base, no crackles, no rhonchi no wheezes. Cardiac Exam: [Normal S1 and S2, no S3 gallop, no murmur.] Abdomen: [Soft, nontender, no megaly, no rebound, no guarding, normal bowel sounds.] Extremities: [No clubbing, no edema, no cyanosis.] Neurological Exam: Alert, oriented, no gross focal neurologic deficits. Psychiatric: Normal mood, affect and mental status examination. Skin: No rashes. Surgical sites appear clean and dry. - Labs CBC & Chem 7: 05/08/18 04:17 05/08/18 04:17 Labs: Abnormal Lab Results - Last 24 Hours (Table) 05/07/18 05/07/18 05/08/18 Range/Units 17:03 20:08 04:17 RBC 2.65 L (4.30-5.90) m/uL Hgb 8.5 L (13.0-17.5) gm/dL Hct 25.4 L (39.0-53.0) % BUN (9-20) mg/dL Glucose (74-99) mg/dL POC Glucose (mg/dL) 122 H 148 H (75-99) mg/dL Total Bilirubin (0.2-1.3) mg/dL Total Protein (6.3-8.2) g/dL Albumin (3.5-5.0) g/dL 05/08/18 05/08/18 05/08/18 Range/Units 04:17 07:00 08:48 RBC (4.30-5.90) m/uL Hgb (13.0-17.5) gm/dL Hct (39.0-53.0) % BUN 28 H (9-20) mg/dL Glucose 117 H (74-99) mg/dL POC Glucose (mg/dL) 136 H 221 H (75-99) mg/dL Total Bilirubin 1.4 H (0.2-1.3) mg/dL Total Protein 5.2 L (6.3-8.2) g/dL Albumin 2.8 L (3.5-5.0) g/dL 05/08/18 Range/Units 11:42 RBC (4.30-5.90) m/uL Hgb (13.0-17.5) gm/dL Hct (39.0-53.0) % BUN (9-20) mg/dL Glucose (74-99) mg/dL POC Glucose (mg/dL) 133 H (75-99) mg/dL Total Bilirubin (0.2-1.3) mg/dL Total Protein (6.3-8.2) g/dL Albumin (3.5-5.0) g/dL Assessment and Plan Assessment: Impression: 1 status post CABG, postoperative day # 5, patient had a four-vessel bypass surgery. 2 positive cardiac stress test, and nonsustained ventricular tachycardia. 31 episode of atrial fibrillation and RVR today, hence discharge planning was placed on hold. Patient is presently in sinus rhythm. 4 multiple comorbidities including hypertension, type 2 diabetes, prostate cancer and previous radiation therapy, nephrolithiasis, hyperlipidemia, paroxysmal atrial fibrillation, postoperative atrial fibrillation, expected from such surgery treated with amiodarone. Recommendation: Agree with discharge planning today, continue incentive spirometry, ambulation, continue cardiac meds, follow-up on outpatient basis. Time with Patient: Less than 30
--- NOTE | 2018-05-08 19:56 | PN ---
PROGRESS NOTE Mr. Nicholas is status post bypass surgery. He is doing well. He had a short run of atrial fibrillation yesterday. This morning is in sinus rhythm resting comfortably, hemodynamically stable. Vital signs are stable. S1, S2 heard normally, short systolic murmur noted. Lungs reveal improved air entry. Abdomen and lower extremity exam is unchanged. The patient may be discharged today and he will follow up with Dr. Atkinson in the next two weeks. I reviewed his medications. We will continue the same. MMODL / IJN: [id number] /
[2018-05-09] MEDS ORDERED: glipiZIDE 5 MG TAB PO SCH (07:30)
== END 2018-05-08 14:49 | disposition home health service (06) | DRG 234 ==
LOC: CATHCVL 10:49 → 1SOBS 14:23 → CATHCVL 05-02 10:08 → 2SICU 05-02 10:08 → 3SCARD 05-02 11:00 → 2SICU 05-03 07:58 → 3SCARD 05-03 07:58 → CATHCVL 05-03 09:24 → 2SICU 05-03 09:24
PROVIDERS: ADMIT Surgery; ATTEND Surgery
PROC: B2111ZZ Fluoroscopy of Multiple Coronary Arteries using Low Osmolar Contrast (ICD-10-PCS; 2018-05-01)
PROC: B2151ZZ Fluoroscopy of Left Heart using Low Osmolar Contrast (ICD-10-PCS; 2018-05-01)
PROC: B44HZZZ Ultrasonography of Bilateral Lower Extremity Arteries (ICD-10-PCS; 2018-05-01)
PROC: 4A023N7 Measurement of Cardiac Sampling and Pressure, Left Heart, Percutaneous Approach (ICD-10-PCS; principal; 2018-05-01 11:50)
PROC: B34KZZZ Ultrasonography of Bilateral Upper Extremity Arteries (ICD-10-PCS; 2018-05-02)
PROC: 021209W Bypass Coronary Artery, Three Arteries from Aorta with Autologous Venous Tissue, Open Approach (ICD-10-PCS; 2018-05-03)
PROC: 06BQ4ZZ Excision of Left Saphenous Vein, Percutaneous Endoscopic Approach (ICD-10-PCS; 2018-05-03)
PROC: 06BP4ZZ Excision of Right Saphenous Vein, Percutaneous Endoscopic Approach (ICD-10-PCS; 2018-05-03)
PROC: B24BZZ4 Ultrasonography of Heart with Aorta, Transesophageal (ICD-10-PCS; 2018-05-03)
PROC: 5A1221Z Performance of Cardiac Output, Continuous (ICD-10-PCS; 2018-05-03)
PROC: 02100Z9 Bypass Coronary Artery, One Artery from Left Internal Mammary, Open Approach (ICD-10-PCS; 2018-05-03 08:00)
DX: I25.10 Atherosclerotic heart disease of native coronary artery without angina pectoris (principal); I47.2 Ventricular tachycardia; D62 Acute posthemorrhagic anemia; J98.11 Atelectasis; E11.51 Type 2 diabetes mellitus with diabetic peripheral angiopathy without gangrene; F03.90 Unspecified dementia, unspecified severity, without behavioral disturbance, psychotic disturbance, mood disturbance, and anxiety; I10 Essential (primary) hypertension; E78.5 Hyperlipidemia, unspecified; I48.0 Paroxysmal atrial fibrillation; F41.9 Anxiety disorder, unspecified; Z79.01 Long term (current) use of anticoagulants; Z79.84 Long term (current) use of oral hypoglycemic drugs; Z79.899 Other long term (current) drug therapy; Z90.79 Acquired absence of other genital organ(s); Z92.3 Personal history of irradiation; Z85.46 Personal history of malignant neoplasm of prostate; Z87.442 Personal history of urinary calculi; Z83.3 Family history of diabetes mellitus; Z82.49 Family history of ischemic heart disease and other diseases of the circulatory system
CPT/HCPCS: 71045; 71046; 80048; 80053; 80074; 81001; 82330; 82805; 83036; 83735; 84100; 84132; 85025; 85027; 85384; 85520; 85610; 85730; 86850; 86891; 86900; 86901; 86920; 87086; 93458; 93880; 93922; 93923; 93930; 93970; 94002; 94150; 94640

== ENCOUNTER 2018-09-17 15:08 | Inpatient (IN) | payer BC ==
[2018-09-17] MEDS ORDERED: DILTIAZEM DRIP BOLUS FROM BAG 1 MG SOLN IV ONE ×2 (15:13→19:12)
[2018-09-17] MEDS ORDERED: SODIUM CHLORIDE 0.9% 1,000 ML IV STA (15:13)
--- NOTE | 2018-09-17 15:16 | ED ---
Arrhythmia/Palpitations HPI - General Stated Complaint: Chest pain Time Seen by Provider: 09/17/18 15:13 Source: RN notes reviewed, old records reviewed - History of Present Illness Initial Comments: This is a 62-year-old male the ER for evaluation. Patient resents today for evaluation of abnormal heart rate. Patient is recent cardiac bypass. Denies chest pain no significant shortness of breath he states that he has a palpi tations, lightheadedness from his heart. Patient was found to be in A. fib with RVR. Patient is transferred from cardiac rehab to our hospital for further evaluation management MD Complaint: rapid heart beat, "heart racing", atrial fibrillation -: hour(s) Context: occurred during exertion Arrhythmia History: atrial fibrillation Associated Symptoms: chest pain, shortness of breath - Related Data Home Medications Medication Instructions Recorded Confirmed Atorvastatin [Lipitor] 40 mg PO HS 09/17/18 09/17/18 Metoprolol Succinate [Toprol XL] 50 mg PO DAILY 09/17/18 09/17/18 glipiZIDE [Glucotrol] 5 mg PO DAILY 09/17/18 09/17/18 Previous Rx's Medication Instructions Recorded Aspirin 81 mg PO DAILY #30 chew 05/08/18 metFORMIN HCL [Glucophage] 500 mg PO BID #60 tab 05/08/18 Allergies Allergy/AdvReac Type Severity Reaction Status Date / Time No Known Allergies Allergy Verified 09/17/18 15:43 Review of Systems ROS Statement: Those systems with pertinent positive or pertinent negative responses have been documented in the HPI. ROS Other: All systems not noted in ROS Statement are negative. Past Medical History Past Medical History: Atrial Flutter, Coronary Artery Disease (CAD), Cancer, Diabetes Mellitus, Hyperlipidemia, Hypertension Additional Past Medical History / Comment(s): Prostate CA (in remission; last radiation in december 2017.) hx ulcers, hx of kidney stones History of Any Multi-Drug Resistant Organisms: None Reported Past Surgical History: Prostate Surgery Additional Past Surgical History / Comment(s): lithotripsy, prostatectomy, egd Past Anesthesia/Blood Transfusion Reactions: No Reported Reaction Additional Past Anesthesia/Blood Transfusion Reaction / Comment(s): clauste rphobia. past blood transfusion-no reaction to it. Past Psychological History: No Psychological Hx Reported - Past Family History Mother Family Medical History: Diabetes Mellitus, Hypertension Father History Unknown: Yes Family Medical History: Coronary Artery Disease (CAD) General Exam General appearance: alert, in no apparent distress Head exam: Present: atraumatic, normocephalic, normal inspection Eye exam: Present: normal appearance, PERRL, EOMI. Absent: scleral icterus, conjunctival injection, periorbital swelling ENT exam: Present: normal exam, mucous membranes moist Neck exam: Present: normal inspection. Absent: tenderness, meningismus, lymphadenopathy Respiratory exam: Present: normal lung sounds bilaterally. Absent: respiratory distress, wheezes, rales, rhonchi, stridor Cardiovascular Exam: Present: tachycardia, irregular rhythm, normal heart sounds . Absent: systolic murmur, diastolic murmur, rubs, gallop, clicks GI/Abdominal exam: Present: soft, normal bowel sounds. Absent: distended, tenderness, guarding, rebound, rigid Extremities exam: Present: normal inspection, full ROM, normal capillary refill. Absent: tenderness, pedal edema, joint swelling, calf tenderness Back exam: Present: normal inspection Neurological exam: Present: alert, oriented X3, CN II-XII intact Psychiatric exam: Present: normal affect, normal mood Skin exam: Present: warm, dry, intact, normal color. Absent: rash Course Vital Signs 09/17/18 09/17/18 15:09 15:41 Temperature 98.4 F Pulse Rate 161 H Pulse Rate [ 161 H Apical] Respiratory 18 Rate Blood Pressure 152/108 O2 Sat by Pulse 99 Oximetry - Reevaluation(s) Reevaluation #1: 09/17/18 16:21 Medical record including prior surgical history is reviewed Reevaluation #2: 09/17/18 16:21 Patient is improving with heart rate control EKG Findings - EKG Comments: EKG Findings:: EKG shows A. fib with RVR rate 150, QRS 74, QTc 463 Medical Decision Making - Medical Decision Making 59 female the ER was significant history of fibrillation with RVR. Symptomatically. Patient will be admitted for rate control and possible anticoagulation - Lab Data Result diagrams: 09/17/18 15:11 09/17/18 15:11 Lab Results 09/17/18 09/17/18 09/17/18 Range/Units 15:11 15:11 15:11 WBC 5.4 (3.8-10.6) k/uL RBC 4.90 (4.30-5.90) m/uL Hgb 14.2 (13.0-17.5) gm/dL Hct 43.6 (39.0-53.0) % MCV 89.0 (80.0-100.0) fL MCH 28.9 (25.0-35.0) pg MCHC 32.5 (31.0-37.0) g/dL RDW 15.2 (11.5-15.5) % Plt Count 231 (150-450) k/uL Neutrophils % 59 % Lymphocytes % 25 % Monocytes % 9 % Eosinophils % 3 % Basophils % 1 % Neutrophils # 3.2 (1.3-7.7) k/uL Lymphocytes # 1.4 (1.0-4.8) k/uL Monocytes # 0.5 (0-1.0) k/uL Eosinophils # 0.1 (0-0.7) k/uL Basophils # 0.0 (0-0.2) k/uL PT 10.3 (9.0-12.0) sec INR 1.0 (<1.2) APTT 22.3 (22.0-30.0) sec Sodium 141 (137-145) mmol/L Potassium 4.3 (3.5-5.1) mmol/L Chloride 103 (98-107) mmol/L Carbon Dioxide 27 (22-30) mmol/L Anion Gap 11 mmol/L BUN 17 (9-20) mg/dL Creatinine 0.79 (0.66-1.25) mg/dL Est GFR (CKD-EPI)AfAm >90 (>60 ml/min/1.73 sqM) Est GFR (CKD-EPI)NonAf >90 (>60 ml/min/1.73 sqM) Glucose 109 H (74-99) mg/dL Calcium 10.4 H (8.4-10.2) mg/dL Magnesium 1.9 (1.6-2.3) mg/dL Total Bilirubin 1.2 (0.2-1.3) mg/dL AST 29 (17-59) U/L ALT 29 (21-72) U/L Alkaline Phosphatase 118 (38-126) U/L Troponin I (0.000-0.034) ng/mL Total Protein 7.8 (6.3-8.2) g/dL Albumin 4.6 (3.5-5.0) g/dL 09/17/18 Range/Units 15:11 WBC (3.8-10.6) k/uL RBC (4.30-5.90) m/uL Hgb (13.0-17.5) gm/dL Hct (39.0-53.0) % MCV (80.0-100.0) fL MCH (25.0-35.0) pg MCHC (31.0-37.0) g/dL RDW (11.5-15.5) % Plt Count (150-450) k/uL Neutrophils % % Lymphocytes % % Monocytes % % Eosinophils % % Basophils % % Neutrophils # (1.3-7.7) k/uL Lymphocytes # (1.0-4.8) k/uL Monocytes # (0-1.0) k/uL Eosinophils # (0-0.7) k/uL Basophils # (0-0.2) k/uL PT (9.0-12.0) sec INR (<1.2) APTT (22.0-30.0) sec Sodium (137-145) mmol/L Potassium (3.5-5.1) mmol/L Chloride (98-107) mmol/L Carbon Dioxide (22-30) mmol/L Anion Gap mmol/L BUN (9-20) mg/dL Creatinine (0.66-1.25) mg/dL Est GFR (CKD-EPI)AfAm (>60 ml/min/1.73 sqM) Est GFR (CKD-EPI)NonAf (>60 ml/min/1.73 sqM) Glucose (74-99) mg/dL Calcium (8.4-10.2) mg/dL Magnesium (1.6-2.3) mg/dL Total Bilirubin (0.2-1.3) mg/dL AST (17-59) U/L ALT (21-72) U/L Alkaline Phosphatase (38-126) U/L Troponin I <0.012 (0.000-0.034) ng/mL Total Protein (6.3-8.2) g/dL Albumin (3.5-5.0) g/dL - Radiology Data Radiology results: report reviewed (Chest x-rays negative for acute disease), image reviewed Critical Care Time Critical Care Time: Yes Total Critical Care Time: 31 Disposition Clinical Impression: Atrial fibrillation, Atrial fibrillation with RVR Disposition: ADMITTED IP TO THIS HOSP Condition: Fair Is patient prescribed a controlled substance at d/c from ED?: No Referrals: Roxi Winston DO [Primary Care Provider] - 1-2 days
[2018-09-17] MEDS ORDERED: DILTIAZEM 125 MG in SODIUM CHLORIDE 0.9% 100 ML IV SCH (15:30)
[2018-09-17 15:31] LABS: Basophils % (A) 1 %; Eosinophils # (A) 0.1 k/uL (0-0.7); Eosinophils % (A) 3 %; HCT 43.6 % (39.0-53.0); HGB 14.2 gm/dL (13.0-17.5); Lymphocytes # (A) 1.4 k/uL (1.0-4.8); Lymphocytes % (A) 25 %; MCH 28.9 pg (25.0-35.0); MCHC 32.5 g/dL (31.0-37.0); Mean Platelet Volume 7.1; Monocytes # (A) 0.5 k/uL (0-1.0); Monocytes % (A) 9 %; Neutrophils # (A) 3.2 k/uL (1.3-7.7); Neutrophils % (A) 59 %; Platelet Count 231 k/uL (150-450); RDW 15.2 % (11.5-15.5); WBC 5.4 k/uL (3.8-10.6)
--- NOTE | 2018-09-17 15:38 | XR ---
EXAMINATION TYPE: XR chest 2V DATE OF EXAM: 09/17/2018 COMPARISON: 05/08/2018 HISTORY: Shortness of breath TECHNIQUE: Frontal and lateral views of the chest are obtained. FINDINGS: Scattered senescent parenchymal changes noted. Hyperinflation compatible with COPD. No evidence for infiltrate. No evidence for atelectasis. Heart size is stable. Mediastinal structures are stable and grossly unremarkable. No evidence for hilar prominence. Degenerative changes dorsal spine. IMPRESSION: 1. No evidence for acute pulmonary disease.
[2018-09-17 15:40] LABS: ALT 29 U/L (21-72); AST 29 U/L (17-59); Albumin 4.6 g/dL (3.5-5.0); Alkaline Phosphatase 118 U/L (38-126); Anion Gap 11 mmol/L; Blood Urea Nitrogen 17 mg/dL (9-20); Calcium 10.4 mg/dL (8.4-10.2); Carbon Dioxide 27 mmol/L (22-30); Chloride 103 mmol/L (98-107); Glucose 109 mg/dL (74-99); Magnesium 1.9 mg/dL (1.6-2.3); Potassium 4.3 mmol/L (3.5-5.1); Sodium 141 mmol/L (137-145); Total Bilirubin 1.2 mg/dL (0.2-1.3); Total Protein 7.8 g/dL (6.3-8.2)
[2018-09-17 15:48] LABS: Partial Thromboplastin Time 22.3 sec (22.0-30.0); Prothrombin Time 10.3 sec (9.0-12.0)
[2018-09-17] MEDS ORDERED: NITROGLYCERIN SL TABS 0.4 MG TAB SUBLINGUAL PRN (16:19)
[2018-09-17] MEDS ORDERED: HEPARIN SODIUM,PORCINE 5,000 UNIT/ML 1 ML VIAL IV PRN (16:23)
[2018-09-17] MEDS ORDERED: HEPARIN SODIUM,PORCINE 5,000 UNIT/ML 1 ML VIAL IV ONE (16:23)
[2018-09-17] MEDS ORDERED: HEPARIN SOD,PORK IN 0.45% NACL 25,000 UNIT in 0.45% NACL 1 250ML.BAG IV SCH (16:30)
[2018-09-17] MEDS ORDERED: METOPROLOL TARTRATE 50 MG TAB PO SCH (21:00)
[2018-09-17 22:27] LABS: Glucose,Whole Blood 111 mg/dL (75-99)
[2018-09-18 03:57] LABS: Basophils % (A) 1 %; Eosinophils # (A) 0.2 k/uL (0-0.7); Eosinophils % (A) 3 %; HGB 12.7 gm/dL (13.0-17.5); Lymphocytes % (A) 20 %; MCH 30.1 pg (25.0-35.0); MCHC 33.5 g/dL (31.0-37.0); MCV 90.1 fL (80.0-100.0); Mean Platelet Volume 6.9; Monocytes # (A) 0.4 k/uL (0-1.0); Monocytes % (A) 7 %; Neutrophils # (A) 3.3 k/uL (1.3-7.7); Neutrophils % (A) 66 %; Platelet Count 198 k/uL (150-450); RBC 4.22 m/uL (4.30-5.90); RDW 15.1 % (11.5-15.5); WBC 5.1 k/uL (3.8-10.6)
[2018-09-18 04:12] LABS: Cholesterol 135 mg/dL (<200); HDL Cholesterol 70 mg/dL (40-60); LDL Cholesterol,Calculated 41 mg/dL (0-99); Triglycerides 119 mg/dL (<150)
[2018-09-18 05:35] LABS: Glucose,Whole Blood 104 mg/dL (75-99)
[2018-09-18 06:16] LABS: Partial Thromboplastin Time 41.1 sec (22.0-30.0); Prothrombin Time 10.4 sec (9.0-12.0)
[2018-09-18] MEDS ORDERED: METOPROLOL TARTRATE 25 MG TAB PO SCH (09:00)
[2018-09-18] MEDS ORDERED: ASPIRIN 325 MG TAB PO SCH (09:00)
[2018-09-18] MEDS ORDERED: APIXABAN 5 MG TAB PO SCH (09:00)
[2018-09-18] MEDS ORDERED: glipiZIDE 5 MG TAB PO SCH (09:00)
[2018-09-18 09:22] VITALS: TEMP 97.7
--- NOTE | 2018-09-18 10:32 | CONS ---
CONSULTATION CHIEF COMPLAINT: Atrial fibrillation. Mr. Nicholas is a 62-year-old gentleman with history of coronary artery disease, status post CABG, hypertension, dyslipidemia, [id number]-mljnbingt diabetes, who presented to the hospital with atrial fibrillation with rapid ventricular rate. The patient was at cardiac rehab and was found to be in AFIB with RVR and was admitted to the hospital. He converted to sinus rhythm last night and has remained in sinus rhythm with sinus bradycardia. He denies chest pain, difficulty in breathing, dizziness, syncope, or focal neurological deficits. The patient had atrial fibrillation and was on Eliquis for a while and this had been stopped. The patient has had cardiac enzymes that are within normal limits. LDL cholesterol is well controlled. His hemoglobin is normal at 12.7. PAST MEDICAL HISTORY: Significant for coronary artery disease status post CABG, hypertension, dyslipidemia, and diabetes. MEDICATIONS: Include aspirin, Toprol-XL 50 q. daily, glipizide 5 q. daily, Glucophage 500 b.i.d. and Lipitor. ALLERGIES: There are no known drug allergies. FAMILY HISTORY: Negative for premature coronary artery disease. SOCIAL HISTORY: Denies current smoking, EtOH abuse, or drug abuse. REVIEW OF SYSTEMS: HEENT: Unremarkable. CARDIAC: As described above. RESPIRATORY: Negative. GI: Negative. GENITOURINARY: Negative. ALLERGY/IMMUNOLOGY: Negative. SKIN: Negative. MUSCULOSKELETAL: Negative. ENDOCRINE: Negative. NEUROLOGICAL: Negative. DERM: Negative. CONSTITUTIONAL: Negative. ONCOLOGICAL: Negative Rest of the system review is not relevant. PHYSICAL EXAM: Patient is comfortable at rest. Heart rate is 55 beats per minute. Blood pressure is 140/67, respiratory rate is 18, O2 sat is 97% on room air. There is no jugular venous distention. Carotid upstroke is normal. There is no bruit. Chest exam reveals good air entry bilaterally. Heart exam reveals first and second heart sounds. No gallop. No murmur. No rub. Abdomen is soft, nontender. Exam of extremities did not reveal any edema. Peripheral pulses are felt EKG showed atrial fibrillation with rapid ventricular rate. Hemoglobin is normal. Platelet count is normal. Cardiac enzymes have been negative. ASSESSMENT: 1. Paroxysmal atrial fibrillation. 2. Coronary artery disease, status post coronary artery bypass grafting. 3. Hypertension. 4. Dyslipidemia. 5. Xdc-[id number]-dlelmgpbf diabetes. PLAN: Patient is doing well this morning, he is back in sinus rhythm. I will obtain a 2D echo to assess LV function. Stop the IV heparin and start him on Eliquis 5 b.i.d. If he is doing well, he can be discharged home later this afternoon and arrange followup with Dr. Atkinson his loss prevention guard. RUTHANN / GRICELDA: [id number] /
--- NOTE | 2018-09-18 10:58 | ECHOF ---
Referral Reason:afib MEASUREMENTS -------- HEIGHT: 182.9 cm WEIGHT: 82.1 kg BP: RVIDd: 2.9 cm (< 3.3) IVSd: 1.2 cm (0.6 - 1.1) LVIDd: 3.9 cm (3.9 - 5.3) LVPWd: 1.1 cm (0.6 - 1.1) IVSs: 1.5 cm LVIDs: 2.7 cm LVPWs: 1.5 cm LA Diam: 4.3 cm (2.7 - 3.8) LAESV Index (A-L): 24.38 ml/m Ao Diam: 2.9 cm (2.0 - 3.7) AV Cusp: 1.5 cm (1.5 - 2.6) LA Diam: 5.1 cm (2.7 - 3.8) MV EXCURSION: 17.007 mm (> 18.000) MV EF SLOPE: 101 mm/s (70 - 150) EPSS: 0.4 cm MV E Rashaun: 0.81 m/s MV DecT: 153 ms MV A Rashaun: 0.79 m/s MV E/A Ratio: 1.03 RAP: 5.00 mmHg RVSP: 30.81 mmHg FINDINGS -------- Sinus rhythm. This was a technically adequate study. The left ventricular size is normal. There is mild concentric left ventricular hypertrophy. Overa ll left ventricular systolic function is normal with, an EF between 55 - 60 %. The right ventricle is normal in size. The left atrial size is normal. Normal LA size by volume 22+/-6 ml/m2. The right atrial size is normal. Interatrial and interventricular septum intact. The aortic valve is trileaflet, and appears structurally normal. No aortic stenosis or regurgitation. Mild mitral annular calcification present. Mild mitral regurgitation is present. Mild tricuspid regurgitation present. There is no evidence of pulmonary hypertension. The right v entricular systolic pressure, as measured by Doppler, is 30.81mmHg. There is no pulmonic regurgitation present. Normal inferior vena cava with normal inspiratory collapse consistent with estimated right atrial pre ssure of 5 mmHg. There is no pericardial effusion. CONCLUSIONS -------- 1. Sinus rhythm. 2. The left ventricular size is normal. 3. There is mild concentric left ventricular hypertrophy. 4. Overall left ventricular systolic function is normal with, an EF between 55 - 60 %. 5. The right ventricle is normal in size. 6. The left atrial size is normal. 7. Normal LA size by volume 22+/-6 ml/m2. 8. The right atrial size is normal. 9. Interatrial and interventricular septum intact. 10. The aortic valve is trileaflet, and appears structurally normal. No aortic stenosis or regurgitat ion. 11. Mild mitral annular calcification present. 12. Mild mitral regurgitation is present. 13. Mild tricuspid regurgitation present. 14. There is no evidence of pulmonary hypertension. 15. The right ventricular systolic pressure, as measured by Doppler, is 30.81mmHg. 16. There is no pulmonic regurgitation present. 17. Normal inferior vena cava with normal inspiratory collapse consistent with estimated right atrial pressure of 5 mmHg. 18. There is no pericardial effusion. BILL BOARD POSTER: Leslie Redman RDCS
--- NOTE | 2018-09-18 11:14 | P.HPIM ---
History of Present Illness H&P Date: 09/18/18 this is a 62-year-old male patient of Dr. Winston presents to the hospital with rapid heartbeat. EKG completed on admission showing atrial fibrillation with rapid ventricular response with a heart rate of 158. She has past medical history of status post coronary artery bypass graft surgery in April 2018, hypertension, dyslipidemia and diabetes. Does appear the patient was once in A. fib and was on eliquis previously stopped. Chest x-ray completed showing no evidence for acute pulmonary disease. Patient was started on Cardizem drip for rate control. Patient also started on heparin drip for anticoagulation. Cardiology services consulted. Troponins negative 2. TSH 1.950. At this time patient's heart rate has significantly improved. Patient feels much improved. Patient denies chest pain or shortness breath. Patient denies nausea vomiting or diarrhea. Patient denies any urinary burning or frequency. Review of Systems Please refer to HPI otherwise unremarkable Past Medical History Past Medical History: Atrial Flutter, Coronary Artery Disease (CAD), Cancer, Diabetes Mellitus, Hyperlipidemia, Hypertension Additional Past Medical History / Comment(s): Prostate CA (in remission; last radiation in december 2017.) hx ulcers, hx of kidney stones History of Any Multi-Drug Resistant Organisms: None Reported Past Surgical History: Prostate Surgery Additional Past Surgical History / Comment(s): lithotripsy, prostatectomy, egd Past Anesthesia/Blood Transfusion Reactions: No Reported Reaction Additional Past Anesthesia/Blood Transfusion Reaction / Comment(s): clausterphobia. past blood transfusion-no reaction to it. Past Psychological History: No Psychological Hx Reported Additional Psychological History / Comment(s): STATES NO MEDICATION Smoking Status: Never smoker Past Alcohol Use History: None Reported Past Drug Use History: None Reported - Past Family History Mother Family Medical History: Diabetes Mellitus, Hypertension Father History Unknown: Yes Family Medical History: Coronary Artery Disease (CAD) Medications and Allergies Home Medications Medication Instructions Recorded Confirmed Type Aspirin 81 mg PO DAILY #30 chew 05/08/18 09/17/18 Rx metFORMIN HCL [Glucophage] 500 mg PO BID #60 tab 05/08/18 09/17/18 Rx Atorvastatin [Lipitor] 40 mg PO HS 09/17/18 09/17/18 History Metoprolol Succinate [Toprol XL] 50 mg PO DAILY 04/23/19 04/23/19 History glipiZIDE [Glucotrol] 5 mg PO DAILY 09/17/18 09/17/18 History Allergies Allergy/AdvReac Type Severity Reaction Status Date / Time No Known Allergies Allergy Verified 09/17/18 15:43 Physical Exam Vitals: Vital Signs Temp Pulse Pulse Pulse Resp BP BP 09/18/18 08:35 97.7 F 59 L 17 125/67 09/18/18 04:00 97.9 F 55 L 18 144/57 09/18/18 00:00 97.2 F L 54 L 17 110/65 09/17/18 20:00 98.0 F 86 18 142/69 09/17/18 17:40 97.8 F 136 H 18 142/91 09/17/18 17:34 133 H 16 133/68 09/17/18 17:00 142 H 20 114/93 09/17/18 16:30 142 H 20 123/76 09/17/18 16:00 151 H 20 139/112 09/17/18 15:41 161 H 09/17/18 15:30 138 H 20 158/125 09/17/18 15:09 98.4 F 161 H 18 152/108 Pulse Ox 09/18/18 08:35 97 09/18/18 04:00 97 09/18/18 00:00 96 09/17/18 20:00 96 09/17/18 17:40 97 09/17/18 17:34 98 09/17/18 17:00 99 09/17/18 16:30 99 09/17/18 16:00 99 09/17/18 15:41 09/17/18 15:30 99 09/17/18 15:09 99 Intake and Output 09/17/18 09/18/18 09/18/18 22:59 06:59 14:59 Intake Total 18 59.905 240 Output Total 300 Balance 18 -240.095 240 Intake: Intake, IV Titration 18 59.905 Amount Diltiazem 125 mg In 18 Sodium Chloride 0.9% 100 ml @ 10 MG/HR 10 mls/hr IV .[id number] [facility] Rx#: [id number] Heparin Sod,Pork in 0.45% 59.905 NaCl 25,000 unit In 0.45 % NaCl 1 250ml.bag @ 11.9 UNITS/KG/HR 10.04 mls/hr IV .Q24H [facility] Rx#: [id number] Oral 240 Output: Urine 300 Other: Voiding Method Urinal Urinal # Voids 0 1 Weight 80 kg 82.2 kg Head normocephalic Neck supple Lungs clear to auscultation bilaterally no wheezing or crackles Heart regular rate and rhythm S1-S2, no rub or gallop Abdomen is soft nontender nondistended positive bowel sounds no hepatosplenomegaly Extremities no edema Neuro alert and orientated to 3 Results CBC & Chem 7: 09/18/18 03:21 09/17/18 15:11 Labs: Abnormal Lab Results - Last 24 Hours (Table) 09/17/18 09/17/18 09/17/18 Range/Units 15:11 22:14 22:25 RBC (4.30-5.90) m/uL Hgb (13.0-17.5) gm/dL Hct (39.0-53.0) % APTT 44.2 H (22.0-30.0) sec Glucose 109 H (74-99) mg/dL POC Glucose (mg/dL) 111 H (75-99) mg/dL Calcium 10.4 H (8.4-10.2) mg/dL HDL Cholesterol (40-60) mg/dL 09/18/18 09/18/18 09/18/18 Range/Units 03:21 03:21 05:34 RBC 4.22 L (4.30-5.90) m/uL Hgb 12.7 L (13.0-17.5) gm/dL Hct 38.0 L (39.0-53.0) % APTT (22.0-30.0) sec Glucose (74-99) mg/dL POC Glucose (mg/dL) 104 H (75-99) mg/dL Calcium (8.4-10.2) mg/dL HDL Cholesterol 70 H (40-60) mg/dL 09/18/18 Range/Units 05:48 RBC (4.30-5.90) m/uL Hgb (13.0-17.5) gm/dL Hct (39.0-53.0) % APTT 41.1 H (22.0-30.0) sec Glucose (74-99) mg/dL POC Glucose (mg/dL) (75-99) mg/dL Calcium (8.4-10.2) mg/dL HDL Cholesterol (40-60) mg/dL Thrombosis Risk Factor Assmnt - Choose All That Apply Any of the Below Risk Factors Present?: Yes Other Risk Factors: Yes Each Risk Factor Represents 2 Points: Age 61-74 years Thrombosis Risk Factor Assessment Total Risk Factor Score: 2 Thrombosis Risk Factor Assessment Level: Low Risk Assessment and Plan Assessment: 1. Paroxysmal Atrial fibrillation with ventricular response. Patient started on Cardizem drip. Patient. Cardiology services consulted. Eliquis for anticoagulation. She also started on Atripla 25 mg by mouth twice a day for rate control. 2-D echo completed showing EF of 55-60%. 2. Coronary artery disease status post coronary artery bypass graft in April 2018 3. Essential hypertension 4. Hyperlipidemia 5. Diabetes mellitus type 2. Sliding scale coverage has been added 6. History of prostate cancer with radiation is a 2018 7. History of kidney stones DVT prophylaxis eliquis and GI prophylaxis protonix Time with Patient: Greater than 30 (Greater than 60% of the total time spent in counseling and coordination of care. I performed an examination of the patient and discussed their management with the Nurse Practitioner. I have reviewed the Nurse Practitioner's notes and agree with the documented findings and plan of care)
[2018-09-18 11:44] LABS: ALT 33 U/L (21-72); AST 24 U/L (17-59); Albumin 3.6 g/dL (3.5-5.0); Alkaline Phosphatase 102 U/L (38-126); Anion Gap 7 mmol/L; Blood Urea Nitrogen 18 mg/dL (9-20); Carbon Dioxide 21 mmol/L (22-30); Chloride 111 mmol/L (98-107); Glucose 97 mg/dL (74-99); Potassium 4.3 mmol/L (3.5-5.1); Sodium 139 mmol/L (137-145); Total Bilirubin 0.9 mg/dL (0.2-1.3); Total Protein 6.2 g/dL (6.3-8.2)
[2018-09-18 12:09] LABS: Glucose,Whole Blood 116 mg/dL (75-99)
[2018-09-18] MEDS ORDERED: INSULIN ASPART (NovoLOG) 100 UNIT/ML VIAL SQ SCH (12:30)
--- NOTE | 2018-09-18 14:41 | P.DS ---
Providers Date of admission: 09/17/18 16:19 Expected date of discharge: 09/18/18 Attending physician: Zachariah Kuhn Consults: 09/17/18 16:19 Consult Physician Urgent Consulting Provider: Brenda Atkinson Consult Reason/Comments: afib Do you want consulting provider notified?: Yes Primary care physician: Roxi Winston [place] [facility] Course: Discharge diagnosis 1. Paroxysmal Atrial fibrillation with ventricular response. Patient started on Cardizem drip. Patient. Cardiology services consulted. Eliquis for anticoagulation. She also started on metoprolol 25 mg by mouth twice a day for rate control. 2-D echo completed showing EF of 55-60%. Patient has been cleared for discharge from cardiology services. Did ask case with cardiology [employer]. Patient's heart rate 60s but tolerating heart Metroprolol continue metoprolol 25 twice a day and eliquis 5 mg twice a day 2. Coronary artery disease status post coronary artery bypass graft in April 2018 3. Essential hypertension 4. Hyperlipidemia 5. Diabetes mellitus type 2. Sliding scale coverage has been added 6. History of prostate cancer with radiation is a 2018 7. History of kidney stones Hospital course this is a 62-year-old male patient of Dr. Winston presents to the hospital with rapid heartbeat. EKG completed on admission showing atrial fibrillation with rapid ventricular response with a heart rate of 158. She has past medical history of status post coronary artery bypass graft surgery in April 2018, hypertension, dyslipidemia and diabetes. Does appear the patient was once in A. fib and was on eliquis previously stopped. Chest x-ray completed showing no evidence for acute pulmonary disease. Patient was started on Cardizem drip for rate control. Patient also started on heparin drip for anticoagulation. Cardiology services consulted. Troponins negative 2. TSH 1.950. At this time patient's heart rate has significantly improved. Patient feels much improved. Patient denies chest pain or shortness breath. Patient denies nausea vomiting or diarrhea. Patient denies any urinary burning or frequency. Patient has been cleared for discharge from cardiology services. Patient will be DC'd on eliquis 5 mg twice a day along with Lopressor 25 twice a day. Patient's heart rate 50s and low 60s. Patient did receive a.m. dose of Lop ressor. Discussed case with cardiology [employer] okay to continue Lopressor 25 twice a day. Patient is follow-up with cardiology services outpatient for further management. Patient expresses he is very eager to go home. Patient denies chest pain or shortness of breath. Patient denies nausea vomiting or diarrhea. Patient denies any urinary burning or frequency. I performed an examination of the patient and discussed their management with the Nurse Practitioner. I have reviewed the Nurse Practitioner's notes and agree with the documented findings and plan of care Patient Condition at Discharge: Stable Plan - Discharge Summary Discharge Rx Participant: Yes New Discharge Prescriptions: New Apixaban [Eliquis] 5 mg PO BID 30 Days #60 tab Metoprolol Tartrate [Lopressor] 25 mg PO BID 30 Days #60 tab Continue Aspirin 81 mg PO DAILY #30 chew metFORMIN HCL [Glucophage] 500 mg PO BID #60 tab glipiZIDE [Glucotrol] 5 mg PO DAILY Atorvastatin [Lipitor] 40 mg PO HS Discontinued Metoprolol Succinate [Toprol XL] 50 mg PO DAILY Discharge Medication List Aspirin 81 mg PO DAILY #30 chew 05/08/18 [Rx] metFORMIN HCL [Glucophage] 500 mg PO BID #60 tab 05/08/18 [Rx] Atorvastatin [Lipitor] 40 mg PO HS 09/17/18 [History] glipiZIDE [Glucotrol] 5 mg PO DAILY 09/17/18 [History] Apixaban [Eliquis] 5 mg PO BID 30 Days #60 tab 09/18/18 [Rx] Metoprolol Tartrate [Lopressor] 25 mg PO BID 30 Days #60 tab 09/18/18 [Rx] Follow up Appointment(s)/Referral(s): Roxi Winston DO [Primary Care Provider] - 1-2 days Brenda Atkinson MD [STAFF PHYSICIAN] - 1 Week Activity/Diet/Wound Care/Special Instructions: pt has commercial insurance, qualifies for $10/mo Eliquis-coupon provided to pt Activity as tolerated Diet heart healthy Patient to follow-up with cardiology services for further management of atrial fibrillation. Patient will be DC'd home on eliquis Discharge Disposition: HOME SELF-CARE
[2018-09-18 15:06] VITALS: BP 151/75; PULSE 58; RESP 18
[2018-09-18] MEDS ORDERED: ATORVASTATIN 40 MG TAB PO SCH (21:00)
[2018-09-19] MEDS ORDERED: PANTOPRAZOLE 40 MG TABLET PO SCH (07:30)
== END 2018-09-18 16:56 | disposition home or self-care (01) | DRG 310 ==
LOC: SUPCPDRO 15:08 → EC 15:08 → 3SCARD 16:19
PROVIDERS: ADMIT Internal Medicine; ATTEND Internal Medicine
DX: I48.0 Paroxysmal atrial fibrillation (principal); E78.5 Hyperlipidemia, unspecified; I25.10 Atherosclerotic heart disease of native coronary artery without angina pectoris; I10 Essential (primary) hypertension; E11.9 Type 2 diabetes mellitus without complications; C61 Malignant neoplasm of prostate; Z95.1 Presence of aortocoronary bypass graft; Z79.899 Other long term (current) drug therapy; Z79.84 Long term (current) use of oral hypoglycemic drugs; Z79.82 Long term (current) use of aspirin; Z87.442 Personal history of urinary calculi; Z92.3 Personal history of irradiation; Z90.79 Acquired absence of other genital organ(s); Z82.49 Family history of ischemic heart disease and other diseases of the circulatory system; Z83.3 Family history of diabetes mellitus
CPT/HCPCS: 36415; 71046; 80053; 80061; 83735; 84443; 84484; 85025; 85610; 85730; 93005; 93306; 96365; 96366; 96368; 96376; 99291

== ENCOUNTER → 2018-11-25 | Outpatient (CLI) | payer BC | END | disposition home or self-care (01) | LOC: LABWHC1 08:33 | PROVIDERS: ATTEND Radiology Radiation Oncology | DX: C61 Malignant neoplasm of prostate (principal); C77.5 Secondary and unspecified malignant neoplasm of intrapelvic lymph nodes; Z92.3 Personal history of irradiation | CPT/HCPCS: 36415; 84153 ==

== ENCOUNTER → 2018-12-14 | Outpatient (CLI) | payer BC ==
[2018-12-14 19:05] LABS: African American GFR (CKD) 104.2 (60.0-200.0); Albumin 4.2 g/dL (3.80-4.90); Albumin/Globulin Ratio 1.83 (1.60-3.17); Anion Gap 8.9 mmol/L (4.00-12.00); BUN/Creat Ratio 21.11 Ratio (12.00-20.00); Calcium 9.3 mg/dL (8.7-10.3); Carbon Dioxide 26.1 mmol/L (21.6-31.8); Globulin 2.3 g/dL (1.6-3.3); LDL Cholesterol,Calculated 74.6 mg/dL (0.0-131.0); Potassium 4.5 mmol/L (3.5-5.5); Total Bilirubin 1.3 mg/dL (0.3-1.2); Total Protein 6.5 g/dL (6.2-8.2); VLDL Calculation 27.4 mg/dL (5.00-40.00)
== END | disposition home or self-care (01) ==
LOC: LABWHC1 08:21
PROVIDERS: ATTEND Nurse Practitioner Adult Health
DX: I48.0 Paroxysmal atrial fibrillation (principal); I25.10 Atherosclerotic heart disease of native coronary artery without angina pectoris; E78.2 Mixed hyperlipidemia
CPT/HCPCS: 36415; 80053; 80061; 84443

== ENCOUNTER → 2019-05-29 | Outpatient (CLI) | payer BC ==
[2019-05-29 15:00] LABS: HCT 36.4 % (39.0-53.0); HGB 11.8 gm/dL (13.0-17.5); MCH 29.9 pg (25.0-35.0); MCHC 32.3 g/dL (31.0-37.0); MCV 92.8 fL (80.0-100.0); Mean Platelet Volume 7.4; Platelet Count 204 k/uL (150-450); RBC 3.93 m/uL (4.30-5.90); RDW 14.4 % (11.5-15.5)
[2019-05-29 17:14] LABS: Band Neutrophils % 3 %; Eosinophils # (M) 0.08 k/uL (0-0.7); Neutrophils % (M) 55 %; Nucleated Red Blood Cells 0 /100 WBC (0-0); Poikilocytosis (M) Present; Total Cells Counted 100
[2019-05-29 18:36] LABS: African American GFR (CKD) 91.8 (60.0-200.0); Anion Gap 7.3 mmol/L (4.00-12.00); Calcium 9.5 mg/dL (8.7-10.3); Carbon Dioxide 27.7 mmol/L (21.6-31.8); Non-African American GFR(CKD) 79.2 (60.0-200.0); Potassium 4.3 mmol/L (3.5-5.5)
== END | disposition home or self-care (01) ==
LOC: LABWHC1 14:18
PROVIDERS: ATTEND Radiology Radiation Oncology
DX: C61 Malignant neoplasm of prostate (principal); C77.5 Secondary and unspecified malignant neoplasm of intrapelvic lymph nodes; Z92.3 Personal history of irradiation
CPT/HCPCS: 36415; 80048; 84153; 85025

== ENCOUNTER → 2019-06-03 | Day surgery (SDC) | payer BC ==
[2019-05-29 14:22] VITALS: BMI 27.2
[~2019-06-03] MED LIST changes: -ALPRAZolam 0.25 MG TAB PO PRN; -ALPRAZolam 0.5 MG TAB PO PRN; -ASPIRIN 325 MG TAB PO STA; -ATORVASTATIN 80 MG TAB PO STA; +LACTATED RINGERS 1,000 ML IV SCH; +LIDOCAINE 1% 20 ML VIAL (10MG/ML) FOR IV START INTRADERMA PRN; -NITROGLYCERIN SL TABS 0.4 MG TAB SUBLINGUAL PRN; +PROPOFOL 10 MG/ML 20 ML VIAL IV ONE; -SODIUM CHLORIDE 0.9% 1,000 ML in EMPTY BAG 1 BAG IV ONE
[2019-06-03 07:29] LABS: Glucose,Whole Blood 112 mg/dL (75-99)
[2019-06-03 07:31] VITALS: RESP 16; TEMP 98.6
--- NOTE | 2019-06-03 07:45 | P.GSHP ---
History of Present Illness H&P Date: 06/03/19 Chief Complaint: GI bleed This a 63-year-old male who presents today for colonoscopy. Patient issues of GI bleed. Past Medical History Past Medical History: Atrial Flutter, Coronary Artery Disease (CAD), Cancer, Diabetes Mellitus, Hyperlipidemia, Hypertension Additional Past Medical History / Comment(s): Prostate CA (surgery & last radiation tx december 2017.) hx ulcers (2000), hx of kidney stones History of Any Multi-Drug Resistant Organisms: None Reported Past Surgical History: Coronary Bypass/CABG, Prostate Surgery Additional Past Surgical History / Comment(s): lithotripsy, prostatectomy, egd, CABG APR 2018 Past Anesthesia/Blood Transfusion Reactions: No Reported Reaction Additional Past Anesthesia/Blood Transfusion Reaction / Comment(s): clausterphobia. past blood transfusion-no reaction to it. Past Psychological History: No Psychological Hx Reported Additional Psychological History / Comment(s): . Smoking Status: Never smoker Past Alcohol Use History: None Reported Past Drug Use History: None Reported - Past Family History Mother Family Medical History: Diabetes Mellitus, Hypertension Father History Unknown: Yes Family Medical History: Coronary Artery Disease (CAD) Medications and Allergies Home Medications Medication Instructions Recorded Confirmed Type Aspirin 81 mg PO DAILY #30 chew 05/08/18 06/03/19 Rx metFORMIN HCL [Glucophage] 500 mg PO BID #60 tab 05/08/18 06/03/19 Rx Atorvastatin [Lipitor] 40 mg PO HS 09/17/18 06/03/19 History glipiZIDE [Glucotrol] 5 mg PO DAILY 09/17/18 06/03/19 History Apixaban [Eliquis] 5 mg PO BID 30 Days #60 tab 09/18/18 06/03/19 Rx Amiodarone [Cordarone] 200 mg PO DAILY 05/29/19 06/03/19 History Calcium/Magnesium/Zinc 1 each PO DAILY 05/29/19 06/03/19 History [Chfmexn-Onqehzbxk-Bpbd Tablet] Enoxaparin [Lovenox] 80 mg SQ Q12H 05/29/19 06/03/19 History Metoprolol Tartrate [Lopressor] 25 mg PO DAILY 05/29/19 06/03/19 History Multivitamins, Thera [Multivitamin 1 tab PO DAILY 05/29/19 06/03/19 History (formulary)] Vit C/E/Zn/Coppr/Lutein/Zeaxan 1 each PO DAILY 05/29/19 06/03/19 History [Preservision Areds 2 Softgel] Vitamin D (Unknown Dose) 1 tab PO DAILY 05/29/19 History Vitamin E (Unknown Dose) 1 tab PO DAILY 05/29/19 History Allergies Allergy/AdvReac Type Severity Reaction Status Date / Time No Known Allergies Allergy Verified 05/29/19 14:05 Surgical - Exam Vital Signs Temp Pulse Resp BP Pulse Ox 98.6 F 72 16 201/91 99 06/03/19 07:16 06/03/19 07:16 06/03/19 07:16 06/03/19 07:16 06/03/19 07:16 - General well developed, well nourished, no distress - Eyes PERRL - ENT normal pinna - Neck no masses - Respiratory normal expansion - Cardiovascular Rhythm: regular - Abdomen Abdomen: soft, non tender Results - Labs Abnormal Lab Results - Last 24 Hours (Table) 06/03/19 Range/Units 07:24 POC Glucose (mg/dL) 112 H (75-99) mg/dL Assessment and Plan Assessment: GI bleed. We'll perform colonoscopy.
--- NOTE | 2019-06-03 07:59 | P.OP ---
Date of Procedure: 06/03/19 Preoperative Diagnosis: GI bleed Postoperative Diagnosis: Mild diverticulosis Internal hemorrhoids Procedure(s) Performed: Colonoscopy Anesthesia: MAC Surgeon: Rex Becerra Pathology: none sent Condition: stable Disposition: PACU Description of Procedure: The patient's placed on the endoscopy table in the lateral position. He received IV sedation. Digital rectal exam performed which revealed internal hemorrhoids. Possible colonoscope was then placed patient anus passed throughout the entire colon. The ileocecal valve was visualized. The cecum, ascending and transverse colon appeared normal. In the descending and sigmoid colon there was mild diverticular changes. Scope was then brought back the rectum this appeared normal. There was internal hemorrhoids noted. Scope was then removed from the patient.
[2019-06-03 08:04] VITALS: BP 101/58; PULSE 56
== END ==
LOC: ORWHC2ENDO 06:54
PROVIDERS: ATTEND Surgery
DX: K64.8 Other hemorrhoids (principal); K57.30 Diverticulosis of large intestine without perforation or abscess without bleeding; I48.92 Unspecified atrial flutter; I25.10 Atherosclerotic heart disease of native coronary artery without angina pectoris; I10 Essential (primary) hypertension; I48.91 Unspecified atrial fibrillation; E11.9 Type 2 diabetes mellitus without complications; E78.5 Hyperlipidemia, unspecified; F40.240 Claustrophobia; Z85.46 Personal history of malignant neoplasm of prostate; Z90.79 Acquired absence of other genital organ(s); Z95.1 Presence of aortocoronary bypass graft; Z98.890 Other specified postprocedural states; Z87.442 Personal history of urinary calculi; Z83.3 Family history of diabetes mellitus; Z82.49 Family history of ischemic heart disease and other diseases of the circulatory system; Z79.82 Long term (current) use of aspirin; Z79.84 Long term (current) use of oral hypoglycemic drugs; Z79.01 Long term (current) use of anticoagulants; Z79.899 Other long term (current) drug therapy
CPT/HCPCS: 45378; J2704

== ENCOUNTER → 2019-09-22 | Outpatient (CLI) | payer BC ==
[2019-09-22 09:57] LABS: HCT 38.6 % (39.0-53.0); HGB 12.7 gm/dL (13.0-17.5); MCH 29.9 pg (25.0-35.0); MCHC 32.7 g/dL (31.0-37.0); MCV 91.3 fL (80.0-100.0); Mean Platelet Volume 7.4; Platelet Count 202 k/uL (150-450); RBC 4.23 m/uL (4.30-5.90); RDW 14.4 % (11.5-15.5); WBC 3.8 k/uL (3.8-10.6)
[2019-09-22 15:44] LABS: African American GFR (CKD) 91.8 (60.0-200.0); Albumin 4.2 g/dL (3.80-4.90); Albumin/Globulin Ratio 1.68 (1.60-3.17); Anion Gap 10.3 mmol/L (4.00-12.00); Calcium 9.2 mg/dL (8.7-10.3); Carbon Dioxide 24.7 mmol/L (21.6-31.8); Chol/HDL Ratio 2.67; Globulin 2.5 g/dL (1.6-3.3); LDL Cholesterol,Calculated 43.6 mg/dL (0.0-131.0); Non-African American GFR(CKD) 79.2 (60.0-200.0); Potassium 4.6 mmol/L (3.5-5.5); Total Bilirubin 1.2 mg/dL (0.2-1.2); Total Protein 6.7 g/dL (6.2-8.2); VLDL Calculation 21.4 mg/dL (5.00-40.00)
[2019-09-22 19:05] LABS: Hemoglobin A1C 6.5 % (4.0-6.0)
== END | disposition home or self-care (01) ==
LOC: LABWHC1 09:06
PROVIDERS: ATTEND Family Medicine
DX: C61 Malignant neoplasm of prostate (principal); I25.810 Atherosclerosis of coronary artery bypass graft(s) without angina pectoris; I48.91 Unspecified atrial fibrillation; I10 Essential (primary) hypertension; E11.9 Type 2 diabetes mellitus without complications
CPT/HCPCS: 36415; 80053; 80061; 83036; 84153; 84443; 85027

== ENCOUNTER → 2019-12-03 | Outpatient (CLI) | payer MEDICARE, BC | END | disposition home or self-care (01) | LOC: LABWHC1 14:25 | PROVIDERS: ATTEND Radiology Radiation Oncology | DX: C61 Malignant neoplasm of prostate (principal); C77.5 Secondary and unspecified malignant neoplasm of intrapelvic lymph nodes; Z92.3 Personal history of irradiation | CPT/HCPCS: 36415; 84153 ==

== ENCOUNTER → 2021-11-03 | Outpatient (CLI) | payer MEDICARE ==
[2021-11-03 10:20] LABS: INR 1.1 (<1.2); Partial Thromboplastin Time 25.3 sec (22.0-30.0); Prothrombin Time 11.4 sec (9.0-12.0)
[2021-11-03 15:11] LABS: Hepatitis A Antibody IgM Nonreactive (Nonreactive); Hepatitis B Core IgM Nonreactive (Nonreactive); Hepatitis B Surface Antigen Nonreactive (Nonreactive); Hepatitis C IgG Antibody Nonreactive (Nonreactive)
[2021-11-03 16:01] LABS: African American GFR (CKD) 80.6 (60.0-200.0); Albumin 4.8 g/dL (3.8-4.9); Albumin/Globulin Ratio 1.5 (1.60-3.17); Anion Gap 11.3 mmol/L (10.00-18.00); BUN/Creat Ratio 11.09 Ratio (12.00-20.00); Blood Urea Nitrogen 12.2 mg/dL (9.0-27.0); Calcium 9.7 mg/dL (8.7-10.3); Carbon Dioxide 24.7 mmol/L (20.0-27.5); Globulin 3.2 g/dL (1.6-3.3); Non-African American GFR(CKD) 69.6 (60.0-200.0); Potassium 4.4 mmol/L (3.5-5.5); Total Bilirubin 2.1 mg/dL (0.30-1.20)
== END | disposition home or self-care (01) ==
LOC: LABWHC1 09:17
PROVIDERS: ATTEND Family Medicine
DX: Z00.00 Encounter for general adult medical examination without abnormal findings (principal)
CPT/HCPCS: 36415; 80053; 80074; 82150; 82977; 83690; 85610; 85730

== ENCOUNTER → 2021-12-27 | Outpatient (CLI) | payer MEDICARE ==
[2021-12-27 10:30] LABS: HCT 48.3 % (39.6-50.0); HGB 15.6 g/dL (13.0-17.0); MCH 30.5 pg (27.0-32.0); MCHC 32.3 g/dL (32.0-37.0); MCV 94.5 fL (80.0-97.0); Mean Platelet Volume 10.5 fL (9.5-12.2); NRBC Per 100 WBC 0 /100 WBCS (0.0-0.0); Platelet Count 164 X 10*3/uL (140-440); RBC 5.11 X 10*6/uL (4.40-5.60); RDW 12.8 % (11.5-14.5); WBC 4.01 X 10*3/uL (4.50-10.00)
[2021-12-27 10:39] LABS: ALT 87 U/L (10-49); AST 67 U/L (14-35); African American GFR (CKD) 74.3 (60.0-200.0); Albumin 4.4 g/dL (3.8-4.9); Albumin/Globulin Ratio 1.32 (1.60-3.17); Alkaline Phosphatase 72 U/L (41-126); BUN/Creat Ratio 12.74 Ratio (12.00-20.00); Blood Urea Nitrogen 14.9 mg/dL (9.0-27.0); Calcium 9.5 mg/dL (8.7-10.3); Carbon Dioxide 23.6 mmol/L (20.0-27.5); Chloride 104 mmol/L (96-109); Globulin 3.3 g/dL (1.6-3.3); Glucose 119 mg/dL (70-110); LDL Cholesterol,Calculated 148.8 mg/dL (0.0-131.0); Non-African American GFR(CKD) 64.1 (60.0-200.0); Potassium 3.9 mmol/L (3.5-5.5); Sodium 140 mmol/L (135-145); Total Protein 7.7 g/dL (6.2-8.2)
== END | disposition home or self-care (01) ==
LOC: LABWHC1 08:08
PROVIDERS: ATTEND Family Medicine
DX: E11.9 Type 2 diabetes mellitus without complications (principal); I25.10 Atherosclerotic heart disease of native coronary artery without angina pectoris
CPT/HCPCS: 36415; 80053; 80061; 83036; 84443; 85027

== ENCOUNTER → 2023-01-08 | Outpatient (CLI) | payer MEDICARE ==
--- NOTE | 2023-01-08 10:21 | US ---
EXAMINATION TYPE: US kidneys/renal and bladder DATE OF EXAM: 01/08/2023 COMPARISON: ct 11/03/2016 CLINICAL INDICATION: Male, 67 years old with history of R31.0 GROSS HEMATURIA; gross hematuria EXAM MEASUREMENTS: Right Kidney: 11.0x4.9x4.8 cm Left Kidney: 11.2x5.3x4.6 cm Right Kidney: small anechoic area at inferior pole: 1.7x1.6x1.5cm Left Kidney: wnl Bladder: 1.3x0.7x1.2cm non-obstructing echogenic shadowing focus seen in rt bladder, bladder poorly d istended Bilateral Jets seen: Yes There is no evidence for hydronephrosis at this point in time. No nephrolithiasis is seen. No solid masses are identified. Small simple cyst within the inferior pole the right kidney measuring up to 1.7 cm. Corticomedullary differentiation is maintained bilaterally. The urinary bladder is anechoic. Bilateral ureteral jets are seen. Calculus demonstrated within the right portion of the urinary blad naresh measuring up to 1.3 cm. This demonstrates shadowing with twinkle artifact. IMPRESSION: 1. No obstructive uropathy or renal calculi. 2. Urinary bladder calculus measuring up to 1.3 cm.
== END | disposition home or self-care (01) ==
LOC: RADUSWWP 09:37
PROVIDERS: ATTEND Urology
DX: N21.0 Calculus in bladder (principal); R31.0 Gross hematuria
CPT/HCPCS: 76770

== ENCOUNTER → 2023-01-17 | Outpatient (CLI) | payer MEDICARE ==
[2023-01-17 16:11] LABS: Appearance,Urine Clear (Clear); Bilirubin,Urine Negative (Negative); Blood,Urine Trace (Negative); Color,Urine Yellow (Yellow); Ketones,Urine Negative (Negative); Nitrite,Urine Negative (Negative); Specific Gravity,Urine 1.024 (1.001-1.030)
[2023-01-17 16:18] LABS: Bacteria,Urine None Seen (None Seen)
[2023-01-17 16:47] LABS: Basophils # (A) 0.05 X 10*3/uL (0.00-0.10); Eosinophils # (A) 0.05 X 10*3/uL (0.04-0.35); HCT 49.3 % (39.6-50.0); HGB 16.5 d/dL (13.0-17.0); Lymphocytes # (A) 1.03 X 10*3/uL (0.90-5.00); Lymphocytes % (A) 21.4 %; MCH 31.3 pg (27.0-32.0); MCHC 33.5 d/dL (32.0-37.0); MCV 93.4 FL (80.0-97.0); Mean Platelet Volume 10.5 FL (9.5-12.2); Monocytes # (A) 0.63 X 10*3/uL (0.20-1.00); Monocytes % (A) 13.1 %; NRBC Per 100 WBC 0 X 10*3/uL (0.00-0.01); Neutrophils # (A) 3.04 X 10*3/uL (1.80-7.70); Neutrophils % (A) 63.3 %; Platelet Count 160 X 10*3/uL (140-440); RBC 5.28 X 10*6/uL (4.40-5.60); RBC Morphology Normal (Normal); WBC 4.81 X 10*3/uL (4.50-10.00)
[2023-01-17 16:49] LABS: BUN/Creat Ratio 17.64 Ratio (12.00-20.00); Blood Urea Nitrogen 19.4 mg/dL (9.0-27.0); Calcium 10.4 mg/dL (8.7-10.3); Carbon Dioxide 26.5 mmol/L (21.6-31.8); Chloride 102 mmol/L (96-109); Glucose 154 mg/dL (70-110); Potassium 5.2 mmol/L (3.5-5.5); Sodium 139 mmol/L (135-145)
== END | disposition home or self-care (01) ==
LOC: LABPAT 09:28
PROVIDERS: ATTEND Urology
DX: Z01.812 Encounter for preprocedural laboratory examination (principal); N21.9 Calculus of lower urinary tract, unspecified; R31.0 Gross hematuria
CPT/HCPCS: 36415; 80048; 81001; 85025; 87086

== ENCOUNTER → 2023-01-24 | Day surgery (SDC) | payer MEDICARE ==
--- NOTE | 2023-01-23 12:54 | P.GSHP ---
History of Present Illness H&P Date: 01/23/23 65 yo male with a previous padical prostatectomy who had gross hematuria. He was found on cystoscopy to have a stone at the anastamosis. He comes for a cystolithotripsy - Constitutional Constitutional: Denies chills, Denies fever - EENT Eyes: denies blurred vision, denies pain Ears, nose, mouth and throat: Denies headache, Denies sore throat - Cardiovascular Cardiovascular: Denies chest pain, Denies shortness of breath - Respiratory Respiratory: Denies cough, Denies 7 - Gastrointestinal Gastrointestinal: Denies abdominal pain, Denies diarrhea, Denies nausea, Denies vomiting - Genitourinary (Female) Genitourinary: Denies dysuria, Denies hematuria - Genitourinary (Male) Genitourinary: Denies dysuria, Denies hematuria - Musculoskeletal Musculoskeletal: Denies myalgias - Integumentary Integumentary: Denies pruritus, Denies rash - Neurological Neurological: Denies numbness, Denies weakness - Psychiatric Psychiatric: Denies anxiety, Denies depression - Endocrine Endocrine: Denies fatigue, Denies weight change Past Medical History Past Medical History: Atrial Flutter, Coronary Artery Disease (CAD), Cancer, Diabetes Mellitus, Hyperlipidemia, Hypertension Additional Past Medical History / Comment(s): Prostate CA (in remission; last radiation in december 2017.) hx ulcers, hx of kidney stones History of Any Multi-Drug Resistant Organisms: None Reported Past Surgical History: Coronary Bypass/CABG, Prostate Surgery Additional Past Surgical History / Comment(s): lithotripsy, prostatectomy, egd Past Anesthesia/Blood Transfusion Reactions: No Reported Reaction Additional Past Anesthesia/Blood Transfusion Reaction / Comment(s): clausterphobia. past blood transfusion-no reaction to it. Smoking Status: Never smoker - Past Family History Mother Family Medical History: Diabetes Mellitus, Hypertension Father History Unknown: Yes Family Medical History: Coronary Artery Disease (CAD) Medications and Allergies Home Medications Medication Instructions Recorded Confirmed Type metFORMIN HCL [Glucophage] 500 mg PO BID #60 tab 05/08/18 01/18/23 Rx Atorvastatin [Lipitor] 20 mg PO HS 09/17/18 01/18/23 History glipiZIDE [Glucotrol] 5 mg PO DAILY 09/17/18 01/18/23 History Apixaban [Eliquis] 5 mg PO BID 30 Days #60 tab 09/18/18 01/18/23 Rx Amiodarone [Cordarone] 200 mg PO DAILY 05/29/19 01/18/23 History Calcium/Magnesium/Zinc 1 each PO DAILY 05/29/19 01/18/23 History [Spevyus-Vrrwbqksx-Kzan Tablet] Metoprolol Tartrate [Lopressor] 25 mg PO DAILY 05/29/19 01/18/23 History Multivitamins, Thera [Multivitamin 1 tab PO DAILY 05/29/19 01/18/23 History (formulary)] Vit C/E/Zn/Coppr/Lutein/Zeaxan 1 each PO DAILY 05/29/19 01/18/23 History [Preservision Areds 2 Softgel] Vitamin D (Unknown Dose) 1 tab PO DAILY 05/29/19 01/18/23 History Vitamin E (Unknown Dose) 1 tab PO DAILY 05/29/19 01/18/23 History Allergies Allergy/AdvReac Type Severity Reaction Status Date / Time No Known Allergies Allergy Verified 01/18/23 10:20 Surgical - Exam - General well developed, well nourished, no distress - Eyes normal ocular movement, no icteric - ENT no hearing loss, no congestion - Neck no masses, trachea midline - Respiratory normal respiratory effort, clear to auscultation - Abdomen Abdomen: soft, non tender, no guarding, no rigid, no rebound - Integumentary no rash, no abnormal pigmentation - Neurologic no disoriented, no combative - Psychiatric oriented to time, oriented to person, oriented to place, speech is normal, memory intact Assessment and Plan Assessment: Impression: bladder stone prostate ca, multiple medical morbidities Plan: cystolithotripsy
[~2023-01-24] MED LIST changes: +HYDROmorphone 0.5 MG/0.5 ML SYRINGE IVP PRN; +LIDOCAINE 1% (10MG/ML) FOR IV START INTRADERMA PRN; -LIDOCAINE 1% 20 ML VIAL (10MG/ML) FOR IV START INTRADERMA PRN; +LIDOCAINE 2% INJ 20 MG/ML (2 ML VIAL) ONE; +METOPROLOL TARTRATE 5 MG/5 ML VIAL IVP ONE; +MIDAZOLAM 2 MG/2 ML VIAL ONE; +ONDANSETRON 4 MG/2 ML VIAL IVP ONE; +PHENYLEPHRINE-0.9% NACL SYG 1,000 MCG/10 ML SYRINGE ONE; +Pre Op ABX Message 1 EACH MISC MISCELLANE ONE; +SODIUM CHLORIDE 0.9% 50 ML with ceFAZolin 2,000 MG IV ONE; +SUCCINYLCHOLINE CHLORIDE 200 MG/10 ML VIAL IV ONE; +droPERidol 5 MG/2 ML VIAL IVP ONE; +fentaNYL (PF) 50 MCG/ML 2 ML AMP ONE; +hydrALAZINE HCL 20 MG/ML 1 ML VIAL IV ONE
[2023-01-24 10:23] VITALS: RESP 16
[2023-01-24 10:29] LABS: Glucose,Whole Blood 131 mg/dL (70-110)
--- NOTE | 2023-01-24 12:18 | P.OP ---
Date of Procedure: 01/24/23 Preoperative Diagnosis: Bladder stone (small less than 2.5 cm ) Postoperative Diagnosis: Same Procedure(s) Performed: Cystoscopy with cystolithotripsy Anesthesia: COY Surgeon: Marty Gore IV fluids (ml): 0 Pathology: other (Stone) Condition: stable Disposition: PACU Indications for Procedure: The patient is 67. He status post radical prostatectomy. He had gross hematuria. Endoscopy identified a stone at the anastomotic area. He comes for cystoscopy lithotripsy Description of Procedure: Patient brought to the operating suite. Given general anesthesia. Placed lithotomy position with sterile prep and drape. Cystoscopy identifies a normal anterior urethra. The vesicourethral anastomosis is open. The stone that was previously attached identified in the office is fallen back into the bladder. It is identified and the bladder neck appears to be attached to an old Vicryl stitch. With the 550 laser probe the stone was broken into tiny fragments and flushed out of the bladder. The old Vicryl stitches also removed. His no remaining stone. The bladder is drained the patient is awakened and returned recovery room good condition. Blood loss is minimal. He tolerated the procedure well be discharged home upon recovery and follow in the office in one week.
[2023-01-24 12:29] VITALS: TEMP 97.7
[2023-01-24 13:47] VITALS: BP 129/88; PULSE 97
== END | disposition home or self-care (01) ==
LOC: OR 09:44
PROVIDERS: ATTEND Urology
DX: N21.0 Calculus in bladder (principal); E11.9 Type 2 diabetes mellitus without complications; I10 Essential (primary) hypertension; I48.92 Unspecified atrial flutter; E78.5 Hyperlipidemia, unspecified; I25.10 Atherosclerotic heart disease of native coronary artery without angina pectoris; Z79.01 Long term (current) use of anticoagulants; Z79.84 Long term (current) use of oral hypoglycemic drugs; Z83.3 Family history of diabetes mellitus; Z82.49 Family history of ischemic heart disease and other diseases of the circulatory system; Z87.442 Personal history of urinary calculi; Z85.46 Personal history of malignant neoplasm of prostate; Z95.1 Presence of aortocoronary bypass graft; Z90.79 Acquired absence of other genital organ(s); Z79.899 Other long term (current) drug therapy
CPT/HCPCS: 52317; 82365; J2250; J0330; J0360; J2405; J0690; J3010; J2704; J2001; J2371

== ENCOUNTER → 2024-03-03 | Outpatient (CLI) | payer MEDICARE | END | disposition home or self-care (01) | LOC: LABWHC1 14:28 | PROVIDERS: ATTEND Urology | DX: R97.20 Elevated prostate specific antigen [PSA] (principal) | CPT/HCPCS: 36415; 84153 ==

== ENCOUNTER → 2024-09-23 | Outpatient (CLI) | payer MEDICARE | END | disposition home or self-care (01) | LOC: LABWHC1 08:39 | PROVIDERS: ATTEND Urology | DX: C61 Malignant neoplasm of prostate (principal) | CPT/HCPCS: 36415; 84153 ==